=== PATIENT | female | born 1945 | race Caucasian/White ===

== ENCOUNTER 2022-02-16 06:33 | Outpatient (REF) | payer MEDICARE, OTHER, SELFPAY ==
[2022-02-16 11:15] LABS: Hematocrit 41.2 % (37.0-47.0); Hemoglobin 13.7 g/dl (12.0-16.0); Mean Corpuscular HGB Conc 33.3 g/dl (31.0-35.0); Mean Corpuscular Hemoglobin 29.1 pg (27.0-33.0); Mean Corpuscular Volume 87.5 fL (80.0-98.0); Mean Platelet Volume 12.2 fL (9.4-12.3); Platelet Count 185 X10*3/uL (160-400); Red Blood Count 4.71 X10*6/uL (4.20-5.50); Red Cell Distribution Width 13.2 % (11.0-16.0); White Blood Count 6.2 X10*3/uL (4.8-10.8)
[2022-02-16 11:23] LABS: Appearance Urine Turbid; Color Urine Dark Yellow; Glucose Urine UA Negative (Negative); Leukocyte Esterase Urine Small (1+) (Negative); Nitrite Urine Negative (Negative); Urine Blood Negative (Negative); Urine Ketones Negative (Negative); Urine Protein Negative (Neg-Trace)
[2022-02-16 11:24] LABS: Estimated Average Glucose 123 mg/dL; Hemoglobin A1c % 5.9 %
[2022-02-16 11:32] LABS: Alanine Aminotransferase 28 U/L (0-31); Albumin Level 4.2 g/dL (3.5-5.0); Alkaline Phosphatase 77 U/L (39-117); Anion Gap 15 (12-20); Aspartate Amino Transferase 21 U/L (5-31); Bilirubin Total 0.6 mg/dL (0.0-1.0); Blood Urea Nitrogen 17 mg/dL (9-16); Carbon Dioxide 25 mmol/L (22-29); Chloride 104 mmol/L (96-108); Cholesterol 189 mg/dL; Estimated Glomerular Filt Rate > 60; Glucose Fasting 140 mg/dL (60-99); HDL Cholesterol 56 mg/dL; LDL Cholesterol Calculated 115 mg/dl; Potassium 4.5 mmol/L (3.3-5.1); Sodium 139 mmol/L (135-145); Total Protein 6.9 g/dL (6.5-8.0); Triglycerides 92 mg/dL
[2022-02-16 11:44] LABS: Bacteria Urine None Seen (None Seen); Calcium Oxalate Crystals Urine Present; Hyaline Casts Urine 0-2 /LPF (0-2); Squamous Epithelial Cell Urine 0-2 /HPF (0-2); UACC Culture Trigger YES; WBC Urine 0-5 /HPF (0-5)
[2022-02-16 12:09] LABS: TSH reflex Free T4 0.75 uIU/mL (0.32-4.0); Vitamin D 25-OH Total 36.8 ng/mL (>30)
== END 2022-02-16 06:34 | disposition home or self-care (01) ==
LOC: HO.HMGCLDS 06:33
PROVIDERS: PCP Internal Medicine; Visit Provider Internal Medicine
DX: E55.9 Vitamin D deficiency, unspecified (principal); I10 Essential (primary) hypertension; R73.9 Hyperglycemia, unspecified; E03.9 Hypothyroidism, unspecified
CPT/HCPCS: 36415; 80053; 80061; 81001; 82306; 83036; 84443; 85027; 87086

== ENCOUNTER 2022-06-25 10:52 | Outpatient (REF) | payer MEDICARE, OTHER, SELFPAY ==
--- NOTE | ~2022-06-25 | XR_ITS ---
EXAMINATION: XR FOOT, LEFT CLINICAL INFORMATION: Foot pain COMPARISON: None TECHNIQUE: AP, lateral, and oblique views of the left foot. FINDINGS: There is first MTP joint fusion with a solitary screw traversing the joint. Clement mild is deformity first MTP joint is noted. There is mild loss of PIP and DIP joints all digits with likely fusion of PIP joint second digit. No visible fracture, dislocation or subluxation seen. The ankle mortise and subtalar joints are normal. There is a moderate size retrocalcaneal enthesophyte. Soft tissues are normal. XR/XR foot LT min 3V IMPRESSION: 1. Fusion first MTP joint with a solitary screw. There is mild hallux valgus deformity first MTP joint. 2. There is fusion of PIP joint second digit. 3. There is a moderate size retrocalcaneal enthesophyte. 4. Mild degenerative changes PIP and DIP joints. No visible acute fracture or dislocation.
== END 2022-06-25 10:53 | disposition home or self-care (01) ==
LOC: HO.HMGCX 10:52
PROVIDERS: PCP Internal Medicine; Visit Provider Physician Assistant Medical
DX: M79.672 Pain in left foot (principal)
CPT/HCPCS: 73630

== ENCOUNTER 2022-08-25 10:18 | Inpatient (IN) | payer MEDICARE, OTHER, SELFPAY ==
--- NOTE | 2022-08-25 10:20 | ECG_ITS ---
Test Reason : tachycardia Blood Pressure : / mmHG Vent. Rate : 150 BPM Atrial Rate : 000 BPM P-R Int : 000 ms QRS Dur : 080 ms QT Int : 294 ms P-R-T Axes : 000 070 010 degrees QTc Int : 464 ms Atrial fibrillation with rapid ventricular response Abnormal ECG No previous ECGs available Referred By: Generic ED Physician Electronically Signed By:SUHAS KIM
[2022-08-25 10:31] VITALS: BP 140/86; PULSE 168; RESP 17; TEMP 36.8; O2SAT 98; BMI 29.5
[2022-08-25 10:50] LABS: MANUAL DIFF FLAG NO
[2022-08-25] MEDS: dilTIAZem HCL 50 MG/10 ML VIAL 20 MG IVPUSH (10:54)
[2022-08-25] MEDS: Aspirin 81 MG TAB.CHEW 324 MG PO (10:56)
--- NOTE | 2022-08-25 11:04 | ED.ARRPALP ---
HPI - Arrhythmia/Palpitations General Chief Complaint: Arrhythmia/Palpitations Stated Complaint: Tachy sent by Gómez Time Seen by Provider: 08/25/22 10:27 History of Present Illness HPI narrative: Patient is 77 years old presents today with having gone to her primary physician's office. Was noted to have a fast heart rate. An EKG was done. It showed atrial fibrillation heart rate was approximately 140. Patient subsequently was sent down to the emergency department. She has a history of thyroid problems. History of hypertension. She had felt somewhat weak. It did not have any chest pain. No diaphoresis. No leg swelling. No history of alcohol use. Patient is from home. Never had atrial fibrillation in the past. Related Data Home Medications Medication Instructions Recorded Confirmed triamcinolone acetonide 0.1 % 1 appl topical BID-TID 08/16/21 08/25/22 topical cream cholecalciferol (vitamin D3) 50 3,000 mcg PO DAILY 08/25/22 08/25/22 mcg (2,000 unit) capsule Previous Rx's Medication Instructions Recorded amlodipine 5 mg tablet 5 mg PO DAILY #90 tabs 12/06/21 levothyroxine 75 mcg tablet 75 mcg PO DAILY #90 tabs 12/06/21 (Euthyrox) Allergies Allergy/AdvReac Type Severity Reaction Status Date / Time Compazine Allergy Unknown facial Uncoded 08/25/22 10:35 paralysis Review of Systems Review of Systems: No palpitation no chest pain or diaphoresis Patient unsure the time of onset No coughing or congestion or upper respiratory symptoms Yes all other systems are reviewed and are negative PMFSH Past Medical History Attestation statement: The following information was validated with the patient. Medical History HTN (hypertension) Hx of mammogram Hyperglycemia Numerous skin moles Postmenopausal Vitamin D deficiency Surgical History History of bunionectomy Hx of colonoscopy Hx of shoulder surgery Family History Family History Father CAD (coronary artery disease) COPD (chronic obstructive pulmonary disease) Social History Social History Household Members Other:: lives alone, 2 adults Housing: House Alcohol intake: current Alcohol intake frequency: holidays/special occasions only Patient Tobacco Use Status: Never used Tobacco Smoked in Last 30 Days: No e-Cigarette/Vaping Use: Never Used Use of substances other than those prescribed or required for medical reasons: No Advance Directives: No Advance Directives Information Provided: Yes service: No Current occupational status: retired Cognitive needs: No Hearing needs: No Vision needs: No Physical Exam Vital Signs: Vital Signs: Last Vital Signs Temp 98.3 F 08/25/22 10:31 Pulse 168 H 08/25/22 10:31 Resp 17 08/25/22 10:31 BP 140/86 H 08/25/22 10:31 Pulse Ox 98 08/25/22 10:31 O2 Del Method 08/25/22 10:31 BMI result Body Mass Index 29.5 Appearance: Alert. Oriented X3. No acute distress. Eyes: Pupils equal, round and reactive to light. ENT: Pharynx normal. Neck: Normal inspection. Neck supple. No lymph nodes noted. No crepitus CVS: Irregularly irregular tachycardic Respiratory: No respiratory distress. Breath sounds normal. No Wheezing. No rales Abdomen: Soft and nontender. No rigidity. No distention. good BS x4 Skin: Skin warm and dry. Normal skin color. Normal skin turgor. Extremities: No lower extremity edema. Neurovascular intact to all extremities. No Lacerations. No Rash Neuro: Oriented X 3. No motor deficit. No sensory deficit. Moving all extermities. No slurred speech Medications Administered Discontinued Medications Generic Name Dose Route Start Last Admin Trade Name Marah PRN Reason Stop Dose Admin Aspirin 324 mg 08/25/22 10:48 08/25/22 10:56 Aspirin 81 Mg Tab.Chew PO 08/25/22 10:49 324 mg ONCE ONE Administration Diltiazem HCl 20 mg 08/25/22 10:47 08/25/22 10:54 Diltiazem Hcl 50 Mg/10 Ml Vial IVPUSH 08/25/22 10:48 20 mg STAT STA Administration Medical Decision Making Medical Decision Making MDM Narrative: Patient presented today with having atrial fib diagnosis at primary physician office. Heart rate was uncontrolled. Patient is sent down for further evaluation. She denies having any chest pain. No diaphoresis. No history of drinking alcohol. My interpretation of the patient's EKG on arrival showed a heart rate of 150 grossly showed an atrial fibrillation pattern. Patient's QRS QT was normal. There is no acute ST segment elevation noted. Patient has no history of congestive heart failure. Labs were ordered alcohol level ordered TSH ordered. A dose of Cardizem was ordered. Aspirin given. Will monitor patient's heart rate very carefully. Patient placed on the monitor. Noon patient's heart rate is down to approximately 100-120. Patient's electrolytes unremarkable. Old chart was reviewed. A dose of oral Cardizem was given. Patient to be admitted for further evaluation. Aspirin given. Patient's case discussed with the hospitalist team for further monitoring. Differential Diagnosis Differential Diagnoses: The differential diagnosis associated with the presentation includes Atrial fibrillation caused by PR, hyperthyroid, electrolyte abnormality, EtOH Admission/Observation Consideration of admission/observation: Escalation of care including admission/observation considered Consult Healthcare Provider Management of the patient was discussed with: Hospitalist Lab Data MDM Lab Attestation statement: I reviewed the patient's lab results. 08/25/22 10:40 08/25/22 10:40 Labs: Lab Results 08/25/22 08/25/22 08/25/22 Range/Units 10:40 10:40 10:40 WBC 7.0 (4.8-10.8) X10*3/uL RBC 4.73 (4.20-5.50) X10*6/uL Hgb 13.6 (12.0-16.0) g/dl Hct 40.8 (37.0-47.0) % MCV 86.3 (80.0-98.0) fL MCH 28.8 (27.0-33.0) pg MCHC 33.3 (31.0-35.0) g/dl RDW 13.4 (11.0-16.0) % Plt Count 203 (160-400) X10*3/uL MPV 11.7 (9.4-12.3) fL Immature Gran % (Auto) 0.3 (0.0-0.4) % Neut % (Auto) 56.7 (45-73) % Lymph % (Auto) 34.1 (20-40) % Hawkins % (Auto) 7.0 (2-11) % Eos % (Auto) 1.3 (0-4) % Baso % (Auto) 0.6 (0-2) % Lymph # (Auto) 2.4 (1.2-4.9) X10*3/uL Hawkins # (Auto) 0.5 (0.1-1.2) X10*3/uL Eos # (Auto) 0.1 (0.0-0.4) X10*3/uL Baso # (Auto) 0.0 (0.0-0.2) X10*3/uL Abs Immat Gran (auto) 0.02 (0.00-0.03) X10*3/uL Absolute Neuts (auto) 4.0 (2.0-8.3) x10*3/uL Absolute Nucleated RBC 0.000 (0.0-0.012) X10*3/uL Nucleated RBC % (auto) 0.0 (0.0-0.2) /100WBC PT (10.0-13.1) SEC INR (0.9-1.1) Sodium 140 (135-145) mmol/L Potassium 4.2 (3.3-5.1) mmol/L Chloride 106 (96-108) mmol/L Carbon Dioxide 26 (22-29) mmol/L Anion Gap 12 (12-20) BUN 16 (9-16) mg/dL Creatinine 0.79 (0.5-1.4) mg/dL Estim Creat Clear Calc 73.8 Estimated GFR > 60 Random Glucose 129 H (60-115) mg/dL Calcium 8.9 (8.4-10.2) mg/dL Total Bilirubin 1.1 H (0.0-1.0) mg/dL AST 24 (5-31) U/L ALT 22 (0-31) U/L Alkaline Phosphatase 78 (39-117) U/L Troponin I High Sens < 3.5 (<3.5-17.0) ng/L Total Protein 6.9 (6.5-8.0) g/dL Albumin 4.3 (3.5-5.0) g/dL 08/25/22 Range/Units 11:31 WBC (4.8-10.8) X10*3/uL RBC (4.20-5.50) X10*6/uL Hgb (12.0-16.0) g/dl Hct (37.0-47.0) % MCV (80.0-98.0) fL MCH (27.0-33.0) pg MCHC (31.0-35.0) g/dl RDW (11.0-16.0) % Plt Count (160-400) X10*3/uL MPV (9.4-12.3) fL Immature Gran % (Auto) (0.0-0.4) % Neut % (Auto) (45-73) % Lymph % (Auto) (20-40) % Hawkins % (Auto) (2-11) % Eos % (Auto) (0-4) % Baso % (Auto) (0-2) % Lymph # (Auto) (1.2-4.9) X10*3/uL Hawkins # (Auto) (0.1-1.2) X10*3/uL Eos # (Auto) (0.0-0.4) X10*3/uL Baso # (Auto) (0.0-0.2) X10*3/uL Abs Immat Gran (auto) (0.00-0.03) X10*3/uL Absolute Neuts (auto) (2.0-8.3) x10*3/uL Absolute Nucleated RBC (0.0-0.012) X10*3/uL Nucleated RBC % (auto) (0.0-0.2) /100WBC PT 11.5 (10.0-13.1) SEC INR 1.0 (0.9-1.1) Sodium (135-145) mmol/L Potassium (3.3-5.1) mmol/L Chloride (96-108) mmol/L Carbon Dioxide (22-29) mmol/L Anion Gap (12-20) BUN (9-16) mg/dL Creatinine (0.5-1.4) mg/dL Estim Creat Clear Calc Estimated GFR Random Glucose (60-115) mg/dL Calcium (8.4-10.2) mg/dL Total Bilirubin (0.0-1.0) mg/dL AST (5-31) U/L ALT (0-31) U/L Alkaline Phosphatase (39-117) U/L Troponin I High Sens (<3.5-17.0) ng/L Total Protein (6.5-8.0) g/dL Albumin (3.5-5.0) g/dL Independent Interpretation I performed an independent interpretation of an: EKG Interpretation: Atrial fibrillation heart rate is proximally on 150 QRS QT within normal limits there is no acute ST segment elevation noted. Radiology Impression Discussion of test interpretation with radiology: I have reviewed the radiologist's reading. Radiologist Impression: Chest x-ray is grossly negative Independent Historian Clinical information obtained from an independent historian. History obtained from or confirmed by: Friend External Record Review External record reviewed: Outpatient record Chronic Conditions Patient?s care impacted by: Hypertension Critical Care Time Critical Care Time Critical Care Time: Yes Total Critical Care Time: 40 Attestation: I have personally provided 40 minutes of critical care time exclusive of time spent on separately billable procedures. Time includes review of lab data, radiology results, discussion with consultants, and monitoring for potential decompensation. Interventions were performed as documented above Discharge Plan Discharge Clinical Impression: Atrial fibrillation Patient Disposition: Admitted As Inpatient Prescriptions: No Action amlodipine 5 mg tablet 5 mg PO DAILY Qty: 90 3RF levothyroxine [Euthyrox] 75 mcg tablet 75 mcg PO DAILY Qty: 90 3RF triamcinolone acetonide 0.1 % cream 1 appl topical BID-TID cholecalciferol (vitamin D3) 50 mcg (2,000 unit) capsule 3,000 mcg PO DAILY
[2022-08-25 11:06] LABS: Basophils Percent Auto 0.6 % (0-2); Eosinophils Absolute Auto 0.1 X10*3/uL (0.0-0.4); Eosinophils Percent Auto 1.3 % (0-4); Hematocrit 40.8 % (37.0-47.0); Hemoglobin 13.6 g/dl (12.0-16.0); Imm Gran Abs Auto 0.02 X10*3/uL (0.00-0.03); Imm Gran Pct Auto 0.3 % (0.0-0.4); Lymphocytes Absolute Auto 2.4 X10*3/uL (1.2-4.9); Lymphocytes Percent Auto 34.1 % (20-40); Mean Corpuscular HGB Conc 33.3 g/dl (31.0-35.0); Mean Corpuscular Hemoglobin 28.8 pg (27.0-33.0); Mean Corpuscular Volume 86.3 fL (80.0-98.0); Mean Platelet Volume 11.7 fL (9.4-12.3); Monocytes Absolute Auto 0.5 X10*3/uL (0.1-1.2); Neutrophils Percent Auto 56.7 % (45-73); Platelet Count 203 X10*3/uL (160-400); Red Blood Count 4.73 X10*6/uL (4.20-5.50); Red Cell Distribution Width 13.4 % (11.0-16.0)
--- NOTE | 2022-08-25 11:08 | ECG_ITS ---
Test Reason : a fib Blood Pressure : / mmHG Vent. Rate : 107 BPM Atrial Rate : 000 BPM P-R Int : 000 ms QRS Dur : 078 ms QT Int : 298 ms P-R-T Axes : 000 063 037 degrees QTc Int : 397 ms Atrial fibrillation with rapid ventricular response Abnormal ECG When compared with ECG of 25-AUG-2022 10:22, No significant changes seen Referred By: Mimi Steinberg Electronically Signed By:SUHAS KIM
[2022-08-25 11:16] LABS: Alanine Aminotransferase 22 U/L (0-31); Albumin Level 4.3 g/dL (3.5-5.0); Alkaline Phosphatase 78 U/L (39-117); Anion Gap 12 (12-20); Aspartate Amino Transferase 24 U/L (5-31); Bilirubin Total 1.1 mg/dL (0.0-1.0); Blood Urea Nitrogen 16 mg/dL (9-16); Calcium 8.9 mg/dL (8.4-10.2); Carbon Dioxide 26 mmol/L (22-29); Chloride 106 mmol/L (96-108); Creatinine Clr Calc Pharmacy 73.8; Estimated Glomerular Filt Rate > 60; Glucose Random 129 mg/dL (60-115); Potassium 4.2 mmol/L (3.3-5.1); Sodium 140 mmol/L (135-145); Total Protein 6.9 g/dL (6.5-8.0)
[2022-08-25 11:27] LABS: Troponin-I High Sensitivity < 3.5 ng/L (<3.5-17.0)
[2022-08-25 11:38] LABS: Prothrombin Time 11.5 SEC (10.0-13.1)
[2022-08-25 12:34] LABS: Ethanol < 10 mg/dL; Magnesium 1.9 mg/dL (1.6-2.6)
[2022-08-25 12:46] LABS: Thyroid Stimulating Hormone 1.02 uIU/mL (0.32-4.0)
--- NOTE | 2022-08-25 13:01 | PM.IMHP ---
History of Present Illness Date of Service: 08/25/22 Attending physician on admission: Phil Morgan Chief Complaint: New onset AFib Pt is a 77-year-old female with a PMH significant for?HTN and hypothyroidism who presents to the ED in new onset AFib with RVR. Pt was at her normal 6-month checkup when PCP noted her to be tachycardic and likely in AFib. Sent her to the ED for further evaluation. In the ED labs were unremarkable and pt was found to be in AFib with RVR of up to 160s. Given diltiazem 20 mg IV in the ED, but patient's heart rate still in the 140s. Patient started on diltiazem drip. Through all this patient was asymptomatic. Denies chest pain/pressure, palpitations. No lightheadedness or dizziness, fatigue. Denies shortness of breath. No fever, chills, nausea, vomiting, abdominal pain. Denies swelling in her legs. Patient states she has recently been in her normal state of health. Patient also denies ever knowingly being in AFib before. Pt will be admitted to the hospital on telemetry for treatment and further evaluation of new onset AFib with RVR. Review of Systems Review of Systems: Denies chest pain/pressure, palpitations No lightheadedness or dizziness, fatigue Denies shortness of breath No fever, chills, nausea, vomiting, abdominal pain Denies swelling in her legs Yes all other systems are reviewed and are negative [facility] Medical History HTN (hypertension) Hx of mammogram Hyperglycemia Numerous skin moles Postmenopausal Vitamin D deficiency Family History Father CAD (coronary artery disease) COPD (chronic obstructive pulmonary disease) Surgical History History of bunionectomy Hx of colonoscopy Hx of shoulder surgery Social History Household Members Other:: lives alone, 2 adults Housing: House Alcohol intake: current Alcohol intake frequency: holidays/special occasions only Patient Tobacco Use Status: Never used Tobacco Smoked in Last 30 Days: No e-Cigarette/Vaping Use: Never Used Use of substances other than those prescribed or required for medical reasons: No Advance Directives: No Advance Directives Information Provided: Yes Nutrition Risks: No Nutritional Risk service: No Current occupational status: retired Cognitive needs: No Hearing needs: No Vision needs: No Meds Allergies Allergy/AdvReac Type Severity Reaction Status Date / Time Compazine Allergy Unknown facial Uncoded 08/25/22 10:35 paralysis Home Medications Medication Instructions Recorded Confirmed Last Taken Type triamcinolone acetonide 0.1 % 1 appl topical BID-TID 08/16/21 08/25/22 08/25/22 History topical cream cholecalciferol (vitamin D3) 50 3,000 mcg PO DAILY 08/25/22 08/25/22 08/25/22 History mcg (2,000 unit) capsule Physical Exam Vital Signs and Narrative: Vital Signs: Last Vital Signs Temp 98.3 F 08/25/22 10:31 Pulse 168 H 08/25/22 10:31 Resp 17 08/25/22 10:31 BP 140/86 H 08/25/22 10:31 Pulse Ox 98 08/25/22 10:31 O2 Del Method 08/25/22 10:31 BMI result Body Mass Index 29.5 Constitutional: Alert, in no acute distress. Mental Status: Oriented to person, place and time. Eyes: Pupils are equal, round, and reactive to light. Ear, Nose, and Throat: Oropharynx clear, mucous membranes moist. Ears and nose without deformities. Trachea midline. Respiratory: Clear to auscultation bilaterally. No wheezing, rales, or rhonchi. Cardiovascular: Irregularly irregular rhythm, tachycardic. No murmurs, rubs, or gallops. Gastrointestinal: Abdomen soft, non-tender, non-distended. Normal bowel sounds. Neurologic: Cranial nerves II-XII are grossly intact bilaterally. No focal neurological deficits. Moves all extremities spontaneously. Skin: No rashes or lesions noted. Musculoskeletal: No cyanosis or clubbing. Extremities: No edema. Psychiatric: Normal mood and affect. Results Labs 08/25/22 10:40 08/25/22 10:40 Labs: Laboratory Results - last 24 hr 08/25/22 08/25/22 08/25/22 10:40 10:40 10:40 MCV 86.3 MCH 28.8 MCHC 33.3 RDW 13.4 Plt Count 203 MPV 11.7 Immature Gran % (Auto) 0.3 Neut % (Auto) 56.7 Lymph % (Auto) 34.1 [place] % (Auto) 7.0 Eos % (Auto) 1.3 Baso % (Auto) 0.6 Lymph # (Auto) 2.4 [place] # (Auto) 0.5 Eos # (Auto) 0.1 Baso # (Auto) 0.0 Abs Immat Gran (auto) 0.02 Absolute Neuts (auto) 4.0 Absolute Nucleated RBC 0.000 Nucleated RBC % (auto) 0.0 PT INR Anion Gap 12 Estim Creat Clear Calc 73.8 Estimated GFR > 60 Random Glucose 129 H Calcium 8.9 Magnesium 1.9 Total Bilirubin 1.1 H AST 24 ALT 22 Alkaline Phosphatase 78 Troponin I High Sens < 3.5 Total Protein 6.9 Albumin 4.3 TSH 1.02 Ethyl Alcohol < 10 08/25/22 11:31 MCV MCH MCHC RDW Plt Count MPV Immature Gran % (Auto) Neut % (Auto) Lymph % (Auto) [place] % (Auto) Eos % (Auto) Baso % (Auto) Lymph # (Auto) [place] # (Auto) Eos # (Auto) Baso # (Auto) Abs Immat Gran (auto) Absolute Neuts (auto) Absolute Nucleated RBC Nucleated RBC % (auto) PT 11.5 INR 1.0 Anion Gap Estim Creat Clear Calc Estimated GFR Random Glucose Calcium Magnesium Total Bilirubin AST ALT Alkaline Phosphatase Troponin I High Sens Total Protein Albumin TSH Ethyl Alcohol Assessment and Plan (1) Atrial fibrillation with RVR: Status: Acute Plan Pt is a 77-year-old female with a PMH significant for?HTN and hypothyroidism who presents to the ED in new onset AFib with RVR. Pt was at her normal 6-month checkup when PCP noted her to be tachycardic and likely in AFib. Sent her to the ED for further evaluation. Pt will be admitted to the hospital on telemetry for treatment and further evaluation of new onset AFib with RVR. New onset AFib with RVR Patient found to be in AFib today with rate up to 160s Patient asymptomatic Patient given diltiazem 20 mg IV in ED, rate still in 140s Diltiazem drip Start Eliquis 5mg po bid Echocardiogram Cardiology consult HTN Continue amlodipine Hypothyroidism Continue levothyroxine Full Code Attending:?Dr. Morgan DVT Prophylaxis: Jordanachrisbrice Pt will require a hospitalization of at least two nights for treatment of?new-onset AFib with RVR. Time Spent With Patient Time: Total time managing care of this patient today ____ minutes. Quality Stroke Does the patient have a stroke diagnosis?: No VTE Prior VTE?: No VTE Risk Level:: Medical - moderate - high VTE Device Contraindication: Treatment Not Indicated VTE Drug Contraindication: N/A - Med Ordered
[2022-08-25] MEDS: dilTIAZem HCL 125 MG in 0.9 % Sodium Chloride 100 ML 10 MG IVCONT (13:14)
[2022-08-25] MEDS: Apixaban 5 MG TABLET PO ×2 (13:14→19:49)
--- NOTE | 2022-08-25 13:18 | PHA.MEDREC ---
Pharmacy Consult ? Medication Reconciliation Pharmacy has completed the medication reconciliation. Reviewed med rec done by nursing
[2022-08-25 13:19] VITALS: BP 106/67; PULSE 135; RESP 14; O2SAT 98
[2022-08-25 13:51] LABS: IDNOW Serial# 55D5AD1C
[2022-08-25 13:52] LABS: COVID-19 Test Negative (Negative)
[2022-08-25 15:39] VITALS: BP 121/65; PULSE 90; RESP 20; O2SAT 98
[2022-08-25 16:00] VITALS: BP 131/68; PULSE 102; RESP 18; TEMP 36.6; O2SAT 99
[2022-08-25 16:14] VITALS: BMI 30.5
--- NOTE | 2022-08-25 18:35 | PC.NURSE ---
per protocol, pt HR was 70s-80s. Cardizem gtt paused.
[2022-08-25 19:36] VITALS: BP 117/65; PULSE 80; RESP 17; TEMP 36.6; O2SAT 98
[2022-08-25] MEDS: 0.9 % Sodium Chloride Flush 3 ML SYRINGE IVFLUSH (19:50)
[2022-08-25 23:39] VITALS: BP 120/71; PULSE 94; RESP 18; TEMP 37.2; O2SAT 97
[2022-08-26 04:00] VITALS: BP 119/64; PULSE 104; RESP 18; TEMP 36.9; O2SAT 96
[2022-08-26] MEDS: Levothyroxine Sodium 75 MCG TABLET PO (05:39)
--- NOTE | 2022-08-26 07:00 | CA_ITS ---
Transthoracic Echocardiogram Patient (Last, First, Middle): Charla Gregorio B Gender: Female Date of : 1945 Age: 77 Procedure Date: 08/26/2022 Procedure Type: Transthoracic Echocardiogram Location: [facility] [place] Height: 175.26 cm Weight: 90.72 kg BSA: 2.07 m2 Heart Rate: bpm BP: 119 / 64 mmHg Card Player: TONY Referring MD: Agus SCOTT Symptoms: New onset AFib with RVR Study Quality: Fair/Contrast ECG Rhythm: Atrial Fibrillation with rapid rate Conclusions: - The left ventricular systolic function is normal. The visually estimated ejection fraction is between 55-60%. - There is mild calcification of the aortic valve. - There is mild mitral annular calcification. There is mild mitral valve regurgitation. - There is mild tricuspid valve regurgitation. Findings Procedure Information Contrast agent, definity, is being given per protocol without apparent complications. Left Ventricle Normal left ventricular cavity size. The left ventricular systolic function is normal. The visually estimated ejection fraction is between 55-60%. There is no evidence of regional wall motion abnormalities. Diastolic function is indeterminate on the basis of available data. There is mild septal asymmetric hypertrophy. Right Ventricle Normal right ventricular cavity size. There is normal right ventricular systolic function. Atria Both atria are normal in size. Aortic Valve There is mild calcification of the aortic valve. There is no aortic valve stenosis. There is no aortic valve regurgitation. Mitral Valve There is mild mitral annular calcification. There is mild mitral valve regurgitation. There is no mitral valve stenosis. Pulmonic Valve The pulmonic valve is likely normal. Tricuspid Valve Normal tricuspid valve structure. There is mild tricuspid valve regurgitation. There is no evidence of pulmonary hypertension. Great Vessels The asc aorta is normal in size. Venous The inferior vena cava is normal in size and collapses greater than 50% with inspiration. Pericardium/Pleural There is no evidence of pericardial effusion. Prior Study Comparison No prior study available for comparison. Measurements 2D Linear Measurements IVSd: 1.27 0.6-0.9/0.6-1.0 cm LVIDd: 4.15 3.9-5.3/4.2-5.9 cm LVIDd Index: 2.00 2.4-3.2/2.2-3.1 cm/m2 LVIDs: 2.68 2.0-3.6 cm LVPWd: 1.01 0.7-1.1 cm LA Diam: 3.50 2.7-3.8/3.0-4.0 cm LAIDs Index: 1.69 1.5-2.3 cm/m2 LV Mass: 202.15 67-162/88-224 g LV Mass Index: 97.66 43-95/49-115 g/m2 LVOT Diam: 1.90 3.0+(-)1.3 cm 2D Systolic Function EF 4C: 47.90 >55% EF 2C: 45.40 >55% Mitral Valve MV Pk E: 1.39 MV Decel Time: 165.00 E'Lateral: 12.00 E'Medial: 8.16 E/E' Med: 17.00 E/E' Lat: 11.60 PHT: 48.00 MVA PHT: 4.58 Decel Pender: 8.42 Aortic Valve AoV Pk Hayden: 1.15 AoV Mn Hayden: 0.86 AoV VTI: 0.19 AoV Pk Grad: 5.00 Aov Mn Grad: 3.00 PEYMAN Cont.VTI: 2.69 LVOT LVOT Pk Hayden: 1.01 LVOT Mn Hayden: 0.70 LVOT VTI: 0.18 LVOT Pk Grad: 4.00 LVOT Mn Grad: 2.00 LVOT Diam: 1.90 LVOT Area: 2.84 Diastolic Function MV Pk E: 1.39 E'Medial: 8.16 E/E' Med: 17.00 E' Laterial: 12.00 E/E' Lat: 11.60 Right Ventricle TAPSE (mm): 21.70 TVS' Hayden: 13.60 Tricuspid Valve TR Pk Hayden: 2.34 TR Pk Grad: 22.00 RA Press: 3.00 RVSP: 25.00 Great Vessels Aorta Sinus of Valsalva: 3.20 2.0-3.5 cm Ao Asc: 3.00 2.1-3.4 cm Updated in Other Vendor System with Status of Final Roger Guadarrama MD electronically signed on 08/26/2022 2:14:10 PM with status of Final
[2022-08-26 07:52] VITALS: BP 129/81; PULSE 101; RESP 18; TEMP 36.3; O2SAT 98
[2022-08-26] MEDS: amLODIPine Besylate 5 MG TABLET PO (09:20)
[2022-08-26] MEDS: 0.9 % Sodium Chloride Flush 3 ML SYRINGE IVFLUSH ×3 (09:20→21:53)
[2022-08-26] MEDS: Apixaban 5 MG TABLET PO ×2 (09:20→21:52)
--- NOTE | 2022-08-26 09:49 | MHC.CM.PN ---
IMM FEMALE 77 DX AFIB RVR She lives alone in a [facility]. She is independent with ADLs. No AD needed. VAXXED X5 DP home self care family transport.
--- NOTE | 2022-08-26 10:35 | P.CONCA_ITS ---
History of Present Illness History of Present Illness Date of Service: 08/26/22 Chief complaint: New onset Afib with RVR Narrative: This is a cardiology consultation regarding atrial fibrillation. Patient does not have any known cardiac issues. No history of any coronary artery disease or myocardial infarction or cardiomyopathy or in fact any other cardiac issues at all. It seems that she had a regular EKG through her own PCP and that showed atrial fibrillation rapid rate. Then sent to the ER and admitted. She did get Cardizem drip but currently off. She has not had any symptoms like angina or shortness of breath or palpitations or generalized weakness or anything of concern. Otherwise, fairly healthy according to her. Review of Systems Review of Systems: Yes all other systems are reviewed and are negative Constitutional: Constitutional: Reports as per HPI and Reports no additional constitutional complaints Eyes: Eyes: Reports as per HPI and Denies no additional eye complaints ENT: Denies system reviewed and no additional complaints, except as documented and Reports as per HPI Cardiovascular: Cardiovascular: Reports as per HPI, Reports no additional cardiovascular complaints, Denies acrocyanosis, Denies cool extremities, Denies chest pain, Denies leg edema, Denies lightheadedness, Denies palpitations and Denies dyspnea Respiratory: Respiratory: Reports as per HPI, Denies no additional respiratory complaints and Denies dyspnea Gastrointestinal: Gastrointestinal: Reports as per HPI and Denies no additional gastrointestinal complaints Genitourinary: Genitourinary: Reports as per HPI Musculoskeletal: Musculoskeletal: Reports no additional musculoskeletal complaints and Reports as per HPI Integumentary/Breasts: Skin/Breast: Reports system reviewed and no additional complaints, except as docu Neurologic: Reports system reviewed and no additional complaints, except as documented and Reports as per HPI Psychiatric: Psychiatric: Reports no additional psychiatric complaints and Reports as per HPI Endocrine: Endocrine: Reports no additional endocrine complaints, Reports as per HPI and Denies palpitations Hematologic/Lymphatic: Hematologic/Lymphatic: Reports no additional hematologic/lymphatic complaints and Reports as per HPI Allergic/Immunologic: Allergic/Immunologic: Reports no additional allergic/immunologic complaints and Reports as per HPI [facility] Past Medical History Medical History HTN (hypertension) Hx of mammogram Hyperglycemia Numerous skin moles Postmenopausal Vitamin D deficiency Family History Family History Father CAD (coronary artery disease) COPD (chronic obstructive pulmonary disease) Surgical History Surgical History History of bunionectomy Hx of colonoscopy Hx of shoulder surgery Social History Social History Household Members: None Household Members Other:: lives alone, 2 adults Housing: House Do you presently have visiting nurse or other home services: No Alcohol intake: current Alcohol intake frequency: holidays/special occasions only Patient Tobacco Use Status: Never used Tobacco e-Cigarette/Vaping Use: Never Used service: No Current occupational status: retired Cognitive needs: No Hearing needs: No Vision needs: No Meds Allergies Allergy/AdvReac Type Severity Reaction Status Date / Time Compazine Allergy Unknown facial Uncoded 08/25/22 10:35 paralysis Active Medications: Current Medications Acetaminophen (Acetaminophen 325 Mg Tablet) 650 mg PO Q6H PRN PRN Reason: Pain, Mild (Pain Scale 1-3) Apixaban (Apixaban 5 Mg Tablet) 5 mg PO BID [facility] Last Admin: 08/26/22 09:20 Dose: 5 mg Digoxin (Digoxin 0.5 Mg/2 Ml Ampul) 0.25 mg IVPUSH Q6H CINDI Stop: 08/26/22 16:01 Docusate Sodium (Docusate Sodium 100 Mg Capsule) 100 mg PO DAILY PRN PRN Reason: Constipation Diltiazem HCl 125 mg/ Sodium (Chloride) 125 mls @ 0 mls/hr IVCONT .Q0M [facility]; Protocol Last Titration: 08/25/22 18:32 Dose: 0 mg/hr, 0 mls/hr Levothyroxine Sodium (Levothyroxine Sodium 75 Mcg Tablet) 75 mcg PO DAILY@0600 [facility] Last Admin: 08/26/22 05:39 Dose: 75 mcg Metoprolol Tartrate (Metoprolol Tartrate 50 Mg Tablet) 50 mg PO Q6H [facility]; Protocol Ondansetron HCl (Ondansetron Hcl 4 Mg/2 Ml Vial) 4 mg IVPUSH Q8H PRN PRN Reason: Nausea and Vomiting Sodium Chloride (0.9 % Sodium Chloride Flush 3 Ml Syringe) 3 ml IVFLUSH QSHIFT [facility] Last Admin: 08/26/22 09:20 Dose: 3 ml Vitamin D (Cholecalciferol (Vitamin D3) 25 Mcg Tablet) 3,000 mcg PO DAILY CINDI Last Admin: 08/26/22 10:26 Dose: Not Given Home Medications Medication Instructions Recorded Confirmed Last Taken Type triamcinolone acetonide 0.1 % 1 appl topical BID-TID 08/16/21 08/25/22 08/25/22 History topical cream cholecalciferol (vitamin D3) 50 3,000 mcg PO DAILY 08/25/22 08/25/22 08/25/22 History mcg (2,000 unit) capsule Physical Exam Vital Signs: Vital Signs: Last Vital Signs Temp 97.3 F 08/26/22 07:52 Pulse 101 H 08/26/22 07:52 Resp 18 08/26/22 07:52 BP 129/81 08/26/22 07:52 Pulse Ox 98 08/26/22 07:52 O2 Del Method 08/26/22 07:52 BMI result Body Mass Index 30.5 Objective Labs and Meds 08/25/22 10:40 08/25/22 10:40 Lab results: Laboratory Results - last 24 hr 08/25/22 08/25/22 08/25/22 10:40 10:40 10:40 WBC 7.0 RBC 4.73 Hgb 13.6 Hct 40.8 MCV 86.3 MCH 28.8 MCHC 33.3 RDW 13.4 Plt Count 203 MPV 11.7 Immature Gran % (Auto) 0.3 Neut % (Auto) 56.7 Lymph % (Auto) 34.1 [place] % (Auto) 7.0 Eos % (Auto) 1.3 Baso % (Auto) 0.6 Lymph # (Auto) 2.4 [place] # (Auto) 0.5 Eos # (Auto) 0.1 Baso # (Auto) 0.0 Abs Immat Gran (auto) 0.02 Absolute Neuts (auto) 4.0 Absolute Nucleated RBC 0.000 Nucleated RBC % (auto) 0.0 PT INR Sodium 140 Potassium 4.2 Chloride 106 Carbon Dioxide 26 Anion Gap 12 BUN 16 Creatinine 0.79 Estim Creat Clear Calc 73.8 Estimated GFR > 60 Random Glucose 129 H Calcium 8.9 Magnesium 1.9 Total Bilirubin 1.1 H AST 24 ALT 22 Alkaline Phosphatase 78 Troponin I High Sens < 3.5 Total Protein 6.9 Albumin 4.3 TSH 1.02 Ethyl Alcohol < 10 COVID-19 (DERICK) COVID-19 Clin Com 08/25/22 08/25/22 11:31 13:13 WBC RBC Hgb Hct MCV MCH MCHC RDW Plt Count MPV Immature Gran % (Auto) Neut % (Auto) Lymph % (Auto) [place] % (Auto) Eos % (Auto) Baso % (Auto) Lymph # (Auto) [place] # (Auto) Eos # (Auto) Baso # (Auto) Abs Immat Gran (auto) Absolute Neuts (auto) Absolute Nucleated RBC Nucleated RBC % (auto) PT 11.5 INR 1.0 Sodium Potassium Chloride Carbon Dioxide Anion Gap BUN Creatinine Estim Creat Clear Calc Estimated GFR Random Glucose Calcium Magnesium Total Bilirubin AST ALT Alkaline Phosphatase Troponin I High Sens Total Protein Albumin TSH Ethyl Alcohol COVID-19 (DERICK) Negative COVID-19 Clin Com See Note ECG Interpretation: EKG shows atrial fibrillation with rate of 107/Min. Assessment and Plan (1) Atrial fibrillation with RVR: Status: Acute Plan On telemetry, she is in atrial fibrillation rapid rate. Discussed with patient as well as family regarding atrial fibrillation and pathophysiology, treatment options among others. We discussed about rate control as well as rhythm control. With her lifestyle, recommend rather rhythm control. We also discussed about PIPE /cardioversion as opposed to just cardioversion after 4 weeks of anticoagulation. We agreed that today we will try to optimize her medications and see if it can be controlled. If that is the case, then cardioversion in 4 weeks after adequately anticoagulated. If rate cannot be controlled on oral medications, then possibly PIPE/cardioversion tomorrow. Stop diltiazem drip. Start metoprolol 50 mg 4 times a day. Start digoxin loadi ng. Continue Eliquis. Stop amlodipine. Discussed with Dr. Morgan. Time Spent With Patient Time: Total time managing care of this patient today ____ minutes. Procedures Date of Service Date of Service: 08/26/22
[2022-08-26] MEDS: Digoxin 0.5 MG/2 ML AMPUL 0.25 MG IVPUSH ×3 (10:51→21:53)
[2022-08-26] MEDS: Metoprolol Tartrate 50 MG TABLET PO ×3 (10:51→21:52)
[2022-08-26 11:37] VITALS: BP 140/79; PULSE 101; RESP 18; TEMP 36.4; O2SAT 95
--- NOTE | 2022-08-26 13:41 | P.PNIM_ITS ---
Subjective Subjective Date of Service: 08/26/22 Interval History: Intermittent sinus rhythm overnight this a.m. back in AFib Review of Systems Denies chest pain Denies shortness of breath Denies nausea diarrhea Denies fever chills Physical Exam Vital Signs: Vital Signs: Last Vital Signs Temp 97.5 F 08/26/22 11:37 Pulse 101 H 08/26/22 11:37 Resp 18 08/26/22 11:37 BP 140/79 H 08/26/22 11:37 Pulse Ox 95 08/26/22 11:37 O2 Del Method 08/26/22 11:37 BMI result Body Mass Index 30.5 Const: Other: No acute distress Resp: Other: Clear to auscultation bilaterally no rales rhonchi or wheezes Cardio: Other: Irregularly irregular No S4; positive S1-S2; no S3 murmurs rubs or gallops Extrem: Other: No edema bilaterally Objective Data Active Medications Acetaminophen (Acetaminophen 325 Mg Tablet) 650 mg PO Q6H PRN PRN Reason: Pain, Mild (Pain Scale 1-3) Apixaban (Apixaban 5 Mg Tablet) 5 mg PO BID [facility] Last Admin: 08/26/22 09:20 Dose: 5 mg Documented By: LIVAN Digoxin (Digoxin 0.5 Mg/2 Ml Ampul) 0.25 mg IVPUSH Q6H [facility] Stop: 08/26/22 16:01 Last Admin: 08/26/22 10:51 Dose: 0.25 mg Documented By: LIVAN Docusate Sodium (Docusate Sodium 100 Mg Capsule) 100 mg PO DAILY PRN PRN Reason: Constipation Diltiazem HCl 125 mg/ Sodium (Chloride) 125 mls @ 0 mls/hr IVCONT .Q0M [facility]; Protocol Last Titration: 08/25/22 18:32 Dose: 0 mg/hr, 0 mls/hr Documented By: RODRIGUEZ Levothyroxine Sodium (Levothyroxine Sodium 75 Mcg Tablet) 75 mcg PO DAILY@0600 [facility] Last Admin: 08/26/22 05:39 Dose: 75 mcg Documented By: ZOFIA Metoprolol Tartrate (Metoprolol Tartrate 50 Mg Tablet) 50 mg PO Q6H [facility]; Protocol Last Admin: 08/26/22 10:51 Dose: 50 mg Documented By: LIVAN Ondansetron HCl (Ondansetron Hcl 4 Mg/2 Ml Vial) 4 mg IVPUSH Q8H PRN PRN Reason: Nausea and Vomiting Sodium Chloride (0.9 % Sodium Chloride Flush 3 Ml Syringe) 3 ml IVFLUSH QSHIFT [facility] Last Admin: 08/26/22 09:20 Dose: 3 ml Documented By: LIVAN Vitamin D (Cholecalciferol (Vitamin D3) 25 Mcg Tablet) 3,000 mcg PO DAILY [facility] Last Admin: 08/26/22 10:26 Dose: Not Given Documented By: LIVAN Non-Admin Reason: Med Not Available Labs 08/25/22 10:40 08/25/22 10:40 Labs: Laboratory Results - last 24 hr 08/25/22 13:13 COVID-19 ([facility]ICK) Negative COVID-19 Clin Com See Note Assessment and Plan (1) Atrial fibrillation with RVR: Status: Acute (2) HTN (hypertension): Status: Acute (3) Hypothyroidism: Status: Acute Plan Pt is a 77-year-old female with a PMH significant for?HTN and hypothyroidism who presents to the ED in new onset AFib with RVR. Pt was at her normal 6-month checkup when PCP noted her to be tachycardic and likely in AFib. Sent her to the ED for further evaluation. Pt will be admitted to the hospital on telemetry for treatment and further evaluation of new onset AFib with RVR. 1.New onset AFib with RVR -as per Cardiology DC Cardizem drip -digital load; 0.25 mg IV q.6 hours x4 doses -Eliquis 5mg po bid -if no response likely PIPE and cardioversion in a.m. -will keep NPO 2.HTN -DC amlodipine -metoprolol 50 mg q.6 3.Hypothyroidism - levothyroxine Full Code Eliquis Or require ongoing hospitalization for rate control with new onset AFib; may need cardioversion Time Spent With Patient Time: Total time managing care of this patient today ____ minutes. Quality Stroke Does the patient have a stroke diagnosis?: No VTE Prior VTE?: No VTE Risk Level:: Medical - moderate - high VTE Device Contraindication: Treatment Not Indicated VTE Drug Contraindication: N/A - Med Ordered
[2022-08-26 15:02] VITALS: BP 131/88; PULSE 92; RESP 17; TEMP 36.3; O2SAT 94
[2022-08-26 19:40] VITALS: BP 145/70; PULSE 69; RESP 17; TEMP 36.3; O2SAT 98
--- NOTE | 2022-08-26 20:56 | PC.NURSE ---
Assumed care at 16:00; patient alert and oriented, has some questions about plan of care, clarified by reaching out to Dr. Guadarrama, questions pertained to her potential cardioversion tomorrow. She understood the PIPE, but was unsure about the cardioversion. Discussed with MD and plan to give the eliquis tonight, give the other ordered medications and keep NPO after midnight, and customer solutions teammate will come in to explain plan again to patient in AM. Patient in agreement. Patient also appears to have some T-wave elevation in lead II on telemetry that does not seem present in EKGs, patient had milder t-wave elevation earlier in the day. Patient is asymptomatic, denies chest pain or SOB, and Night nurse following up about T-wave elevation.
[2022-08-27] VITALS: BP 136/66; PULSE 69; RESP 18; TEMP 36.6; O2SAT 96
[2022-08-27 04:00] VITALS: BP 130/66; PULSE 85; RESP 20; TEMP 36.6; O2SAT 96
[2022-08-27] MEDS: Levothyroxine Sodium 75 MCG TABLET PO (05:26)
[2022-08-27] MEDS: Metoprolol Tartrate 50 MG TABLET PO (05:26)
[2022-08-27] MEDS: Digoxin 0.5 MG/2 ML AMPUL 0.25 MG IVPUSH (05:27)
[2022-08-27 07:07] VITALS: BP 132/70; PULSE 79; RESP 20; TEMP 35.9; O2SAT 96
--- NOTE | 2022-08-27 08:50 | PM.PNCARD ---
Subjective Subjective Date of Service: 08/27/22 Interval history: Feels fine. No complaints. Review of Systems Review of Systems Yes all other systems are reviewed and are negative Constitutional: Reports as per HPI and Reports no additional constitutional complaints Eyes: Reports as per HPI and Denies no additional eye complaints Denies system reviewed and no additional complaints, except as documented and Reports as per HPI Cardiovascular: Reports as per HPI, Reports no additional cardiovascular complaints, Denies acrocyanosis, Denies cool extremities, Denies chest pain, Denies leg edema, Denies lightheadedness, Denies palpitations and Denies dyspnea Respiratory: Reports as per HPI, Denies no additional respiratory complaints and Denies dyspnea Gastrointestinal: Reports as per HPI and Denies no additional gastrointestinal complaints Genitourinary: Reports as per HPI Musculoskeletal: Reports no additional musculoskeletal complaints and Reports as per HPI Skin/Breast: Reports system reviewed and no additional complaints, except as docu Reports system reviewed and no additional complaints, except as documented and Reports as per HPI Psychiatric: Reports no additional psychiatric complaints and Reports as per HPI Endocrine: Reports no additional endocrine complaints, Reports as per HPI and Denies palpitations Hematologic/Lymphatic: Reports no additional hematologic/lymphatic complaints and Reports as per HPI Allergic/Immunologic: Reports no additional allergic/immunologic complaints and Reports as per HPI Physical Exam Vital Signs: Last Vital Signs Temp 96.6 F L 08/27/22 07:07 Pulse 79 08/27/22 07:07 Resp 20 08/27/22 07:07 BP 132/70 08/27/22 07:07 Pulse Ox 96 08/27/22 07:07 O2 Del Method 08/27/22 07:07 BMI result Body Mass Index 30.5 Const General: comfortable and no acute distress Orientation/consciousness: patient oriented x3 HEENT Other: Unremarkable Head: Yes normal to inspection Neck Neck: Yes normal visual inspection Chest Chest palpation & inspection: normal inspection of the chest Resp Auscultation: clear to auscultation bilaterally Cardio Palpation: normal PMI Heart sounds: S1 normal heart sound present, S2 normal heart sound present, no gallops, no murmurs and no rubs GI Palpation (GI): Soft to palpation Back/Spine/Pelvis Other: unremarkable Skin General skin exam: no rashes or lesions noted Neuro General: patient oriented x3 Extrem General: Yes normal to inspection Psych Mental Status: mental status grossly normal Objective Labs and Meds 08/25/22 10:40 08/25/22 10:40 Progress Note: A&P Assessment and plan (1) Atrial fibrillation with RVR: Status: Acute (2) HTN (hypertension): Status: Acute Plan Atrial fibrillation seems much better control. Rates are in the 80s and 90s even with ambulation. No high rates. Change metoprolol to 100 mg b.i.d.. Continue digoxin. Continue Eliquis. Stop amlodipine. No need for urgent PIPE/cardioversion as she has no symptoms and also has well controlled rate. Explained rationale for care with patient and she agrees. Discharge planning. Will follow-up as an outpatient after 4 weeks of therapeutic anticoagulation, can plan cardioversion. Patient agrees with this plan. Discussed with Dr. Carrillo. Time Spent With Patient Time: Total time managing care of this patient today 45 minutes. Progress Note: Quality Stroke Does the patient have a stroke diagnosis?: No Procedures Date of Service Date of Service: 08/27/22
[2022-08-27] MEDS: Metoprolol Tartrate 100 MG TABLET PO (09:23)
[2022-08-27] MEDS: Digoxin 0.125 MG TABLET PO (09:24)
[2022-08-27] MEDS: Apixaban 5 MG TABLET PO (09:24)
[2022-08-27] MEDS: Cholecalciferol (Vitamin D3) 25 MCG TABLET 75 MCG PO (09:24)
[2022-08-27] MEDS: 0.9 % Sodium Chloride Flush 3 ML SYRINGE IVFLUSH (09:25)
--- NOTE | 2022-08-27 10:56 | PM.DS ---
DS: Providers Provider Date of Service: 08/27/22 Date of admission: 08/25/22 13:08 Date of discharge: 08/27/22 Primary care physician: Allyson Magaña MD Consults: 08/25/22 12:56 Consult to Cardiology Routine Consulting Provider: [facility] Reason for consultation: New onset AFib with RVR DS: Diagnosis Discharge Diagnosis (1) Atrial fibrillation with RVR: Status: Acute (2) HTN (hypertension): Status: Acute DS: Summary Hospital Course Hospital Course: from admission history and physical by hospitalist Agus Shoemaker, 08/25/22: Pt is a 77-year-old female with a PMH significant for?HTN and hypothyroidism who presents to the ED in new onset AFib with RVR. Pt was at her normal 6-month checkup when PCP noted her to be tachycardic and likely in AFib. Sent her to the ED for further evaluation. In the ED labs were unremarkable and pt was found to be in AFib with RVR of up to 160s. Given diltiazem 20 mg IV in the ED, but patient's heart rate still in the 140s.? Patient started on diltiazem drip.? Through all this patient was asymptomatic.? Denies chest pain/pressure, palpitations.? No lightheadedness or dizziness, fatigue.? Denies shortness of breath.? No fever, chills, nausea, vomiting, abdominal pain.? Denies swelling in her legs.? Patient states she has recently been in her normal state of health.? Patient also denies ever knowingly being in AFib before. Pt will be admitted to the hospital on telemetry for treatment and further evaluation of new onset AFib with RVR. She was [facility] [place] [facility] and [place]iology was consulted. She was weaned off of the diltiazem drip. She was started on metoprolol and digoxin, as well as apixaban for anticoagulation. TTE demonstrated no structural heart disease. She was discharged on metoprolol, digoxin, and apixaban and will follow-up with Cardiology, with consideration of cardioversion after 4 weeks of anticoagulation. Amlodipine was discontinued. Time Spent with Patient Time attestation: Total time managing care of this patient today ___35_ minutes. Discharge coordination time: Greater than 30 minutes Quality: Safe Use of Opioids Does Pt have an Active Cancer Diagnosis on the Problem List?: No Quality: Stroke Does the patient have a stroke diagnosis?: No Physical Exam Vital Signs: Vital Signs: Last Vital Signs Temp 96.6 F L 08/27/22 07:07 Pulse 79 08/27/22 07:07 Resp 20 08/27/22 07:07 BP 132/70 08/27/22 07:07 Pulse Ox 96 08/27/22 07:07 O2 Del Method 08/27/22 07:07 BMI result Body Mass Index 30.5 Gen: in no acute distress HEENT: sclera anicteric, moist mucus membranes Neck: supple Lungs: clear to auscultation bilaterally Heart: irregularly irregular, no murmurs Abd: soft, non-tender, non-distended Ext: no edema Skin: warm/well-perfused Neuro: alert and oriented x3, no focal findings Psych: appropriate affect DS: Data Data Completed and Pending Completed studies during hospitalization [Text1]: Laboratory Results WBC 7.0 X10*3/uL (4.8-10.8) 08/25/22 10:40 RBC 4.73 X10*6/uL (4.20-5.50) 08/25/22 10:40 Hgb 13.6 g/dl (12.0-16.0) 08/25/22 10:40 Hct 40.8 % (37.0-47.0) 08/25/22 10:40 MCV 86.3 fL (80.0-98.0) 08/25/22 10:40 MCH 28.8 pg (27.0-33.0) 08/25/22 10:40 MCHC 33.3 g/dl (31.0-35.0) 08/25/22 10:40 RDW 13.4 % (11.0-16.0) 08/25/22 10:40 Plt Count 203 X10*3/uL (160-400) 08/25/22 10:40 MPV 11.7 fL (9.4-12.3) 08/25/22 10:40 Immature Gran % (Auto) 0.3 % (0.0-0.4) 08/25/22 10:40 Neut % (Auto) 56.7 % (45-73) 08/25/22 10:40 Lymph % (Auto) 34.1 % (20-40) 08/25/22 10:40 [place] % (Auto) 7.0 % (2-11) 08/25/22 10:40 Eos % (Auto) 1.3 % (0-4) 08/25/22 10:40 Baso % (Auto) 0.6 % (0-2) 08/25/22 10:40 Lymph # (Auto) 2.4 X10*3/uL (1.2-4.9) 08/25/22 10:40 [place] # (Auto) 0.5 X10*3/uL (0.1-1.2) 08/25/22 10:40 Eos # (Auto) 0.1 X10*3/uL (0.0-0.4) 08/25/22 10:40 Baso # (Auto) 0.0 X10*3/uL (0.0-0.2) 08/25/22 10:40 Abs Immat Gran (auto) 0.02 X10*3/uL (0.00-0.03) 08/25/22 10:40 Absolute Neuts (auto) 4.0 x10*3/uL (2.0-8.3) 08/25/22 10:40 Absolute Nucleated RBC 0.000 X10*3/uL (0.0-0.012) 08/25/22 10:40 Nucleated RBC % (auto) 0.0 /100WBC (0.0-0.2) 08/25/22 10:40 PT 11.5 SEC (10.0-13.1) 08/25/22 11:31 INR 1.0 (0.9-1.1) 08/25/22 11:31 Sodium 140 mmol/L (135-145) 08/25/22 10:40 Potassium 4.2 mmol/L (3.3-5.1) 08/25/22 10:40 Chloride 106 mmol/L (96-108) 08/25/22 10:40 Carbon Dioxide 26 mmol/L (22-29) 08/25/22 10:40 Anion Gap 12 (12-20) 08/25/22 10:40 BUN 16 mg/dL (9-16) 08/25/22 10:40 Creatinine 0.79 mg/dL (0.5-1.4) 08/25/22 10:40 Estim Creat Clear Calc 73.8 08/25/22 10:40 Estimated GFR > 60 08/25/22 10:40 Random Glucose 129 mg/dL (60-115) H 08/25/22 10:40 Calcium 8.9 mg/dL (8.4-10.2) 08/25/22 10:40 Magnesium 1.9 mg/dL (1.6-2.6) 08/25/22 10:40 Total Bilirubin 1.1 mg/dL (0.0-1.0) H 08/25/22 10:40 AST 24 U/L (5-31) 08/25/22 10:40 ALT 22 U/L (0-31) 08/25/22 10:40 Alkaline Phosphatase 78 U/L (39-117) 08/25/22 10:40 Troponin I High Sens < 3.5 ng/L (<3.5-17.0) 08/25/22 10:40 Total Protein 6.9 g/dL (6.5-8.0) 08/25/22 10:40 Albumin 4.3 g/dL (3.5-5.0) 08/25/22 10:40 TSH 1.02 uIU/mL (0.32-4.0) 08/25/22 10:40 Ethyl Alcohol < 10 mg/dL 08/25/22 10:40 COVID-19 (DERICK) Negative (Negative) 08/25/22 13:13 COVID-19 Clin Com See Note 08/25/22 13:13 TTE 08/26/22 - The left ventricular systolic function is normal.? The visually estimated ejection fraction is between 55-60%. ? - There is mild calcification of the aortic valve. ? - There is mild mitral annular calcification.? There is mild ? ? mitral valve regurgitation.? - There is mild tricuspid valve regurgitation. ? Discharge Plan Discharge Anticipated Discharge Date/Time: 08/27/22 10:52 Patient Disposition: Home, Self-Care Discharge Diagnosis: atrial fibrillation Referrals: Allyson Magaña MD [Primary Care Provider] - 1 Week Roger Guadarrama MD [Physician] - 1 Week Discharge Medications: New Eliquis 5 mg Tablet 5 mg PO BID Qty: 60 0RF metoprolol tartrate 100 mg Tablet 100 mg PO BID Qty: 60 0RF Protocol: Hold for SBP/HR < HOLD for SBP < : 90 HOLD for HR < : 60 digoxin 125 mcg (0.125 mg) Tablet 0.125 mg PO DAILY Qty: 30 0RF Continued levothyroxine [Euthyrox] 75 mcg tablet 75 mcg PO DAILY Qty: 90 3RF triamcinolone acetonide 0.1 % cream 1 appl topical BID-TID cholecalciferol (vitamin D3) 50 mcg (2,000 unit) capsule 3,000 unit PO DAILY Discontinued amlodipine 5 mg tablet 5 mg PO DAILY Qty: 90 3RF Discharge Orders: Discharge Order (Routine); Ordered 08/27/22 Ordered By: Jadiel Carrillo Diet: Low salt diet Activity on Discharge: As tolerated Stand Alone Forms: Patient Portal Discharge page Care Plan Goals: control of atrial fibrillation, stroke prevention Health Concerns: atrial fibrillation Plan of Treatment: take digoxin 125 mcg once daily to control heart rate take metoprolol 100 mg twice daily to control heart rate and blood pressure; stop amlodipine take apixaban 5 mg twice daily to prevent strokes [facility] up with [facility] [place] Guad[place]ama] in 2 weeks Please follow up with your primary care doctor within 1 week. Return to the hospital if you experience recurrent or worsening symptoms. Assessment: See Discharge Summary.
--- NOTE | 2022-08-27 11:17 | MHC.CM.PN ---
order for home, self care. CM acknowledge.
== END 2022-08-27 13:30 | disposition home or self-care (01) | DRG 310 ==
LOC: HO.ED 12:10 → HO.EDOVER 13:16 → HO.IMC 14:12
PROVIDERS: Admitting Provider Student in an Organized Health Care Education/Training Program; Emergency Provider Emergency Medicine Emergency Medical Services; PCP Internal Medicine; Visit Provider Family Medicine
DX: I48.91 Unspecified atrial fibrillation (principal); I10 Essential (primary) hypertension; E03.9 Hypothyroidism, unspecified; Z20.822 Contact with and (suspected) exposure to COVID-19; Z88.8 Allergy status to other drugs, medicaments and biological substances; Z79.890 Hormone replacement therapy; Z79.899 Other long term (current) drug therapy
CPT/HCPCS: 36415; 80053; 82077; 83735; 84443; 84484; 85025; 85610; 87635; 93005; 93306; 96374; 99285; J1160; Q9957

== ENCOUNTER → 2022-09-05 11:15 | Outpatient (REF) | payer MEDICARE, OTHER, SELFPAY ==
--- NOTE | 2022-09-05 11:18 | HM_ITS ---
Conclusion: 1. Patient was monitored for total period of 2 days and 23 hours 2. Baseline was atrial fibrillation with average heart of 80 beats per minute with good rate control 3. Rare PVCs noted 4. No significant pauses or bradycardia noted 5. Patient marked 1 event without reported symptoms that correlated with atrial fibrillation MTDD
== END ==
LOC: HO.CARD 11:15
PROVIDERS: PCP Internal Medicine; Visit Provider Internal Medicine
DX: I48.91 Unspecified atrial fibrillation (principal)
CPT/HCPCS: 93242

== ENCOUNTER → 2022-09-26 08:36 | Outpatient (BNVA) | payer MEDICARE, OTHER, SELFPAY | PROVIDERS: PCP Internal Medicine; Referring Provider Internal Medicine; Visit Provider Internal Medicine | DX: I48.19 Other persistent atrial fibrillation (principal) | CPT/HCPCS: 99212 ==

== ENCOUNTER → 2022-11-02 09:00 | Outpatient (REF) | payer MEDICARE, OTHER, SELFPAY | LOC: HO.SL 09:00 | PROVIDERS: PCP Internal Medicine; Visit Provider Internal Medicine | DX: G47.33 Obstructive sleep apnea (adult) (pediatric) (principal) | CPT/HCPCS: 95806 ==

== ENCOUNTER 2022-12-14 13:29 | Outpatient (REF) | payer MEDICARE, OTHER, SELFPAY ==
[2022-12-14 18:17] LABS: Digoxin 0.3 ng/mL (0.8-2.0)
== END 2022-12-14 13:30 | disposition home or self-care (01) ==
LOC: HO.HMGCLDS 13:29
PROVIDERS: PCP Internal Medicine; Visit Provider Internal Medicine
DX: I48.19 Other persistent atrial fibrillation (principal); Z79.899 Other long term (current) drug therapy
CPT/HCPCS: 36415; 80162

== ENCOUNTER 2023-01-19 07:43 | Outpatient (AMB) | payer MEDICARE, OTHER, SELFPAY ==
--- NOTE | 2023-01-19 08:22 | MHC.OFFVIS ---
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 Pt reports that she was diagnosed with Afib recently and had a home sleep study done in October. The home sleep study result was significant for moderate degree of sleep apnea. The AHI was 21/hr and snoring for 4% of the sleep time. Average O2 sat 92%, lowest O2 sat 79% and below 88% for 15 min. Pt reports snoring and mouth breather. She wakes up with dry mouth and throat. Pt usually does not have any difficulty falling asleep or staying sleep. She also states that she did not have excessive daytime sleepiness or fatigue. Pt states that she has difficulty losing wt. [facility] Medical History Atrial fibrillation with RVR HTN (hypertension) Hx of mammogram Hyperglycemia Hypothyroidism Numerous skin moles Postmenopausal Vitamin D deficiency Surgical History History of bunionectomy Hx of colonoscopy Hx of shoulder surgery Family History (Updated 01/19/23 @ 08:27 by Rose Nichols CMA) Father CAD (coronary artery disease) COPD (chronic obstructive pulmonary disease) Mother COPD (chronic obstructive pulmonary disease) Family/Other Liver disease Social History (Updated 01/19/23 @ 08:27 by Rose Nichols CMA) Household Members: None Household Members Other:: lives alone, 2 adults Housing: House Do you presently have visiting nurse or other home services: No Alcohol intake: current Alcohol intake frequency: holidays/special occasions only Patient Tobacco Use Status: Never used Tobacco e-Cigarette/Vaping Use: Never Used service: No Current occupational status: retired Cognitive needs: No Hearing needs: No Vision needs: No Review of Systems Const All systems reviewed & are unremarkable except as noted in HPI and below ENT Reports Normal hearing present Neuro Reports Normal hearing present Physical Exam Vital Signs: Last Vital Signs Pulse 84 01/19/23 08:27 BP 130/86 01/19/23 08:27 Pulse Ox 98 01/19/23 08:27 Oxygen Delivery Method Room Air 01/19/23 08:27 BMI result Body Mass Index 30.4 Const General: cooperative Nutritional Appearance: obese Orientation/consciousness: patient oriented x3 Eyes Pupils: Equal, round and reactive pupils present Neck Neck: Yes full ROM and Yes supple Resp Effort & Inspection: normal respiratory effort and able to speak in complete sentences Neuro General: patient oriented x3, gait normal and moves all extremities Cranial nerves: Yes Equal, round and reactive pupils present, Yes Bilaterally intact EOM present, Yes Normal facial strength present, Yes Midline tongue present, Yes Symmetric palate elevation present, Yes Normal hearing present, Yes Ability to bilaterally rotate head present and Yes Ability to bilaterally elevate shoulders present Cognition (Neuro): normal cognition Gait exam (Neuro): Normal gait present Motor exam (neuro): 5/5 motor strength present throughout, Pronator motor function not present and no tremor noted Psych Appearance: grossly normal Affect: normal affect Attitude: cooperative Assessment & Plan Assessment & Plan (1) HENRIK (obstructive sleep apnea): Comment: Moderate degree of sleep apnea. The AHI was 21/hr and oxygen victor hugo was 79%. Code(s): G47.33 - Obstructive sleep apnea (adult) (pediatric) Plan Advised patient to star APAP [id number]. New prescription sent to [facility] with mask fitting session. Stressed compliance, use CPAP nightly and more than 4 hours. Advised patient to increase physical activity for wt loss. Coding Level of Care Code New Pt Level 3 (89200) Diagnoses HENRIK (obstructive sleep apnea) G47.33
[2023-01-19 08:27] VITALS: BP 130/86; PULSE 84; O2SAT 98; BMI 30.4
== END 2023-01-19 09:03 | disposition home or self-care (01) ==
PROVIDERS: Visit Provider Nurse Practitioner Family
DX: G47.33 Obstructive sleep apnea (adult) (pediatric) (principal)
CPT/HCPCS: 99203

== ENCOUNTER → 2023-01-19 07:43 | Outpatient (BNVA) | payer MEDICARE, OTHER, SELFPAY | PROVIDERS: Visit Provider Nurse Practitioner Family | DX: G47.33 Obstructive sleep apnea (adult) (pediatric) (principal) | CPT/HCPCS: 99202 ==

== ENCOUNTER 2023-02-18 09:04 | Outpatient (REF) | payer MEDICARE, OTHER, SELFPAY ==
[2023-02-18 11:13] LABS: MANUAL DIFF FLAG NO
[2023-02-18 11:18] LABS: Appearance Urine Turbid; Basophils Absolute Auto 0.1 X10*3/uL (0.0-0.2); Color Urine Yellow; Eosinophils Absolute Auto 0.1 X10*3/uL (0.0-0.4); Eosinophils Percent Auto 0.8 % (0-4); Glucose Urine UA Negative (Negative); Hemoglobin 14.5 g/dl (12.0-16.0); Imm Gran Abs Auto 0.01 X10*3/uL (0.00-0.03); Imm Gran Pct Auto 0.2 % (0.0-0.4); Leukocyte Esterase Urine Small (1+) (Negative); Lymphocytes Absolute Auto 2.3 X10*3/uL (1.2-4.9); Lymphocytes Percent Auto 37.4 % (20-40); Mean Corpuscular Hemoglobin 29.1 pg (27.0-33.0); Mean Corpuscular Volume 88.2 fL (80.0-98.0); Mean Platelet Volume 12.1 fL (9.4-12.3); Monocytes Absolute Auto 0.5 X10*3/uL (0.1-1.2); Monocytes Percent Auto 7.8 % (2-11); Neutrophils Absolute Auto 3.3 x10*3/uL (2.0-8.3); Neutrophils Percent Auto 52.8 % (45-73); Nitrite Urine Negative (Negative); Platelet Count 191 X10*3/uL (160-400); Red Blood Count 4.99 X10*6/uL (4.20-5.50); Red Cell Distribution Width 13.5 % (11.0-16.0); UMIC TRIGGER UA YES; Urine Blood Small (1+) (Negative); Urine Ketones Negative (Negative); Urine Protein Negative (Neg-Trace); White Blood Count 6.2 X10*3/uL (4.8-10.8)
[2023-02-18 11:30] LABS: Estimated Average Glucose 146 mg/dL; Hemoglobin A1c % 6.7 % (<6.0)
[2023-02-18 11:36] LABS: Bacteria Urine Trace (None Seen); Hyaline Casts Urine 0-2 /LPF (0-2)
[2023-02-18 11:50] LABS: Alanine Aminotransferase 34 U/L (0-31); Albumin Level 4.1 g/dL (3.5-5.0); Alkaline Phosphatase 62 U/L (39-117); Anion Gap 15 (12-20); Aspartate Amino Transferase 34 U/L (5-31); Bilirubin Total 1.5 mg/dL (0.0-1.0); Blood Urea Nitrogen 16 mg/dL (9-16); Calcium 9.3 mg/dL (8.4-10.2); Carbon Dioxide 23 mmol/L (22-29); Chloride 107 mmol/L (96-108); Cholesterol 171 mg/dL (<200); Estimated Glomerular Filt Rate > 60; Glucose Fasting 144 mg/dL (60-99); HDL Cholesterol 42 mg/dL (>40); LDL Cholesterol Calculated 106 mg/dL (<100); Potassium 4.2 mmol/L (3.3-5.1); Sodium 141 mmol/L (135-145); Triglycerides 119 mg/dL (<150)
[2023-02-18 11:54] LABS: TSH reflex Free T4 0.58 uIU/mL (0.32-4.0)
== END 2023-02-18 09:05 | disposition home or self-care (01) ==
LOC: HO.HMGCLDS 09:04
PROVIDERS: PCP Internal Medicine; Visit Provider Internal Medicine
DX: E55.9 Vitamin D deficiency, unspecified (principal); R73.9 Hyperglycemia, unspecified
CPT/HCPCS: 36415; 80053; 80061; 81001; 82306; 83036; 84443; 85025

== ENCOUNTER 2023-02-21 07:17 | Outpatient (AMB) | payer MEDICARE, OTHER, SELFPAY ==
--- NOTE | 2023-02-21 07:46 | A.OFFPC_ITS ---
Vital Signs 02/21/23 07:48 Height 5 ft 9 in Weight 202 lb BMI 29.8 BP 130/82 Blood Pressure Location Lt brachial Position Sitting Pulse 77 Pulse Source Pulse Oximeter Pulse Oximetry (%) 98 Oxygen Delivery Method Room Air Intake Visit Reasons: Annual HNE Covers Intake Note: Pt is here today for her PE Allergies metformin Adverse Reaction (Intermediate, Verified 02/21/23 08:10) Diarrhea Compazine Allergy (Unknown, Uncoded 02/21/23 07:49) facial paralysis Medication List - Last Reconciled 02/21/23 by Allyson Magaña MD apixaban (Eliquis) 5 mg PO BID 90 days cholecalciferol (vitamin D3) 3,000 units PO DAILY digoxin 0.125 mg PO DAILY 90 days levothyroxine (Euthyrox) 75 mcg PO DAILY metoprolol tartrate 100 mg See Protocol PO BID 90 days nystatin 1 appl topical BID 14 days triamcinolone acetonide 0.1% 1 appl topical BID-TID Tobacco use date assessed: 02/21/23 Fall risk assessment: No Falls in past year Last assessed Fall Risk: 02/21/23 Dental Screening Dental Screen Date: 02/21/23 Did you have a dental visit in the last 12 months?: Yes Did you have a dental problem in the last 6 months where you did not have access to dental care?: No Was dental information given to patient?: Patient has dentist HPI Annual HNE Covers HPI Details Pt presents for PE. PFSH Medical History Atrial fibrillation with RVR HTN (hypertension) Hx of mammogram Hyperglycemia Hypothyroidism Numerous skin moles Postmenopausal Vitamin D deficiency Surgical History History of bunionectomy Hx of colonoscopy Hx of shoulder surgery Family History Father CAD (coronary artery disease) COPD (chronic obstructive pulmonary disease) Mother COPD (chronic obstructive pulmonary disease) Family/Other Liver disease Social History (Updated 01/19/23 @ 08:27 by Rose Nichols CMA) Household Members: None Household Members Other:: lives alone, 2 adults Housing: House Do you presently have visiting nurse or other home services: No Alcohol intake: current Alcohol intake frequency: holidays/special occasions only Patient Tobacco Use Status: Never used Tobacco e-Cigarette/Vaping Use: Never Used service: No Current occupational status: retired Cognitive needs: No Hearing needs: No Vision needs: No Questionnaire Thrive Questionnaire Date Thrive assessed: 08/25/22 SHERI-7 AMB Questionnaire SHERI-7 Date SHERI - 7 assessed: 08/25/22 Source: Developed by Drs. Devang Ji, Peg Wilde, Alen Garcia and colleagues, with an educational mahnaz from [employer]. Review of Systems Const All systems reviewed & are unremarkable except as noted in HPI and below Reports no additional complaints Eyes Reports no additional complaints ENT Reports no additional complaints Card Reports no additional complaints Resp Reports no additional complaints GI Reports no additional complaints Reports no additional complaints Physical exam (Primary Care) Vital Signs: Last Vital Signs Pulse 77 02/21/23 07:48 BP 130/82 02/21/23 07:48 Pulse Ox 98 02/21/23 07:48 Oxygen Delivery Method Room Air 02/21/23 07:48 BMI result Body Mass Index 29.8 Tobacco/Smoking Status: Tobacco use Status Tobacco use date assessed 02/21/23 02/21/23 07:51 Patient Tobacco Use Status Never used Tobacco 02/21/23 07:46 e-Cigarette/Vaping Use Never Used 02/21/23 07:46 Thrive Assessment: Date of Thrive Assessment Date Thrive assessed 08/25/22 02/21/23 07:46 Const General: no acute distress HENMT Head: Yes normal to inspection Ears: hearing grossly normal bilaterally Eyes General: appearance normal, both eyes and all related structures Neck Neck: Yes no lymphadenopathy and Yes supple Resp Effort & Inspection: normal respiratory effort Auscultation: clear to auscultation bilaterally Cardio Rhythm: regular rhythm Heart sounds: S1 normal heart sound present and S2 normal heart sound present GI Inspection: Yes normal to inspection Palpation (GI): Soft to palpation Percussion: Yes normal to percussion Auscultation: normal bowel sounds Assessment and Plan Assessment & Plan (1) HENRIK (obstructive sleep apnea): Comment: Moderate degree of sleep apnea. The AHI was 21/hr and oxygen victor hugo was 79%. Code(s): G47.33 - Obstructive sleep apnea (adult) (pediatric) Plan: Continue CPAP (2) Hypothyroidism: Code(s): E03.9 - Hypothyroidism, unspecified Plan: Continue levothyroxine (3) HTN (hypertension): Code(s): I10 - Essential (primary) hypertension Plan: Continue current medications (4) Atrial fibrillation: Comment: Echo normal ejection fraction, LVH, mild MR 09/08 Code(s): I48.91 - Unspecified atrial fibrillation Plan: Continue current medications and follow-up with Cardiology (5) DM type 2 (diabetes mellitus, type 2): Comment: A1C 6.7, 02/08, patient's is intolerant to metformin. Farxiga 5 mg daily started 03/11 Code(s): E11.9 - Type 2 diabetes mellitus without complications Plan: ADA diet increase exercise weight loss discussed with the patient. Farxiga 5 mg daily started. Follow-up in 3 months with fasting labs before Orders: Orders Comprehensive [place]. Panel Fast 3 Months E11.9 - Type 2 diabetes mellitus without complications, I10 - Essential (primary) hypertension, I48.19 - Other persistent atrial fibrillation Hemoglobin A1c 3 Months E11.9 - Type 2 diabetes mellitus without complications, I10 - Essential (primary) hypertension, I48.19 - Other persistent atrial fibrillation Lipid Panel 3 Months E11.9 - Type 2 diabetes mellitus without complications, I10 - Essential (primary) hypertension, I48.19 - Other persistent atrial fibrillation Medications: New dapagliflozin propanediol (Farxiga) 5 mg PO DAILY 90 tabs 1RF Coding Level of Care Code Est Pt Prev Care >65y(68888) Diagnoses HENRIK (obstructive sleep apnea) G47.33 Hypothyroidism E03.9 HTN (hypertension) I10 Atrial fibrillation I48.91 DM type 2 (diabetes mellitus, type 2) E11.9
[2023-02-21 07:48] VITALS: BP 130/82; PULSE 77; O2SAT 98; BMI 29.8
== END 2023-02-21 08:57 | disposition home or self-care (01) ==
PROVIDERS: Visit Provider Internal Medicine
DX: Z00.00 Encounter for general adult medical examination without abnormal findings (principal); E03.9 Hypothyroidism, unspecified; I10 Essential (primary) hypertension; E11.9 Type 2 diabetes mellitus without complications; I48.91 Unspecified atrial fibrillation; G47.33 Obstructive sleep apnea (adult) (pediatric)
CPT/HCPCS: 99397

== ENCOUNTER → 2023-03-07 08:04 | Outpatient (REF) | payer MEDICARE, OTHER, SELFPAY ==
--- NOTE | 2023-03-07 08:08 | HM_ITS ---
* Total monitoring time 3 days. * Underlying rhythm is atrial fibrillation. Average ventricular rate 73/Min. Range 56 to 102/Min. * No significant pauses or AV blocks. * No patient markers or events in diary. MTDD
== END ==
LOC: HO.CARD 08:04
PROVIDERS: PCP Internal Medicine; Visit Provider Internal Medicine
DX: I48.91 Unspecified atrial fibrillation (principal)
CPT/HCPCS: 93242

== ENCOUNTER → 2023-03-07 08:08 | Outpatient (BNV) | payer MEDICARE, OTHER, SELFPAY | PROVIDERS: PCP Internal Medicine; Visit Provider Internal Medicine | DX: I48.91 Unspecified atrial fibrillation (principal) | CPT/HCPCS: 93244 ==

== ENCOUNTER 2023-03-30 13:27 | Outpatient (AMB) | payer MEDICARE, OTHER, SELFPAY ==
[2023-03-30 13:32] VITALS: BP 122/80; PULSE 74; BMI 29.0
--- NOTE | 2023-03-30 13:32 | MHC.OFFVIS ---
Intake Vital Signs 03/30/23 13:32 Height 5 ft 9 in Weight 196 lb 3.382 oz BMI 29.0 BP 122/80 Blood Pressure Location Lt brachial Position Sitting Pulse 74 Intake Visit Reasons: 6 month follow-up after sleep study and holter Intake Note: 6 month follow-up sleep study and holter feeling good Wash Driller Helper Required: No Allergies metformin Adverse Reaction (Intermediate, Verified 02/21/23 08:10) Diarrhea Compazine Allergy (Unknown, Uncoded 02/21/23 07:49) facial paralysis HPI HPI Comments History of Present Illness Details 77-year-old female presents for a follow-up on sleep study and holter. Sleep study showed HENRIK and she has recently seen Sleep Medicine and has been using her CPAP nightly. She denies any palpitations, bleeding, and high blood pressures. She has been working on losing weight and has lost about 15 lbs through lifestyle changes. 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 PFSH Medical History Atrial fibrillation with RVR Hypothyroidism Numerous skin moles Postmenopausal Hyperglycemia Vitamin D deficiency Hx of mammogram HTN (hypertension) Surgical History Hx of colonoscopy History of bunionectomy Hx of shoulder surgery Family History Father CAD (coronary artery disease) COPD (chronic obstructive pulmonary disease) Mother COPD (chronic obstructive pulmonary disease) Family/Other Liver disease Social History Household Members: None Household Members Other:: lives alone, 2 adults Housing: House Do you presently have visiting nurse or other home services: No Alcohol intake: current Alcohol intake frequency: holidays/special occasions only Patient Tobacco Use Status: Never used Tobacco e-Cigarette/Vaping Use: Never Used service: No Current occupational status: retired Cognitive needs: No Hearing needs: No Vision needs: No Review of Systems Const Denies chills, Denies fatigue, Denies fever(s), Denies frequent falls, Denies weakness, Denies weight gain and Denies weight loss ENT Denies dizziness Card Denies chest pain, Denies leg edema, Denies lightheadedness, Denies palpitations, Denies dyspnea, Denies dyspnea on exertion, Denies orthopnea and Denies other (loss of consciousness) Resp Denies cough, Denies dyspnea and Denies dyspnea on exertion GI Denies hematochezia and Denies change in stool character Musc Denies abnormal gait, Denies muscle weakness, Denies numbness, Denies radiating pain into limb and Denies tingling Neuro Denies abnormal gait, Denies dizziness, Denies frequent falls, Denies numbness, Denies tingling and Denies weakness Endo Denies fatigue and Denies palpitations Physical Exam Vital Signs: Last Vital Signs Pulse 74 03/30/23 13:32 BP 122/80 03/30/23 13:32 BMI result Body Mass Index 29.0 Const General: healthy appearing and no acute distress Orientation/consciousness: patient oriented x3 HEENT Head: Yes normal to inspection Eyes General: appearance normal, both eyes and all related structures Neck Neck: Yes normal visual inspection Chest Chest palpation & inspection: normal inspection of the chest Resp Effort & Inspection: normal respiratory effort Auscultation: clear to auscultation bilaterally Cardio Jugular venous distension: no JVD Palpation: normal PMI Rate: regular rate Rhythm: regular rhythm Heart sounds: S1 normal heart sound present, S2 normal heart sound present, no click, no gallops, no murmurs and no rubs GI Inspection: Yes normal to inspection Palpation (GI): Soft to palpation Skin General skin exam: no rashes or lesions noted Neuro General: patient oriented x3 Extrem General: Yes normal to inspection Psych Appearance: grossly normal Assessment & Plan Assessment & Plan (1) HENRIK (obstructive sleep apnea): Comment: Moderate degree of sleep apnea. The AHI was 21/hr and oxygen victor hugo was 79%. Code(s): G47.33 - Obstructive sleep apnea (adult) (pediatric) (2) Persistent atrial fibrillation: Code(s): I48.19 - Other persistent atrial fibrillation Plan Holer showed rate controlled AFib - continue medications as previously prescribed. Continue with compliance for CPAP and follow for that with Sleep Medicine. She is due for her visit with Dr. Abarca in September. Coding Level of Care Code Est Pt Level 3 (20659) Diagnoses HENRIK (obstructive sleep apnea) G47.33 Persistent atrial fibrillation I48.19
== END 2023-03-30 14:07 | disposition home or self-care (01) ==
PROVIDERS: PCP Internal Medicine; Visit Provider Nurse Practitioner
DX: G47.33 Obstructive sleep apnea (adult) (pediatric) (principal); I48.19 Other persistent atrial fibrillation
CPT/HCPCS: 99213

== ENCOUNTER → 2023-03-30 13:27 | Outpatient (BNVA) | payer MEDICARE, OTHER, SELFPAY | PROVIDERS: PCP Internal Medicine; Visit Provider Nurse Practitioner | DX: I48.19 Other persistent atrial fibrillation (principal); G47.33 Obstructive sleep apnea (adult) (pediatric) | CPT/HCPCS: 99212 ==

== ENCOUNTER 2023-04-21 14:46 | Outpatient (AMB) | payer MEDICARE, OTHER, SELFPAY ==
--- NOTE | 2023-04-21 14:47 | A.OFFVIS_ITS ---
Intake Vital Signs 04/21/23 14:49 Height 5 ft 9 in Weight 195 lb 6 oz BMI 28.8 BP 118/76 Blood Pressure Location Lt brachial Position Sitting Respiration 16 Pulse 92 Pulse Source Pulse Oximeter Pulse Oximetry (%) 97 Oxygen Delivery Method Room Air Intake Visit Reasons: 3m follow up Sleep Apnea/Confirmed Intake Note: Pt is here for a 3 month follow up for sleep apnea. She reports she is using her CPAP every night, however, she feels no different than she did prior to using her machine. SHe states she doesn't get dry mouth anymore which has helped with her cough. Panel Edge Painter Required: No Allergies metformin Adverse Reaction (Intermediate, Verified 04/21/23 14:48) Diarrhea Compazine Allergy (Unknown, Uncoded 04/21/23 14:48) facial paralysis HPI HPI Comments History of Present Illness Details 77 y/o female patient presents for follo w up of HENRIK. The home sleep study result was significant for moderate degree of sleep apnea. The AHI was 21/hr and snoring for 4% of the sleep time. Average O2 sat 92%, lowest O2 sat 79% and below 88% for 15 min. Pt started APAP at [id number]. The initial compliance and therapy response (02/20/23-03/21/23) report reviewed. The usage days 73% and the average usage hours 5 hrs 38 min. The max pressure was 10.2 and AHI was 1.3/hr. Pt reports that she does not have sore and dry throat in the morning. She states that her mask has more moist lately and keep having cold water on her face and it bothers her sleep. Pt was evaluated by her financial reporting analyst and told that her Afib is controlled well. She is on Weight Watcher program and lost about 15 lb since the last visit. [facility] Medical History Atrial fibrillation with RVR Hypothyroidism Numerous skin moles Postmenopausal Hyperglycemia Vitamin D deficiency Hx of mammogram HTN (hypertension) Surgical History Hx of colonoscopy History of bunionectomy Hx of shoulder surgery Family History Father CAD (coronary artery disease) COPD (chronic obstructive pulmonary disease) Mother COPD (chronic obstructive pulmonary disease) Family/Other Liver disease Social History Household Members: None Household Members Other:: lives alone, 2 adults Housing: House Do you presently have visiting nurse or other home services: No Alcohol intake: current Alcohol intake frequency: holidays/special occasions only Patient Tobacco Use Status: Never used Tobacco e-Cigarette/Vaping Use: Never Used service: No Current occupational status: retired Cognitive needs: No Hearing needs: No Vision needs: No Review of Systems Const All systems reviewed & are unremarkable except as noted in HPI and below ENT Reports Normal hearing present Neuro Reports Normal hearing present Physical Exam Vital Signs: Last Vital Signs Pulse 92 04/21/23 14:49 Resp 16 04/21/23 14:49 BP 118/76 04/21/23 14:49 Pulse Ox 97 04/21/23 14:49 Oxygen Delivery Method Room Air 04/21/23 14:49 BMI result Body Mass Index 28.8 Const General: cooperative Orientation/consciousness: patient oriented x3 Eyes Pupils: Equal, round and reactive pupils present Neck Neck: Yes full ROM and Yes supple Resp Effort & Inspection: normal respiratory effort and able to speak in complete sentences Neuro General: patient oriented x3, gait normal and moves all extremities Cranial nerves: Yes Equal, round and reactive pupils present, Yes Bilaterally intact EOM present, Yes Normal facial strength present, Yes Midline tongue present, Yes Symmetric palate elevation present, Yes Normal hearing present, Yes Ability to bilaterally rotate head present and Yes Ability to bilaterally elevate shoulders present Cognition (Neuro): normal cognition Gait exam (Neuro): Normal gait present Motor exam (neuro): 5/5 motor strength present throughout, Pronator motor function not present and no tremor noted Psych Appearance: grossly normal Affect: normal affect Attitude: cooperative Assessment & Plan Assessment & Plan (1) HENRIK (obstructive sleep apnea): Comment: Moderate degree of sleep apnea. The AHI was 21/hr and oxygen victor hugo was 79%. Code(s): G47.33 - Obstructive sleep apnea (adult) (pediatric) Plan Advised patient to continue to use APAP [id number] as patient experiences good clinical effects. [facility] walk in clinic hour information given to patient to adjust CPAP humidifier. Stressed compliance, use CPAP nightly and more than 4 hours. Coding Level of Care Code Est Pt Level 3 (73712) Diagnoses HENRIK (obstructive sleep apnea) G47.33
[2023-04-21 14:49] VITALS: BP 118/76; PULSE 92; RESP 16; O2SAT 97; BMI 28.8
== END 2023-04-21 15:14 | disposition home or self-care (01) ==
PROVIDERS: PCP Internal Medicine; Visit Provider Nurse Practitioner Family
DX: G47.33 Obstructive sleep apnea (adult) (pediatric) (principal)
CPT/HCPCS: 99213

== ENCOUNTER → 2023-04-21 14:46 | Outpatient (BNVA) | payer MEDICARE, OTHER, SELFPAY | PROVIDERS: PCP Internal Medicine; Visit Provider Nurse Practitioner Family | DX: G47.33 Obstructive sleep apnea (adult) (pediatric) (principal) | CPT/HCPCS: 99212 ==

== ENCOUNTER 2023-05-25 07:51 | Outpatient (AMB) | payer MEDICARE, OTHER, SELFPAY ==
[2023-05-25 08:07] VITALS: BP 120/76; PULSE 90; O2SAT 96; BMI 27.9
--- NOTE | 2023-05-25 08:07 | MHC.PC.OV ---
Vital Signs 05/25/23 08:07 Height 5 ft 9 in Weight 189 lb BMI 27.9 BP 120/76 Blood Pressure Location Lt brachial Position Sitting Pulse 90 Pulse Source Pulse Oximeter Pulse Oximetry (%) 96 Oxygen Delivery Method Room Air Intake Visit Reasons: 3 Month follow up Intake Note: Pt is here today for 3 months follow up visit. Allergies metformin Adverse Reaction (Intermediate, Verified 05/25/23 08:10) Diarrhea Compazine Allergy (Unknown, Uncoded 05/25/23 08:10) facial paralysis Medication List - Last Reconciled 05/25/23 by Allyson Magaña MD apixaban (Eliquis) 5 mg PO BID 90 days cholecalciferol (vitamin D3) 3,000 units PO DAILY dapagliflozin propanediol (Farxiga) 5 mg PO DAILY digoxin 0.125 mg PO DAILY 90 days levothyroxine (Euthyrox) 75 mcg PO DAILY metoprolol tartrate 100 mg See Protocol PO BID 90 days nystatin 1 appl topical BID 14 days Saccharomyces boulardii (Daily Probiotic (S. boulardii)) 250 mg PO BID triamcinolone acetonide 0.1% 1 appl topical BID-TID Tobacco use date assessed: 05/25/23 HPI 3 Month follow up HPI Details Pt presents for f/u DM 2, hypothyroid, A FIB, stable on meds. Patient lost 20 lb on weight watchers and has been exercising regularly [facility], [facility] Medical History (Updated 05/25/23 @ 08:50 by Allyson Magaña MD) Atrial fibrillation with RVR Hypothyroidism Numerous skin moles Postmenopausal Vitamin D deficiency Hx of mammogram HTN (hypertension) Surgical History Hx of colonoscopy History of bunionectomy Hx of shoulder surgery Family History Father CAD (coronary artery disease) COPD (chronic obstructive pulmonary disease) Mother COPD (chronic obstructive pulmonary disease) Family/Other Liver disease Social History Household Members: None Household Members Other:: lives alone, 2 adults Housing: House Do you presently have visiting nurse or other home services: No Alcohol intake: current Alcohol intake frequency: holidays/special occasions only Patient Tobacco Use Status: Never used Tobacco e-Cigarette/Vaping Use: Never Used service: No Current occupational status: retired Cognitive needs: No Hearing needs: No Vision needs: No Questionnaire Thrive Questionnaire Date Thrive assessed: 08/25/22 SHERI-7 AMB Questionnaire SHERI-7 Date SHERI - 7 assessed: 08/25/22 Source: Developed by Drs. Devang Ji, Peg Wilde, Alen Garcia and colleagues, with an educational mahnaz from [employer]. Review of Systems Const All systems reviewed & are unremarkable except as noted in HPI and below Reports no additional complaints Eyes Reports no additional complaints ENT Reports no additional complaints Card Reports no additional complaints Resp Reports no additional complaints GI Reports no additional complaints Reports no additional complaints Physical exam (Primary Care) Vital Signs: Last Vital Signs Pulse 90 05/25/23 08:07 BP 120/76 05/25/23 08:07 Pulse Ox 96 05/25/23 08:07 Oxygen Delivery Method Room Air 05/25/23 08:07 BMI result Body Mass Index 27.9 Tobacco/Smoking Status: Tobacco use Status Tobacco use date assessed 05/25/23 05/25/23 08:12 Patient Tobacco Use Status Never used Tobacco 05/25/23 08:12 e-Cigarette/Vaping Use Never Used 05/25/23 08:12 Thrive Assessment: Date of Thrive Assessment Date Thrive assessed 08/25/22 05/25/23 08:12 Const General: no acute distress HENMT Head: Yes normal to inspection Face and sinus: Yes normal facial exam Mouth: Normal oral and palatal mucosa present Throat: Yes posterior oropharynx normal Eyes General: appearance normal, both eyes and all related structures Neck Neck: Yes supple Resp Effort & Inspection: normal respiratory effort Auscultation: clear to auscultation bilaterally Cardio Rhythm: abnormal rhythm irregularly irregular Heart sounds: S1 normal heart sound present and S2 normal heart sound present GI Inspection: Yes normal to inspection Palpation (GI): Soft to palpation Percussion: Yes normal to percussion Assessment and Plan Assessment & Plan (1) DM type 2 (diabetes mellitus, type 2): Comment: A1C 6.7, 02/08, patient's is intolerant to metformin. Farxiga 5 mg daily started 03/11 Code(s): E11.9 - Type 2 diabetes mellitus without complications Plan: A1c will be checked today. Patient will continue for seek a ADA diet regular exercise (2) Persistent atrial fibrillation: Code(s): I48.19 - Other persistent atrial fibrillation Plan: Continue Eliquis digoxin and beta-vlad (3) Hypothyroidism: Code(s): E03.9 - Hypothyroidism, unspecified Plan: Continue levothyroxine Orders: Orders Hemoglobin A1c Today E03.9 - Hypothyroidism, unspecified, E11.9 - Type 2 diabetes mellitus without complications, I48.19 - Other persistent atrial fibrillation Hemoglobin A1c 6 Months E03.9 - Hypothyroidism, unspecified, E11.9 - Type 2 diabetes mellitus without complications, I10 - Essential (primary) hypertension, I48.19 - Other persistent atrial fibrillation Lipid Panel 6 Months E03.9 - Hypothyroidism, unspecified, E11.9 - Type 2 diabetes mellitus without complications, I10 - Essential (primary) hypertension, I48.19 - Other persistent atrial fibrillation Microalbumin, Random (w Creat) 6 Months E03.9 - Hypothyroidism, unspecified, E11.9 - Type 2 diabetes mellitus without complications, I10 - Essential (primary) hypertension, I48.19 - Other persistent atrial fibrillation Comprehensive Met. Panel Today E03.9 - Hypothyroidism, unspecified, E11.9 - Type 2 diabetes mellitus without complications, I48.19 - Other persistent atrial fibrillation TSH reflex Free T4 Today E03.9 - Hypothyroidism, unspecified, E11.9 - Type 2 diabetes mellitus without complications, I48.19 - Other persistent atrial fibrillation Comprehensive [place]. Panel Fast 6 Months E03.9 - Hypothyroidism, unspecified, E11.9 - Type 2 diabetes mellitus without complications, I10 - Essential (primary) hypertension, I48.19 - Other persistent atrial fibrillation Complete Blood Count Auto Diff 6 Months E03.9 - Hypothyroidism, unspecified, E11.9 - Type 2 diabetes mellitus without complications, I10 - Essential (primary) hypertension, I48.19 - Other persistent atrial fibrillation Coding Level of Care Code Est Pt Level 4 (65589) Diagnoses DM type 2 (diabetes mellitus, type 2) E11.9 Persistent atrial fibrillation I48.19 Hypothyroidism E03.9
== END 2023-05-25 08:54 | disposition home or self-care (01) ==
PROVIDERS: PCP Internal Medicine; Visit Provider Internal Medicine
DX: E11.9 Type 2 diabetes mellitus without complications (principal); I48.19 Other persistent atrial fibrillation; E03.9 Hypothyroidism, unspecified
CPT/HCPCS: 99214

== ENCOUNTER 2023-05-25 08:41 | Outpatient (REF) | payer MEDICARE, OTHER, SELFPAY ==
[2023-05-25 11:50] LABS: Estimated Average Glucose 140 mg/dL; Hemoglobin A1c % 6.5 % (<6.0)
[2023-05-25 11:52] LABS: Alanine Aminotransferase 24 U/L (0-31); Albumin Level 4.3 g/dL (3.5-5.0); Alkaline Phosphatase 60 U/L (39-117); Anion Gap 11 (12-20); Aspartate Amino Transferase 24 U/L (5-31); Bilirubin Total 0.9 mg/dL (0.0-1.0); Blood Urea Nitrogen 20 mg/dL (9-16); Calcium 10.1 mg/dL (8.4-10.2); Carbon Dioxide 32 mmol/L (22-29); Chloride 104 mmol/L (96-108); Estimated Glomerular Filt Rate > 60; Glucose Random 143 mg/dL (60-115); Potassium 4.7 mmol/L (3.3-5.1); Sodium 142 mmol/L (135-145); Total Protein 7.7 g/dL (6.5-8.0)
[2023-05-25 12:09] LABS: TSH reflex Free T4 0.66 uIU/mL (0.32-4.0)
== END 2023-05-25 08:42 | disposition home or self-care (01) ==
LOC: HO.HMGCLDS 08:41
PROVIDERS: PCP Internal Medicine; Visit Provider Internal Medicine
DX: E11.9 Type 2 diabetes mellitus without complications (principal); I48.19 Other persistent atrial fibrillation; E03.9 Hypothyroidism, unspecified
CPT/HCPCS: 36415; 80053; 83036; 84443

== ENCOUNTER 2023-07-17 15:26 | Outpatient (REF) | payer MEDICARE, OTHER, SELFPAY | END 2023-07-17 15:27 | disposition home or self-care (01) | LOC: HO.MAMMO 15:26 | PROVIDERS: PCP Internal Medicine; Visit Provider Internal Medicine | DX: Z12.31 Encounter for screening mammogram for malignant neoplasm of breast (principal) | CPT/HCPCS: 77063; 77067 ==

== ENCOUNTER → 2023-07-17 15:30 | Outpatient (BNV) | payer MEDICARE, OTHER, SELFPAY | PROVIDERS: PCP Internal Medicine; Visit Provider Radiology Diagnostic Radiology | DX: Z12.31 Encounter for screening mammogram for malignant neoplasm of breast (principal) | CPT/HCPCS: 77063; 77067 ==

== ENCOUNTER 2023-10-18 12:27 | Outpatient (AMB) | payer MEDICARE, OTHER, SELFPAY ==
[2023-10-18 12:32] VITALS: BP 120/70; PULSE 87; BMI 28.0
--- NOTE | 2023-10-18 12:32 | A.OFFVIS_ITS ---
Vital Signs 10/18/23 12:32 Height 5 ft 9 in Weight 189 lb 9.561 oz BMI 28.0 BP 120/70 Blood Pressure Location Lt brachial Position Sitting Pulse 87 Intake Visit Reasons: September follow up (rs) Intake Note: Follow-up with ekg feeling ok Analysis Manager Required: No Allergies metformin Adverse Reaction (Intermediate, Verified 05/25/23 08:10) Diarrhea Compazine Allergy (Unknown, Uncoded 05/25/23 08:10) facial paralysis Medication List - Last Reconciled 10/18/23 by Roger Guadarrama MD apixaban (Eliquis) 5 mg PO BID 90 days cholecalciferol (vitamin D3) 3,000 units PO DAILY dapagliflozin propanediol (Farxiga) 5 mg PO DAILY digoxin 0.125 mg PO DAILY 90 days levothyroxine (Euthyrox) 75 mcg PO DAILY metoprolol tartrate 100 mg See Protocol PO BID 90 days nystatin 1 appl topical BID 14 days Saccharomyces boulardii (Daily Probiotic (S. boulardii)) 250 mg PO BID triamcinolone acetonide 0.1% 1 appl topical BID-TID HPI Comments Details: Charla returns for follow-up regarding atrial fibrillation. Last year, she was seen in the PCP's office and had an EKG and that showed atrial fibrillation with rapid rate. It seems that was a routine appointment. She has been on metoprolol and digoxin overall doing well. Also on anticoagulation. Since last seen, no cardiac concerns. No cardiac symptoms. [facility] Medical History (Updated 05/25/23 @ 08:50 by Allyson Magaña MD) Atrial fibrillation with RVR Hypothyroidism Numerous skin moles Postmenopausal Vitamin D deficiency Hx of mammogram HTN (hypertension) Surgical History Hx of colonoscopy History of bunionectomy Hx of shoulder surgery Family History Father CAD (coronary artery disease) COPD (chronic obstructive pulmonary disease) Mother COPD (chronic obstructive pulmonary disease) Family/Other Liver disease Social History Household Members: None Household Members Other:: lives alone, 2 adults Housing: House Do you presently have visiting nurse or other home services: No Alcohol intake: current Alcohol intake frequency: holidays/special occasions only Patient Tobacco Use Status: Never used Tobacco e-Cigarette/Vaping Use: Never Used service: No Current occupational status: retired Cognitive needs: No Hearing needs: No Vision needs: No Review of Systems Const Denies chills, Denies fatigue, Denies fever(s), Denies frequent falls, Denies weakness, Denies weight gain and Denies weight loss ENT Denies dizziness Card Denies chest pain, Denies leg edema, Denies lightheadedness, Denies palpitations, Denies dyspnea, Denies dyspnea on exertion, Denies orthopnea and Denies other (loss of consciousness) Resp Denies cough, Denies dyspnea and Denies dyspnea on exertion GI Denies hematochezia and Denies change in stool character Musc Denies abnormal gait, Denies muscle weakness, Denies numbness, Denies radiating pain into limb and Denies tingling Neuro Denies abnormal gait, Denies dizziness, Denies frequent falls, Denies numbness, Denies tingling and Denies weakness Endo Denies fatigue and Denies palpitations Physical Exam Vital Signs: Last Vital Signs Pulse 87 10/18/23 12:32 BP 120/70 10/18/23 12:32 BMI result Body Mass Index 28.0 Const General: comfortable and no acute distress Orientation/consciousness: patient oriented x3 HEENT Other: Unremarkable Head: Yes normal to inspection Neck Neck: Yes normal visual inspection Chest Chest palpation & inspection: normal inspection of the chest Resp Auscultation: clear to auscultation bilaterally Cardio Palpation: normal PMI Heart sounds: S1 normal heart sound present, S2 normal heart sound present, no gallops, no murmurs and no rubs GI Palpation (GI): Soft to palpation Back/Spine/Pelvis Other: unremarkable Skin General skin exam: no rashes or lesions noted Neuro General: patient oriented x3 Extrem General: Yes normal to inspection Psych Mental Status: mental status grossly normal Office Procedures EKG Details: EKG with atrial fibrillation at 87/Min. [id number], Complete Assessment & Plan Assessment & Plan (1) Persistent atrial fibrillation: Code(s): I48.19 - Other persistent atrial fibrillation Category: Medical (2) HENRIK (obstructive sleep apnea): Comment: Moderate degree of sleep apnea. The AHI was 21/hr and oxygen victor hugo was 79%. Code(s): G47.33 - Obstructive sleep apnea (adult) (pediatric) Category: Medical Plan Echocardiogram with LVEF of 55-60%. Mild aortic and mitral valvular calcifications but otherwise unremarkable. In the most recent Holter, underlying rhythm is atrial fibrillation with average rate of 73/Min. Overall, well controlled. Overall, well controlled atrial fibrillation, asymptomatic. She is well controlled on metoprolol and digoxin and no changes with that. Check digoxin levels. Renal function seems okay. Also on Eliquis without any issues. Continue CPAP for obstructive sleep apnea. She has some questions and advised to discuss that with sleep medicine. Follow-up in 1 year. In the interim, if any concerns, she will contact us. Total time spent including review of data, counseling, documentation, coordination of care-31 minutes. Orders: Orders Digoxin Today I48.19 - Other persistent atrial fibrillation Coding Level of Care Code Est Pt Level 4 (53134) Diagnoses Persistent atrial fibrillation I48.19 HENRIK (obstructive sleep apnea) G47.33 CPT Codes EKG - CPT: 20260-[id number], Complete ([id number])
== END 2023-10-18 13:01 | disposition home or self-care (01) ==
PROVIDERS: PCP Internal Medicine; Visit Provider Internal Medicine
DX: I48.19 Other persistent atrial fibrillation (principal); G47.33 Obstructive sleep apnea (adult) (pediatric)
CPT/HCPCS: 93010; 99214

== ENCOUNTER → 2023-10-18 12:27 | Outpatient (BNVA) | payer MEDICARE, OTHER, SELFPAY | PROVIDERS: PCP Internal Medicine; Visit Provider Internal Medicine | DX: I48.19 Other persistent atrial fibrillation (principal); G47.33 Obstructive sleep apnea (adult) (pediatric); Z79.01 Long term (current) use of anticoagulants | CPT/HCPCS: 93005; 99212 ==

== ENCOUNTER 2023-12-27 07:52 | Outpatient (REF) | payer MEDICARE, OTHER, SELFPAY ==
[2023-12-27 10:03] LABS: MANUAL DIFF FLAG NO
[2023-12-27 10:14] LABS: Basophils Absolute Auto 0.1 X10*3/uL (0.0-0.2); Basophils Percent Auto 0.7 % (0-2); Eosinophils Absolute Auto 0.1 X10*3/uL (0.0-0.4); Eosinophils Percent Auto 0.9 % (0-4); Hematocrit 48.7 % (37.0-47.0); Hemoglobin 16.5 g/dl (12.0-16.0); Imm Gran Abs Auto 0.03 X10*3/uL (0.00-0.03); Imm Gran Pct Auto 0.4 % (0.0-0.4); Lymphocytes Absolute Auto 3.1 X10*3/uL (1.2-4.9); Lymphocytes Percent Auto 43.7 % (20-40); Mean Corpuscular HGB Conc 33.9 g/dl (31.0-35.0); Mean Corpuscular Hemoglobin 29.7 pg (27.0-33.0); Mean Corpuscular Volume 87.7 fL (80.0-98.0); Mean Platelet Volume 11.8 fL (9.4-12.3); Monocytes Absolute Auto 0.6 X10*3/uL (0.1-1.2); Neutrophils Absolute Auto 3.3 x10*3/uL (2.0-8.3); Neutrophils Percent Auto 46.3 % (45-73); Platelet Count 195 X10*3/uL (160-400); Red Blood Count 5.55 X10*6/uL (4.20-5.50); Red Cell Distribution Width 13.2 % (11.0-16.0)
[2023-12-27 10:48] LABS: Creatinine Urine 130.98 mg/dL; Microalbum/Creatinine Ratio Ur 16.7 ug/mg cr (<30)
[2023-12-27 10:59] LABS: Alanine Aminotransferase 33 U/L (0-31); Albumin Level 4.2 g/dL (3.5-5.0); Alkaline Phosphatase 54 U/L (39-117); Anion Gap 16 (12-20); Aspartate Amino Transferase 28 U/L (5-31); Bilirubin Total 1.4 mg/dL (0.0-1.0); Blood Urea Nitrogen 18 mg/dL (9-16); Calcium 9.7 mg/dL (8.4-10.2); Carbon Dioxide 25 mmol/L (22-29); Chloride 104 mmol/L (96-108); Cholesterol 207 mg/dL (<200); Estimated Glomerular Filt Rate > 60; Glucose Fasting 152 mg/dL (60-99); HDL Cholesterol 42 mg/dL (>40); LDL Cholesterol Calculated 132 mg/dL (<100); Potassium 4.1 mmol/L (3.3-5.1); Sodium 141 mmol/L (135-145); Total Protein 7.4 g/dL (6.5-8.0); Triglycerides 165 mg/dL (<150)
[2023-12-27 11:21] LABS: Estimated Average Glucose 143 mg/dL; Hemoglobin A1c % 6.6 % (<6.0)
[2023-12-27 16:10] LABS: Digoxin 0.5 ng/mL (0.8-2.0)
== END 2023-12-27 07:53 | disposition home or self-care (01) ==
LOC: HO.HMGCLDS 07:52
PROVIDERS: PCP Internal Medicine; Referring Provider Internal Medicine; Visit Provider Internal Medicine
DX: E11.9 Type 2 diabetes mellitus without complications (principal); I48.19 Other persistent atrial fibrillation; E03.9 Hypothyroidism, unspecified; I10 Essential (primary) hypertension
CPT/HCPCS: 36415; 80053; 80061; 80162; 82043; 82570; 83036; 85025

== ENCOUNTER 2023-12-28 12:26 | Outpatient (AMB) | payer MEDICARE, OTHER, SELFPAY ==
--- NOTE | 2023-12-28 12:40 | A.OFFPC_ITS ---
Vital Signs 12/28/23 12:42 Height 5 ft 9 in Weight 190 lb BMI 28.1 BP 120/70 Blood Pressure Location Rt brachial Position Sitting Pulse 94 Pulse Source Pulse Oximeter Pulse Oximetry (%) 95 Oxygen Delivery Method Room Air Intake Visit Reasons: 6month f/u medication Intake Note: Pt is here today for 6 months follow up visit. Allergies metformin Adverse Reaction (Intermediate, Verified 12/28/23 12:44) Diarrhea Compazine Allergy (Unknown, Uncoded 12/28/23 12:44) facial paralysis Medication List - Last Reconciled 12/28/23 by Allyson Magaña MD apixaban (Eliquis) 5 mg PO BID cholecalciferol (vitamin D3) 3,000 units PO DAILY dapagliflozin propanediol (Farxiga) 5 mg PO DAILY digoxin 0.125 mg PO DAILY 90 days Farxiga (dapagliflozin propanediol) 10 mg PO DAILY NS levothyroxine (Euthyrox) 75 mcg PO DAILY metoprolol tartrate 100 mg PO BID nystatin 1 appl topical BID 14 days Saccharomyces boulardii (Daily Probiotic (S. boulardii)) 250 mg PO BID triamcinolone acetonide 0.1% 1 appl topical BID-TID Tobacco use date assessed: 12/28/23 Fall risk assessment: 1 Fall in past year Last assessed Fall Risk: 12/28/23 Dental Screening Dental Screen Date: 12/28/23 Did you have a dental visit in the last 12 months?: Yes Did you have a dental problem in the last 6 months where you did not have access to dental care?: No Was dental information given to patient?: Patient has dentist HPI 6month f/u medication HPI Details PATIENT PRESENTS FOR THE FOLLOW-UP OF TYPE 2 DIABETES PAROXYSMAL AFIB HYPOTHYROIDISM AND HYPERTENSION STABLE ON CURRENT MEDICATIONS. [facility] Medical History Atrial fibrillation with RVR Hypothyroidism Numerous skin moles Postmenopausal Vitamin D deficiency Hx of mammogram HTN (hypertension) Surgical History Hx of colonoscopy History of bunionectomy Hx of shoulder surgery Family History Father CAD (coronary artery disease) COPD (chronic obstructive pulmonary disease) Mother COPD (chronic obstructive pulmonary disease) Family/Other Liver disease Social History Household Members: None Household Members Other:: lives alone, 2 adults Housing: House Do you presently have visiting nurse or other home services: No Alcohol intake: current Alcohol intake frequency: holidays/special occasions only Patient Tobacco Use Status: Never used Tobacco e-Cigarette/Vaping Use: Never Used service: No Current occupational status: retired Cognitive needs: No Hearing needs: No Vision needs: No Questionnaire PHQ-9 Over the last 2 weeks, how often have you been bothered by any of the following problems? 1. Little interest or pleasure in doing things: not at all 2. Feeling down, depressed, or hopeless: not at all 3. Trouble falling or staying asleep, or sleeping too much: not at all 4. Feeling tired or having little energy: not at all 5. Poor appetite or overeating: not at all 6. Feeling bad about yourself - or that you are a failure or have let yourself or your family down: not at all 7. Trouble concentrating on things, such as reading the newspaper or watching television: not at all 8. Moving or speaking so slowly that other people could have noticed. Or the opposite - being so fidgety or restless that you have been moving around a lot more than usual: not at all 9. Thoughts that you would be better off or of hurting yourself in some way: not at all Total score: 0 Depression Screening Interpretation: Negative Depression Screening Done: Yes Source: Developed by Drs. Devang Ji, Peg Wilde, Alen Garcia and colleagues, with an educational mahnaz from [employer]. Thrive Questionnaire Date Thrive assessed: 12/28/23 I am a: Patient What is your living situation today?: I have a steady place to live Within the past 12 months, did the food you bought not last and you didn't have the money to get more?: Never true Within the past 12 months, did you worry whether your food would run out before you got money to buy more?: Never true Do you have trouble paying for medicines?: No Do you have trouble getting transportation to medical appointments?: No Do you have trouble paying your heating and electricity bill?: No Do you have trouble taking care of your child, family member or friend?: No Do you have trouble with day-to-day activities such as bathing, preparing meals, shopping, managing finances, etc.?: No Are you currently unemployed and looking for a job?: No Are you interested in more education?: No Please select the resources that you would like help with: None THRIVE Score: 0 AUDIT C Alcohol Use Questionnaire (AUDIT-C) 1. How often do you have a drink containing alcohol?: Monthly or less 2. How many drinks containing alcohol do you have on a typical day when you are drinking?: 1 or 2 3. How often do you have six or more drinks on one occasion?: Never Total Score: 1 SHERI-7 AMB Questionnaire SHERI-7 Date SHERI - 7 assessed: 12/28/23 Feeling nervous, anxious, or on edge: 0 = Not at all Not being able to stop or control worryin = Not at all Worrying too much about different things: 0 = Not at all Trouble relaxin = Not at all Being so restless that it is hard to sit still: 0 = Not at all Becoming easily annoyed or irritable: 0 = Not at all Feeling afraid as if something awful might happen: 0 = Not at all Total SHERI-7 score (0-4 normal; 5-9 mild; 10-14 moderate; 15-21 severe): 0 Source: Developed by Drs. Devang Ji, Peg Wilde, Alen Garcia and colleagues, with an educational mahnaz from [employer]. Review of Systems Const All systems reviewed & are unremarkable except as noted in HPI and below Eyes Reports no additional complaints ENT Reports no additional complaints Card Reports no additional complaints Resp Reports no additional complaints GI Reports no additional complaints Physical exam (Primary Care) Vital Signs: Last Vital Signs Pulse 94 12/28/23 12:42 BP 120/70 12/28/23 12:42 Pulse Ox 95 12/28/23 12:42 Oxygen Delivery Method Room Air 12/28/23 12:42 BMI result Body Mass Index 28.1 Tobacco/Smoking Status: Tobacco use Status Tobacco use date assessed 12/28/23 12/28/23 12:48 Patient Tobacco Use Status Never used Tobacco 12/28/23 12:48 e-Cigarette/Vaping Use Never Used 12/28/23 12:40 PHQ-9: PHQ-9 Score PHQ-9: Total score 0 12/28/23 12:48 Depression Screening Interpretation: Negative Thrive Assessment: Date of Thrive Assessment Date Thrive assessed 12/28/23 12/28/23 12:48 Const General: no acute distress HENMT Head: Yes normal to inspection Mouth: Normal oral and palatal mucosa present Throat: Yes posterior oropharynx normal Neck Neck: Yes supple Resp Effort & Inspection: normal respiratory effort Auscultation: clear to auscultation bilaterally Cardio Rhythm: regular rhythm Heart sounds: S1 normal heart sound present and S2 normal heart sound present GI Inspection: Yes normal to inspection Palpation (GI): Soft to palpation Percussion: Yes normal to percussion Assessment and Plan Assessment & Plan (1) DM type 2 (diabetes mellitus, type 2): Comment: A1C 6.7, 02/08, patient's is intolerant to metformin. Farxiga 5 mg daily started 03/11 Code(s): E11.9 - Type 2 diabetes mellitus without complications Plan: A1c is 6.7 increase Farxiga to 10 mg a day ADA diet increase exercise weight loss discussed with the patient she requested referral to staffing director (2) Atrial fibrillation: Comment: Echo normal ejection fraction, LVH, mild MR 09/08 Code(s): I48.91 - Unspecified atrial fibrillation Plan: Continue beta vlad digoxin and Eliquis (3) HTN (hypertension): Code(s): I10 - Essential (primary) hypertension Plan: Continue current medications (4) Hypothyroidism: Code(s): E03.9 - Hypothyroidism, unspecified Plan: Continue levothyroxine (5) Hypercholesteremia: Code(s): E78.00 - Pure hypercholesterolemia, unspecified Plan: Low-cholesterol diet weight loss discussed with the patient, follow-up in 4 months with a fasting labs before Orders: Orders Lipid Panel 4 Months E03.9 - Hypothyroidism, unspecified, E11.9 - Type 2 diabetes mellitus without complications, I10 - Essential (primary) hypertension, I48.91 - Unspecified atrial fibrillation Hemoglobin A1c 4 Months E03.9 - Hypothyroidism, unspecified, E11.9 - Type 2 diabetes mellitus without complications, I10 - Essential (primary) hypertension, I48.91 - Unspecified atrial fibrillation Complete Blood Count Auto Diff 4 Months E03.9 - Hypothyroidism, unspecified, E11.9 - Type 2 diabetes mellitus without complications, I10 - Essential (primary) hypertension, I48.91 - Unspecified atrial fibrillation Comprehensive [place]. Panel Fast 4 Months E03.9 - Hypothyroidism, unspecified, E11.9 - Type 2 diabetes mellitus without complications, I10 - Essential (primary) hypertension, I48.91 - Unspecified atrial fibrillation Microalbumin, Random (w Creat) 4 Months E03.9 - Hypothyroidism, unspecified, E11.9 - Type 2 diabetes mellitus without complications, I10 - Essential (primar y) hypertension, I48.91 - Unspecified atrial fibrillation TSH reflex Free T4 4 Months E03.9 - Hypothyroidism, unspecified, E11.9 - Type 2 diabetes mellitus without complications, I10 - Essential (primary) hypertension, I48.91 - Unspecified atrial fibrillation Referrals Nutrition/Dietitian Referral E11.9 - Type 2 diabetes mellitus without complications, E78.00 - Pure hypercholesterolemia, unspecified Medications: New Farxiga (dapagliflozin propanediol) 10 mg PO DAILY 90 tabs 3RF NS Coding Level of Care Code Est Pt Level 4 (55259) Diagnoses DM type 2 (diabetes mellitus, type 2) E11.9 Atrial fibrillation I48.91 HTN (hypertension) I10 Hypothyroidism E03.9 Hypercholesteremia E78.00
[2023-12-28 12:42] VITALS: BP 120/70; PULSE 94; O2SAT 95; BMI 28.1
== END 2023-12-28 13:38 | disposition home or self-care (01) ==
PROVIDERS: PCP Internal Medicine; Visit Provider Internal Medicine
DX: E11.9 Type 2 diabetes mellitus without complications (principal); I48.91 Unspecified atrial fibrillation; I10 Essential (primary) hypertension; E03.9 Hypothyroidism, unspecified; E78.00 Pure hypercholesterolemia, unspecified
CPT/HCPCS: 99214

== ENCOUNTER 2024-01-11 12:01 | Outpatient (AMB) | payer MEDICARE, OTHER, SELFPAY ==
[2024-01-11 12:03] VITALS: BP 122/74; PULSE 74; TEMP 36.6; O2SAT 97; BMI 28.1
--- NOTE | 2024-01-11 12:03 | MHC.OFFWIV ---
Intake Vital Signs 01/11/24 12:03 Height 5 ft 9 in Weight 190 lb BMI 28.1 BP 122/74 Blood Pressure Location Rt brachial Position Sitting Pulse 74 Pulse Source Pulse Oximeter Temp 97.9 F Temp Source Oral Pulse Oximetry (%) 97 Oxygen Delivery Method Room Air Intake Visit Reasons: Rt Knee pain Intake Note: pt is here for right knee pain Patient Tobacco Use Status: Never used Tobacco Allergies metformin Adverse Reaction (Intermediate, Verified 01/11/24 12:03) Diarrhea Compazine Allergy (Unknown, Uncoded 12/28/23 12:44) facial paralysis Do you need a note to return to daycare/school/sports/work: No HPI Rt Knee pain HPI Details This note is constructed using voice recognition software. While every effort has been made to ensure accuracy, community engagement specialist errors may have been included. The patient is a 78 year old female who presents to the clinic today with right knee pain onset 3 days ago without injury. She notes that she has had arthritis in her left knee several years ago and does believe that this could be something similar. She reports that she woke up with the pain in her right knee, it is in the medial aspect of the knee, without any twisting motion or any other injury or fall. She has never had surgery in the area and no previous injuries. She denies redness, warmth. She took Tylenol and Excedrin to assist with the pain. She notes that she is not supposed to take NSAIDs due to her blood thinners, however reports Tylenol was just not cutting. She also tried ice which seemed to help a little bit. [facility] Medical History Atrial fibrillation with RVR Hypothyroidism Numerous skin moles Postmenopausal Vitamin D deficiency Hx of mammogram HTN (hypertension) Surgical History Hx of colonoscopy History of bunionectomy Hx of shoulder surgery Family History Father CAD (coronary artery disease) COPD (chronic obstructive pulmonary disease) Mother COPD (chronic obstructive pulmonary disease) Family/Other Liver disease Social History Household Members: None Household Members Other:: lives alone, 2 adults Housing: House Do you presently have visiting nurse or other home services: No Alcohol intake: current Alcohol intake frequency: holidays/special occasions only Patient Tobacco Use Status: Never used Tobacco e-Cigarette/Vaping Use: Never Used service: No Current occupational status: retired Cognitive needs: No Hearing needs: No Vision needs: No Review of Systems Const All systems reviewed & are unremarkable except as noted in HPI and below Physical Exam Vital Signs: Last Vital Signs Temp 97.9 F 01/11/24 12:03 Pulse 74 01/11/24 12:03 BP 122/74 01/11/24 12:03 Pulse Ox 97 01/11/24 12:03 Oxygen Delivery Method Room Air 01/11/24 12:03 BMI result Body Mass Index 28.1 Const General: cooperative, healthy appearing, comfortable, no acute distress and alert Orientation/consciousness: patient oriented x3 Limitations: no limitations Skin General skin exam: no rashes or lesions noted, elasticity normal and turgor normal Neuro General: patient oriented x3 Extrem Other: Slight antalgic gait. Tender to palpation on medial joint line. Distal neurovascular exam intact. General: Yes normal to inspection, Yes full ROM, Yes capillary refill normal and Yes normal exam except as noted Right lower extremity: knee Details: normal to inspection, normal ROM, knee ligament exam normal and Jaspal's Test Details: negative medially and laterally; no swelling, no abrasions, no lacerations, no ecchymosis, no crepitus, no deformity and no unusual warmth Psych Appearance: grossly normal Mental Status: mental status grossly normal Speech and movement: Normal speech and movement present Affect: normal affect Assessment & Plan Assessment & Plan (1) Right knee pain: Code(s): M25.561 - Pain in right knee Qualifiers: Chronicity: acute Qualified Code(s): M25.561 - Pain in right knee Plan: Etiology unclear, however likely and arthritis exacerbation. We will try a prednisone burst for anti-inflammatory effects. X-ray ordered to determine if arthritis is part of the equation. Advised follow up with PCP, and consideration of ortho if needed. We will contact patient with results of x-ray when available. Plan See above for full details and plan. Orders: Orders XR knee RT 2V Today M25.561 - Pain in right knee Medications: New prednisone 40 mg (2 x 20 mg) PO DAILY 5 days 10 tabs 0RF Coding Level of Care Code Est Pt Level 4 (40946) Diagnoses Acute pain of right knee M25.561 Chronicity: acute
== END 2024-01-11 13:39 | disposition home or self-care (01) ==
PROVIDERS: PCP Internal Medicine; Visit Provider Registered Nurse
DX: M25.561 Pain in right knee (principal)
CPT/HCPCS: 99214

== ENCOUNTER 2024-01-11 13:02 | Outpatient (REF) | payer MEDICARE, OTHER, SELFPAY ==
--- NOTE | ~2024-01-11 | XR_ITS ---
EXAMINATION: XR KNEE, RIGHT CLINICAL INFORMATION: Right knee pain COMPARISON: None available. TECHNIQUE: Four views of the right knee. FINDINGS: Bones have normal alignment. Small marginal osteophytes are present at patellofemoral and tibiofemoral compartments. The joint spaces are maintained. There appears to be a trace amount of fluid in the suprapatellar compartment of the knee joint. Enthesophytes of the patella and anterior tibial tubercle. No suspicious osseous lesions. 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
== END 2024-01-11 13:03 | disposition home or self-care (01) ==
LOC: HO.HMGCX 13:02
PROVIDERS: PCP Internal Medicine; Visit Provider Registered Nurse
DX: M25.561 Pain in right knee (principal)
CPT/HCPCS: 73564

== ENCOUNTER 2024-01-15 10:23 | Outpatient (AMB) | payer MEDICARE, OTHER, SELFPAY ==
[2024-01-15 10:41] VITALS: BMI 28.5
--- NOTE | 2024-01-15 10:41 | A.OFFVIS_ITS ---
VS Expanded 01/15/24 10:41 01/22/24 12:03 Height 5 ft 9 in 5 ft 9 in Weight 193 lb 1.999 oz 193 lb BMI 28.5 28.5 Intake Visit Reasons: T2DM/LVM Allergies metformin Adverse Reaction (Intermediate, Verified 01/11/24 12:03) Diarrhea Compazine Allergy (Unknown, Uncoded 12/28/23 12:44) facial paralysis Nutrition Presentation Details: Pt presents for MNT for T2DM, pure hypercholesterolemia. Pt was referred by Dr. Magaña, PCP food frequency Fish: 0-1/wk fruits: 0-2/d dairy: 2-3 servings/ vegetables: 2-3 serving/d starches : simple carbs/some complex carbs pastries/cookies: 0-1/d fried foods: 1-2x/mo water: 2-3 x/day BS Monitoring Most Recent Diabetes Results: Microalb/Creat Ratio 16.7 ug/mg cr (<30) 12/27/23 Cholesterol 207 mg/dL (<200) H 12/27/23 HDL Cholesterol 42 mg/dL (>40) 12/27/23 Triglycerides 165 mg/dL (<150) H 12/27/23 Creatinine 0.87 mg/dL (0.5-1.4) 12/27/23 Blood Urea Nitrogen 18 mg/dL (9-16) H 12/27/23 Sodium 141 mmol/L (135-145) 12/27/23 Potassium 4.1 mmol/L (3.3-5.1) 12/27/23 Chloride 104 mmol/L (96-108) 12/27/23 Carbon Dioxide 25 mmol/L (22-29) 12/27/23 Calcium 9.7 mg/dL (8.4-10.2) 12/27/23 AST 28 U/L (5-31) 12/27/23 ALT 33 U/L (0-31) H 12/27/23 Total Protein 7.4 g/dL (6.5-8.0) 12/27/23 Albumin 4.2 g/dL (3.5-5.0) 12/27/23 MJJ-Crqqesj-Vh.Jeor Equation Height: 5 ft 9 in Weight: 193 lb Resting Metabolic Rate: 1435.01 Calculated Activity Level: Sedentary Calories Needed to Maintain Weight: 1722.01 Diagnosis Nutrition problem #1: food nutri know defi As related to (etiology) #1: diagnosis As evidenced by (sign/symptom) #1: knowledge deficit of diet Monitoring/Goals Nutrition problem monitoring: level of knowledge/skill Nutrition goal/outcome: list 3 high fiber foods Learning/Education Readiness to learn: good Stages of change: action Educational materials provided: Yes (Healthy plate method, choosing fiber rich foods, increasing fluids/water) Follow up Follow-up frequency: monthly PFSH Medical History Atrial fibrillation with RVR Hypothyroidism Numerous skin moles Postmenopausal Vitamin D deficiency Hx of mammogram HTN (hypertension) Surgical History Hx of colonoscopy History of bunionectomy Hx of shoulder surgery Family History Father CAD (coronary artery disease) COPD (chronic obstructive pulmonary disease) Mother COPD (chronic obstructive pulmonary disease) Family/Other Liver disease Social History Household Members: None Household Members Other:: lives alone, 2 adults Housing: House Do you presently have visiting nurse or other home services: No Alcohol intake: current Alcohol intake frequency: holidays/special occasions only Patient Tobacco Use Status: Never used Tobacco e-Cigarette/Vaping Use: Never Used service: No Current occupational status: retired Cognitive needs: No Hearing needs: No Vision needs: No Assessment & Plan Assessment & Plan (1) DM type 2 (diabetes mellitus, type 2): Code(s): E11.9 - Type 2 diabetes mellitus without complications Category: Medical Plan: Wt: 88 Kg ( 01/2024 ) Est kcal needs as per MSJ: 1700 (40% carb, 30% protein/fat) Est fluid needs as per 25-30 ml/d: 2600 Est prot per day as per 1 g/kg bw: 88 Recommend fiber intake : 8-10 g per day and gradually increase to 25-28 g per day for women and 35-38 g for men or as tolerated Recommend sodium intake per day : less than 2000 mg Educated patient on: ( R = reviewed V = verbalizes understanding N/R = needs review N/A = not applicable * Food sources of carbohydrate, adequate serving sizes and its role in various health conditions: R V N/R * Differences between complex carbohydrates a simple carbohydrates, role of fiber in diet: R V N/R * Lean protein sources of foods: R V NR * Differences between types of fats and role in diet (mono on saturated fat fatty acids, saturated fatty acids, trans fats): R V N/R * Food sources of sodium in salt and healthy modifications for heart health in kidney health: R V R/V * Vitamins and minerals: R V N/R * Healthy plate method concept: R * Physical activity: Benefits a precaution: R V N/R * Hypoglycemia protocol (rule of 15): R V N/R * Dietary prevention to prevent Hyperglycemia: R Patient Instructions: Follow healthy plate method at dinner 5 times/wk Have a fruit and lean protein as a bedtime snack - see list of options as reference Coding Level of Care Code Nutr Indiv Intake (00642) Diagnoses DM type 2 (diabetes mellitus, type 2) E11.9
[2024-01-23 09:27] VITALS: BMI 28.5
== END 2024-01-15 11:25 | disposition home or self-care (01) ==
PROVIDERS: PCP Internal Medicine; Visit Provider Dietitian, Registered
DX: E11.9 Type 2 diabetes mellitus without complications (principal)

== ENCOUNTER → 2024-01-15 10:23 | Outpatient (BNVA) | payer MEDICARE, OTHER, SELFPAY | PROVIDERS: PCP Internal Medicine; Visit Provider Dietitian, Registered | DX: E11.9 Type 2 diabetes mellitus without complications (principal) | CPT/HCPCS: 97802 ==

== ENCOUNTER 2024-02-12 08:07 | Outpatient (AMB) | payer MEDICARE, OTHER, SELFPAY ==
[2024-02-12 08:12] VITALS: BP 142/88; PULSE 96; O2SAT 98; BMI 28.1
--- NOTE | 2024-02-12 08:12 | MHC.OFFWIV ---
Intake Vital Signs 02/12/24 08:12 Height 5 ft 9 in Weight 190 lb BMI 28.1 BP 142/88 H Blood Pressure Location Rt brachial Position Sitting Pulse 96 Pulse Source Pulse Oximeter Pulse Oximetry (%) 98 Oxygen Delivery Method Room Air Intake Visit Reasons: EP- UTI? Patient Tobacco Use Status: Never used Tobacco Allergies metformin Adverse Reaction (Intermediate, Verified 02/12/24 08:13) Diarrhea Compazine Allergy (Unknown, Uncoded 02/12/24 08:13) facial paralysis HPI EP- UTI? HPI Details This note is constructed using voice recognition software. While every effort has been made to ensure accuracy, road gang supervisor errors may have been included. The patient is a 78 year old female who presents to the clinic today with concerns for yeast infection. She notes 1 week history of itchy vagina with milky discharge that is thick. She has had yeast infections in the past, and this feels similar. She is voiding more, but denies any urgency or burning. She is diabetic and on farxiga, which she is compliant with her medication. [facility] Medical History Atrial fibrillation with RVR Hypothyroidism Numerous skin moles Postmenopausal Vitamin D deficiency Hx of mammogram HTN (hypertension) Surgical History Hx of colonoscopy History of bunionectomy Hx of shoulder surgery Family History Father CAD (coronary artery disease) COPD (chronic obstructive pulmonary disease) Mother COPD (chronic obstructive pulmonary disease) Family/Other Liver disease Social History Household Members: None Household Members Other:: lives alone, 2 adults Housing: House Do you presently have visiting nurse or other home services: No Alcohol intake: current Alcohol intake frequency: holidays/special occasions only Patient Tobacco Use Status: Never used Tobacco e-Cigarette/Vaping Use: Never Used service: No Current occupational status: retired Cognitive needs: No Hearing needs: No Vision needs: No Review of Systems Const All systems reviewed & are unremarkable except as noted in HPI and below Physical Exam Vital Signs: Last Vital Signs Pulse 96 02/12/24 08:12 BP 142/88 H 02/12/24 08:12 Pulse Ox 98 02/12/24 08:12 Oxygen Delivery Method Room Air 02/12/24 08:12 BMI result Body Mass Index 28.1 Const General: cooperative, healthy appearing, comfortable, no acute distress and alert Orientation/consciousness: patient oriented x3 Limitations: no limitations Other: Declined pelvic examination Neuro General: patient oriented x3 Psych Appearance: grossly normal Mental Status: mental status grossly normal Speech and movement: Normal speech and movement present Affect: normal affect Results AMB Urinalysis, Automated UA Leukoctes 0 Cecy/uL Last Edit by Nat Caal CMA on 02/12/24 08:26 UA Nitrite Negative Last Edit by Nat Caal CMA on 02/12/24 08:26 UA Urobilinogen 0.2 mg/dL Last Edit by Nat Caal CMA on 02/12/24 08:26 UA Protein 0 mg/dL Last Edit by Nat Caal CMA on 02/12/24 08:26 UA pH 5.5 Last Edit by Nat Caal CMA on 02/12/24 08:26 UA Blood 25 Rohit/uL Last Edit by Nat Caal CMA on 02/12/24 08:26 UA Specific [place] 1.020 Last Edit by Nat Caal CMA on 02/12/24 08:26 UA Ketone Negative Last Edit by Nat Caal CMA on 02/12/24 08:26 UA Bilirubin 0 mg/dL Last Edit by Nat Caal CMA on 02/12/24 08:26 UA Glucose 1000 mg/dL Last Edit by Nat Caal CMA on 02/12/24 08:26 Assessment & Plan Assessment & Plan (1) Shonna infection: Code(s): B37.9 - Candidiasis, unspecified Plan: Treatment based on symptoms, as patient has declined pelvic exam. Advised in the future, should she develop symptoms, she should trial otc monistat 7 day for treatment. She would like oral treatment today. Advised follow up with pcp with ongoing or worsening symptoms or failure to resolve. In office urine and symptoms inconsistant with UTI. She is spilling glucose, which is appropriate based on her current medication. We discussed small amount of blood in urine, and given that she is scratching the area, this is likely an appropriate finding. Plan See above for full details and plan. Orders: Orders AMB Urinalysis Automated Today Z13.9 - Encounter for screening, unspecified Medications: New fluconazole May repeat in 1 week if symptoms persist 150 mg PO ONCE 2 tabs 0RF Coding Level of Care Code Est Pt Level 3 (73418) Diagnoses Shonna infection B37.9
== END 2024-02-12 08:53 | disposition home or self-care (01) ==
PROVIDERS: PCP Internal Medicine; Visit Provider Registered Nurse
DX: B37.9 Candidiasis, unspecified (principal); Z13.9 Encounter for screening, unspecified
CPT/HCPCS: 81003; 99213

== ENCOUNTER 2024-04-16 14:30 | Outpatient (AMB) | payer MEDICARE, OTHER, SELFPAY ==
[2024-04-16 14:44] VITALS: BMI 28.0
--- NOTE | 2024-04-16 14:44 | A.OFFVIS_ITS ---
VS Expanded 04/16/24 14:44 Height 5 ft 9 in Weight 189 lb 9.561 oz BMI 28.0 Intake Visit Reasons: T2DM/CONFIRMED Allergies metformin Adverse Reaction (Intermediate, Verified 02/12/24 08:13) Diarrhea Compazine Allergy (Unknown, Uncoded 02/12/24 08:13) facial paralysis Nutrition Presentation Details: Pt presents for MNT f/u for T2DM Pt reports doing well, working on keeping physically activity including omega 3 sources of foods twice/wk Working on meal planning, healthy plate method BS Monitoring Most Recent Diabetes Results: Microalb/Creat Ratio 16.7 ug/mg cr (<30) 12/27/23 Cholesterol 207 mg/dL (<200) H 12/27/23 HDL Cholesterol 42 mg/dL (>40) 12/27/23 Triglycerides 165 mg/dL (<150) H 12/27/23 Creatinine 0.87 mg/dL (0.5-1.4) 12/27/23 Blood Urea Nitrogen 18 mg/dL (9-16) H 12/27/23 Sodium 141 mmol/L (135-145) 12/27/23 Potassium 4.1 mmol/L (3.3-5.1) 12/27/23 Chloride 104 mmol/L (96-108) 12/27/23 Carbon Dioxide 25 mmol/L (22-29) 12/27/23 Calcium 9.7 mg/dL (8.4-10.2) 12/27/23 AST 28 U/L (5-31) 12/27/23 ALT 33 U/L (0-31) H 12/27/23 Total Protein 7.4 g/dL (6.5-8.0) 12/27/23 Albumin 4.2 g/dL (3.5-5.0) 12/27/23 PFSH Medical History Atrial fibrillation with RVR Hypothyroidism Numerous skin moles Postmenopausal Vitamin D deficiency Hx of mammogram HTN (hypertension) Surgical History Hx of colonoscopy History of bunionectomy Hx of shoulder surgery Family History Father CAD (coronary artery disease) COPD (chronic obstructive pulmonary disease) Mother COPD (chronic obstructive pulmonary disease) Family/Other Liver disease Social History Household Members: None Household Members Other:: lives alone, 2 adults Housing: House Do you presently have visiting nurse or other home services: No Alcohol intake: current Alcohol intake frequency: holidays/special occasions only Patient Tobacco Use Status: Never used Tobacco e-Cigarette/Vaping Use: Never Used service: No Current occupational status: retired Cognitive needs: No Hearing needs: No Vision needs: No Assessment & Plan Assessment & Plan (1) DM type 2 (diabetes mellitus, type 2): Code(s): E11.9 - Type 2 diabetes mellitus without complications Category: Medical Plan: Wt: 88 Kg ( 01/2024 ),86 04/11 Est kcal needs as per MSJ: 1700 (40% carb, 30% protein/fat) Est fluid needs as per 25-30 ml/d: 2600 Est prot per day as per 1 g/kg bw: 88 Recommend fiber intake : 8-10 g per day and gradually increase to 25-28 g per day for women and 35-38 g for men or as tolerated Recommend sodium intake per day : less than 2000 mg Educated patient on: ( R = reviewed V = verbalizes understanding N/R = needs review N/A = not applicable * Food sources of carbohydrate, adequate serving sizes and its role in various health conditions: R V * Differences between complex carbohydrates a simple carbohydrates, role of fib er in diet: R V * Lean protein sources of foods: R V NR * Differences between types of fats and role in diet (mono on saturated fat fatty acids, saturated fatty acids, trans fats): R V N/R * Food sources of sodium in salt and healthy modifications for heart health in kidney health: R V R/V * Vitamins and minerals: R V N/R * Healthy plate method concept: R * Physical activity: Benefits a precaution: R * Hypoglycemia protocol (rule of 15): R V * Dietary prevention to prevent Hyperglycemia: R Patient Instructions: Have yogurt with nuts as snack at bedtime Coding Level of Care Code Nutr Indiv Subseq (69238) Diagnoses DM type 2 (diabetes mellitus, type 2) E11.9 Time Spent (min) 30
== END 2024-04-16 15:15 | disposition home or self-care (01) ==
LOC: HO.ENCR 14:30
PROVIDERS: PCP Internal Medicine; Visit Provider Dietitian, Registered
DX: E11.9 Type 2 diabetes mellitus without complications (principal)

== ENCOUNTER → 2024-04-16 14:30 | Outpatient (BNVA) | payer MEDICARE, OTHER, SELFPAY | PROVIDERS: PCP Internal Medicine; Visit Provider Dietitian, Registered | DX: E11.9 Type 2 diabetes mellitus without complications (principal); Z71.3 Dietary counseling and surveillance | CPT/HCPCS: 97803 ==

== ENCOUNTER 2024-04-24 11:55 | Outpatient (AMB) | payer MEDICARE, OTHER, SELFPAY ==
[2024-04-24 11:58] VITALS: BP 112/70; PULSE 70; O2SAT 97; BMI 27.8
--- NOTE | 2024-04-24 11:58 | A.OFFPC_ITS ---
Vital Signs 04/24/24 11:58 Height 5 ft 9 in Weight 188 lb BMI 27.8 BP 112/70 Blood Pressure Location Lt brachial Position Sitting Pulse 70 Pulse Source Pulse Oximeter Pulse Oximetry (%) 97 Oxygen Delivery Method Room Air Intake Visit Reasons: Annual HNE Covers Intake Note: Pt is here today for PE. Allergies metformin Adverse Reaction (Intermediate, Verified 04/24/24 12:00) Diarrhea Compazine Allergy (Unknown, Uncoded 04/24/24 12:00) facial paralysis Medication List - Last Reconciled 04/24/24 by Allyson Magaña MD apixaban (Eliquis) 5 mg PO BID cholecalciferol (vitamin D3) 3,000 units PO DAILY digoxin 0.125 mg PO DAILY 90 days Farxiga (dapagliflozin propanediol) 10 mg PO DAILY NS fluconazole 150 mg PO ONCE 2 doses levothyroxine (Euthyrox) 75 mcg PO DAILY metoprolol tartrate 100 mg PO BID nystatin 1 appl topical BID 14 days Saccharomyces boulardii (Daily Probiotic (S. boulardii)) 250 mg PO BID triamcinolone acetonide 0.1% 1 appl topical BID-TID Tobacco use date assessed: 04/24/24 Fall risk assessment: No Falls in past year Last assessed Fall Risk: 04/24/24 Dental Screening Dental Screen Date: 12/28/23 HPI Annual HNE Covers HPI Details Pt presents for PE. PFSH Medical History Atrial fibrillation with RVR Hypothyroidism Numerous skin moles Postmenopausal Vitamin D deficiency Hx of mammogram HTN (hypertension) Surgical History Hx of colonoscopy History of bunionectomy Hx of shoulder surgery Family History Father CAD (coronary artery disease) COPD (chronic obstructive pulmonary disease) Mother COPD (chronic obstructive pulmonary disease) Family/Other Liver disease Social History Household Members: None Household Members Other:: lives alone, 2 adults Housing: House Do you presently have visiting nurse or other home services: No Alcohol intake: current Alcohol intake frequency: holidays/special occasions only Patient Tobacco Use Status: Never used Tobacco e-Cigarette/Vaping Use: Never Used service: No Current occupational status: retired Cognitive needs: No Hearing needs: No Vision needs: No Questionnaire PHQ-9 Over the last 2 weeks, how often have you been bothered by any of the following problems? 1. Little interest or pleasure in doing things: not at all 2. Feeling down, depressed, or hopeless: not at all 3. Trouble falling or staying asleep, or sleeping too much: not at all 4. Feeling tired or having little energy: not at all 5. Poor appetite or overeating: not at all 6. Feeling bad about yourself - or that you are a failure or have let yourself or your family down: not at all 7. Trouble concentrating on things, such as reading the newspaper or watching television: not at all 8. Moving or speaking so slowly that other people could have noticed. Or the opposite - being so fidgety or restless that you have been moving around a lot more than usual: not at all 9. Thoughts that you would be better off or of hurting yourself in some way: not at all Total score: 0 Depression Screening Interpretation: Negative Depression Screening Done: Yes 22210 - PHQ-9 Billing: Yes Source: Developed by Drs. Devang Ji, Peg Wilde, Alen Garcia and colleagues, with an educational mahnaz from [employer]. Thrive Questionnaire Date Thrive assessed: 04/21/24 I am a: Patient What is your living situation today?: I have a steady place to live Within the past 12 months, did the food you bought not last and you didn't have the money to get more?: Never true Within the past 12 months, did you worry whether your food would run out before you got money to buy more?: Never true Do you have trouble paying for medicines?: No Do you have trouble getting transportation to medical appointments?: No Do you have trouble paying your heating and electricity bill?: No Do you have trouble taking care of your child, family member or friend?: No Do you have trouble with day-to-day activities such as bathing, preparing meals, shopping, managing finances, etc.?: No Are you currently unemployed and looking for a job?: No Are you interested in more education?: No Please select the resources that you would like help with: None Currently or been in a relationship where the following occur: No concerns reported THRIVE Score: 0 AUDIT C Alcohol Use Questionnaire (AUDIT-C) 1. How often do you have a drink containing alcohol?: Monthly or less 2. How many drinks containing alcohol do you have on a typical day when you are drinking?: 1 or 2 3. How often do you have six or more drinks on one occasion?: Never Total Score: 1 SHERI-7 AMB Questionnaire SHERI-7 Date SHERI - 7 assessed: 04/24/24 Feeling nervous, anxious, or on edge: 0 = Not at all Not being able to stop or control worryin = Not at all Worrying too much about different things: 0 = Not at all Trouble relaxin = Not at all Being so restless that it is hard to sit still: 0 = Not at all Becoming easily annoyed or irritable: 0 = Not at all Feeling afraid as if something awful might happen: 0 = Not at all Total SHERI-7 score (0-4 normal; 5-9 mild; 10-14 moderate; 15-21 severe): 0 Source: Developed by Drs. Devang Ji, Peg Wilde, Alen Garcia and colleagues, with an educational mahnaz from [employer]. SHERI-7 Assessment Billing SHERI-7 Assessment Tool: SHERI-7 Assessment 34674 Review of Systems Const All systems reviewed & are unremarkable except as noted in HPI and below Eyes Reports no additional complaints ENT Reports no additional complaints Card Reports no additional complaints Resp Reports no additional complaints GI Reports no additional complaints Reports no additional complaints Physical exam (Primary Care) Vital Signs: Last Vital Signs Pulse 70 04/24/24 11:58 BP 112/70 04/24/24 11:58 Pulse Ox 97 04/24/24 11:58 Oxygen Delivery Method Room Air 04/24/24 11:58 BMI result Body Mass Index 27.8 Tobacco/Smoking Status: Tobacco use Status Tobacco use date assessed 04/24/24 04/24/24 12:02 Patient Tobacco Use Status Never used Tobacco 04/24/24 12:02 e-Cigarette/Vaping Use Never Used 04/24/24 11:58 PHQ-9: PHQ-9 Score PHQ-9: Total score 0 04/24/24 12:02 Depression Screening Interpretation: Negative Thrive Assessment: Date of Thrive Assessment Date Thrive assessed 04/21/24 04/24/24 11:58 Currently or been in a relationship where the following occur: No concerns reported Const General: no acute distress HENMT Head: Yes normal to inspection Ears: hearing grossly normal bilaterally General nose exam: Normal external nose present Mouth: Normal oral and palatal mucosa present Throat: Yes posterior oropharynx normal Neck Neck: Yes no lymphadenopathy and Yes supple Resp Effort & Inspection: normal respiratory effort Auscultation: clear to auscultation bilaterally Cardio Rhythm: regular rhythm Heart sounds: S1 normal heart sound present and S2 normal heart sound present GI Inspection: Yes normal to inspection Palpation (GI): Soft to palpation Percussion: Yes normal to percussion Auscultation: normal bowel sounds Coding Level of Care Code Est Pt Prev Care >65y(89969) Diagnoses Atrial fibrillation I48.91 DM type 2 (diabetes mellitus, type 2) E11.9 Hypercholesteremia E78.00 Hypothyroidism E03.9 Annual physical exam Z00.00 Additional Codes SHERI-7 Assessment Billing - SHERI-7 Assessment Tool: SHERI-7 Assessment 43320 ([id number]) PHQ-9 - 48984 - PHQ-9 Billing: Yes ([id number]) Assessment & Plan Assessment & Plan (1) Atrial fibrillation: Comment: Echo normal ejection fraction, LVH, mild MR 09/08 Code(s): I48.91 - Unspecified atrial fibrillation Category: Medical Plan: Rate controlled on metoprolol and digoxin and anticoagulated on Eliquis (2) DM type 2 (diabetes mellitus, type 2): Code(s): E11.9 - Type 2 diabetes mellitus without complications Category: Medical Plan: ADA diet increase physical activity weight loss discussed with the patient continue current medications. Patient will return for fasting blood work follow-up in 6 months (3) Hypercholesteremia: Code(s): E78.00 - Pure hypercholesterolemia, unspecified Category: Medical Plan: Continue low-cholesterol diet check lipid profile (4) Hypothyroidism: Code(s): E03.9 - Hypothyroidism, unspecified Category: Medical Plan: Continue levothyroxine, check TSH (5) Annual physical exam: Code(s): Z00.00 - Encounter for general adult medical examination without abnormal findings Category: Medical Plan: Well-balanced diet regular exercise weight loss discussed with the patient Orders: Orders CA echo transthoracic complete Today I48.19 - Other persistent atrial fibrillation, I48.91 - Unspecified atrial fibrillation Comprehensive [place]. Panel Fast 6 Months E11.9 - Type 2 diabetes mellitus without complications, E78.00 - Pure hypercholesterolemia, unspecified, R73.9 - Hyperglycemia, unspecified Hemoglobin A1c 6 Months E11.9 - Type 2 diabetes mellitus without complications, E78.00 - Pure hypercholesterolemia, unspecified, R73.9 - Hyperglycemia, unspecified Lipid Panel 6 Months E11.9 - Type 2 diabetes mellitus without complications, E78.00 - Pure hypercholesterolemia, unspecified, R73.9 - Hyperglycemia, unspecified Complete Blood Count Auto Diff 6 Months E11.9 - Type 2 diabetes mellitus without complications, E78.00 - Pure hypercholesterolemia, unspecified, R73.9 - Hyperglycemia, unspecified Microalbumin, Random (w Creat) 6 Months E11.9 - Type 2 diabetes mellitus without complications, E78.00 - Pure hypercholesterolemia, unspecified, R73.9 - Hyperglycemia, unspecified
== END 2024-04-24 12:20 | disposition home or self-care (01) ==
LOC: HO.HMCC 11:56
PROVIDERS: PCP Internal Medicine; Visit Provider Internal Medicine
DX: Z00.00 Encounter for general adult medical examination without abnormal findings (principal); I48.91 Unspecified atrial fibrillation; E11.9 Type 2 diabetes mellitus without complications; E78.00 Pure hypercholesterolemia, unspecified; E03.9 Hypothyroidism, unspecified

== ENCOUNTER → 2024-04-24 11:55 | Outpatient (BNVA) | payer MEDICARE, OTHER, SELFPAY | PROVIDERS: PCP Internal Medicine; Visit Provider Internal Medicine | DX: Z00.00 Encounter for general adult medical examination without abnormal findings (principal); I48.91 Unspecified atrial fibrillation; E11.9 Type 2 diabetes mellitus without complications; E78.00 Pure hypercholesterolemia, unspecified; E03.9 Hypothyroidism, unspecified | CPT/HCPCS: 96127; 99397 ==

== ENCOUNTER → 2024-06-04 09:34 | Outpatient (REF) | payer MEDICARE, OTHER, SELFPAY ==
--- NOTE | 2024-06-04 09:36 | CA_ITS ---
Transthoracic Echocardiogram Patient (Last, First, Middle): Charla Gregorio B Gender: Female Date of : 1945 Age: 79 Procedure Date: 06/04/2024 Procedure Type: Transthoracic Echocardiogram Location: OP Height: 175.26 cm Weight: 85.28 kg BSA: 2.01 m2 Heart Rate: bpm BP: 112 / 70 mmHg Structures Engineer: SB Referring MD: Allyson Magaña MD Symptoms: I48.19 - Other persistent atrial fibrillation Study Quality: Adequate w contrast ECG Rhythm: Atrial Fibrillation Conclusions: - The left ventricular systolic function is normal. The calculated ejection fraction is 68% by biplane method. - There is moderate mitral annular calcification. - There is mild calcification of the aortic valve. Findings Procedure Information Contrast agent, definity, is being given per protocol without apparent complications. Left Ventricle Normal left ventricular cavity size. The left ventricular systolic function is normal. The calculated ejection fraction is 68% by biplane method. There is no evidence of regional wall motion abnormalities. Diastolic function is indeterminate on the basis of available data. There is moderate septal asymmetric hypertrophy. Right Ventricle Normal right ventricular cavity size and systolic function. Atria Both atria are normal in size. Aortic Valve There is a normal trileaflet aortic valve. There is mild calcification of the aortic valve. There is no aortic valve stenosis. There is no aortic valve regurgitation. Mitral Valve There is moderate mitral annular calcification. There is no mitral valve regurgitation. There is no mitral valve stenosis. Pulmonic Valve The pulmonic valve is likely normal. Tricuspid Valve There is mild tricuspid valve regurgitation. There is no evidence of pulmonary hypertension. Great Vessels The asc aorta is normal in size. Venous The inferior vena cava is normal in size and collapses greater than 50% with inspiration. Pericardium/Pleural There is no evidence of pericardial effusion. Prior Study Comparison No significant change compared to prior study dated: 08/26/2022. Measurements 2D Linear Measurements IVSd: 1.26 0.6-0.9/0.6-1.0 cm LVIDd: 3.91 3.9-5.3/4.2-5.9 cm LVIDd Index: 1.95 2.4-3.2/2.2-3.1 cm/m2 LVIDs: 2.29 2.0-3.6 cm LVPWd: 0.93 0.7-1.1 cm LA Diam: 4.30 2.7-3.8/3.0-4.0 cm LAIDs Index: 2.14 1.5-2.3 cm/m2 LV Mass: 173.43 67-162/88-224 g LV Mass Index: 86.28 43-95/49-115 g/m2 LVOT Diam: 1.80 3.0+(-)1.3 cm 2D Systolic Function EF 4C: 74.60 >55% EF 2C: 60.20 >55% EF BiP: 68.10 >55% Mitral Valve MV Pk E: 1.01 Aortic Valve AoV Pk Hayedn: 1.01 AoV Pk Grad: 4.00 PEYMAN: 2.00 LVOT LVOT Pk Hayden: 0.80 LVOT Mn Hayden: 0.55 LVOT VTI: 0.15 LVOT Pk Grad: 3.00 LVOT Mn Grad: 1.00 LVOT Diam: 1.80 LVOT Area: 2.54 Diastolic Function MV Pk E: 1.01 Tricuspid Valve TR Pk Hayden: 2.20 TR Pk Grad: 19.00 RA Press: 3.00 RVSP: 22.00 Great Vessels Aorta Sinus of Valsalva: 3.20 2.0-3.5 cm Ao Asc: 3.10 2.1-3.4 cm Pulmonary Valve PV Pk Hayden: 0.77 Peak PV Grad: 2.00 Updated in Other Vendor System with Status of Final Roger Guadarrama MD electronically signed on 06/04/2024 11:41:25 AM with status of Final
--- OUTSIDE RECORDS SUMMARY | 2024-06-04 09:37 | XMS_ITS ---
Author Organization [facility] Address [address] [place] [address] Care Team Providers Care Air Conditioning Supervisor Name Role Phone Allyson Magaña MD Primary Care Provider Chandu Rincon [phone] REASON FOR VISIT cx appt Encounters Encounter Location Date Provider Diagnosis [facility] [address] [place] [address] 02/12/2024 Chandu Chisholm Plan Of Treatment No Information Progress Notes * Charla GREGORIO BDOB:1944 (78 yo F)Acc No.[id number]:02/12/2024 Patient:?Charla Gregorio :1945???Age:78 Y???Sex:Female Address:[address] [place], [address] * true * Date:? Generated for Printi roberto/Bailey/eTransmitting on:?06/04/2024 09:36 AM EST
--- OUTSIDE RECORDS SUMMARY | 2024-06-04 09:37 | XMS_ITS ---
Author Organization [facility] Address [address] [place] [address] Care Team Providers Care Outer Diameter Grinder Name Role Phone Allyson Magaña MD Primary Care Provider UnavailAmerico Hollingsworth Jr Unavailable [phone] ALLERGIES No Known Allergies REASON FOR VISIT Patient presents today for a COLON SCREENING MEDICATIONS Medication SIG (Take, Route, Frequency, Duration) Notes Start Date End Date Status Vitamin D (Ergocalciferol) 50 MCG (1999) 1 capsule Orally Once a day for 30 day(s) Active Levothyroxine Sodium 75 MCG Oral for 90 Active Eliquis 5 MG Oral for 90 Activ e Farxiga 10 MG Oral for 90 Acti ve Probiotic - as directed Orally Active Metoprolol Tartrate 100 MG TAKE 1 TABLET BY MOUTH TWICE DAILY Oral for 90 Active Digoxin 125 MCG TAKE 1 TABLET BY NICOLÁS TH ONCE DAILY Oral for 90 Active SOCIAL HISTORY Tobacco Use: Social History Observation Description Date Details (start date - stop date) Never Smoker NA - NA Sex Assigned At : Social History Observation Description Sex Assigned At Unknown Tobacco Use/Smoking Question Answer Notes Patient is a nonsmoker Alcohol Screen Question Answer Notes Did you have a drink contain ing alcohol in the past year? Yes How often did you have a dri nk containing alcohol in the past year? 2 to 4 times a month (2 points) How many drinks did you have on a typical day when you were drinking in the past year? 1 or 2 drinks (0 point) How often did you have 6 or more drinks on one occasion in the past year? 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 [address] [place] [address] 05/01/2024 Americo David Jr Colon cancer screening Z12.11 ; long-term (current) use of anticoagulants Z79.01 and parts counterman (current) use of oral hypoglycemic drugs Z79.84 ASSESSMENTS Encounter Date Diagnosis Assessment Notes Treatment Notes Treatment Clinical Notes 05/01/2024 Colon cancer screening (ICD-10 - Z12.11) Colonoscopy material was printed 05/01/2024 parts counterman (current) use of anticoagulants (ICD-10 - Z79.01) 05/01/2024 parts counterman (current) use of oral hypoglycemic drugs (ICD-10 - Z79.84) PLAN OF TREATMENT Treatment Notes Assessment Notes Colon cancer screening Colonoscopy mater ial was printed Future Test Test Name Order Date COLONOSCOPY 05/01/2024 Next Appt Details Follow Up: 1 Year, Reason: Provider Name:Americo temple , 07/19/2024 07:30:00 AM, [address] [place] [address] , [place], [place], [id number], Progress Notes * Examination Category Sub-Category Detail Notes General Examination GENERAL APPEARANCE: in no ac dieudonne distress HEAD: normocephalic EYES: sclera non-icteric NECK/THYROID: no lymphadenopathy HEART: S1, S2 normal, no mu rmurs CHEST: normal shape and exp ansion LUNGS: clear to auscultatio n bilaterally ABDOMEN: soft, nontender, non distended, bowel sounds present, no organomegaly SKIN: anicteric EXTREMITIES: no clubbing, cyanosi s, or edema PSYCH: cognitive function i ntact ORAL CAVITY: mucosa moist
--- OUTSIDE RECORDS SUMMARY | 2024-06-04 09:37 | XMS_ITS | Patient Health Record ---
[facility] Address [address] [facility] [address] Care Team Providers Care Medical Records Analyst Name Role Phone Allyson Magaña MD Primary Care Provider Chandu Rincon Unavailable [phone] Allergies Allergen (clinical drug ingredient) Drug/Non Drug Allergy documented on EMR Reaction Allergy Type Onset Date Status Compazine facial paralysis Drug Allergy Active Results Component Value Reference Range Notes HEMOGLOBIN A1C (GLYCOHEMOGLO BIN) Reviewed date:01/03/2024 09:58:24 AM Interpretation: Performing Lab: Notes/Report: HEMOGLOBIN A1C (HH) 6.6 Reason For Referral No Information Medications Medication SIG (Take, Route, Frequency, Duration) Notes Start Date End Date Status metFORMIN HCl 500 MG/5ML 5 ml with a rosalina l Orally Once a day for 30 day(s) Not-Taking amLODIPine Besylate 5 MG 1 tablet Orally Once a day for 30 day(s) Not-Taking Vitamin D 50 MCG (2000 UT) as directed O rally twice a day for 30 days Active Levothyroxine Sodium 75 MCG 1 tablet in the morning on an empty stomach Orally Once a day for 30 day(s) Active Metoprolol Succinate 100 MG 1 capsule Orally twice a day Active eliquis 5 mg as directed orally twice a day Active Digoxin 125 MCG 1 tablet Orally Active Farxiga 10 MG 1 tablet Orally Once a day Active Probiotic Active Social History Tobacco Use: Social History Observation Description Date Details (start date - stop date) Never Smoker NA - NA Tobacco Use/Smoking Question Answer Notes Are you a: nonsmoker Additional Findings: Tobacco Non-User Current no n-smoker Alcohol Screen Question Answer Notes Did you have a drink contain ing alcohol in the past year? Yes How often did you have a dri nk containing alcohol in the past year? Monthly or less (1 point) Points 1 Interpretation Negative Tobacco use other than smoking: Question Answer Notes Are you an other tobacco user? No Problems Problem Type SNOMED Code ICD Code Onset Dates Problem Status W/U Status Risk Notes Problem Localized, primary osteoarthritis of the ankle and/or foot (802113281) Primary osteoarthrit is, right ankle and foot (M19.071) Active confirmed Problem Localized, primary osteoarthritis of the ankle and/or foot (682512299) Primary osteoarthrit is, left ankle and foot (M19.072) Active confirmed Problem Acquired hammer toe of right foot (6946157475778594) Other hammer toe(s) (acquired), right foot (M20.41) Active confirmed Problem Acquired hammer toe of left foot (1808576713050872) Other hammer toe(s) (acquired), left foot (M20.42) Active confirmed Vital Signs Height 5ft 9in in 01/22/2024 Weight 186 lbs 01/22/2024 BMI 27.46 kg/m2 01/22/2024 Encounters Encounter Location Date Provider Diagnosis [facility] [address] [address] 01/03/2024 Chandu Chisholm Primary osteoarthritis, left ankle and 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 ; Primary osteoarthritis, right ankle and foot M19.071 ; Other hammer toe(s) (acquired), left foot M20.42 ; Other hammer toe(s) (acquired), right foot M20.41 ; Pain in left foot M79.672 ; Pain in right foot M79.671 ; Other viral warts B07.8 and Plantar fascial 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 [facility] [address] [address] 01/22/2024 Chandu Phan Primary osteoarthritis, right ankle and foot M19.071 ; Primary osteoarthritis, left ankle and 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 ; Other hammer toe(s) (acquired), left foot M20.42 ; Other hammer toe(s) (acquired), right foot M20.41 ; Pain in left foot M79.672 ; Pain in right foot M79.671 ; Other viral warts B07.8 ; Plantar fascial 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 and Tinea unguium B35.[address] [facility] [address] 01/03/2024 [facility] [address] 02/12/2024 Chandu Chisholm Assessments Encounter Date Diagnosis (ICD Code) Assessment Notes Treatment Notes Treatment Clinical Notes Section Notes 01/03/2024 Primary osteoarthritis, right ankle and foot (ICD-10 - M19.071) 01/03/2024 Primary osteoarthritis, left ankle and foot (ICD-10 - M19.072) 01/22/2024 Primary osteoarthritis, right ankle and foot (ICD-10 - M19.071) 01/22/2024 Primary osteoarthritis, left ankle and foot (ICD-10 - M19.072) 01/22/2024 Other hammer toe(s) (acquired), left foot (ICD-10 - M20.42) 01/03/2024 Other hammer toe(s) (acquired), left foot (ICD-10 - M20.42) 01/03/2024 Other hammer toe(s) (acquired), right foot (ICD-10 - M20.41) 01/22/2024 Other hammer toe(s) (acquired), right foot (ICD-10 - M20.41) 01/22/2024 Pain in left foot (ICD-10 - M79.672) 01/03/2024 Pain in left foot (ICD-10 - M79.672) 01/03/2024 Pain in right foot (ICD-10 - M79.671) 01/22/2024 Pain in right foot (ICD-10 - M79.671) 01/22/2024 Other viral warts (ICD-10 - B07.8) 01/03/2024 Other viral warts (ICD-10 - B07.8) 01/03/2024 Plantar fascial fibromatosis (ICD-10 - M72.2) 01/22/2024 Plantar fascial fibromatosis (ICD-10 - M72.2) 01/22/2024 Tinea unguium (ICD-10 - B35.1) Plan Of Treatment Pending Test Test Name Order Date X ray : Foot, left 3V 09/14/2020 X ray : Foot, left 3V 01/03/2024 X ray : Foot, right 3V 09/14/2020 X ray : Foot, right 3V 01/03/2024 Insurance Providers Payer Name Payer Address Payer Phone Subscriber Number Group Number Insured Name Patient Relationship to Insured Coverage Start Date Coverage End Date Medicare National [employer] [address] [place] [address] [id number] Charla Gregorio Self - patient is the insured [facility] [address] [place] [address] [phone] [id number] Charla Gregorio Self - patient is the insured Medical (General) History Medical History History ICD Code Broken bones High blood pressure Thyroid disorder Eczema Arthritis Back,Hip,and Knee pain A fib Sleep apnea Measles Mumps Chicken pox Bone implants/screws Cpap Surgical History Surgery Date(Month/Year) 1978 & 1982 tonsillectomy 1965 bunionectomy x2 1995 hammer toe 1994 rotator cuff tear repair 2002
--- OUTSIDE RECORDS SUMMARY | 2024-06-04 09:37 | XMS_ITS ---
Author Organization [facility] Address [address] [facility] [place] [address] Care Team Providers Care Bun Machine Operator Name Role Phone Allyson Magaña MD Primary Care Provider Chandu Rincon Unavailable [phone] Allergies Allergen (clinical drug ingredient) Drug/Non Drug Allergy documented on EMR Reaction Allergy Type Onset Date Status Compazine facial paralysis Drug Allergy Active REASON FOR VISIT Wart(s) Medications Medication SIG (Take, Route, Frequency, Duration) Notes Start Date End Date Status metFORMIN HCl 500 MG/5ML 5 ml with a rosalina l Orally Once a day for 30 day(s) Not-Taking amLODIPine Besylate 5 MG 1 tablet Orally Once a day for 30 day(s) Not-Taking Digoxin 125 MCG 1 tablet Orally Active Farxiga 10 MG 1 tablet Orally Once a day Active Probiotic Active Vitamin D 50 MCG (1999 UT) as directed O rally twice a day for 30 days Active Levothyroxine Sodium 75 MCG 1 tablet in the morning on an empty stomach Orally Once a day for 30 day(s) Active Metoprolol Succinate 100 MG 1 capsule Orally twice a day Active eliquis 5 mg as directed orally twice a day Active Social History Tobacco Use: Social History [...] Are you an other tobacco user? No Vital Signs Height 5ft 9in in 01/22/2024 Weight 186 lbs 01/22/2024 BMI 27.46 kg/m2 01/22/2024 Encounters Encounter Location Date Provider Diagnosis [facility] [place] [address] [place] [address] 01/22/2024 Chandu Chisholm Primary osteoarthritis, right ankle and foot M19.071 [...] Treatment Notes Treatment Clinical Notes Section Notes 01/22/2024 Primary osteoarthritis, right ankle and foot (ICD-10 - M19.071) 01/22/2024 Primary osteoarthritis, left ankle and foot (ICD-10 - M19.072) 01/22/2024 Other hammer toe(s) (acquired), left foot (ICD-10 - M20.42) 01/22/2024 Other hammer toe(s) (acquired), right foot (ICD-10 - M20.41) 01/22/2024 Pain in left foot (ICD-10 - M79.672) 01/22/2024 Pain in right foot (ICD-10 - M79.671) 01/22/2024 Other viral warts (ICD-10 - B07.8) 01/22/2024 Plantar fascial fibromatosis (ICD-10 - M72.2) 01/22/2024 Tinea unguium (ICD-10 - B35.1) Plan Of Treatment Next Appt Details Follow Up: 3 Weeks, Reason: Procedure Notes * Category Sub-Category Detail Notes Wart Treatment Procedure Verrucae(s) were debrided to pin-point bleeding margins with sterile surgical blade ([id number]), silver nitrate chemocautery applied, recomm. Wartstick 40 percent Salicylic acid application under occlusion as directed Progress Notes * Charla GREGORIO BDOB:1944 (78 yo F)Acc No.[id number]:01/22/2024 Progress Notes Patient:Charla Rodriguez Provider:?Chandu Chisholm DPM :1945???Age:78 Y???Sex:Female D ate:01/22/2024 Address:[address] [place], [place] [id number] Pcp:Allyson Magaña MD Subjective: * Chief Complaints: * ???Wart(s) * HPI: ???Wart:?Pt States Last PCP Visit:?Date:?12/27/2023 ???Foot Pain:?Nature:?lack of toe purchase left and development of bump bottom right midfoot.?Location?Bottom, Midfoot, Right and damaso toes.?Duration:?several years.?Onset/Cause:?unknown.?Aggrevated:?3 sx's left foot with Dr. Sprague.?Treatments:?change in shoes.?Skin problems:?Nature:?discolored.?Location:?B/L , Forefoot.?Duration:?several years.?Course:?worse.? * ROS:?General/Constitutional:?Nausea?denies.?Vomiting?denies.?Hunger Thirst?denies.?Loss appetite?denies.?Chills?denies.?Fatigue?denies.?Fever?denies.?Night Sweats?denies.?Unexplained weight loss?denies.?Unexplained weight gain?denies.?HEENTM:?Dentures?denies.?Dizziness?denies.?Glasses/contacts?denies.?Retinopathy?de nies.?Blurred/double vision?denies.?TMJ?denies.?Discharge/drainage?denies.?Implants?denies.?Sore throat?denies.?Dental implants?denies.?Hard of hearing ?denies.?Difficulty chewing/swallowing/speaking?denies.?Nose bleeds?denies.?Sore mouth?denies.?Respiratory:?On Oxygen?denies.?Pneumonia/pleurisy?denies.?Bronchitis?denies.?Emphysema?denies.?C oughing?denies.?Cough blood?denies.?Shortness of breath?denies.?Wheezing?denies.?Cardiovascular:?Pacemaker?denies.?MVP?denies.?WPW?denies.?CHF?denies.?Heart attack?denies.?Septal defect?denies.?Rapid beat?denies.?Chest pain ?denies.?Atrial Fib.?denies.?Murmur/Palpitations?denies.?Gastrointestinal:?Hemorrhoids?denies.?Stomach/Abdominal pain?denies.?Dark blood stool?denies.?Irritable bowel ?denies.?Constipation?denies.?Diarrhea?denies.?Hematology:?Swelling?denies.?Clots?denies.?Varicose Veins?denies.?Bruising?denies.?Bleeding problem?denies.?Genitourinary:?Blood urine?denies.?Frequent/Painfu/urination/bladder control?denies.?Kidney stones?denies.?Infection (UTI)?denies.?Nephropathy?denies.?sex trans dis (STD)?denies.?Prostate?denies.?Musculoskeletal:?Hammertoes?denies.?Bunions?denies.?Back Pain?denies.?Muscle Cramps/ Resting?denies.?Muscle cramps / walking?denies.?Generalized aches and pains?denies.?Weakness?denies.?Integ.:?Bishop?denies.?Scars?denies.?Corns/calluses?denies.?Ingrown nails?denies.?Painful nails?denies.?Open Sores?denies.?Rashes?denies.?Neurologic:?Difficulty sleeping?denies.?Brain disorder?denies.?Numbness?denies.?Balance trouble?denies.?Confusion?denies.?Fainting/blackouts?denies.?Tingling?denies.?Tr emors?denies.? * Medical History:? * Surgical History:? 1979 & 1983tonsillectomy 1965bunionectomy x2 1995hammer toe 1995rotator cuff tear repair 2002 * Hospitalization/Major Diagno stic Procedure:?Denies Past Hospitalization * Family History:?Mother: dece ased, poor circulation, varicose veins, COPD, heavy smoker, diagnosed with Family history of arthritis, Unspecified essential hypertension, Other specified conditions influencing health status.?Father: , heart attack, COPD, diagnosed with Unspecified essential hypertension, Unspecified heart disease, Other specified conditions influencing health status.?Siblings: melanoma.?Friend(s): diagnosed with Unspecified essential hypertension.? * Social History:?Tobacco Use:?Tobacco Use/Smoking?Are you a:?nonsmoker ?Additional Findings: Tobacco Non-User?Current non-smoker ?Tobacco use other than smoking?Are you an other tobacco user??No ???Drugs/Alcohol:?Drugs?Have you used drugs other than those for medical reasons in the past 12 months??No ?Alcohol Screen?Did you have a drink containing alcohol in the past year??Yes ?How often did you have a drink containing alcohol in the past year??Monthly or less (1 point) ?Points?1 ?Interpretation?Negative ???Miscellaneous:?Caffeine: yes, 1-2 cups per day. ?Children: yes, 2. ?Marital status: . 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 * Medications:?TakingProbiotic Farxiga 10 MG Tablet 1 tablet Orally Once a dayDigoxin 125 MCG Tablet 1 tablet Orally eliquis 5 mg Tablet as directed orally twice a dayMetoprolol Succinate 100 MG Capsule ER 24 Hour Sprinkle 1 capsule Orally twice a dayLevothyroxine Sodium 75 MCG Tablet 1 tablet in the morning on an empty stomach Orally Once a dayVitamin D 50 MCG (1999) Tablet as directed Orally twice a dayTaking Probiotic Taking Farxiga 10 MG Tablet 1 tablet Orally Once a dayTaking Digoxin 125 MCG Tablet 1 tablet Orally Taking eliquis 5 mg Tablet as directed orally twice a dayTaking Metoprolol Succinate 100 MG Capsule ER 24 Hour Sprinkle 1 capsule Orally twice a dayTaking Levothyroxine Sodium 75 MCG Tablet 1 tablet in the morning on an empty stomach Orally Once a dayTaking Vitamin D 50 MCG (1999) Tablet as directed Orally twice a dayNot-Taking/PRNamLODIPine Besylate 5 MG Tablet 1 tablet Orally Once a daymetFORMIN HCl 500 MG/5ML Solution 5 ml with a meal Orally Once a dayMedication List reviewed and reconciled with the patientNot-Taking/PRN amLODIPine Besylate 5 MG Tablet 1 tablet Orally Once a dayNot-Taking/PRN metFORMIN HCl 500 MG/5ML Solution 5 ml with a meal Orally Once a dayMedication List reviewed and reconciled with the patient * Allergies:?Compazine: facial paralysisyes[Allergies Verified] Objective: * Vitals:?Ht: 5ft 9in, Wt:186, BMI:27.46, Shoe size:10. * Examination: ???General Examination: ?GENERAL APPEARANCE:?pleasant, alert, well nourished, well developed, well hydrated, with good attention to hygene/body habitus, and in no acute distress.?ORIENTED:?person,place, and time.?Neurological: ?SENSORY:?Neurological exam demonstrates, reduced vibration sensation, B/L, at Forefoot.?TINEL'S COMPRESSION:?Negative tarsal tunnel, loree pedis, and medial calcaneal nerves B/L.?BABINSKI REFLEX:?absent.?Neuroma Pain: ?PALPATION:?No interspace pain noted on palpation.?Vascular: ?DP PULSES:?2/4, B/L.?PT PULSES:?2/4, B/L.?CAPILLARY FILL TIME:?3 secs. per digit, B/L.?SKIN TEMPERTURE GRADIENT OF THE LOWER EXTERMITIES:?warm to cool, proximal to distal, B/L.?HAIR GROWTH/TEXTURE/ELASTICITY/TURGOR:?normal, B/L.?PIGMENTATION:?normal, B/L.?EDEMA:?no edema.?TELANGECTASIA:?absent.?VARICOSITIES:?absent.?Dermatologic: ?SKIN FINDINGS:? Skin exam reveals Keratotic lesion(s) located at, Plantar, Midfoot, SUB 5th MTBase, Right , SUB MTH (s), 1, Left , Skin shows sign(s) of fibroma plantar right midfoot is 8mm in diameter with no pop.?VERRUCA:?Reveals a Single , multi-loculated , mosaic-patterned, round, raised, flat-topped, petechial bleeding papule(s), with cauliflower appearance and interruption of skin lines, pain to lateral compression, and size estimated at __4_ mm diameter, plantar Midfoot, RIGHT.?Orthopedic: ?MUSCLE STRENGTH:?5/5 all groups in a symmetrical fashion , B/L.?GAIT ABNORMALITY:?pronated, abducted, B/L.?DIGITAL DEFORMITIES:? rigid ht t2, t6; lack of toe purchase left 1,2,3.?Nails: ?NAILS are:? Elongated, overgrown, dystrophic, lytic, greater than 3mm thick, discolored and friable with crumbly malodorous subungual debris, TA, T5, T1, T4.? 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 Plan: * Treatment: * Procedures:?Wart Treatment:?Procedure?Verrucae(s) were debrided to pin-point bleeding margins with sterile surgical blade ([id number]), silver nitrate chemocautery applied, recomm. Wartstick 40 percent Salicylic acid application under occlusion as directed.? * Procedure Codes:?02129 Wart Destruction, 1-14, Modifiers: XS * Preventive Medicine:? ??Counseling:?Discussion:?-13: Office or other outpatient visit for the evaluation and management of an established patient, which required a medically appropriate history and/or examination and LOW level of DECISION MAKING for: 1 STABLE ACUTE UNCOMPLICATED PROBLEM, 2 OR MORE MINOR PROBLEMS, OR 1 STABLE CHRONIC PROBLEM, THAT POSE(S) A LOW RISK FOR MORBIDITY/MORTALITY. The visit on the day of the encounter encompassed interpreting the data and educating the patient as to the nature of their condition, treatment options available according to their individual PMH, meds, allergies, and overall health/living conditions, as well as any potential risks or complications that may occur from a failure to adhere to, and participate in, the recommended course of therapy. The discussion included a complete verbal, and/or written explanation of the examination results, any x-rays taken, the proposed diagnosis, and outline of the treatment plan. A schedule for future care needs was also explained. The patient verbalized an understanding of the instructions at this time and agreed to be an active participant in their treatment. If the patient should think of any questions or concerns after the visit, I have encouraged the patient to call the office.?Fungal Nail Counseling:?The patient was counseled on the diagnosis, potential etiologies (including, but not limited to, environmental factors, genetic, immune deficiency), and the multiple treatment options for Onychomycosis. We discussed the risks and benefits of each option from performing no treatment, to ultraviolet light shoe treatment, to laser nail treatment, to applying topical antifungals, to taking oral antifungal medication, to surgical removal of the involved nail(s) with or without performing a matricectomy, or any combination thereof. We discussed the advantages and disadvantages of each of possible treatment and importance for adherence to all the recommended therapies for optimum success. This includes the necessity for weekly emery board self nail home debridements, and control the nail and skin environment as much as possible by only using a fresh, dry pair of shoes/socks each day, as well as keeping the skin as dry as possible through the use of sprays/powders if necessary. The patient was instructed to discard the emery board after use to prevent reinfection of the involved nail(s). We discussed the mycological and visual clinical effectiveness of topical vs oral antifungal treatments as well as each ones potential side effects and/or any patient- specific medication interactions. We discussed the reasons behind the important requirement of regular liver function testing with oral antifungal therapy for safety. Patient questions regarding use, dosage, successful outcomes, blood tests, and possible pharmaceutical interactions were reviewed and the patient verbalized that all answers were clearly understood, The Pt prefers topical treatment--vicks qd hs.? * Follow Up:?3 Weeks * Images: * Sign off status: Completed true * Provider:?Chandu Chisholm DPM Date:? 024 Generated for Giulianoi roberto/Bailey/eTransmitting on:?06/04/2024 09:37 AM EST History and Physical Notes * [...] ORIENTED: person,place, and ti me Vascular DP PULSES(B): 2/4, B/L PT PULSES(B): 2/4, B/L CAPILLARY FILL TIME: 3 secs. per digit, B/L TEMPERTURE GRADIENT(C): warm to cool, pr oximal to distal, B/L TROPHIC CONDITION-TEXTURE/ELASTICITY/TURGOR/HAIR GROWTH(B): normal, B/L EDEMA(C): no edema TELANGECTASIA: absent VARICOSITIES: absent PIGMENTATION: normal, B/L Nails NAILS are: Elongated, overg rown, dystrophic, lytic, greater than 3mm thick, discolored and friable with crumbly malodorous subungual debris, TA, T5, T1, T4
--- OUTSIDE RECORDS SUMMARY | 2024-06-04 09:37 | XMS_ITS ---
Author Organization [facility] Address [address] [facility] [place] [address] Care Team Providers Care Warehouse Attendant Name Role Phone Allyson Magaña MD Primary Care Provider Chandu Rincon [phone] REASON FOR VISIT Wart(s) Medications Medication SIG (Take, Route, Frequency, Duration) Notes Start Date End Date Status metFORMIN HCl 500 MG/5ML 5 ml with a rosalina l Orally Once a day for 30 day(s) Not-Taking amLODIPine Besylate 5 MG 1 tablet Orally Once a day for 30 day(s) Not-Taking Vitamin D 50 MCG (1999 UT) as [...] Active Encounters Encounter Location Date Provider Diagnosis [facility] [address] [place] [address] 02/12/2024 Chandu Chisholm Primary osteoarthritis, right ankle and [...] pin-point bleeding margins with sterile surgical blade (20505), silver nitrate chemocautery applied, recomm. Wartstick 40 percent Salicylic acid application under occlusion as directed Progress Notes * Charla GREGORIO BDOB:1944 (79 yo F)Acc No.[id number]:02/12/2024 Progress Notes Patient:?KACEY, Charla Hampton Provider:?Chandu Chisholm DPM :1945???Age:78 Y???Sex:Female D ate:02/12/2024 Address:[address] [place] [address] Jody Santiago [facility] Pcp:Allyson Magaña MD Subjective: * Chief Complaints: * ???1. Wart(s). * HPI: ???Wart:?Pt States Last PCP Visit:?Date:?12/27/2023 [...] disorder?denies.?Numbness?denies.?Balance trouble?denies.?Confusion?denies.?Fainting/blackouts?denies.?Tingling?denies.?Tr emors?denies.? * Medical History:? * Medications:?Taking Probioti c , Taking Farxiga 10 MG Tablet 1 [...] meal Orally Once a day Objective: * Vitals:? * Examination: ???General Examination: ?GENERAL APPEARANCE:?pleasant, alert, well nourished, well developed, well hydrated, with good attention to hygene/body habitus, and in no acute distress.?ORIENTED:?person,place, and time.?Neurological: ?SENSORY:?Neurological exam demonstrates, reduced vibration sensation, B/L, at Forefoot.?TINEL'S COMPRESSION:?Negative tarsal tunnel, loree pedis, and medial calcaneal nerves B/L.?BABINSKI REFLEX:?absent.?Neuroma Pain: ?PALPATION:?No interspace pain noted on palpation.?Vascular: ?DP PULSES(B):?2/4, B/L.?PT PULSES(B):?2/4, B/L.?CAPILLARY FILL TIME:?3 secs. per digit, B/L.?TROPHIC CONDITION-TEXTURE/ELASTICITY/TURGOR/HAIR GROWTH(B):?normal, B/L.?TEMPERTURE GRADIENT(C):?warm to cool, proximal to distal, B/L.?PIGMENTATION:?normal, B/L.?EDEMA(C):?no edema.?TELANGECTASIA:?absent.?VARICOSITIES:?absent.?Dermatologic: ?SKIN FINDINGS:? 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 Plan: * Treatment: * Procedures:?Wart Treatment:?Procedure?Verrucae(s) were debrided to pin-point bleeding margins with sterile surgical blade (32755), silver nitrate chemocautery applied, recomm. Wartstick 40 percent Salicylic acid application under occlusion as directed.? * Procedure Codes:?32363 Wart Destruction, 1-14, Modifiers: XS * Follow Up:?3 Weeks * Images: * The named appointment provid er may or may not be the originator of this progress note, and it is not deemed complete until electronically signed by the appointment provider. Sign off status: Pending * Provider:?Chandu Chisholm DPM Date:? 024 Generated for Smita mejia/Bailey/Mikeitting on:?06/04/2024 09:36 AM EST History and Physical Notes * [...]
--- OUTSIDE RECORDS SUMMARY | 2024-06-04 09:37 | XMS_ITS | Patient Health Record ---
Author Organization [facility] Address [address] [place] [address] Care Team Providers Care Superintendent [employer] Name Role Phone Allyson Magaña MD Primary Care Provider Americo Jimenez Jr Unavailable ALLERGIES No Known Allergies REASON FOR REFERRAL No Information MEDICATIONS Medication SIG (Take, Route, Frequency, Duration) Notes Start Date End Date Status Vitamin D (Ergocalciferol) 50 MCG (1999) 1 capsule Orally Once a day for 30 day(s) Active Levothyroxine Sodium 75 MCG Oral for 90 Active Eliquis 5 MG Oral for 90 Activ e Farxiga 10 MG Oral for 90 Acti ve Metoprolol Tartrate 100 MG TAKE 1 TABLET BY MOUTH TWICE DAILY Oral for 90 Active Digoxin 125 MCG TAKE 1 TABLET BY NICOLÁS TH ONCE DAILY Oral for 90 Active Probiotic - as directed Orally Active IMMUNIZATIONS Vaccine Route Administration Date Status Comme nts Influenza Unknown 04/29/2024 Administered SOCIAL HISTORY Tobacco Use: Social History Observation [...] Problem Colon cancer screening (Z12.11) Active confirmed 723753445 Problem penitentiary (current) use of anticoagulants (Z79.01) Active confirmed 023388230 Problem penitentiary (current) use of oral hypoglycemic drugs (Z79.84) Active confirmed 371252080440187 VITAL SIGNS Temperature 96.9 degrees Fahrenheit 05/01/2024 Blood pressure diastolic 00 mm Hg 05/01/2024 Height 5 ft 8.5 in in 05/01/2024 Blood pressure systolic 000 mm Hg 05/01/2024 Weight 188 lb 2 oz lbs 05/01/2024 BMI 28.19 kg/m2 05/01/2024 Encounters Encounter Location Date Provider Diagnosis [facility] [address] [place] [address] 05/01/2024 Americo David Jr Colon cancer screening Z12.11 ; penitentiary (current) use of anticoagulants Z79.01 and penitentiary (current) use of oral hypoglycemic drugs Z79.84 ASSESSMENTS Encounter Date Diagnosis Assessment Notes Treatment Notes Treatment Clinical Notes 05/01/2024 Colon cancer screening (ICD-10 - Z12.11) Colonoscopy material was printed 05/01/2024 penitentiary (current) use of anticoagulants (ICD-10 - Z79.01) 05/01/2024 penitentiary (current) use of oral hypoglycemic drugs (ICD-10 - Z79.84) PLAN OF TREATMENT Future Test Test Name Order Date COLONOSCOPY 05/01/2024 Next Appt Details Provider Name:Americo temple Jr, 07/19/2024 07:30:00 AM, [address] [facility] , [place], [place], [id number], Insurance Providers Payer Name Payer Address Payer Phone Subscriber Number Group Number Insured Name Patient Relationship to Insured Coverage Start Date Coverage End Date MEDICARE OF [place] [address] [facility] [place] [address] [phone] [id number] YOKO ERAZO Self - patient is the insured [facility] [address] [place] [phone] [id number] YOKO ERAZO Self - patient is the insured MEDICAL (GENERAL) HISTORY Medical History History ICD Code Atrial fibrillation Elevated blood sugar HENRIK/CPAP Vitamin D deficiency Hypertension Colonoscopy 2019, colon polyp, five-year followup Surgical History Surgery Date(Month/Year) Hospitalization History Reason Date(Month/Year) Atrial fibrillation with rapid ventricul ar response 09/07
== END ==
LOC: HO.CARD 09:34
PROVIDERS: PCP Internal Medicine; Visit Provider Internal Medicine
DX: I48.19 Other persistent atrial fibrillation (principal)
CPT/HCPCS: 93306; Q9957

== ENCOUNTER → 2024-06-04 09:36 | Outpatient (BNV) | payer MEDICARE, OTHER, SELFPAY | PROVIDERS: PCP Internal Medicine; Visit Provider Internal Medicine | DX: I34.81 Nonrheumatic mitral (valve) annulus calcification (principal); I35.8 Other nonrheumatic aortic valve disorders; I42.2 Other hypertrophic cardiomyopathy | CPT/HCPCS: 93306 ==

== ENCOUNTER 2024-06-24 14:40 | Outpatient (AMB) | payer MEDICARE, OTHER, SELFPAY ==
--- NOTE | 2024-06-24 14:19 | A.OFFVIS_ITS ---
VS Expanded 06/24/24 14:20 06/24/24 14:46 Height 5 ft 9 in 5 ft 9 in Weight 185 lb 10.067 oz 186 lb BMI 27.4 27.5 Intake Visit Reasons: T2DM/Confirmed Allergies metformin Adverse Reaction (Intermediate, Verified 04/24/24 12:00) Diarrhea Compazine Allergy (Unknown, Uncoded 04/24/24 12:00) facial paralysis Nutrition Presentation Details: Pt presents for MNT f/u for T2DM Pt reports doing well regarding diet management, working on choosing fiber rich foods, choosing lean protein foods, following healthy plate method. No concerns expressed at this time. physical activity: daily life activities BS Monitoring Most Recent Diabetes Results: No Data to Display HHV-Nisqgvs-Aw.Jeor Equation Height: 5 ft 9 in Weight: 186 lb Resting Metabolic Rate: 1398.37 Calculated Activity Level: Mild Activity Calories Needed to Maintain Weight: 1922.76 PFSH Medical History Atrial fibrillation with RVR Hypothyroidism Numerous skin moles Postmenopausal Vitamin D deficiency Hx of mammogram HTN (hypertension) Surgical History Hx of colonoscopy History of bunionectomy Hx of shoulder surgery Family History Father CAD (coronary artery disease) COPD (chronic obstructive pulmonary disease) Mother COPD (chronic obstructive pulmonary disease) Family/Other Liver disease Social History Household Members: None Household Members Other:: lives alone, 2 adults Housing: House Do you presently have visiting nurse or other home services: No Alcohol intake: current Alcohol intake frequency: holidays/special occasions only Patient Tobacco Use Status: Never used Tobacco e-Cigarette/Vaping Use: Never Used service: No Current occupational status: retired Cognitive needs: No Hearing needs: No Vision needs: No Assessment & Plan Assessment & Plan (1) DM type 2 (diabetes mellitus, type 2): Code(s): E11.9 - Type 2 diabetes mellitus without complications Category: Medical Plan: Wt: 88 Kg ( 01/2024 ),86 04/11 , 85.4 kg (07/13) Est kcal needs as per MSJ: 1700 (40% carb, 30% protein/fat) Est fluid needs as per 25-30 ml/d: 2600 Est prot per day as per 1 g/kg bw: 88 Recommend fiber intake : 8-10 g per day and gradually increase to 25-28 g per day for women and 35-38 g for men or as tolerated Recommend sodium intake per day : less than 2000 mg Educated patient on: ( R = reviewed V = verbalizes understanding N/R = needs review N/A = not applicable * Food sources of carbohydrate, adequate serving sizes and its role in various health conditions: R V * Differences between complex carbohydrates a simple carbohydrates, role of fiber in diet: R V * Lean protein sources of foods: R , v * Differences between types of fats and role in diet (mono on saturated fat fatty acids, saturated fatty acids, trans fats): R ,v * Food sources of sodium in salt and healthy modifications for heart health in kidney health: R * Vitamins and minerals: R V N/R * Healthy plate method concept: R ,v * Physical activity: Benefits a precaution: R ,v * Hypoglycemia protocol (rule of 15): R V * Dietary prevention to prevent Hyperglycemia: R ,v Patient Instructions: Continue working on choosing fiber rich foods/prebiotics (lentils, beans, squash as examples) continue keeping physically active as able Coding Level of Care Code Nutr Indiv Subseq (85598) Diagnoses DM type 2 (diabetes mellitus, type 2) E11.9 Time Spent (min) 20
[2024-06-24 14:20] VITALS: BMI 27.4
--- OUTSIDE RECORDS SUMMARY | 2024-06-24 16:53 | XMS_ITS | Patient Health Record ---
Author [facility] Address [address] [facility] [place] [address] Care Team Providers Care Dairy Farm Supervisor Name Role Phone Allyson Magaña MD Primary Care Provider Chandu Rincon Unavailable [phone] Allergies Allergen (clinical drug ingredient) Drug/Non Drug [...] primary osteoarthritis of the ankle and/or foot (294635136) Primary osteoarthrit is, right ankle and foot (M19.071) Active confirmed Problem Localized, primary osteoarthritis of the ankle and/or foot (302168139) Primary osteoarthrit is, left ankle and foot (M19.072) Active confirmed Problem Acquired hammer toe of right foot (9262519186527613) Other hammer toe(s) (acquired), right foot (M20.41) Active confirmed Problem Acquired hammer toe of left foot (2281173944427500) Other hammer toe(s) (acquired), left foot (M20.42) Active confirmed Vital Signs Height 5ft 9in in 01/22/2024 Weight 186 lbs 01/22/2024 BMI 27.46 kg/m2 01/22/2024 Encounters Encounter Location Date Provider Diagnosis [facility] [address] [address] 01/03/2024 Chandu Chisholm Primary osteoarthritis, left ankle and 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 ; Primary osteoarthritis, right ankle and foot M19.071 ; Other hammer toe(s) (acquired), left foot M20.42 ; Other hammer toe(s) (acquired), right foot M20.41 ; Pain in left foot M79.672 ; Pain in right foot M79.671 ; Other viral warts B07.8 and Plantar fascial 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 [facility] [address] [address] 01/22/2024 Chandu Phan Primary osteoarthritis, right ankle and foot M19.071 ; Primary osteoarthritis, left ankle and 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 ; Other hammer toe(s) (acquired), left foot M20.42 ; Other hammer toe(s) (acquired), right foot M20.41 ; Pain in left foot M79.672 ; Pain in right foot M79.671 ; Other viral warts B07.8 ; Plantar fascial 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 and Tinea unguium B35.[address] [facility] [address] 01/03/2024 [facility] [address] 02/12/2024 Chandu Chisholm Assessments Encounter Date Diagnosis [...] Inc [address] [place] [address] [id number] Charla Gregorio Self - patient is the insured [facility] [address] [place] [address] [id number] Charla Gregorio Self - patient is [...]
--- OUTSIDE RECORDS SUMMARY | 2024-06-24 16:53 | XMS_ITS ---
Author Organization [facility] Address [address] [place] [address] Care Team Providers Care Library Director Name Role Phone Allyson Magaña MD Primary Care Provider UnavailAmerico Hollingsworth Jr Unavailable [phone] ALLERGIES No Known Allergies REASON FOR [...] Problem Colon cancer screening (Z12.11) Active confirmed 314499417 Problem rat exterminator (current) use of anticoagulants (Z79.01) Active confirmed 190051862 Problem custodial (current) use of oral hypoglycemic drugs (Z79.84) Active confirmed 112704999038322 VITAL SIGNS BMI 28.19 kg/m2 05/01/2024 Blood pressure systolic 000 mm Hg 05/01/20 24 Blood pressure diastolic 00 mm Hg 024 Height 5 ft 8.5 in in 05/01/2024 Temperature 96.9 degrees Fahrenheit 05/01/20 24 Weight 188 lb 2 oz lbs 05/01/2024 Encounters Encounter Location Date Provider Diagnosis [facility] [address] [place] [address] 05/01/2024 Americo David Jr Colon cancer screening Z12.11 ; rat exterminator (current) use of anticoagulants Z79.01 and rat exterminator (current) use of oral hypoglycemic drugs Z79.84 ASSESSMENTS Encounter Date Diagnosis Assessment Notes Treatment Notes Treatment Clinical Notes 05/01/2024 Colon cancer screening (ICD-10 - Z12.11) Colonoscopy material was printed 05/01/2024 custodial (current) use of anticoagulants (ICD-10 - Z79.01) 05/01/2024 custodial (current) use of oral hypoglycemic drugs (ICD-10 - Z79.84) PLAN OF TREATMENT Treatment Notes Assessment Notes Colon cancer screening Colonoscopy mater ial was printed Future Test Test Name Order Date COLONOSCOPY 05/01/2024 Next Appt Details Follow Up: 1 Year, Reason: Provider Name:Americo temple , 07/19/2024 07:30:00 AM, [address] [place] [address] , [place], [phone], Progress Notes * Examination Category Sub-Category Detail [...]
--- OUTSIDE RECORDS SUMMARY | 2024-06-24 16:53 | XMS_ITS ---
Author Organization [facility] Address [address] [place] [address] Care Team Providers Care Religious Activities Director Name Role Phone Allyson Magaña MD Primary Care Provider Chandu Rincon [phone] REASON FOR VISIT Wart(s) Medications Medication SIG [...] Active Encounters Encounter Location Date Provider Diagnosis [facility] [address] [place] [address] 02/12/2024 Chandu Chisholm Primary osteoarthritis, right ankle [...] pin-point bleeding margins with sterile surgical blade (09596), silver nitrate chemocautery applied, recomm. Wartstick 40 percent Salicylic acid application under occlusion as directed Progress Notes * Charla GREGORIO BDOB:1944 (79 yo F)Acc No.[id number]:02/12/2024 Progress Notes Patient:?KACEY, hCarla Hampton Provider:?Chandu Chisholm DPM :1945???Age:78 Y???Sex:Female D ate:02/12/2024 Address:[address] [place] [address] Jody Santiago [facility] Pcp:Allyson Magaña MD Subjective: * Chief Complaints: [...] ?PALPATION:?No interspace pain noted on palpation.?Vascular: ?DP PULSES (B):?2/4, B/L.?PT PULSES (B):?2/4, B/L.?CAPILLARY FILL TIME:?3 secs. per digit, B/L.?TROPHIC CONDITION-TEXTURE/ELASTICITY/TURGOR/HAIR GROWTH (B):?normal, B/L.?TEMPERTURE GRADIENT (C):?warm to cool, proximal to distal, B/L.?PIGMENTATION:?normal, B/L.?EDEMA (C):?no edema.?TELANGECTASIA:?absent.?VARICOSITIES:?absent.?Dermatologic: ?SKIN FINDINGS:? Skin exam reveals Keratotic [...] pin-point bleeding margins with sterile surgical blade (53225), silver nitrate chemocautery applied, recomm. Wartstick 40 percent Salicylic acid application under occlusion as directed.? * Procedure Codes:?16735 Wart Destruction, 1-14, Modifiers: XS * Follow Up:?3 Weeks * Images: * The named appointment provid er may or may not be the originator of this progress note, and it is not deemed complete until electronically signed by the appointment provider. Sign off status: Pending * Provider:?Chandu Chisholm DPM Date:? 024 Generated for Smita mejia/Bailey/Mikeitting on:?06/24/2024 04:52 PM EST History and Physical Notes * HPI [...]
--- OUTSIDE RECORDS SUMMARY | 2024-06-24 16:53 | XMS_ITS ---
Author Organization [facility] Address [address] [place] [address] Care Team Providers Care Marketing Intelligence Manager Name Role Phone Allyson Magaña MD Primary Care Provider Chandu Rincon [phone] REASON FOR VISIT cx appt Encounters Encounter Location Date Provider Diagnosis [facility] [address] [place] [address] 02/12/2024 Chandu Chisholm Plan Of Treatment No Information Progress Notes * Charla GREGORIO BDOB:1944 (78 yo F)Acc No.[id number]:02/12/2024 Patient:?Charla Gregorio :1945???Age:78 Y???Sex:Female Address:[address] [place], [address] * true * Date:? Generated for Printi roberto/Bailey/eTransmitting on:?06/24/2024 04:52 PM EST
--- OUTSIDE RECORDS SUMMARY | 2024-06-24 16:53 | XMS_ITS | Patient Health Record ---
Author Organization [facility] Address [address] [place] [address] Care Team Providers Care Para Educator Name Role Phone Allyson Magaña MD Primary [...] Problem Colon cancer screening (Z12.11) Active confirmed 595960286 Problem computer terminal operator (current) use of anticoagulants (Z79.01) Active confirmed 020899111 Problem group home (current) use of oral hypoglycemic drugs (Z79.84) Active confirmed 086829775519425 VITAL SIGNS Temperature 96.9 degrees Fahrenheit 05/01/2024 Blood pressure diastolic 00 mm Hg 05/01/2024 Height 5 ft 8.5 in in 05/01/2024 Blood pressure systolic 000 mm Hg 05/01/2024 Weight 188 lb 2 oz lbs 05/01/2024 BMI 28.19 kg/m2 05/01/2024 Encounters Encounter Location Date Provider Diagnosis [facility] [address] [place] [address] 05/01/2024 Americo David Jr Colon cancer screening Z12.11 ; computer terminal operator (current) use of anticoagulants Z79.01 and group home (current) use of oral hypoglycemic drugs Z79.84 ASSESSMENTS Encounter Date Diagnosis Assessment Notes Treatment Notes Treatment Clinical Notes 05/01/2024 Colon cancer screening (ICD-10 - Z12.11) Colonoscopy material was printed 05/01/2024 computer terminal operator (current) use of anticoagulants (ICD-10 - Z79.01) 05/01/2024 computer terminal operator (current) use of oral hypoglycemic drugs (ICD-10 - Z79.84) PLAN OF TREATMENT Future Test Test Name Order Date COLONOSCOPY 05/01/2024 Next Appt Details Provider Name:Americo temple Jr, 07/19/2024 07:30:00 AM, 5 [facility] , [place], [place], [id number], Insurance Providers Payer Name Payer Address Payer Phone Subscriber Number Group Number Insured Name Patient Relationship to Insured Coverage Start Date Coverage End Date MEDICARE OF [place] [address] [place] [address] [id number] YOKO ERAZO Self - patient is the insured [facility] [address] [place] [address] [phone] [id number] YOKO ERAZO Self - patient is the insured MEDICAL (GENERAL) HISTORY Medical History History ICD Code Atrial fibrillation Elevated blood sugar HENRIK/CPAP Vitamin D deficiency Hypertension Colonoscopy 2019, colon polyp, five-year followup Surgical History Surgery Date(Month/Year) Hospitalization History Reason Date(Month/Year) Atrial fibrillation with rapid ventricul ar response 09/07
--- OUTSIDE RECORDS SUMMARY | 2024-06-24 16:53 | XMS_ITS ---
Author Organization [facility] Address [address] [facility] [address] Care Team Providers Care Dietary Services Director Name Role Phone Allyson Magaña MD Primary Care Provider Chandu Rincon Unavailable [phone] Allergies Allergen (clinical drug ingredient) Drug/Non Drug [...] Active Probiotic Active Vitamin D 50 MCG (1999) as directed O rally twice a day [...] 01/22/2024 Encounters Encounter Location Date Provider Diagnosis [facility] [address] [place] [address] 01/22/2024 Chandu Chisholm Primary osteoarthritis, right ankle [...] pin-point bleeding margins with sterile surgical blade (31222), silver nitrate chemocautery applied, recomm. Wartstick 40 percent Salicylic acid application under occlusion as directed Progress Notes * Charla GREGORIO BDOB:1944 (78 yo F)Acc No.[id number]:01/22/2024 Progress Notes Patient:Charla Rodriguez Provider:?Chandu Chisholm DPM :1945???Age:78 Y???Sex:Female D ate:01/22/2024 Address:[address] [place], [place] [id number] Pcp:Allyson Magaña MD Subjective: * Chief Complaints: [...] yes, 2. ?Marital status: . 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 * Medications:?TakingProbiotic Farxiga 10 MG Tablet 1 [...] pin-point bleeding margins with sterile surgical blade (51347), silver nitrate chemocautery applied, recomm. Wartstick 40 percent Salicylic acid application under occlusion as directed.? * Procedure Codes:?79832 Wart Destruction, 1-14, Modifiers: XS * Preventive [...] DPM Date:? 024 Generated for Giulianoi roberto/Bailey/eTransmitting on:?06/24/2024 04:52 PM EST History and Physical [...]
[2024-06-26 10:51] VITALS: BMI 27.5
== END 2024-06-24 15:16 | disposition home or self-care (01) ==
PROVIDERS: PCP Internal Medicine; Visit Provider Dietitian, Registered
DX: E11.9 Type 2 diabetes mellitus without complications (principal)

== ENCOUNTER → 2024-06-24 14:40 | Outpatient (BNVA) | payer MEDICARE, OTHER, SELFPAY | PROVIDERS: PCP Internal Medicine; Visit Provider Dietitian, Registered | DX: E11.9 Type 2 diabetes mellitus without complications (principal) | CPT/HCPCS: 97803 ==

== ENCOUNTER 2024-07-22 15:10 | Outpatient (REF) | payer MEDICARE, OTHER, SELFPAY ==
--- OUTSIDE RECORDS SUMMARY | 2024-07-22 16:40 | XMS_ITS | Encounter Summary ---
Author Organization [facility] Address [address] [facility] [place] [address] Care Team Providers Care Manager Plan Name Role Phone Tamiko Nielsen MD Primary Care Provider Unavail able Allyson Magaña MD Primary Care Provider Ralf moreland Encounter Details Date Type Department Care Team Description 05/23/2018 Business Doc Medical Records [address] [place] [id number] Abstract, Provider Social History Tobacco Use Types Packs/Day Years Used Date Smoking Tobacco: Never Cigarettes Smokeless Tobacco: Never Alcohol Use Standard Drinks/Week Comments Yes 1 (1 standard drink = 0.6 oz pur e alcohol) Ocassional Sex Assigned at Date Recorded Not on file Job Start Date Occupation Industry Not on file Not on file Not on file documented as of this encounter Plan of Treatment Not on file documented as of this encounter Visit Diagnoses Not on filedocumented in this encounter Care Teams Manager Plan Relationship Specialty Start Date End Date Tamiko Nielsen MD PCP - General Internal Medicine 12/28/17 07/14/21 Allyson Magaña MD PCP - General Internal Medicine 07/15/21 documented as of this encounter
--- OUTSIDE RECORDS SUMMARY | 2024-07-22 16:40 | XMS_ITS | Clinical Summary ---
Author Organization [facility] Address [address] [place] [address] Care Team Providers Care Biometrics Instructor Name Role Phone Rebecca Hernandez MD Primary Care Prov ider Allergies Active Allergy Reactions Criticality Noted Date Comments Prochlorperazine 02/05/2018 Medications Medication Sig Dispensed Refills Start Date End Date Status metFORMIN (GLUCOPHAGE) tablet 500 mg Take 500 mg by mouth. 0 12/07/2018 Active metFORMIN (GLUCOPHAGE) tablet 500 mg Take 500 mg by mouth 2 (two) times a day with meals. 1 01/03/2019 Active PNEUMOVAX 23 25 MCG/0.5ML injection ADM 0.5ML IM UTD 0 11/22/2018 Active Vitamin D, Cholecalciferol, 1000 units CAPS Take 2,000 Units by mouth. 0 Active Active Problems Problem Noted Date Diagnosed Date Ganglion cyst PIP joint right ring finger 2018 Degenerative arthritis PIP joint right ring fing er 01/30/2019 Family History Medical History Relation Name Comments Heart disease Father Arthritis Mother COPD Mother Lung disease Mother Relation Name Status Comments Father Mother Social History Tobacco Use Types Packs/Day Years Used Date Smoking Tobacco: Never Smokeless Tobacco: Never Alcohol Use Standard Drinks/Week Comments Yes 1 (1 standard drink = 0.6 oz pur e alcohol) Sex and Gender Information Value Date Recorded Sex Assigned at Not on file Gender Identity Not on file Sexual Orientation Not on file Last Filed Vital Signs Vital Sign Reading Time Taken Comments Blood Pressure - - Pulse - - Temperature - - Respiratory Rate - - Oxygen Saturation - - Inhaled Oxygen Concentration - - Weight 93 kg (205 lb) 01/30/2019 8:55 AM EDT Height 174 cm (5' 8.5 ) 01/30/2019 8:55 AM EDT Body Mass Index 30.72 01/30/2019 8:55 AM EDT Plan of Treatment Health Maintenance Due Date Last Done Comments Hepatitis C Screening 1945 COVID-19 Vaccine (#1) 1945 Depression Screening 1959 BMI Counseling 1965 Preventative Health Evaluation 1965 DTap / Tdap / Td (1 - Tdap) 1966 Fall Risk Assessment 2012 Osteoporosis Screening (DEXA Scan) 2012 Pneumococcal Vaccine (2 of 2 - PCV) 11/23/2019 11/22/2018, 05/30/2012 RSV Adult > 60+ Yrs or (1 - 1-dose 75+ series) 2022 Influenza Vaccine (#1) 2024 Shingrix-Zoster Vaccine Completed 10/06/19 19, 08/06/2018 Hepatitis B Vaccines Aged Out No long er eligible based on patient's age to complete this topic RSV Ped < 20 months Aged Out No longe r eligible based on patient's age to complete this topic Care Teams Biometrics Instructor Relationship Specialty Start Date End Date Rebecca Hernandez MD [address] [facility] [place] [address] PCP - General Internal Medicine 12/13/18
--- OUTSIDE RECORDS SUMMARY | 2024-07-22 16:40 | XMS_ITS | Encounter Summary ---
Author Organization [facility] Address [address] [place] [address] Care Team Providers Care Molded Goods Controls Operator Name Role Phone Tamiko Nielsen MD Primary Care Provider Unavail able Allyson Magaña MD Primary Care Provider Unavaila aniceto Encounter Details Date Type Department Care Team Description 02/02/2018 Marketing Teacher Report Medical Records [address] [place] [address] Raffi Cardenas PA-C Social History Tobacco Use Types Packs/Day Years Used Date Smoking Tobacco: Never Assessed Sex Assigned at Date Recorded Not on file Job Start Date Occupation Industry Not on file Not on file Not on file documented as of this encounter Plan of Treatment Not on file documented as of this encounter Visit Diagnoses Not on filedocumented in this encounter Care Teams Molded Goods Controls Operator Relationship Specialty Start Date End Date Tamiko Nielsen MD PCP - General Internal Medicine 12/28/17 07/14/21 Allyson Magaña MD PCP - General Internal Medicine 07/15/21 documented as of this encounter
--- OUTSIDE RECORDS SUMMARY | 2024-07-22 16:40 | XMS_ITS | Encounter Summary ---
Author Organization [facility] Address [address] [place] [address] Care Team Providers Care Health Care Administrator Name Role Phone Tamiko Nielsen MD Primary Care Provider Unavail able Allyson Magaña MD Primary Care Provider Unavaila aniceto Encounter Details Date Type Department Care Team Description 07/23/2020 Import Clerk Report Medical Records [address] [place] [id number] Eliezer Martinez PA-C Social History Tobacco Use Types Packs/Day [...] on filedocumented in this encounter Care Teams Health Care Administrator Relationship Specialty Start Date End Date Tamiko Nielsen MD PCP - General Internal Medicine 12/28/17 07/14/21 Allyson Magaña MD PCP - General Internal Medicine 07/15/21 documented as of this encounter
--- OUTSIDE RECORDS SUMMARY | 2024-07-22 16:40 | XMS_ITS | Encounter Summary ---
Author Organization [facility] Address [address] [place] [address] Care Team Providers Care Curer Foam Rubber Name Role Phone Tamiko Nielsen MD Primary Care Provider Unavail able Allyson Magaña MD Primary Care Provider Unavaila ble Reason for Visit * Reason Onset Date Comments TEST RESULTS 04/16/2019 Encounter Details Date Type Department Care Team Description 04/16/2019 Telephone Dermatology - [address] [phone] Salima Cartagena PA-C TEST RESULTS Social History Tobacco Use Types Packs/Day Years Used Date Smoking Tobacco: Never Cigarettes Smokeless Tobacco: Never Alcohol Use Standard Drinks/Week Comments Yes 1 (1 standard drink = 0.6 oz pur e alcohol) Ocassional Sex Assigned at Date Recorded Not on file Job Start Date Occupation Industry Not on file Not on file Not on file documented as of this encounter Miscellaneous Notes * Telephone Encounter - Sharron Caldwell M.A. - 04/18/2019 2:50 PM EDT Spoke to patient informed her of bx results, patient was scheduled for FSE and cryo tx. * Telephone Encounter - Salima Cartagena P.A.-C. - 04/17/2019 5:23 PM EDT Please inform patient her bxs show - left upper arm thick precancer. Please schedule her for cryotherapy and FSE -right arm benign clump of protein called keratin, thanks * Telephone Encounter - Rosana Calderon - 04/16/2019 4:43 PM EDT Inform patient: ANY URGENT OR ABNORMAL RESULTS WIILL RESULT IN A CALL BACK TO THE PATIENT ALEJANDRA. Type of test: :Biopsy Date test was performed: April 05, 2019 Where was the test performed: Derm Who ordered this test?: Salima Cartagena Is the doctor here today?: NO Can the message wait until the doctor returns?: YES IF PATIENT'S PCP IS NOT IN INSTRUCT PATIENT THAT THEY WILL RECEIVE A CALL BACK WHEN THE PCP IS IN THE OFFICE NEXT. documented in this encounter Plan of Treatment Not on file documented as of this encounter Visit Diagnoses Not on filedocumented in this encounter Care Teams Curer Foam Rubber Relationship Specialty Start Date End Date Tamiko Nielsen MD PCP - General Internal Medicine 12/28/17 07/14/21 Allyson Magaña MD PCP - General Internal Medicine 07/15/21 documented as of this encounter
--- OUTSIDE RECORDS SUMMARY | 2024-07-22 16:40 | XMS_ITS | Encounter Summary ---
Author Organization [facility] Address [address] [place] [address] Care Team Providers Care B2B Appointment Setter Name Role Phone Tamiko Nielsen MD Primary Care Provider Unavail able Allyson Magaña MD Primary Care Provider Ralf moreland Encounter Details Date Type Department Care Team Description 02/16/2018 Release of Information Medical Records [address] [place] [id number] Abstract, Provider Social History Tobacco Use Types Packs/Day Years Used Date Smoking Tobacco: Passive Smo ke Exposure - Never Smoker Cigarettes Smokeless Tobacco: Never Alcohol Use Standard [...] on filedocumented in this encounter Care Teams B2B Appointment Setter Relationship Specialty Start Date End Date Tamiko Nielsen MD PCP - General Internal Medicine 12/28/17 07/14/21 Allyson Magaña MD PCP - General Internal Medicine 07/15/21 documented as of this encounter
--- OUTSIDE RECORDS SUMMARY | 2024-07-22 16:40 | XMS_ITS | Encounter Summary ---
Author Organization [facility] Address [address] [facility] [place] [address] Care Team Providers Care Loan Collector Name Role Phone Tamiko Nielsen MD Primary Care Provider Unavail able Allyson Magaña MD Primary Care Provider Ralf moreland Encounter Details Date Type Department Care Team Description 04/09/2018 Business Doc Medical Records [address] [place] [id number] Abstract, Provider Social History Tobacco Use Types [...] on filedocumented in this encounter Care Teams Loan Collector Relationship Specialty Start Date End Date Tamiko Nielsen MD PCP - General Internal Medicine 12/28/17 07/14/21 Allyson Magaña MD PCP - General Internal Medicine 07/15/21 documented as of this encounter
--- OUTSIDE RECORDS SUMMARY | 2024-07-22 16:40 | XMS_ITS | Encounter Summary ---
Author Organization [facility] Address [address] [facility] [place] [address] Care Team Providers Care It Operations Specialist Name Role Phone Allyson Magaña MD Primary Care Provider Ralf moreland Encounter Details Date Type Department Care Team Description 07/20/2021 Business Doc Medical Records [address] [place] [address] Abstract, Provider Social History Tobacco Use Types Packs/Day Years Used Date Smoking Tobacco: Never Cigarettes Smokeless Tobacco: Never Alcohol Use Standard Drinks/Week Comments Yes 1 (1 standard drink = 0.6 oz pur e alcohol) Ocassional Sex Assigned at Date Recorded Not on file Job Start Date Occupation Industry Not on file Not on file Not on file COVID-19 Exposure Response Date Recorded In the last month, have you been in contact with someone who was confirmed or suspected to have Coronavirus / COVID-19? No / Unsure 07/15/2021 3:05 PM EST documented as of this encounter Plan of Treatment Not on file documented as of this encounter Visit Diagnoses Not on filedocumented in this encounter Care Teams It Operations Specialist Relationship Specialty Start Date End Date Allyson Magaña MD PCP - General Internal Medicine 07/15/21 documented as of this encounter
--- OUTSIDE RECORDS SUMMARY | 2024-07-22 16:40 | XMS_ITS | Encounter Summary ---
Author Organization [facility] Address [address] [place] [address] Care Team Providers Care Field Crops Harvest Machine Operator Name Role Phone Tamiko Nielsen MD Primary Care Provider Unavail able Allyson Magaña MD Primary Care Provider Unavaila ble Reason for Visit * Reason Onset Date Comments TEST RESULTS 11/28/2019 Encounter Details Date Type Department Care Team Description 11/28/2019 Telephone Medicine/Pediatrics - [address] [phone] Tamiko Nielsen MD TEST RESULTS Social History Tobacco Use Types [...] encounter Miscellaneous Notes * Telephone Encounter - Abhijeet Leon - 11/28/2019 9:27 AM EDT Pt notified. No questions/concerns. Pt is faithful to 2000ui d3 qd, wondering if regimen should change. * Telephone Encounter - Abhijeet Leon - 11/28/2019 9:10 AM EDT Left detailed voice message for patient to call back or f/u prn. *If pt calls back, Labs are stable, Vitamin D level is a little low, consider review with PCP, otherwise no changes.* documented in this encounter Plan of Treatment Not on file documented as of this encounter Visit Diagnoses Not on filedocumented in this encounter Care Teams Field Crops Harvest Machine Operator Relationship Specialty Start Date End Date Tamiko Nielsen MD PCP - General Internal Medicine 12/28/17 07/14/21 Allyson Magaña MD PCP - General Internal Medicine 07/15/21 documented as of this encounter
--- OUTSIDE RECORDS SUMMARY | 2024-07-22 16:40 | XMS_ITS | Encounter Summary ---
Author Organization [facility] Address [address] [place] [address] Care Team Providers Care Night Patrol Inspector Name Role Phone Denzel Nielsen MD Primary Care Provider Unavail able Allyson Magaña MD Primary Care Provider Unavaila ble Reason for Visit * Reason Onset Date Comments LAB WORK 04/20/2021 Encounter Details Date Type Department Care Team Description 04/20/2021 Telephone Adult Medicine [address] [address] Denzel Nielsen MD LAB WORK Social History Tobacco Use Types Packs/Day Years [...] encounter Miscellaneous Notes * Telephone Encounter - Yolanda Catalan - 04/20/2021 1:34 PM EDT Patient calling to request labs be ordered: What lab work is patient requesting? Pt would like the labs from her last appt reordered because she never went to do them. Does patient have an upcoming appointment, if yes when and WITH WHO? yes 04/28/21 Patients PCP is: DENZEL NIELSEN documented in this encounter Plan of Treatment Not on file documented as of this encounter Visit Diagnoses Not on filedocumented in this encounter Care Teams Night Patrol Inspector Relationship Specialty Start Date End Date Denzel Nielsen MD PCP - General Internal Medicine 12/28/17 07/14/21 Allyson Magaña MD PCP - General Internal Medicine 07/15/21 documented as of this encounter
--- OUTSIDE RECORDS SUMMARY | 2024-07-22 16:40 | XMS_ITS | Encounter Summary ---
Author Organization [facility] Address [address] [place] [address] Care Team Providers Care Utility Pipe Layer Name Role Phone Tamiko Nielsen MD Primary Care Provider Unavail able Allyson Magaña MD Primary Care Provider Missya aniceto Encounter Details Date Type Department Care Team Description 08/03/2019 Paste Worker Report Medical Records [address] [place] [address] Phil Morgan Social History Tobacco Use Types Packs/Day Years [...] on filedocumented in this encounter Care Teams Utility Pipe Layer Relationship Specialty Start Date End Date Tamiko Nielsen MD PCP - General Internal Medicine 12/28/17 07/14/21 Allyson Magaña MD PCP - General Internal Medicine 07/15/21 documented as of this encounter
--- OUTSIDE RECORDS SUMMARY | 2024-07-22 16:40 | XMS_ITS | Encounter Summary ---
Author Organization [facility] Address [address] [place] [address] Care Team Providers Care Botanical Technical Officer Name Role Phone Tamiko Nielsen MD Primary Care Provider Unavail Allyson Mcgill MD Primary Care Provider Ralf moreland Encounter Details Date Type Department Care Team Description 05/06/2019 Telephone Adult Medicine [address] [address] Tamiko Nielsen MD Social History Tobacco Use Types Packs/Day Years [...] encounter Miscellaneous Notes * Telephone Encounter - Tamiko Nielsen MD - 05/06/2019 2:44 PM EST Looking for clarification. I recently received communication from [facility] they are following with the patient for history of type 2 diabetes and complaint of blurredvision therefore they did ophthalmology evaluation. Is patient is diabetic or not diabetic ?? We have her on metformin for prediabetes but her ophthalmology note from [facility] states she has diabetes documented in this encounter Plan of Treatment Not on file documented as of this encounter Visit Diagnoses Not on filedocumented in this encounter Care Teams Botanical Technical Officer Relationship Specialty Start Date End Date Tamiko Nielsen MD PCP - General Internal Medicine 7/12/18 1/26/22 Allyson Magaña MD PCP - General Internal Medicine 07/15/21 documented as of this encounter
--- OUTSIDE RECORDS SUMMARY | 2024-07-22 16:41 | XMS_ITS | Encounter Summary ---
Author Organization [facility] Address [address] [place] [address] Care Team Providers Care Community Dietitian Name Role Phone Denzel Nielsen MD Primary Care Provider Unavail able Allyson Magaña MD Primary Care Provider Unavaila ble Reason for Referral * EXTERNAL (Routine) - Authorized/Booked Specialty Diagnoses / Procedures Referred By Rose fulton Referred To Contact ORTHOPEDICS / Orthopedic Procedures REFERRAL TO ORTHOPEDICS (IN NETWORK) Denzel Nielsen MD [address] [place] [address] Russell Villasenor MD [address] [place] [address] Referral ID Status Reason Start Date Expiration Date V isits Requested Visits Authorized SEE NOTE Authorized/B ooked 12/12/2018 03/14/2019 1 1 Encounter Details Date Type Department Care Team Description 12/12/2018 Telephone Adult Medicine [address] [address] Denzel Nielsen MD Social History Tobacco Use Types [...] encounter Miscellaneous Notes * Telephone Encounter - Dulce Cowart PA-C - 12/12/2018 11:50 AM EDT signed * Telephone Encounter - Moody Rosales L.P.N. - 12/12/2018 10:27 AM EDT Please Advise Dr. Nielsen off until Monday12/17/2018. * Telephone Encounter - Brianna Villanueva - 12/12/2018 8:16 AM EDT DENZEL NIELSEN You had placed an order to plastic surgery however patient would need to see a hand surgeon for dx:synovial cyst on right 4th digit. I pended a new ortho order, please review and sign Thank you Brianna Avila Orthopedic Referrals Navigator [facility] [place] [phone] or ext [phone] documented in this encounter Plan of Treatment Not on file documented as of this encounter Visit Diagnoses Not on filedocumented in this encounter Care Teams Community Dietitian Relationship Specialty Start Date End Date Denzel Nielsen MD PCP - General Internal Medicine 12/28/17 07/14/21 Allyson Magaña MD PCP - General Internal Medicine 07/15/21 documented as of this encounter
== END 2024-07-22 15:11 | disposition home or self-care (01) ==
LOC: HO.MAMMO 15:10
PROVIDERS: PCP Internal Medicine; Visit Provider Internal Medicine
DX: Z12.31 Encounter for screening mammogram for malignant neoplasm of breast (principal)
CPT/HCPCS: 77063; 77067

== ENCOUNTER → 2024-07-22 15:30 | Outpatient (BNV) | payer MEDICARE, OTHER, SELFPAY | PROVIDERS: PCP Internal Medicine; Visit Provider Internal Medicine | DX: Z12.31 Encounter for screening mammogram for malignant neoplasm of breast (principal) | CPT/HCPCS: 77063; 77067 ==

== ENCOUNTER 2024-08-01 15:18 | Outpatient (AMB) | payer MEDICARE, OTHER, SELFPAY ==
[2024-08-01 15:20] VITALS: BP 126/78; PULSE 89; O2SAT 95; BMI 27.7
--- NOTE | 2024-08-01 15:20 | A.OFFVIS_ITS ---
Vital Signs 08/01/24 15:20 Height 5 ft 8.5 in Weight 185 lb BMI 27.7 BP 126/78 Blood Pressure Location Lt brachial Position Sitting Pulse 89 Pulse Source Pulse Oximeter Pulse Oximetry (%) 95 Oxygen Delivery Method Room Air Intake Visit Reasons: f/u for Sleep Apnea Utility Gelatin Maker Required: No Accompanied by: Self / Same As Patient Allergies prochlorperazine [From Compazine] Allergy (Intermediate, Verified 08/01/24 15:23) facial paralysis metformin Adverse Reaction (Intermediate, Verified 08/01/24 15:23) Diarrhea Medication List - Last Reconciled 08/01/24 by Remi Lui PA-C apixaban (Eliquis) 5 mg PO BID cholecalciferol (vitamin D3) 3,000 units PO DAILY digoxin 0.125 mg PO DAILY 90 days Farxiga (dapagliflozin propanediol) 10 mg PO DAILY NS levothyroxine (Euthyrox) 75 mcg PO DAILY metoprolol tartrate 100 mg PO BID Saccharomyces boulardii (Daily Probiotic (S. boulardii)) 250 mg PO BID triamcinolone acetonide 0.1% 1 appl topical BID-TID HPI Comments Details: 79 y/o female patient presents for follow up of HENRIK. She was traveling with her CPAP for the holidays, and the CPAP machine was sent back to her daughter's house by the airline to [place], and she just retrieved the machine. Her second issue is the silicone mask sent to her instead of fabric mask which she is accustomed to using, so finally she has started to use her machine now in 2024 as she has found the correct fabric lined mask. The silicone mask was too abrasive on her skin. Since the AFIB event in 08/2022, she is consistent about daily use of her CPAP machine. She says the pressures are okay for her. She denies headaches. She denies RLS. She denies mouth guard use. 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 She was evaluated by her gas distribution supervisor and told that her Afib is controlled well. She washes her mask daily, changes the liners and filters as needed. Her mood, weight and memory are stable. [facility] Medical History Pre-diabetes HENRIK on CPAP Atrial fibrillation with RVR Hypothyroidism Numerous skin moles Postmenopausal Vitamin D deficiency Hx of mammogram HTN (hypertension) Surgical History Hx of section Hx of tonsillectomy Hx of colonoscopy History of bunionectomy Hx of shoulder surgery Family History Father CAD (coronary artery disease) COPD (chronic obstructive pulmonary disease) Mother COPD (chronic obstructive pulmonary disease) Family/Other Liver disease Social History Household Members: None Household Members Other:: lives alone, 2 adults Housing: House Do you presently have visiting nurse or other home services: No Alcohol intake: current Alcohol intake frequency: holidays/special occasions only Patient Tobacco Use Status: Never used Tobacco e-Cigarette/Vaping Use: Never Used service: No Current occupational status: retired Cognitive needs: No Hearing needs: No Vision needs: No Review of Systems Const All systems reviewed & are unremarkable except as noted in HPI and below Physical Exam Vital Signs: Last Vital Signs Pulse 89 08/01/24 15:20 BP 126/78 08/01/24 15:20 Pulse Ox 95 08/01/24 15:20 Oxygen Delivery Method Room Air 08/01/24 15:20 BMI result Body Mass Index 27.7 Const General: cooperative, comfortable and no acute distress Nutritional Appearance: average body habitus Orientation/consciousness: patient oriented x3 HEENT Face and sinus: Yes normal facial exam and Yes face symmetric Throat: Yes other ([place] score of 3) Eyes Pupils: Equal, round and reactive pupils present Neck Neck: Yes full ROM and Yes supple Resp Effort & Inspection: normal respiratory effort and able to speak in complete sentences Neuro General: patient oriented x3 and moves all extremities Cranial nerves: Yes CN's II-XII intact bilaterally, Yes Facial sensation intact/muscles of mastication intact, Yes Equal, round and reactive pupils present, Yes Normal accommodation reflex present, Yes Bilaterally intact EOM present, Yes Nystagmus not present, Yes Normal facial strength present, Yes Midline tongue present, Yes Ability to bilaterally rotate head present and Yes Ability to bilaterally elevate shoulders present Gait exam (Neuro): Normal gait present Motor exam (neuro): 5/5 motor strength present throughout and Normal motor muscle tone present throughout Deep tendon reflexes (DTR's): Right triceps reflex intensity grade: 2+, Left triceps reflex intensity grade: 2+, Rt Biceps (C5, C6): 2+, Left biceps reflex intensity grade: 2+, Right brachioradialis reflex intensity grade: 2+, Left brachioradialis reflex intensity grade: 2+, Right patellar reflex intensity grade: 2+ and Left patellar reflex intensity grade: 2+ Psych Thought process: Normal thought process present Thought content: Normal thought content present Results Reviewed Results Reviewed: CPAP Compliance Report 04/2024 - 07/2024 >4 hours 26 days avg use total 1 hour 46min Pressures are 7.2 to 10.6cmH20 Leaks 0.1- max 11.4 AHI 1.6 Patient was traveling to visit daughter and her machine was sent to [place] by the airlines, now she has finally received her machine. Assessment & Plan Assessment & Plan (1) HENRIK (obstructive sleep apnea): Comment: Moderate degree of sleep apnea. The AHI was 21/hr and oxygen victor hugo was 79%. Code(s): G47.33 - Obstructive sleep apnea (adult) (pediatric) Category: Medical (2) Hyperglycemia: Code(s): R73.9 - Hyperglycemia, unspecified Category: Medical (3) Vitamin D deficiency: Code(s): E55.9 - Vitamin D deficiency, unspecified Category: Medical Plan HENRIK Continue to use CPAP as patient has history of AFIB Emphasized Compliance as patient has Risk Factors A1c is elevated continue to take meds as prescribed. f/u in 3 months will monitor for compliance Patient Instructions: Continue use of CPAP daily as patient has co-morbidities, AFIB. Sleep Hygiene, Sleep in a dark room, no devices in bed, no fluids two hours prior to bed. May read a book in bed. The #1 modifiable RF for Cardiovascular events is good control of BP, Monitor BP. [place] [employer] recommends the DASH Diet and the Mediterranean Diet for reducing the BP. Coding Level of Care Code Est Pt Level 4 (03315) Diagnoses HENRIK (obstructive sleep apnea) G47.33 Hyperglycemia R73.9 Vitamin D deficiency E55.9
--- OUTSIDE RECORDS SUMMARY | 2024-08-01 15:21 | XMS_ITS | Encounter Summary ---
Author Organization [facility] Address [address] [place] [address] Care Team Providers Care Mushroom Press Operator Name Role Phone Allyson Magaña MD Primary Care Provider [phone] Encounter Details Date Type Department Care Team (Late st Contact Info) Description 07/23/2024 Lab Requisition [facility] [address] [facility] [place] [address] Cora Parr III, MD [address] [place] [address] [place] [phone] Disorder of pigmentation, unspecified Social History Tobacco Use Types Packs/Day Years Used Date Smoking Tobacco: Never Smokeless Tobacco: Never Alcohol Use Standard Drinks/Week Comments Yes 1 (1 standard drink = 0.6 oz pur e alcohol) Comments Unknown Sex and Gender Information Value Date Recorded Sex Assigned at Not on file Legal Sex Female 10:03 PM EST Gender Identity Not on file Sexual Orientation Not on file documented as of this encounter Plan of Treatment Not on file documented as of this encounter Procedures Procedure Name Priority Date/Time Associated Diagnosis Comments TISSUE EXAM Routine 07/23/2024 Disorder of pigmentation, unspecified documented in this encounter Results * Tissue Exam (07/23/2024) Final Diagnosis Skin, Left arm-excision: -SQUAMOUS CELL CARCINOMA, WELL DIFFERENTIATED, KERATOACANTHOMA TYPE, REGRESSING -Deep and peripheral margins negative 07/24/2024 11:14 AM EST [facility] Clinical Information Atypical skin lesion left arm Suture short superior long lateral L81.9 07/24/2024 11:[address] [facility] Gross Description A. Arm, Left, excision: Labeled atypical left arm lesion suture short superior long lateral . Received in formalin is a 6.2 x 1.7 cm oriented ewing-white skin ellipse excised to depth of 0.3 cm. There is a short suture on one edge designating superior, and a long suture on one tip designating lateral per the requisition. The epidermis displays a 1.4 x 1.3 x 0.5 cm raised baumann-white keratotic nodule, located 0.2 cm from the superior and inferior margins. The superior margin is inked blue, inferior black, medial epidermis green. The specimen is sectioned cruciate manner. Diamond Expert sections, to include the entirety of the lesion, are submitted in four cassettes as follows: 1, cruciate medial and lateral tips (medial tip inked green), two pieces 2-4, sequential cross-sections to include the entirety of the lesion, two pieces each LINUS 07/24/2024 11:[address] [facility] Disclaimer Unless otherwise specified, all tissue is 10% NB formalin fixed and paraffin embedded. 07/24/2024 11:[address] [facility] Tissue Structure of left upper limb / Unknown 07/23/2024 07/23/2024 3:25 PM EST us Cora Parr III, MD LAB PATHOLOGY ORDERABLES Fi nal Result [facility] [address] [place] [address], documented in this encounter Visit Diagnoses Diagnosis Disorder of pigmentation, unspecified documented in this encounter Care Teams Mushroom Press Operator Relationship Specialty Start Date End Date Allyson Magaña MD PCP - General Internal Medicine 07/15/21 documented as of this encounter
--- OUTSIDE RECORDS SUMMARY | 2024-08-01 15:21 | XMS_ITS ---
Author Organization [facility] Address [address] [facility] [place] [address] Care Team Providers Care Ward Supervisor Name Role Phone Allyson Magaña MD Primary Care Provider Chandu Rincon [phone] REASON FOR VISIT Wart(s) Medications Medication SIG [...] Active Encounters Encounter Location Date Provider Diagnosis [facility] [address] [place] [address] 02/12/2024 Chandu Chisholm Primary osteoarthritis, right ankle [...] pin-point bleeding margins with sterile surgical blade (31135), silver nitrate chemocautery applied, recomm. Wartstick 40 percent Salicylic acid application under occlusion as directed Progress Notes * Charla GREGORIO BDOB:1944 (79 yo F)Acc No.[id number]:02/12/2024 Progress Notes Patient:?KACEY, Charla Hampton Provider:?Chandu Chisholm DPM :1945???Age:78 Y???Sex:Female D ate:02/12/2024 Address:[address] [place] [address] Jody Santiago [facility] Pcp:Allyson Magaña MD Subjective: * Chief Complaints: [...] pin-point bleeding margins with sterile surgical blade (71421), silver nitrate chemocautery applied, recomm. Wartstick 40 percent Salicylic acid application under occlusion as directed.? * Procedure Codes:?78653 Wart Destruction, 1-14, Modifiers: XS * Follow Up:?3 Weeks * Images: * The named appointment provid er may or may not be the originator of this progress note, and it is not deemed complete until electronically signed by the appointment provider. Sign off status: Pending * Provider:?Chandu Chisholm DPM Date:? 024 Generated for Smita mejia/Bailey/Mikeitting on:?08/01/2024 03:21 PM EST History and Physical Notes * [...]
--- OUTSIDE RECORDS SUMMARY | 2024-08-01 15:21 | XMS_ITS | Patient Health Record ---
Author Organization [facility] Address [address] [facility] [address] Care Team Providers Care Director Of Labor And Delivery Name Role Phone Allyson Magaña MD Primary Care Provider Chandu Rincon Unavailable [phone] Allergies Allergen (clinical drug ingredient) Drug/Non Drug [...] primary osteoarthritis of the ankle and/or foot (487847807) Primary osteoarthrit is, right ankle and foot (M19.071) Active confirmed Problem Localized, primary osteoarthritis of the ankle and/or foot (074962386) Primary osteoarthrit is, left ankle and foot (M19.072) Active confirmed Problem Acquired hammer toe of right foot (7171025192483081) Other hammer toe(s) (acquired), right foot (M20.41) Active confirmed Problem Acquired hammer toe of left foot (1105674037417791) Other hammer toe(s) (acquired), left foot (M20.42) Active confirmed Vital Signs Height 5ft 9in in 01/22/2024 Weight 186 lbs 01/22/2024 BMI 27.46 kg/m2 01/22/2024 Encounters Encounter Location Date Provider Diagnosis [facility] [address] [address] 01/03/2024 Chandu Chisholm Primary osteoarthritis, left ankle and 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 ; Primary osteoarthritis, right ankle and foot M19.071 ; Other hammer toe(s) (acquired), left foot M20.42 ; Other hammer toe(s) (acquired), right foot M20.41 ; Pain in left foot M79.672 ; Pain in right foot M79.671 ; Other viral warts B07.8 and Plantar fascial 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 [facility] [address] [address] 01/22/2024 Chandu Phan Primary osteoarthritis, right ankle and foot M19.071 ; Primary osteoarthritis, left ankle and 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 ; Other hammer toe(s) (acquired), left foot M20.42 ; Other hammer toe(s) (acquired), right foot M20.41 ; Pain in left foot M79.672 ; Pain in right foot M79.671 ; Other viral warts B07.8 ; Plantar fascial 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 and Tinea unguium B35.[address] [facility] [address] 01/03/2024 [facility] [address] 02/12/2024 Chandu Chisholm Assessments Encounter Date Diagnosis [...] Inc [address] [place] [address] [id number] Charla Gregorio Self - patient is the insured [facility] [address] [place] [address] [phone] [id number] Charla Gregorio Self - patient is [...]
--- OUTSIDE RECORDS SUMMARY | 2024-08-01 15:21 | XMS_ITS ---
Author Organization [facility] Address [address] [place] [address] Care Team Providers Care Employee Communications Specialist Name Role Phone Allyson Magaña MD Primary Care Provider Chandu Rincon [phone] REASON FOR VISIT cx appt Encounters Encounter Location Date Provider Diagnosis [facility] [address] [place] [address] 02/12/2024 Chandu Chihsolm Plan Of Treatment No Information Progress Notes * Charla GREGORIO BDOB:1944 (78 yo F)Acc No.[id number]:02/12/2024 Patient:?Charla Gregorio :1945???Age:78 Y???Sex:Female Address:[address] [place], [address] * true * Date:? Generated for Printi roberto/Bailey/eTransmitting on:?08/01/2024 03:21 PM EST
--- OUTSIDE RECORDS SUMMARY | 2024-08-01 15:21 | XMS_ITS ---
Author Organization [facility] Address [address] [place] [address] Care Team Providers Care Game Producer Name Role Phone Allyson Magaña MD Primary Care Provider UnavailAmerico Hollingsworth Jr [phone] REASON FOR VISIT eliquis note? Encounters Encounter Location Date Provider Diagnosis [facility] [address] [place] [address] 07/15/2024 Americo David Jr PLAN OF TREATMENT No Information
--- OUTSIDE RECORDS SUMMARY | 2024-08-01 15:21 | XMS_ITS | Clinical Summary ---
Author Organization [facility] Address [address] [place] [address] Care Team Providers Care Teleprinter Name Role Phone Rebecca Hernandez MD Primary [...] age to complete this topic Care Teams Teleprinter Relationship Specialty Start Date End Date Rebecca Hernandez MD [address] [facility] [place] [address] PCP - General Internal Medicine 12/13/18
--- OUTSIDE RECORDS SUMMARY | 2024-08-01 15:21 | XMS_ITS ---
Author Organization [facility] Address [address] [place] [address] Care Team Providers Care Seal Extrusion Operator Name Role Phone Allyson Magaña MD Primary Care Provider UnavailAmerico Hollingsworth Jr Unavailable ALLERGIES No Known Allergies REASON FOR VISIT [...] Problem Colon cancer screening (Z12.11) Active confirmed 038136086 Problem language instructor (current) use of anticoagulants (Z79.01) Active confirmed 352560397 Problem language instructor (current) use of oral hypoglycemic drugs (Z79.84) Active confirmed 885710775012657 VITAL SIGNS BMI 28.19 kg/m2 05/01/2024 Blood pressure systolic 000 mm Hg 05/01/20 24 Blood pressure diastolic 00 mm Hg 024 Height 5 ft 8.5 in in 05/01/2024 Temperature 96.9 degrees Fahrenheit 05/01/20 24 Weight 188 lb 2 oz lbs 05/01/2024 Encounters Encounter Location Date Provider Diagnosis [facility] [address] [place] [address] 05/01/2024 Americo David Jr Colon cancer screening Z12.11 ; [facility] (current) use of anticoagulants Z79.01 and language instructor (current) use of oral hypoglycemic drugs Z79.84 ASSESSMENTS Encounter Date Diagnosis Assessment Notes Treatment Notes Treatment Clinical Notes 05/01/2024 Colon cancer screening (ICD-10 - Z12.11) Colonoscopy material was printed 05/01/2024 language instructor (current) use of anticoagulants (ICD-10 - Z79.01) 05/01/2024 language instructor (current) use of oral hypoglycemic drugs (ICD-10 - Z79.84) PLAN OF TREATMENT Treatment Notes Assessment Notes Colon cancer screening Colonoscopy mater ial was printed Future Test Test Name Order Date COLONOSCOPY 05/01/2024 Next Appt Details Follow Up: 1 Year, Reason: Progress Notes * Examination Category Sub-Category Detail Notes General Examination GENERAL APPEARANCE: in no ac [place] distress HEAD: normocephalic EYES: sclera non-icteric NECK/THYROID: no lymphadenopathy HEART: S1, S2 normal, no mu rmurs CHEST: normal shape and exp ansion LUNGS: clear to auscultatio n bilaterally ABDOMEN: soft, nontender, non distended, bowel sounds present, no organomegaly SKIN: anicteric EXTREMITIES: no clubbing, cyanosi s, or edema PSYCH: cognitive function i ntact ORAL CAVITY: mucosa moist
--- OUTSIDE RECORDS SUMMARY | 2024-08-01 15:22 | XMS_ITS | Patient Health Record ---
Author Organization [facility] Address [address] [place] [address] Care Team Providers Care Datacap Developer Name Role Phone Gómez MAYORGA, Allyson Primary Care Provider Americo Jimenez Jr Unavailable [phone] ALLERGIES No Known Allergies RESULTS Component Value Reference Range Notes Glucose, Whole Blood Reviewed date:07/19/2024 09:24:46 PM Interpretation: Performing Lab:[facility], [address] [place] [address] Notes/Report: Glucose, Whole Blood 161 60-115 mg/dL METER # : [id number] REASON FOR REFERRAL No Information MEDICATIONS Medication SIG (Take, Route, Frequency, Duration) Notes Start Date End Date Status Vitamin D (Ergocalciferol) 50 MCG (1999 UT) 1 capsule Orally Once a day for [...] Problem Colon cancer screening (Z12.11) Active confirmed 788553001 Problem FDC (current) use of anticoagulants (Z79.01) Active confirmed 287340765 Problem emt intermediate (current) use of oral hypoglycemic drugs (Z79.84) Active confirmed 884261795643036 VITAL SIGNS Temperature 96.9 degrees Fahrenheit 05/01/2024 Blood pressure diastolic 00 mm Hg 05/01/2024 Height 5 ft 8.5 in in 05/01/2024 Blood pressure systolic 000 mm Hg 05/01/2024 Weight 188 lb 2 oz lbs 05/01/2024 BMI 28.19 kg/m2 05/01/2024 Encounters Encounter Location Date Provider Diagnosis [facility] [address] [place] [phone] 07/19/2024 Americo David Jr Colon cancer screening Z12.11 and Personal history of colonic polyps Z86.0100 [facility] [place] [address] 05/01/2024 Americo David Jr Colon cancer screening Z12.11 ; emt intermediate (current) use of anticoagulants Z79.01 and FDC (current) use of oral hypoglycemic drugs Z79.84 [facility] [place] [address] 07/15/2024 Americo David Jr ASSESSMENTS Encounter Date Diagnosis Assessment Notes Treatment Notes Treatment Clinical Notes 07/19/2024 Colon cancer screening (ICD-10 - Z12.11) 07/19/2024 Personal history of colonic polyps (ICD-10 - Z86.0100) 05/01/2024 Colon cancer screening (ICD-10 - Z12.11) Colonoscopy material was printed 05/01/2024 emt intermediate (current) use of anticoagulants (ICD-10 - Z79.01) 05/01/2024 emt intermediate (current) use of oral hypoglycemic drugs (ICD-10 - Z79.84) PLAN OF TREATMENT Future Test Test Name Order Date COLONOSCOPY 05/01/2024 Insurance Providers Payer Name Payer Address Payer Phone Subscriber Number Group Number Insured Name Patient Relationship to Insured Coverage Start Date Coverage End Date [employer] [place] [address] [place] [address] [id number] YOKO ERAZO Self - patient is the insured [facility] [address] [place] [phone] [id number] YOKO ERAZO Self - patient is the insured MEDICAL (GENERAL) HISTORY Medical History History ICD Code Atrial fibrillation Elevated blood sugar HENRIK/CPAP Vitamin D deficiency Hypertension Colonoscopy 2019, colon polyp, five-year followup Surgical History Surgery Date(Month/Year) Hospitalization History Reason Date(Month/Year) Atrial fibrillation with rapid ventricul ar response 09/07
--- OUTSIDE RECORDS SUMMARY | 2024-08-01 15:22 | XMS_ITS ---
Author Organization [facility] Address [address] [facility] [place] [address] Care Team Providers Care Title 1 Tutor Name Role Phone Allyson Magaña MD Primary Care Provider Chandu Rincon Unavailable [phone] Allergies Allergen (clinical drug ingredient) Drug/Non Drug [...] 01/22/2024 Encounters Encounter Location Date Provider Diagnosis [facility] [place] [address] [place] [address] 01/22/2024 Chandu Chisholm Primary osteoarthritis, right ankle [...] pin-point bleeding margins with sterile surgical blade (98780), silver nitrate chemocautery applied, recomm. Wartstick 40 percent Salicylic acid application under occlusion as directed Progress Notes * Charla GREGORIO BDOB:1944 (78 yo F)Acc No.[id number]:01/22/2024 Progress Notes Patient:Charla Rodriguez Provider:?Chandu Chisholm DPM :1945???Age:78 Y???Sex:Female D ate:01/22/2024 Address:[address] [place], [place] [address] Pcp:Allyson Magaña MD Subjective: * Chief Complaints: [...] yes, 2. ?Marital status: . 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 * Medications:?TakingProbiotic Farxiga 10 MG Tablet 1 [...] pin-point bleeding margins with sterile surgical blade (86038), silver nitrate chemocautery applied, recomm. Wartstick 40 percent Salicylic acid application under occlusion as directed.? * Procedure Codes:?93090 Wart Destruction, 1-14, Modifiers: XS * Preventive [...] DPM Date:? 024 Generated for Giulianoi roberto/Bailey/eTransmitting on:?08/01/2024 03:22 PM EST History and Physical Notes * [...]
--- OUTSIDE RECORDS SUMMARY | 2024-08-01 15:22 | XMS_ITS | Continuity of Care Document ---
Author Organization [employer] [facility], [facility] [address] Address [address] [place] [address] Care Team Providers Care Auto Radio Mechanic Name Role Phone RADHA LEWIS Primary Care Provider [phone] Assessment No assessment recorded. Plan of Treatment Reminders Order Date Submit Date Provider Last Modified By Organization Details Last Modified Time Details Appointments None record ed. Lab None record ed. Referral None record ed. Procedures None record ed. Surgeries None record ed. Imaging None record ed. Medication Orders None record ed. Patient TargetsNo targets recorded. Patient InstructionsNo instructions recorded. Reason for Referral None Reported. Problems Name Problem SNOMED Code Status Onset Date Resolution Date Notes Provider Name and Address Organization Details Recorded Time No complaints [id number] Active Status : 'I'; Not Available [facility] 4 09:11:46 Pain of joint of knee 1312624697 Active 2021 Status : 'A'; Not Available [facility] 4 11:12:58 Problem Notes None recorded. Procedures Surgical History Date Name Laterality Status Provider Name and Address Organization Details Recorded Time 5 Gel-One Knee Injection completed Denita Zuleta PA-C [address], [place], [address], [facility] 07/12/2024 08:29:29 4 Sports Knee 4&1 completed Andrea Lemon PA-C [address], [place], [address], [place] [facility] 02/07/2024 09:30:16 Imaging Results None recorded. Procedure Notes None recorded. Medical Equipment None Reported. Allergies Allergen ID Allergen Name Allergen Category Reaction Reaction Severity Criticality Documentation Date Start Date Code Code System Note Provider Name and Address Organization Details Recorded Time [id number] Compazine medicatio n Not available Not available Not available 07/12/202405194 6 RxNorm kushal [facility] 11:05:54 Medications Name Sig Start Date Stop Date Status Note LastModified by Organization Details LastModified Time metoprolol tartrate 100 mg tablet TAKE 1 TABLET BY MOUTH TWICE DAILY active Not Available Not Available No t Available fluconazole 150 mg tablet TAKE 1 TABLET BY MOUTH ONCE, MAY REPEAT IN 1 WEEK IF SYMPTOMS PERSIST active Not Available Not Available No t Available prednisone 20 mg tablet TAKE 2 TABLETS BY MOUTH ONCE DAILY FOR 5 DAYS 07/12 completed Not Available Not Available Not Available levothyroxi ne 75 mcg tablet TAKE 1 TABLET BY MOUTH ONCE DAILY active Not Available Not Available No t Available cephalexin 500 mg capsule TAKE 1 CAPSULE BY MOUTH FOUR TIMES DAILY FOR 5 DAYS 07/12 completed Not Available Not Available Not Available pseudoephed rine-guaife nesin ER 80-700 mg tablet,exte nded release 1 TAB EVERY 4-6 HOURS NEEDED FOR PAIN 10/07 completed Statu s: 'Disc ontin ued'; Not Available Not Available Not Available digoxin 125 mcg (0.125 mg) tablet TAKE 1 TABLET BY MOUTH ONCE DAILY active Not Available Not Available No t Available Eliquis 5 mg tablet TAKE 1 TABLET BY MOUTH TWICE DAILY active Not Available Not Available No t Available Farxiga 10 mg tablet TAKE 1 TABLET BY MOUTH ONCE DAILY active Not Available Not Available No t Available Farxiga 5 mg tablet TAKE 1 TABLET BY MOUTH ONCE DAILY 07/12 completed Not Available Not Available Not Available Vitals Date Recorded Body height Body mass index (BMI) Body weight Provider Name and Address Organization Details Last Updated DateTime 07/12/2024 170.18 cm 29.4 kg/m2 35959.37 g kushal cheatham [facility] 07/12/2024 11:05:02 Social History None recorded. Functional Status None recorded. Mental Status None recorded. Family History Nothing Reported. Medical History No medical history recorded. Gynecological HistoryNo gynecological history recorded. Obstetrics History GPAL:G 0 P 0 0 0 0 Past Encounters Encounter ID Performer Location Encounter Start Date Encounter Closed Date Diagnosis/Indication Diagnosis SNOMED-CT Code Diagnosis ICD10 Code Diagnosis Note [id number] CELE[facility] [address] [place] [address] 07/12/2024 10:32:09 07/23/2024 15:48:22 Osteoarthritis of right knee joint [id number] 85906 M17.11 Health Concerns Section Related Observation LastModified by Organization Detai ls LastModified Time None Recorded Concern Status LastModified by Organization Details LastModified Time None Recorded Payers Encounter Date Sequence Insurance Name Policy Number Policy Quezada Covered Member ID Quezada Member ID Guarantor Name 07/12/2024 1 [place]ICARE [place]: [employer] Charla Gregorio [id number] Charla Gellerointe 07/12/2024 2 [facility] - PLAN 1 (MEDICARE SUPPLEMENT) [id number] Charla Gellerointe [id number] Charla Gellerointe Notes Date Note Type Note Provider Name and Address Organization Details Recorded Time 07/12/2024 text/html I am seeing the patient today under the supervision of Dr. Swift who was available but who did not see the patient. HPI: Patient presenting today with known osteoarthritis of the right knee. Not happy with pain level and function of the knees. Is authorized for Gel One injection today. No new injury. Cortisone injections only provide her with temporary relief. She is on an oral anticoagulant and can only take Tylenol for her pain. She has an elastic knee sleeve which she wears for support. Past family, medical, social history and review of systems has been reviewed, updated, and is located in the patient? s chart. Examination: Examination of the right knee reveals no effusion, erythema, or warmth. Injection site benign. Decreased range of motion. Point tender {{medial* lateral}} joint line. Calf is soft and nontender. 5/5 strength knee flexion and extension Impression: Right knee osteoarthritis Plan: Nature of the diagnosis discussed with the patient today. Patient agreed to proceed with an injection. Utilizing sterile technique, the right knee was injected with Gel One. Patient tolerated the procedure well. Postinjection precautions reviewed. Recommended ice and rest for the next 24-48 hours. Follow-up as symptoms dictate. G5 speech recognition pit furnace operator software was used to create portions of this document. An attempt at proofreading has been made to minimize errors. Please call for corrections. Denita Zuleta PA-C [address] [place], [place] [address], [place], [address], [facility] 07/12/2024 12:46:39 OBGyn Episode No OBEpisode recorded.
--- OUTSIDE RECORDS SUMMARY | 2024-08-01 15:22 | XMS_ITS | Clinical Summary ---
Author Organization [facility] Address [address] [place] [address] Phone Care Team Providers Care Workers Compensation Claims Supervisor Name Role Phone Allyson Magaña MD Primary Care Provider [phone] Encounters Date Type Department Care Team Description 07/23/2024 Lab Requisition [facility] - Main Lab [address] [facility] [place] [address] Cora Parr III, MD Disorder of pigmentation, unspecified from Last 3 Months Surgical History Surgery Date Site/Laterality Comments SECTION PROCEDURE: HISTORICAL DELIVERY; COMMENT: x 2 COLONOSCOPY 07/04/2019 PROCEDURE: HISTORICAL COLONOSCOPY; COMMENT: polyps Medical History Medical History Date Comments 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 02/05/2018 DX:DJD (degenerative joint d isease) of thoracic spine Eczema of hand 02/05/2018 DX:Eczema of mckeon d; COMMENT: NE Derm Hyperlipidemia 02/05/2018 DX:Hyperlipidemi a Hypothyroid 02/05/2018 DX:Hypothyroid Vitamin D deficiency 02/05/2018 DX:Vitamin D deficiency Obesity (BMI 30-39.9) 02/14/2018 DX:Obesity (BMI 30-39.9) Prediabetes DX:Prediabetes History of colon polyps DX:Histo ry of colon polyps Family History Medical History Relation Name Comments Hypertension Brother Coronary artery disease Father age 67 Ovarian cancer Mother COPD age 83 Multiple sclerosis Sister Factor V Leiden Breast cancer Neg Hx Relation Name Status Comments Brother Father Mother Sister Social History Tobacco Use Types Packs/Day Years Used Date Smoking Tobacco: Never Smokeless Tobacco: Never Alcohol Use Standard Drinks/Week Comments Yes 1 (1 standard drink = 0.6 oz pur e alcohol) Comments Unknown Sex and Gender Information Value Date Recorded Sex Assigned at Not on file Legal Sex Female 10:03 PM EST Gender Identity Not on file Sexual Orientation Not on file Obstetrics History Plan of Treatment Health Maintenance Due Date Last Done Comments DTaP,Tdap,and Td Vaccines (1 - Tdap) 1952 Pneumococcal Vaccine: 50+ Years (2 of 2 - PCV) 11/23/2019 11/22/2018, 05/30/2012 RSV Immunization Patients 60 + Years Old (1 - 1-dose 75+ series) 2022 Cholesterol Screening (Lipid Panel) 05/28/2022 Colorectal Cancer Screening: Colonoscopy 05/28/2022 Depression Screening 05/28/2022 Falls Risk Assessment 05/28/2022 Hepatitis C Screening 05/28/2022 Medicare Annual Wellness Visit 05/28/2022 Social Influencers of Health Screening 05/28/2022 Hypertension/CHF/CAD Annual BMP Blood Test 06/01/2022 COVID-19 Vaccine (3 - 2023-2 5 season) 2024 09/08/2020, 08/11/2020 Influenza Vaccine (#1) 2024 2, 02/19/2021 Osteoporosis Screening (Bone Density Screening) 05/28/2030 05/28/2020, 04/05/2018 Zoster Vaccines Completed 10/05/2018, 08/06/2018 HIB Vaccines Aged Out No longer eligi ble based on patient's age to complete this topic HPV Vaccines Aged Out No longer eligi ble based on patient's age to complete this topic Hepatitis A Vaccines Aged Out No long er eligible based on patient's age to complete this topic Hepatitis B Vaccines Aged Out No long er eligible based on patient's age to complete this topic IPV Vaccines Aged Out No longer eligi ble based on patient's age to complete this topic MMR Vaccines Aged Out No longer eligi ble based on patient's age to complete this topic Meningococcal ACWY Vaccine Aged Out N o longer eligible based on patient's age to complete this topic Meningococcal B Vacine Aged Out No lo nger eligible based on patient's age to complete this topic RSV Immunization Patients Under 20 months Aged Out No longer eligible b ased on patient's age to complete this topic Varicella Vaccines Aged Out No longer eligible based on patient's age to complete this topic Procedures Procedure Name Priority Date/Time Associated Diagnosis Comments TISSUE EXAM Routine 07/23/2024 Disorder of pigmentation, unspecified DXA BONE DENSITY STUDY 1+ SITS AXIAL SKEL Routine 05/28/2020 10:24 AM EST Encounter for screening for osteoporosis from Last 3 Months or Most Recently Relevant to Health Maintenance Results * Tissue Exam (07/23/2024) Final Diagnosis Skin, Left arm-excision: -SQUAMOUS CELL CARCINOMA, WELL DIFFERENTIATED, KERATOACANTHOMA TYPE, REGRESSING -Deep and peripheral margins negative 07/24/2024 11:14 AM [facility] Clinical Information Atypical skin lesion left arm Suture short superior long lateral L81.9 07/24/2024 11:14 AM [facility] Gross Description A. Arm, Left, [...] green. The specimen is sectioned cruciate manner. Handbell Choir Director sections, to include the entirety of the lesion, are submitted in four cassettes as follows: 1, cruciate medial and lateral tips (medial tip inked green), two pieces 2-4, sequential cross-sections to include the entirety of the lesion, two pieces each LINUS 07/24/2024 11:14 AM [facility] Disclaimer Unless otherwise specified, all tissue is 10% NB formalin fixed and paraffin embedded. 07/24/2024 11:14 AM [facility] Tissue Structure of left upper limb / Unknown 07/23/2024 07/23/2024 3:25 PM EST us Cora Parr III, MD LAB PATHOLOGY ORDERABLES Fi nal Result [place] ([facility] [address] [place] [address], [place] [phone] * DXA BONE DENSITY STUDY 1+ SITS AXIAL SKEL (05/28/2020 10:24 AM EST) Anatomical Region Laterality Modality Bone Densitometr y 03/30/2020 2:18 PM EDT Narrative 05/28/2020 6:44 PM EST BONE DENSITY ? Lumbar Spine T-score is -0.6 ?? (SD relative to 20-29 y/o adult) Z-score is +1.7 ??(SD relative to age matched peers) This is normal by criteria defined by the WHO. Left Hip T-score is -0.7 Z-score is +1.3 This is normal by criteria defined by the WHO. Comparison exam(s): significant decrease in bone density of ??lumbar spine when compared to most recent bone density examination ?? Confidence level is +/-95%. Impression: Based on the World Health Organization criteria, Charla Gregorio should be classified as having normal bone density. [facility] Department of Internal Medicine recommends using National Osteoporosis Foundation (NOF) guidelines in treatment decisions related to osteoporosis. NOF guidelines suggest considering treatment for postmenopausal women and men aged 50 or older presenting with the following: History of hip or vertebral fracture. T-score less than or equal to -2.5 (DXA) at the femoral neck, total hip, or spine, after appropriate evaluation to exclude secondary causes. Low bone mass (T-score between -1.0 and -2.5 at the femoral neck or spine) AND a 10-year probability of a hip fracture greater than or equal to 3% OR a 10-year probability of a major osteoporosis-related fracture greater than or equal to 20% based on the [place]-adapted WHO algorithm Please note that all treatment decisions require clinical judgment and consideration of individual patient factors, including patient preferences, co-morbidities, previous drug use, risk factors not captured in the FRAX model (e.g., frailty, falls, vitamin D deficiency, increased bone turnover, interval significant decline in bone density) and possible under- or over-estimation of fracture risk by FRAX. Procedure Note Tracy Lira MD - 06/07/2022 BONE DENSITY Lumbar Spine T-score is -0.6 (SD relative to 20-29 y/o adult) Z-score is +1.7 (SD relative to age matched peers) This is normal by criteria defined by the WHO. Left Hip T-score is -0.7 Z-score is +1.3 This is normal by criteria defined by the WHO. Comparison exam(s): significant decrease in bone density of lumbar spinewhen compared to most recent bone density examination Confidence level is +/-95%. Impression: Based on the World Health Organization criteria, Charla Gregorio should beclassified as having normal bone density. [facility] Department of Internal Medicine recommendsusing National Osteoporosis Foundation (NOF) guidelines in treatmentdecisions related to osteoporosis. NOF guidelines suggest consideringtreatment for postmenopausal women and men aged 50 or older presentingwith the following: History of hip or vertebral fracture. T-score less than or equal to -2.5 (DXA) at the femoral neck, total hip,or spine, after appropriate evaluation to exclude secondary causes. Low bone mass (T-score between -1.0 and -2.5 at the femoral neck or spine)AND a 10-year probability of a hip fracture greater than or equal to 3% ORa 10-year probability of a major osteoporosis-related fracture greaterthan or equal to 20% based on the [place]-adapted WHO algorithm Please note that all treatment decisions require clinical judgment andconsideration of individual patient factors, including patientpreferences, co-morbidities, previous drug use, risk factors not capturedin the FRAX model (e.g., frailty, falls, vitamin D deficiency, increasedbone turnover, interval significant decline in bone density) and possibleunder- or over-estimation of fracture risk by FRAX. Tamiko Nielsen MD IMG DXA PROCEDURES Final Res ult from Last 3 Months or Most Recently Relevant to Health Maintenance Insurance MEDIC[place] [id number] Care Teams Workers Compensation Claims Supervisor Relationship Specialty Start Date End Date Allyson Magaña MD PCP - General Internal Medicine 07/15/21
--- OUTSIDE RECORDS SUMMARY | 2024-08-01 15:22 | XMS_ITS ---
Author Organization [facility] Address [address] [place] [address] Care Team Providers Care Pilates Coordinator Name Role Phone Allyson Magaña MD Primary Care Provider UnavailAmerico Hollingsworth Jr Unavailable [phone] REASON FOR VISIT screening Encounters Encounter Location Date Provider Diagnosis [facility] [address] [place], [place] [id number] 07/19/2024 Americo David Jr Colon cancer screening Z12.11 and Personal history of colonic polyps Z86.0100 ASSESSMENTS Encounter Date Diagnosis Assessment Notes Treatment Notes Treatment Clinical Notes 07/19/2024 Colon cancer screening (ICD-10 - Z12.11) 07/19/2024 Personal history of colonic polyps (ICD-10 - Z86.0100) PLAN OF TREATMENT No Information
--- OUTSIDE RECORDS SUMMARY | 2024-08-01 15:22 | XMS_ITS | Data Portability ---
Author Organization [place] [facility], [facility] Address [address] [place] [address] Care Team Providers Care Tellers Supervisor Name Role Phone DEBBIE RADHA Primary Care Provider [phone] Assessment No assessment recorded. Plan of Treatment Reminders Order Date Submit Date Provider Last Modified By Organization Details Last Modified Time Details Appointments None record ed. Lab None record ed. Referral None record ed. Procedures None record ed. Surgeries None record ed. Imaging XR, knee, 4 or more view - 2 024 02/07/20 24 [email or web address] [facility], [address] [facility] [address], [place], [address], 12:56:59 Medication Orders None record ed. Patient TargetsNo targets recorded. Patient InstructionsNo instructions recorded. Reason for Referral None Reported. Results Created Date Observation Date Name Description Value Unit Range Abnormal Flag Note LastModifiedBy Organization Detail LastModifiedTime 02/07/20 24 02/07/2024 XR, knee, 4 or more view http:/ [email or web address] ?Encry pted=s hAaTro YD8dLq bEUv6g %2BXZw aYqtaq 0bqfl% 2Fg9IQ a4ajBk vP9nXo QUaueC m3YtLR FvZlgJ JJ8mAn HZtai3 1q8824 AC0Kra 3qGWaT eUC8mr 84%3D INTERFACE [facility] [address], [place], [address], 02/07/2024 08:49:53 02/07/2002/07/2024 XR, knee, 4 or more view http:/ [email or web address] ?Encry pted=s Yaya YD8dLq bEUv6g %2BXZw aYqtaq 0bqfl% 2Fg9IQ a4ajBk vP9nXo QUaueC m3YtLR FvZlgJ JJ8mAn HZtai3 2e6441 AC0Kra 3qGWaT eUC8mr 84%3D INTERFACE [facility] [address], [place], [address], 02/07/2024 08:49:55 Result Notes None recorded. Problems Name Problem SNOMED Code Status Onset Date Resolution Date Notes Provider Name and Address Organization Details Recorded Time No complaints 524138329 Active Status : 'I'; Not Available [facility] 4 09:11:46 Pain of joint of knee 2304337116 Active 2021 Status : 'A'; Not Available [facility] 4 11:12:58 Problem Notes None recorded. Procedures Surgical History Date Name Laterality Status Provider Name and Address Organization Details Recorded Time 5 Gel-One Knee Injection completed Denita Zuleta PA-C [address], [place], [address], [facility] 07/12/2024 08:29:29 4 Sports Knee 4&1 completed Andrea Lemon PA-C [address], [place], [address], [facility] 02/07/2024 09:30:16 Imaging Results Imaging Date Name Status LastModified by Organiz ation Details LastModified Time 02/07/2024 XR, knee, 4 or more view completed INTERFACE [facility] [address], [place], [address], 02/07/2024 08:49:53 02/07/2024 XR, knee, 4 or more view completed INTERFACE [facility] [address], [place], [address], 02/07/2024 08:49:55 Procedure Notes None recorded. Medical Equipment None Reported. Allergies Allergen ID Allergen Name Allergen Category Reaction Reaction Severity Criticality Documentation Date Start Date Code Code System Note Provider Name and Address Organization Details Recorded Time 214306 Compazine medicatio n Not available Not available Not available 07/12/202444697 6 RxNorm [place] [facility] 11:05:54 Medications Name Sig Start Date Stop [...] and Address Organization Details Last Updated DateTime 02/07/2024 170.18 cm 29.4 kg/m2 43079.37 g IVORY HUDDLESTON [place] [facility] 02/07/2024 08:33:47 Date Recorded Body height Body mass index (BMI) Body weight Provider Name and Address Organization Details Last Updated DateTime 07/12/2024 170.18 cm 29.4 kg/m2 22695.37 g kushal cheatham [place] [facility] 07/12/2024 11:05:02 Social History None recorded. Functional Status None recorded. Mental Status None recorded. Family History Nothing Reported. Medical History No medical history recorded. Gynecological HistoryNo gynecological history recorded. Obstetrics History GPAL:G 0 P 0 0 0 0 Past Encounters Encounter ID Performer Location Encounter Start Date Encounter Closed Date Diagnosis/Indication Diagnosis SNOMED-CT Code Diagnosis ICD10 Code Diagnosis Note [id number] Andera Lemon PA-C [facility] [address] [place] [address] 02/07/2024 08:01:25 03/13/2024 13:17:48 Pain of right knee joint 6063891292 57999 M25.561 Patellofem oral syndrome of right knee 3139742313 502572 M22.2X1 [id number] CELESTE Barker [facility] [address] [place] [address] 07/12/2024 10:32:09 07/23/2024 15:48:22 Osteoarthritis of right knee joint 8170192835 50242 M17.11 Health Concerns Section Related Observation LastModified by Organization Detai ls LastModified Time None Recorded Concern Status LastModified by Organization Details LastModified Time None Recorded Advance Directives Directive None Recorded Payers Encounter Date Sequence Insurance Name Policy Number Policy Quezada Covered Member ID Quezada Member ID Guarantor Name 02/07/2024 1 MEDICARE B-[facility]: [facility] [employer] Charla Gregorio [id number] Charla Gregorio 02/07/2024 2 [facility] - PLAN 1 (MEDICARE SUPPLEMENT) [id number] Charla Gregorio [id number] Charla Gregorio 07/12/2024 1 MEDICARE B-[facility]: [facility] [employer] Charla Gregorio [id number] Charla Gregorio 07/12/2024 2 [facility] - PLAN 1 (MEDICARE SUPPLEMENT) [id number] 1 Charla Gregorio [id number] Charla Gregorio Notes Date Note Type Note Provider Name and Address Organization Details Recorded Time 02/07/2024 text/html I am seeing the patient today under the supervision of Dr. Bermudez who was available but who did not see the patient. DX: Right patellofemoral osteoarthritis HPI:78-year-old female here for orthopedic consultation. Patient complaining of anterior right knee pain for the past 3 months. Pain worse with going up and down stairs. Unable to take anti-inflammatories, she is on Eliquis for atrial fibrillation. Tylenol is not effective. No falls or trauma. Past family, medical, social history and review of systems has been reviewed, updated and is located in the patient? s chart. Examination: Right knee- A+O x3 non antalgic gaitNo effusion, warmth, or erythemaROM 0-130 degress+ retropatella crepitanceNo joint line TTPNo collateral ligmant instability with varus or valgus stressCalf soft - TTPCompartments soft - TTPDF/PF intactN/V intact Left knee reveals no soft tissue swelling , erythema or ecchymosis. Range of motion is full. Neurovascular intact. X-rays ordered, obtained and reviewed at [facility] 4 views right knee reveals preserved spacing of the medial and lateral compartments. Merchant view reveals the patellofemoral joint. Lateral view reveals subchondral bone spurs superior and inferior patella. Impression/Plan:Findi ngs on the situation discussed. Treatment options were discussed. Recommended a knee sleeve. The patient is provided with a glucosamine hand out. They will take 1500 mg daily. Tylenol as needed. ice when needed. The patient was provided with a patellofemoral handout and instructed on home exercises. Recommended a corticosteroid injection.. Under aseptic tech- 5cc 0.5 % marcaine 40 mg of kenalog 40 were injected into the inferior lateral portal site right knee. Patient tolerated the procedure well. Post injection percautions discussedThe patient will follow-up in a few weeks if no improvement. Andrea Lemon PA-C [address] [facility] [address], [place], [address], [facility] - [facility] 02/07/2024 09:30:30 07/12/2024 text/html I am seeing the patient [...] next 24-48 hours. Follow-up as symptoms dictate. [facility] speech recognition printer slotter feeder software was used to create portions of this document. An attempt at proofreading has been made to minimize errors. Please call for corrections. Denita Zuleta PA-C [address] [place] [address] [address], [place], [address], [facility] - [facility] 07/12/2024 12:46:39 OBGyn Episode No OBEpisode recorded.
== END 2024-08-01 16:06 | disposition home or self-care (01) ==
LOC: HO.HSMS 15:18
PROVIDERS: PCP Internal Medicine; Visit Provider Physician Assistant Medical
DX: G47.33 Obstructive sleep apnea (adult) (pediatric) (principal); R73.9 Hyperglycemia, unspecified; E55.9 Vitamin D deficiency, unspecified
CPT/HCPCS: 99214

== ENCOUNTER → 2024-08-01 15:18 | Outpatient (BNVA) | payer MEDICARE, OTHER, SELFPAY | PROVIDERS: PCP Internal Medicine; Visit Provider Physician Assistant Medical | DX: G47.33 Obstructive sleep apnea (adult) (pediatric) (principal); R73.9 Hyperglycemia, unspecified; E55.9 Vitamin D deficiency, unspecified | CPT/HCPCS: 99212 ==

== ENCOUNTER 2024-10-17 14:49 | Outpatient (AMB) | payer MEDICARE, OTHER, SELFPAY ==
--- NOTE | 2024-10-17 14:59 | MHC.OFFVIS ---
Vital Signs 10/17/24 15:00 Height 5 ft 8.5 in Weight 190 lb 0.615 oz BMI 28.5 BP 126/64 Blood Pressure Location Lt brachial Position Sitting Pulse 80 Pulse Source Monitor Intake Visit Reasons: 1yr f/up Weight Training Instructor Required: No Accompanied by: Self / Same As Patient Allergies prochlorperazine [From Compazine] Allergy (Intermediate, Verified 08/01/24 15:23) facial paralysis metformin Adverse Reaction (Intermediate, Verified 08/01/24 15:23) Diarrhea Medication List - Last Reconciled 10/17/24 by Roger Guadarrama MD apixaban (Eliquis) 5 mg PO BID cholecalciferol (vitamin D3) 3,000 units PO DAILY digoxin 125 mcg PO DAILY Farxiga (dapagliflozin propanediol) 10 mg PO DAILY NS levothyroxine (Euthyrox) 75 mcg PO DAILY metoprolol tartrate 100 mg PO BID Saccharomyces boulardii (Daily Probiotic (S. boulardii)) 250 mg PO BID triamcinolone acetonide 0.1% 1 appl topical BID-TID HPI Comments Details: Charla returns for follow-up regarding atrial fibrillation. She has been on metoprolol and digoxin overall doing well. Also on anticoagulation. Since last seen, no cardiac concerns. No cardiac symptoms. [facility] Medical History Pre-diabetes HENRIK on CPAP Atrial fibrillation with RVR Hypothyroidism Numerous skin moles Postmenopausal Vitamin D deficiency Hx of mammogram HTN (hypertension) Surgical History Hx of section Hx of tonsillectomy Hx of colonoscopy History of bunionectomy Hx of shoulder surgery Family History Father CAD (coronary artery disease) COPD (chronic obstructive pulmonary disease) Mother COPD (chronic obstructive pulmonary disease) Family/Other Liver disease Social History Household Members: None Household Members Other:: lives alone, 2 adults Housing: House Do you presently have visiting nurse or other home services: No Alcohol intake: current Alcohol intake frequency: holidays/special occasions only Patient Tobacco Use Status: Never used Tobacco e-Cigarette/Vaping Use: Never Used service: No Current occupational status: retired Cognitive needs: No Hearing needs: No Vision needs: No Review of Systems Const Denies chills, Denies fatigue, Denies fever(s), Denies frequent falls, Denies weakness, Denies weight gain and Denies weight loss ENT Denies dizziness Card Denies chest pain, Denies leg edema, Denies lightheadedness, Denies palpitations, Denies dyspnea and Denies dyspnea on exertion Resp Denies cough, Denies dyspnea and Denies dyspnea on exertion GI Denies hematochezia Musc Denies abnormal gait, Denies muscle weakness, Denies numbness, Denies radiating pain into limb and Denies tingling Neuro Denies abnormal gait, Denies dizziness, Denies frequent falls, Denies numbness, Denies tingling and Denies weakness Endo Denies fatigue and Denies palpitations Physical Exam Vital Signs: Last Vital Signs Pulse 80 10/17/24 15:00 BP 126/64 10/17/24 15:00 BMI result Body Mass Index 28.5 Const General: comfortable and no acute distress Orientation/consciousness: patient oriented x3 HEENT Other: Unremarkable Head: Yes normal to inspection Neck Neck: Yes normal visual inspection Chest Chest palpation & inspection: normal inspection of the chest Resp Auscultation: clear to auscultation bilaterally Cardio Palpation: normal PMI Heart sounds: S1 normal heart sound present, S2 normal heart sound present, no gallops, no murmurs and no rubs GI Palpation (GI): Soft to palpation Back/Spine/Pelvis Other: unremarkable Skin General skin exam: no rashes or lesions noted Neuro General: patient oriented x3 Extrem General: Yes normal to inspection Psych Mental Status: mental status grossly normal Office Procedures EKG Details: EKG with atrial fibrillation; rate of 80/Min. 17419-Ljocxsdwkfrquyqts, Complete Assessment & Plan Assessment & Plan (1) Persistent atrial fibrillation: Code(s): I48.19 - Other persistent atrial fibrillation Category: Medical (2) HENRIK (obstructive sleep apnea): Comment: Moderate degree of sleep apnea. The AHI was 21/hr and oxygen victor hugo was 79%. Code(s): G47.33 - Obstructive sleep apnea (adult) (pediatric) Category: Medical (3) Mitral annular calcification: Code(s): I34.81 - Nonrheumatic mitral (valve) annulus calcification Category: Medical (4) Aortic valve calcification: Code(s): I35.9 - Nonrheumatic aortic valve disorder, unspecified Category: Medical Plan In the recent echocardiogram, LVEF 68%. Moderate mitral annular calcification. Mild aortic valve calcification. In the Holter, underlying rhythm is atrial fibrillation with average rate of 73/Min. Overall, well controlled. Overall, well controlled atrial fibrillation. Continue metoprolol/digoxin. Check digoxin levels. We discussed about that today. She also has other labs through her own PCP. Continue Eliquis. Continue CPAP for obstructive sleep apnea. With regard to valvular calcification, no specific implications. We can follow that periodically on echocardiogram. Follow up in one year. Orders: Orders Digoxin Today I48.19 - Other persistent atrial fibrillation Medications: Refilled digoxin 125 mcg PO DAILY 90 tabs 3RF Coding Level of Care Code Est Pt Level 4 (03092) Complex EM visit Add On G2211 Diagnoses Persistent atrial fibrillation I48.19 HENRIK (obstructive sleep apnea) G47.33 Mitral annular calcification I34.81 Aortic valve calcification I35.9 CPT Codes EKG - CPT: 28628-Uavpiupxszmaeycgz, Complete ([id number])
[2024-10-17 15:00] VITALS: BP 126/64; PULSE 80; BMI 28.5
--- OUTSIDE RECORDS SUMMARY | 2024-10-17 16:48 | XMS_ITS | Clinical Summary ---
Author Organization [facility] Address [address] [place] [address] Care Team Providers Care Acrobatic Rigger Name Role Phone Rebecca Hernandez MD Primary [...] age to complete this topic Care Teams Acrobatic Rigger Relationship Specialty Start Date End Date Rebecca Hernandez MD [address] [facility] [place] [address] PCP - General Internal Medicine 12/13/18
--- OUTSIDE RECORDS SUMMARY | 2024-10-17 16:48 | XMS_ITS ---
Author Organization [facility] Address [address] [facility] [place] [address] Care Team Providers Care Core Shaper Name Role Phone Allyson Magaña MD Primary Care Provider Chandu Rincon [phone] REASON FOR VISIT Wart(s) Medications Medication SIG [...] Active Encounters Encounter Location Date Provider Diagnosis [facility] [address] [place] [address] 02/12/2024 Chandu Chisholm Primary osteoarthritis, right ankle [...] pin-point bleeding margins with sterile surgical blade (42571), silver nitrate chemocautery applied, recomm. Wartstick 40 percent Salicylic acid application under occlusion as directed Progress Notes * Charla GREGORIO BDOB:1944 (79 yo F)Acc No.[id number]:02/12/2024 Progress Notes Patient:?KACEY, Charla Hampton Provider:?Chandu Chisholm DPM :1945???Age:78 Y???Sex:Female D ate:02/12/2024 Address:[address] [place] [address] Jody Santiago [id number] Pcp:Allyson Magaña MD Subjective: * Chief Complaints: [...] pin-point bleeding margins with sterile surgical blade (29435), silver nitrate chemocautery applied, recomm. Wartstick 40 percent Salicylic acid application under occlusion as directed.? * Procedure Codes:?67554 Wart Destruction, 1-14, Modifiers: XS * Follow Up:?3 Weeks * Images: * The named appointment provid er may or may not be the originator of this progress note, and it is not deemed complete until electronically signed by the appointment provider. Sign off status: Pending * Provider:?Chandu Chisholm DPM Date:? 024 Generated for Smita mejia/Bailey/Mikeitting on:?10/17/2024 04:48 PM EDT History and Physical Notes * HPI (History [...]
--- OUTSIDE RECORDS SUMMARY | 2024-10-17 16:49 | XMS_ITS ---
Author Organization [facility] Address [address] [facility] [place] [address] Care Team Providers Care Link Trainer Maintenance Man Name Role Phone Allyson Magaña MD Primary Care Provider Chandu Rincon Unavailable [phone] Allergies Allergen (clinical drug ingredient) Drug/Non Drug [...] 01/22/2024 Encounters Encounter Location Date Provider Diagnosis [facility] [address] [place] [address] 01/22/2024 Chandu Chisholm Primary osteoarthritis, right ankle [...] pin-point bleeding margins with sterile surgical blade (09876), silver nitrate chemocautery applied, recomm. Wartstick 40 percent Salicylic acid application under occlusion as directed Progress Notes * Charla GREGORIO BDOB:1944 (78 yo F)Acc No.[id number]:01/22/2024 Progress Notes Patient:Charla Rodriguez Provider:?Chandu Chisholm DPM :1945???Age:78 Y???Sex:Female D ate:01/22/2024 Address:[address] [place], [place] [address] Pcp:Allyson Magaña MD Subjective: * Chief Complaints: [...] yes, 2. ?Marital status: . 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 * Medications:?TakingProbiotic Farxiga 10 MG Tablet 1 [...] pin-point bleeding margins with sterile surgical blade (79445), silver nitrate chemocautery applied, recomm. Wartstick 40 percent Salicylic acid application under occlusion as directed.? * Procedure Codes:?61991 Wart Destruction, 1-14, Modifiers: XS * Preventive [...] Chisholm DPM Date:? 024 Generated for Giulianoi ng/Avelg/eTransmitting on:?10/17/2024 04:49 PM EDT History and Physical Notes * [...]
--- OUTSIDE RECORDS SUMMARY | 2024-10-17 16:49 | XMS_ITS | Clinical Summary ---
Author Organization [facility] Address [address] [place] [address] Phone Care Team Providers Care Building Inspection Engineer Name Role Phone Allyson Magaña MD Primary Care Provider [phone] Encounters Date Type Department Care Team Description 07/23/2024 Lab Requisition [facility] [address] [facility] [place] [address] Cora Parr III, MD Disorder [...] Comments DTaP,Tdap,and Td Vaccines (1 - Tdap) 1966 Pneumococcal Vaccine: 50+ Years (3 of 3 - PCV) 11/23/2019 11/22/2018, 05/30/2012 COVID-19 Vaccine (3 - Modern a risk series) 10/06/2020 09/08/2020, 08/11/2020 RSV Immunization Adult Patients (1 - 1-dose 75+ series) 2022 Cholesterol Screening (Lipid Panel) 05/28/2022 Colorectal Cancer Screening: Colonoscopy 05/28/2022 Depression Screening 05/28/2022 Falls Risk Assessment 05/28/2022 Hepatitis C Screening 05/28/2022 Medicare Annual Wellness Visit 05/28/2022 Social Influencers of Health Screening 05/28/2022 Hypertension/CHF/CAD Annual BMP Blood Test 06/01/2022 Influenza Vaccine (Season Ended) 2025 03/29/2022, 02/19/2021 Osteoporosis Screening (Bone Density Screening) 05/28/2030 [...] age to complete this topic Meningococcal B Vaccine Aged Out No l onger eligible based on patient's age to complete [...] and peripheral margins negative 07/24/2024 11:14 AM [facility] Clinical Information Atypical skin lesion left arm Suture short superior long lateral L81.9 07/24/2024 11:14 AM [facility] Gross Description A. Arm, Left, excision: [...] green. The specimen is sectioned cruciate manner. Corner Cutter sections, to include the entirety of the lesion, are submitted in four cassettes as follows: 1, cruciate medial and lateral tips (medial tip inked green), two pieces 2-4, sequential cross-sections to include the entirety of the lesion, two pieces each LINUS 07/24/2024 11:14 AM [facility] Disclaimer Unless otherwise specified, all tissue is 10% NB formalin fixed and paraffin embedded. 07/24/2024 11:14 AM [facility] Tissue Structure of left upper limb / Unknown 07/23/2024 07/23/2024 3:25 PM EST us Cora Parr III, MD LAB PATHOLOGY ORDERABLES Fi nal Result [facility] [place] [facility] [address] [place] [address], [place] [phone] * DXA BONE DENSITY STUDY 1+ SITS [...] classified as having normal bone density. The [facility] Department of Internal Medicine recommends using National [...] beclassified as having normal bone density. The [facility] Department of Internal Medicine recommendsusing National Osteoporosis [...] or over-estimation of fracture risk by FRAX. us Tamiko Nielsen MD IMG DXA PROCEDURES Final Res ult from Last 3 Months or Most Recently Relevant to Health Maintenance Insurance MEDICARE [facility] Care Teams Building Inspection Engineer Relationship Specialty Start Date End Date Allyson Magaña MD PCP - General Internal Medicine 07/15/21
--- OUTSIDE RECORDS SUMMARY | 2024-10-17 16:49 | XMS_ITS ---
Author Organization [facility] Address [address] [place] [address] Care Team Providers Care Adult Protective Caseworker Name Role Phone Allyson Magaña MD Primary Care Provider Chandu Rincon [phone] REASON FOR VISIT cx appt Encounters Encounter Location Date Provider Diagnosis [facility] [address] [place] [address] 02/12/2024 Chandu Chisholm Plan Of Treatment No Information Progress Notes * Charla GREGORIO BDOB:1944 (78 yo F)Acc No.[id number]:02/12/2024 Patient:?Charla Gregorio :1945???Age:78 Y???Sex:Female Address:[address] [place], [address] * true * Date:? Generated for Printi roberto/Bailey/eTransmitting on:?10/17/2024 04:49 PM EDT
--- OUTSIDE RECORDS SUMMARY | 2024-10-17 16:49 | XMS_ITS | Patient Health Record ---
Author Organization [facility] Address [address] [facility] [place] [address] Care Team Providers Care Used Car Manager Name Role Phone Allyson Magaña MD Primary Care Provider Chandu Rincon Unavailable [phone] Allergies Allergen (clinical drug ingredient) Drug/Non Drug [...] primary osteoarthritis of the ankle and/or foot (124330179) Primary osteoarthrit is, right ankle and foot (M19.071) Active confirmed Problem Localized, primary osteoarthritis of the ankle and/or foot (969467810) Primary osteoarthrit is, left ankle and foot (M19.072) Active confirmed Problem Acquired hammer toe of right foot (0875037035963867) Other hammer toe(s) (acquired), right foot (M20.41) Active confirmed Problem Acquired hammer toe of left foot (8461734334700122) Other hammer toe(s) (acquired), left foot (M20.42) Active confirmed Vital Signs Height 5ft 9in in 01/22/2024 Weight 186 lbs 01/22/2024 BMI 27.46 kg/m2 01/22/2024 Encounters Encounter Location Date Provider Diagnosis [facility] [address] [address] 01/03/2024 Chandu Chisholm Primary osteoarthritis, left ankle and 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 ; Primary osteoarthritis, right ankle and foot M19.071 ; Other hammer toe(s) (acquired), left foot M20.42 ; Other hammer toe(s) (acquired), right foot M20.41 ; Pain in left foot M79.672 ; Pain in right foot M79.671 ; Other viral warts B07.8 and Plantar fascial 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 [facility] [address] [address] 01/22/2024 Chandu Phan Primary osteoarthritis, right ankle and foot M19.071 ; Primary osteoarthritis, left ankle and 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 ; Other hammer toe(s) (acquired), left foot M20.42 ; Other hammer toe(s) (acquired), right foot M20.41 ; Pain in left foot M79.672 ; Pain in right foot M79.671 ; Other viral warts B07.8 ; Plantar fascial 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 and Tinea unguium B35.[address] [facility] [address] 01/03/2024 [facility] [address] 02/12/2024 Chandu Chisholm Assessments Encounter Date Diagnosis [...] Inc [address] [place] [address] [id number] Charla Gregorio Self - patient is the insured [facility] [address] [place] [address] [id number] Charla Gregorio Self - patient is [...]
--- OUTSIDE RECORDS SUMMARY | 2024-10-17 16:49 | XMS_ITS | Data Portability ---
Author Organization [facility], [facility] Address [address] [place] [address] Care Team Providers Care Roll Edge Machine Operator Name Role Phone CHIOMA LEWISANNA Primary Care Provider Assessment No assessment recorded. Plan of Treatment Reminders Order Date Submit Date Provider Last Modified By Organization Details Last Modified Time Details Appointments INJECTION ONLY 15 2024 12:15P M Denita Zuleta PA-C Not available Not available Not available Lab None recorded. Referral None recorded. Procedures None recorded. Surgeries None recorded. Imaging XR, knee, 4 or more view - 2 2023 024 [email or web address] [facility], [address], [facility] [address], [place], [address], 02/07/2024 12:56:59 Medication Orders None recorded. Patient TargetsNo targets recorded. Patient InstructionsNo instructions recorded. Reason for Referral None Reported. Results Created Date Observation Date Name Description Value Unit Range Abnormal Flag Note LastModifiedBy Organization Detail LastModifiedTime 02/07/20 24 02/07/2024 XR, knee, 4 or more view http:/ [email or web address] ?Encry pted=s hAaTro YD8dLq bEUv6g %2BXZw aYqtaq 0bqfl% 2Fg9IQ a4ajBk vP9nXo QUaueC m3YtLR FvZlgJ JJ8mAn HZtai3 2j4169 AC0Kra 3qGWaT eUC8mr 84%3D INTERFACE [facility] [address], [place], [address], 02/07/2024 08:49:53 02/07/2002/07/2024 XR, knee, 4 or more view http:/ [email or web address] ?Encry pted=s Yaya YD8dLq bEUv6g %2BXZw aYqtaq 0bqfl% 2Fg9IQ a4ajBk vP9nXo QUaueC m3YtLR FvZlgJ JJ8mAn HZtai3 3b0765 AC0Kra 3qGWaT eUC8mr 84%3D INTERFACE [facility] [address], [place], [address], 02/07/2024 08:49:55 Result Notes None recorded. Problems Name Problem SNOMED Code Status Onset Date Resolution Date Notes Provider Name and Address Organization Details Recorded Time No complaints 703455328 Active Status : 'I'; Not Available [facility] 4 09:11:46 Pain of joint of knee 0541014983 Active 2021 Status : 'A'; Not Available [facility] 4 11:12:58 Problem Notes None recorded. Procedures Surgical History Date Name Laterality Status Provider Name and Address Organization Details Recorded Time 5 Gel-One Knee Injection completed Denita Zuleta PA-C [address], [place], [address], [facility] 07/12/2024 08:29:29 4 Sports Knee 4&1 completed Andrea Lemon PA-C [address], [place], [address], [place] [facility] 02/07/2024 09:30:16 Imaging Results Imaging Date Name Status LastModified by Organiz ation Details LastModified Time 02/07/2024 XR, knee, 4 or more view completed INTERFACE [facility] [address], [place], [address], 02/07/2024 08:49:53 02/07/2024 XR, knee, 4 or more view completed INTERFACE [facility] [address], [place], [address], 02/07/2024 08:49:55 Procedure Notes None recorded. Medical Equipment None Reported. Allergies Allergen ID Allergen Name Allergen Category Reaction Reaction Severity Criticality Documentation Date Start Date Code Code System Note Provider Name and Address Organization Details Recorded Time 532567 Compazine medicatio n Not available Not available Not available 07/12/2024 6 RxNorm [place] [facility] 11:05:54 Medications Name Sig Start Date [...] Updated DateTime 02/07/2024 170.18 cm 29.4 kg/m2 37005.37 g IVORY [place] - [facility] 02/07/2024 08:33:47 Date Recorded Body height Body mass index (BMI) Body weight Provider Name and Address Organization Details Last Updated DateTime 07/12/2024 170.18 cm 29.4 kg/m2 42128.37 g kushal jerrybar [place] - [facility] 07/12/2024 11:05:02 Social History None recorded. Functional Status None recorded. Mental Status None recorded. Family History Nothing Reported. Medical History No medical history recorded. Gynecological HistoryNo gynecological history recorded. Obstetrics History GPAL:G 0 P 0 0 0 0 Past Encounters Encounter ID Performer Location Encounter Start Date Encounter Closed Date Diagnosis/Indication Diagnosis SNOMED-CT Code Diagnosis ICD10 Code Diagnosis Note [id number] Andrea Lemon PA-C [facility] [address] [place] [address] 02/07/2024 08:01:25 03/13/2024 13:17:48 Pain of right knee joint 2660137083 15092 M25.561 Patellofem oral syndrome of right knee 3220844424 604961 M22.2X1 [id number] Denita Zuleta PA-C [facility] - [facility] [address] [place] [address] 07/12/2024 10:32:09 07/23/2024 15:48:22 Osteoarthritis of right knee joint 1199531536 84223 M17.11 Health Concerns Section Related Observation LastModified by Organization Detai ls LastModified Time None Recorded Concern Status LastModified by Organization Details LastModified Time None Recorded Advance Directives Directive None Recorded Payers Encounter Date Sequence Insurance Name Policy Number Policy Quezada Covered Member ID Quezada Member ID Guarantor Name 02/07/2024 1 MEDICARE B-[place]: [employer] Charladeana Easleye [id number] Charladeana Easleye 02/07/2024 2 [facility] - PL[facility] 1 (MEDICARE SUPPLEMENT) [id number] 1 Charla Gellerointe [id number] Charla Easleye 07/12/2024 1 MEDICARE B-[place]: [employer] Charla Easleye [id number] Charla Gellerointe 07/12/2024 2 [facility] - PLAN 1 (MEDICARE SUPPLEMENT) [id number] 1 Charla Gellerointe [id number] Charla Gregorio Notes Date Note Type Note [...] intact. X-rays ordered, obtained and reviewed at [facility] 4 views right knee reveals preserved spacing [...] if no improvement. Andrea Lemon PA-C [address] [facility] [address], [place], [address], [facility] - [facility] 02/07/2024 09:30:30 07/12/2024 text/html [...] next 24-48 hours. Follow-up as symptoms dictate. [facility] speech recognition software designer software was used to create portions of this document. An attempt at proofreading has been made to minimize errors. Please call for corrections. Denita Zuleta PA-C [address] [place], [place] [address] [address], [place], [address], [facility] - [facility] 07/12/2024 12:46:39 OBGyn Episode No OBEpisode recorded.
--- OUTSIDE RECORDS SUMMARY | 2024-10-17 16:49 | XMS_ITS | Encounter Summary ---
Author Organization [facility] Address [address] [place] [address] Care Team Providers Care 411 Directory Assistance Operator Name Role Phone Allyson Magaña MD Primary Care Provider [phone] Encounter Details Date Type Department Care Team (Late st Contact Info) Description 07/23/2024 Lab Requisition [facility] - Main Lab [address] [facility] [place] [address] Cora Parr III, MD [address] [place] [address] [place] [phone] Disorder of pigmentation, unspecified Social History Tobacco [...] peripheral margins negative 07/24/2024 11:14 AM EST [facility] LAB Clinical Information Atypical skin lesion left arm Suture short superior long lateral L81.9 07/24/2024 11:14 AM [facility] Gross Description A. Arm, [...] green. The specimen is sectioned cruciate manner. Writing Tutor sections, to include the entirety of the lesion, are submitted in four cassettes as follows: 1, cruciate medial and lateral tips (medial tip inked green), two pieces 2-4, sequential cross-sections to include the entirety of the lesion, two pieces each LINUS 07/24/2024 11:14 AM [facility] Disclaimer Unless otherwise specified, all tissue is 10% NB formalin fixed and paraffin embedded. 07/24/2024 11:14 AM [facility] Tissue Structure of left upper limb / Unknown 07/23/2024 07/23/2024 3:25 PM EST us Cora Parr III, MD LAB PATHOLOGY ORDERABLES Fi nal Result [facility] [address] [place] [address], documented in this encounter Visit Diagnoses Diagnosis Disorder of pigmentation, unspecified documented in this encounter Care Teams 411 Directory Assistance Operator Relationship Specialty Start Date End Date Allyson Magaña MD PCP - General Internal Medicine 07/15/21 documented as of this encounter
== END 2024-10-17 15:17 | disposition home or self-care (01) ==
LOC: HO.HCS 14:50
PROVIDERS: PCP Internal Medicine; Visit Provider Internal Medicine
DX: I48.19 Other persistent atrial fibrillation (principal); G47.33 Obstructive sleep apnea (adult) (pediatric); I34.81 Nonrheumatic mitral (valve) annulus calcification; I35.9 Nonrheumatic aortic valve disorder, unspecified
CPT/HCPCS: 93010; 99214; G2211

== ENCOUNTER → 2024-10-17 14:49 | Outpatient (BNVA) | payer MEDICARE, OTHER, SELFPAY | PROVIDERS: PCP Internal Medicine; Visit Provider Internal Medicine | DX: I48.19 Other persistent atrial fibrillation (principal); I34.81 Nonrheumatic mitral (valve) annulus calcification; I35.9 Nonrheumatic aortic valve disorder, unspecified; G47.33 Obstructive sleep apnea (adult) (pediatric) | CPT/HCPCS: 93005; 99212 ==

== ENCOUNTER 2024-10-22 08:04 | Outpatient (REF) | payer MEDICARE, OTHER, SELFPAY ==
--- OUTSIDE RECORDS SUMMARY | 2024-10-22 08:07 | XMS_ITS | Encounter Summary ---
Author Organization [facility] Address [address] [place] [address] Care Team Providers Care Intelligence Group Supervisor Name Role Phone Allyson Magaña MD Primary Care Provider [phone] Encounter Details Date Type Department Care Team (Late st Contact Info) Description 07/23/2024 Lab Requisition [facility] - Main Lab [address] [facility] [place] [address] Cora Parr III, MD [address] [place] [address] [place] [phone] Disorder of pigmentation, unspecified Social History Tobacco [...] peripheral margins negative 07/24/2024 11:14 AM EST [facility] ([facility] HOSP[facility] LAB Clinical Information Atypical skin lesion left arm Suture short superior long lateral L81.9 07/24/2024 11:14 AM [facility] Gross Description A. Arm, [...] green. The specimen is sectioned cruciate manner. X Ray Nurse sections, to include the entirety of the lesion, are submitted in four cassettes as follows: 1, cruciate medial and lateral tips (medial tip inked green), two pieces 2-4, sequential cross-sections to include the entirety of the lesion, two pieces each LINUS 07/24/2024 11:14 AM [facility] Disclaimer Unless otherwise specified, all tissue is 10% NB formalin fixed and paraffin embedded. 07/24/2024 11:14 AM [facility] Tissue Structure of left upper limb / Unknown 07/23/2024 07/23/2024 3:25 PM EST us Cora Parr III, MD LAB PATHOLOGY ORDERABLES Fi nal Result [facility] [address] [place] [address], documented in this encounter Visit Diagnoses Diagnosis Disorder of pigmentation, unspecified documented in this encounter Care Teams Intelligence Group Supervisor Relationship Specialty Start Date End Date Allyson Magaña MD PCP - General Internal Medicine 07/15/21 documented as of this encounter
--- OUTSIDE RECORDS SUMMARY | 2024-10-22 08:07 | XMS_ITS | Patient Health Record ---
Author Organization [facility] Address [address] [facility] [place] [address] Care Team Providers Care Food Beverage Server Name Role Phone Allyson Magaña MD Primary Care Provider Chandu Rincon Unavailable [phone] Allergies Allergen (clinical drug ingredient) Drug/Non Drug [...] primary osteoarthritis of the ankle and/or foot (954184713) Primary osteoarthrit is, right ankle and foot (M19.071) Active confirmed Problem Localized, primary osteoarthritis of the ankle and/or foot (958736187) Primary osteoarthrit is, left ankle and foot (M19.072) Active confirmed Problem Acquired hammer toe of right foot (6778904445824899) Other hammer toe(s) (acquired), right foot (M20.41) Active confirmed Problem Acquired hammer toe of left foot (9430735865686837) Other hammer toe(s) (acquired), left foot (M20.42) Active confirmed Vital Signs Height 5ft 9in in 01/22/2024 Weight 186 lbs 01/22/2024 BMI 27.46 kg/m2 01/22/2024 Encounters Encounter Location Date Provider Diagnosis [facility] [address] [address] 01/03/2024 Chandu Chisholm Primary osteoarthritis, left ankle and 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 ; Primary osteoarthritis, right ankle and foot M19.071 ; Other hammer toe(s) (acquired), left foot M20.42 ; Other hammer toe(s) (acquired), right foot M20.41 ; Pain in left foot M79.672 ; Pain in right foot M79.671 ; Other viral warts B07.8 and Plantar fascial 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 [facility] [address] [address] 01/22/2024 Chandu Phan Primary osteoarthritis, right ankle and foot M19.071 ; Primary osteoarthritis, left ankle and 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 ; Other hammer toe(s) (acquired), left foot M20.42 ; Other hammer toe(s) (acquired), right foot M20.41 ; Pain in left foot M79.672 ; Pain in right foot M79.671 ; Other viral warts B07.8 ; Plantar fascial 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 and Tinea unguium B35.[address] [facility] [address] 01/03/2024 [facility] [address] 02/12/2024 Chandu Chisholm Assessments Encounter Date Diagnosis [...] Inc [address] [place] [address] [id number] Charla Gregorio Self - patient is the insured [facility] [address] [place] [address] [phone] [id number] Charla Gregorio Self - patient is [...]
--- OUTSIDE RECORDS SUMMARY | 2024-10-22 08:07 | XMS_ITS ---
Author Organization [facility] Address [address] [place] [address] Care Team Providers Care Associate Professor Of Forestry Name Role Phone Allyson Magaña MD Primary Care Provider Americo Jimenez Jr REASON FOR VISIT eliquis note? Encounters Encounter Location Date Provider Diagnosis [facility] [address] [place] [address] 07/15/2024 Americo David Jr Plan Of Treatment No Information Progress Notes * YOKO ERAZO BDOB:1944 (79 yo F)Acc No.[id number]:07/15/2024 Patient:?YOKO ERAZO :1945???Age:79 Y???Sex:Female Address: [place] [address] * true * Date:? Generated for Printi ng/Bailey/eTransmitting on:?10/22/2024 08:07 AM EDT
--- OUTSIDE RECORDS SUMMARY | 2024-10-22 08:07 | XMS_ITS ---
Author Organization [facility] Address [address] [place] [address] Care Team Providers Care Dyeing Machine Back Tender Name Role Phone Allyson Magaña MD Primary Care Provider UnavailAmerico Hollingsworth Jr Unavailable Allergies No Known Allergies REASON FOR VISIT Patient presents today for a COLON SCREENING Medications Medication SIG (Take, Route, Frequency, Duration) [...] TH ONCE DAILY Oral for 90 Active Social History Tobacco Use: Social History Observation Description Date Details (start date - stop date) Never Smoker NA - NA Tobacco Use/Smoking Question Answer Notes Patient is [...] Never (0 point) Points 2 Interpretation Negative Problems Problem Type SNOMED Code ICD Code Onset Dates Problem Status W/U Status Risk Notes Problem 149705160 Colon cancer screening (Z12.11) Active confirmed Problem 596497167 custodial (current) use of anticoagulants (Z79.01) Active confirmed Problem 338096780649877 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) Active confirmed Vital Signs Temperature 96.9 degrees Fahrenheit 05/01/20 24 Blood pressure systolic 000 mm Hg 05/01/20 24 Blood pressure diastolic 00 mm Hg 024 Height 5 ft 8.5 in in 05/01/2024 Weight 188 lb 2 oz lbs 05/01/2024 BMI 28.19 kg/m2 05/01/2024 Encounters Encounter Location Date Provider Diagnosis [facility] [address] [place] [address] 05/01/2024 Americo David Jr Colon cancer screening Z12.11 ; power electronics engineer (current) use of anticoagulants Z79.01 and power electronics engineer (current) use of oral hypoglycemic drugs Z79.84 Assessments Encounter Date Diagnosis (ICD Code) Assessment Notes Treatment Notes Treatment Clinical Notes Section Notes 05/01/2024 Colon cancer screening (ICD-10 - Z12.11) Colonoscopy material was printed We discussed colonoscopy today. We discussed risks and benefits of the procedure today. She understands these and agrees to proceed. This will be scheduled at her convenience. She is advised to stop Eliquis and Farxiga 3 days before the procedure 05/01/2024 power electronics engineer (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 We discussed risks and benefits of the procedure today. She understands these and agrees to proceed. This will be scheduled at her convenience. She is advised to stop Eliquis and Farxiga 3 days before the procedure 05/01/2024 power electronics engineer (current) use of oral hypoglycemic drugs (ICD-10 - Z79.84) We discussed colonoscopy today. We discussed risks and benefits of the procedure today. She understands these and agrees to proceed. This will be scheduled at her convenience. She is advised to stop Eliquis and Farxiga 3 days before the procedure Plan Of Treatment Treatment Notes Assessment Notes Colon cancer screening Colonoscopy mater ial was printed Future Test Test Name Order Date COLONOSCOPY 05/01/2024 Next Appt Details Follow Up: 1 Year, Reason: Progress Notes * CHARLA ERAZO BDOB:1944 (78 yo F)Acc No.[id number]:05/01/2024 Progress Notes Patient:?CHARLA ERAZO Provider:?Americo David MD :1945???Age:78 Y???Sex:Female D ate:05/01/2024 Address:[address] [place] [address] [address] [id number] Pcp:Allyson Magaña MD Subjective: * Chief Complaints: * ???1. Patient presents today for a COLON SCREENING. * HPI: ???New symptom(s):? Charla is a pleasant 78-year-old woman seen today for her preoperative colonoscopy visit. Her last colonoscopy in 2019 showed a small polyp and five- year followup was recommended. This was done elsewhere and records will be reviewed. She has no complaints of rectal bleeding or change in her bowel habits. Weight and appetite have been stable. * ROS:?General/Constitutional:?Change in appetite?denies.?Fatigue?denies.?ENT:?Patient denies?difficulty swallowing.?Respiratory:?Patient denies?shortness of breath.?Cardiovascular:?Patient denies?chest pain.?Gastrointestinal:?Comments?See HPI for details.?Genitourinary:?Difficulty urinating?denies.?Incontinence?denies.?Musculoskeletal:?Patient denies?muscle aches.?Skin:?Patient denies?pruritis.?Neurologic:?Patient denies?low back pain.?Psychiatric:?Patient denies?mental or physical abuse.? * Medical History:?Atrial fibr illation, Elevated blood sugar, HENRIK/CPAP, Vitamin D deficiency, Hypertension, Colonoscopy 2019, colon polyp, five-year followup. * Hospitalization/Major Diagno stic Procedure:?Atrial fibrillation with rapid ventricular response 09/07. * Family History:?Father: dece ased, diagnosed with Heart disease.?Mother: , diagnosed with Heart disease.? No family history of colon cancer or liver cancer. * Social History:?Tobacco Use:?Tobacco Use/Smoking?Patient is a?nonsmoker.?Drugs/Alcohol:?Alcohol Screen?Did you have a drink containing alcohol in the past year??Yes,?How often did you have a drink containing alcohol in the past year??2 to 4 times a month (2 points),?How many drinks did you have on a typical day when you were drinking in the past year??1 or 2 drinks (0 point),?How often did you have 6 or more drinks on one occasion in the past year??Never (0 point),?Points?2,?Interpretation?Negative.?Miscellaneous:?Marital status: . 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 * Medications:?Taking Probioti c - Tablet Chewable as directed Orally , Taking Vitamin D (Ergocalciferol) 50 MCG (2000 UT) Capsule 1 capsule Orally Once a day, Taking Levothyroxine Sodium 75 MCG Tablet Oral , Taking Eliquis 5 MG Tablet Oral , Taking Metoprolol Tartrate 100 MG Tablet TAKE 1 TABLET BY MOUTH TWICE DAILY Oral , Taking Digoxin 125 MCG Tablet TAKE 1 TABLET BY MOUTH ONCE DAILY Oral , Taking Farxiga 10 MG Tablet Oral , Medication List reviewed and reconciled with the patient * Allergies:?N.K.D.A. Objective: * Vitals:?Wt: 188 lb 2 oz, Ht: 5 ft 8.5 in, BMI:28.19 Index, BP: 000/00 mm Hg, Temp: 96.9. * Examination: ???General Examination: ?GENERAL APPEARANCE:?in no acute distress.?HEAD:?normocephalic.?EYES:?sclera non-icteric.?ORAL CAVITY:?mucosa moist.?NECK/THYROID:?no lymphadenopathy.?SKIN:?anicteric.?HEART:?S1, S2 normal, no murmurs.?LUNGS:?clear to auscultation bilaterally.?CHEST:?normal shape and expansion.?ABDOMEN:?soft, nontender, nondistended, bowel sounds present, no organomegaly .?EXTREMITIES:?no clubbing, cyanosis, or edema.?PSYCH:?cognitive function intact.? Assessment: * Assessment: 1.?power electronics engineer (current) use o f anticoagulants - Z79.01 (Primary)?2.?Colon cancer screening - Z12.11?3.?custodial (current) use of oral hypoglycemic drugs - Z79.84? We discussed colonoscopy towes james. We discussed risks and benefits of the procedure today. She understands these and agrees to proceed. This will be scheduled at her convenience. She is advised to stop Eliquis and Farxiga 3 days before the procedure. Plan: * Treatment: Notes: Colonoscopy material was printed?? * Procedure Codes:?G9903 Pt sc rn tbco id as non user, G9744 PATIENT NOT ELIG D/T ACTIVE DX HTN * Preventive Medicine:? ??Counseling:?Care goal follow-up plan:?Above Normal BMI Follow-up?Giving encouragement to exercise,?BMI management provided?Yes.? ??Urinary Incontinence:?Urinary Incontinence?Assessment:?Absent,?Plan of care documented:?No, reason not specified.? ??Screenings:?Fall Risk Screening?Fall Risk Assessment:?No falls in the past year,?Screening:?No falls in the past year,?Assessment:?Not performed, no reason specified,?Plan of Care:?Not documented, no reason specified.? * Follow Up:?1 Year * * Sign off status: Completed true * Provider:?Americo David MD Date:?07/01/2023 Generated for Smita mejia/Bailey/Constanza on:?10/22/2024 08:07 AM EDT History and Physical Notes * HPI (History of Present Illness) Category Sub-Category Detail Notes Category Not es New symptom(s) Charla is a p leasant 78-year-old woman seen today for her preoperative colonoscopy visit. Her last colonoscopy in 2019 showed a small polyp and five-year followup was recommended. This was done elsewhere and records will be reviewed. She has no complaints of rectal bleeding or change in her bowel habits. Weight and appetite have been stable. Examination Category Sub-Category Detail Notes Category Not es General Examination GENERAL APPEARANCE: in no acute di stress HEAD: normocephalic EYES: sclera non-icteric NECK/THYROID: no lymphadenopathy HEART: S1, S2 normal, no mu rmurs CHEST: normal shape and exp ansion LUNGS: clear to auscultatio n bilaterally ABDOMEN: soft, nontender, non distended, bowel sounds present, no organomegaly SKIN: anicteric EXTREMITIES: no clubbing, cyanosi s, or edema PSYCH: cognitive function i ntact ORAL CAVITY: mucosa moist
--- OUTSIDE RECORDS SUMMARY | 2024-10-22 08:07 | XMS_ITS ---
Author Organization [facility] Address [address] [place] [address] Care Team Providers Care Gasket Former Name Role Phone Allyson Magaña MD Primary Care Provider Chandu Rincon [phone] REASON FOR VISIT cx appt Encounters Encounter Location Date Provider Diagnosis [facility] [address] [place] [address] 02/12/2024 Chandu Chisholm Plan Of Treatment No Information Progress Notes * Charla GREGORIO BDOB:1944 (78 yo F)Acc No.[id number]:02/12/2024 Patient:?Charla Gregorio :1945???Age:78 Y???Sex:Female Address:[address] [place], [address] * true * Date:? Generated for Printi ng/Fafacundog/eTransmitting on:?10/22/2024 08:07 AM EDT
--- OUTSIDE RECORDS SUMMARY | 2024-10-22 08:07 | XMS_ITS | Clinical Summary ---
Author Organization [facility] Address [address] [place] [address] Care Team Providers Care Strip Picker Name Role Phone Rebecca Hernandez MD Primary [...] age to complete this topic Care Teams Strip Picker Relationship Specialty Start Date End Date Rebecca Hernandez MD [address] [facility] [place] [address] PCP - General Internal Medicine 12/13/18
--- OUTSIDE RECORDS SUMMARY | 2024-10-22 08:07 | XMS_ITS ---
Author Organization [facility] Address [address] [facility] [place] [address] Care Team Providers Care Android Ios Developer Name Role Phone Allyson Magaña MD Primary Care Provider Chandu Rincon [phone] REASON FOR VISIT Wart(s) Medications Medication SIG [...] Active Encounters Encounter Location Date Provider Diagnosis [facility] [address] [place] [address] 02/12/2024 Chandu Chisholm Primary osteoarthritis, right ankle [...] pin-point bleeding margins with sterile surgical blade (19304), silver nitrate chemocautery applied, recomm. Wartstick 40 percent Salicylic acid application under occlusion as directed Progress Notes * Charla GREGORIO BDOB:1944 (79 yo F)Acc No.[id number]:02/12/2024 Progress Notes Patient:?KACEY, Charla [facility] Provider:?Chandu Chisholm DPM :1945???Age:78 Y???Sex:Female D ate:02/12/2024 Address:[address] [place] [address] Jody Santiago [facility] Pcp:Allyson Magaña MD Subjective: * Chief Complaints: [...] pin-point bleeding margins with sterile surgical blade (31446), silver nitrate chemocautery applied, recomm. Wartstick 40 percent Salicylic acid application under occlusion as directed.? * Procedure Codes:?92433 Wart Destruction, 1-14, Modifiers: XS * Follow Up:?3 Weeks * Images: * The named appointment provid er may or may not be the originator of this progress note, and it is not deemed complete until electronically signed by the appointment provider. Sign off status: Pending * Provider:?Chandu Chisholm DPM Date:? 024 Generated for Smita mejia/Bailey/Mikeitting on:?10/22/2024 08:07 AM EDT History and Physical [...]
--- OUTSIDE RECORDS SUMMARY | 2024-10-22 08:08 | XMS_ITS | Patient Health Record ---
Author Organization [facility] Address [address] [place] [address] Care Team Providers Care Snuff Blender Name Role Phone Gómez MAYORGA, Allyson Primary Care Provider Americo Jimenez Jr Unavailable [phone] Allergies No Known Allergies Results Component Value Reference Range Notes Glucose, Whole Blood Reviewed date:07/19/2024 09:24:46 PM Interpretation: Performing Lab:[facility], [address] [place] [phone] Notes/Report: Glucose, Whole Blood 161 60-115 mg/dL METER # : [id number] Reason For Referral No Information Medications Medication [...] Active Probiotic - as directed Orally Active Immunizations Vaccine Route Administration Date Status Comme nts Influenza Unknown 04/29/2024 Administered Social History Tobacco Use: Social History Observation [...] Problem Status W/U Status Risk Notes Problem 358411097 Colon cancer screening (Z12.11) Active confirmed Problem 820466036 [facility] (current) use of anticoagulants (Z79.01) Active confirmed Problem 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.84) Active confirmed Vital Signs Temperature 96.9 degrees Fahrenheit 05/01/2024 Blood pressure diastolic 00 mm Hg 05/01/2024 Height 5 ft 8.5 in in 05/01/2024 Blood pressure systolic 000 mm Hg 05/01/2024 Weight 188 lb 2 oz lbs 05/01/2024 BMI 28.19 kg/m2 05/01/2024 Encounters Encounter Location Date Provider Diagnosis [facility] [address] [place] [phone] 07/19/2024 Americo David Jr Colon cancer screening Z12.11 and Personal history of colonic polyps Z86.[address] [place] [address] 05/01/2024 Americo David Jr Colon cancer screening Z12.11 ; [facility] (current) use of anticoagulants Z79.01 and 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 We discussed risks and benefits of the procedure today. She understands these and agrees to proceed. This will be scheduled at her convenience. She is advised to stop Eliquis and Farxiga 3 days before the procedure 05/01/2024 [facility] (current) use of oral hypoglycemic drugs (ICD-10 - Z79.84) We discussed colonoscopy today. We discussed risks and benefits of the procedure today. She understands these and agrees to proceed. This will be scheduled at her convenience. She is advised to stop Eliquis and Farxiga 3 days before the procedure Plan Of Treatment Future Test Test Name Order Date COLONOSCOPY 05/01/2024 Insurance Providers Payer Name Payer Address Payer Phone Subscriber Number Group Number Insured Name Patient Relationship to Insured Coverage Start Date Coverage End Date MEDICARE OF [place] [address] [place] [id number] YOKO ERAZO Self - patient is the insured [facility] [address] [place] [address] [phone] [id number] YOKO ERAZO Self - patient is the insured Medical (General) History Medical History History ICD Code Atrial fibrillation Elevated blood sugar HENRIK/CPAP Vitamin D deficiency Hypertension Colonoscopy 2019, colon polyp, five-year followup Surgical History Surgery Date(Month/Year) Hospitalization History Reason Date(Month/Year) Atrial fibrillation with rapid ventricul ar response 09/07
--- OUTSIDE RECORDS SUMMARY | 2024-10-22 08:08 | XMS_ITS | Clinical Summary ---
Author Organization [facility] Address [address] [place] [address] Phone Care Team Providers Care Seafood Process Worker Name Role Phone Allyson Magaña MD Primary Care Provider [phone] Surgical History Surgery Date Site/Laterality Comments SECTION [...] Procedure Name Priority Date/Time Associated Diagnosis Comments DXA BONE DENSITY STUDY 1+ SITS AXIAL SKEL Routine 05/28/2020 10:24 AM EST Encounter for screening for osteoporosis from Last 3 Months or Most Recently Relevant to Health Maintenance Results * DXA BONE DENSITY STUDY 1+ SITS [...] classified as having normal bone density. [facility] Department of Internal Medicine recommends using [...] beclassified as having normal bone density. [facility] Department of Internal Medicine recommendsusing National [...] fracture risk by FRAX. Tamiko Nielsen MD IM DXA PROCEDURES Final Res ult from Last 3 Months or Most Recently Relevant to Health Maintenance [place] [id number] MEDICARE [facility] [place] [phone] Care Teams Seafood Process Worker Relationship Specialty Start Date End Date Allyson Magaña MD PCP - General Internal Medicine 07/15/21
--- OUTSIDE RECORDS SUMMARY | 2024-10-22 08:09 | XMS_ITS | Data Portability ---
Author Organization [facility], [facility] Address [address] [place] [address] Care Team Providers Care Battery Repairer Name Role Phone CHIOMA LEWISANNA Primary Care [...] more view - 2 2023 024 [email or web address] [employer] [facility], [address], [facility] [address], [place], [address], 02/07/2024 12:56:59 Medication Orders None recorded. Patient [...] a4ajBk vP9nXo QUaueC m3YtLR FvZlgJ JJ8mAn HZtai3 9x3892 AC0Kra 3qGWaT eUC8mr 84%3D INTERFACE [facility] [address], [place], [address], 02/07/2024 08:49:53 02/07/2002/07/2024 XR, knee, 4 or more view http:/ [email or web address]:[email or web address] ?Encry pted=s Yaya YD8dLq bEUv6g %2BXZw aYqtaq 0bqfl% 2Fg9IQ a4ajBk vP9nXo QUaueC m3YtLR FvZlgJ JJ8mAn HZtai3 6l6125 AC0Kra 3qGWaT eUC8mr 84%3D INTERFACE [facility] [address], [place], [address], 02/07/2024 08:49:55 Result Notes None recorded. Problems Name Problem SNOMED Code Status Onset Date Resolution Date Notes Provider Name and Address Organization Details Recorded Time No complaints 245685741 Active Status : 'I'; Not Available [facility] 4 09:11:46 Pain of joint of knee 1545593656 Active 2021 Status : 'A'; Not Available [facility] 4 11:12:58 Problem Notes None recorded. Procedures Surgical History Date Name Laterality Status Provider Name and Address Organization Details Recorded Time 5 Gel-One Knee Injection completed Denita Zuleta PA-C [address], [place], [address], [facility] 07/12/2024 08:29:29 4 Sports Knee 4&1 completed Andrea Lemon PA-C [address], [place], [address], [facility] 02/07/2024 09:30:16 Imaging Results Imaging Date Name Status LastModified by Organiz ation Details LastModified Time 02/07/2024 XR, knee, 4 or more view completed [facility] [address], [place], [address], 02/07/2024 08:49:53 02/07/2024 XR, knee, 4 or more view completed [facility] [address], [place], [address], 02/07/2024 08:49:55 Procedure Notes None recorded. Medical Equipment None Reported. Allergies Allergen ID Allergen Name Allergen Category Reaction Reaction Severity Criticality Documentation Date Start Date Code Code System Note Provider Name and Address Organization Details Recorded Time 603638 Compazine medicatio n Not available Not available Not available 07/12/2024 6 RxNorm [place] [facility] 11:05:54 Medications Name Sig Start Date [...] Updated DateTime 02/07/2024 170.18 cm 29.4 kg/m2 03840.37 g IVORY H[place] [facility] 02/07/2024 08:33:47 Date Recorded Body height Body mass index (BMI) Body weight Provider Name and Address Organization Details Last Updated DateTime 07/12/2024 170.18 cm 29.4 kg/m2 59133.37 g kushal jerrybar [place] [facility] 07/12/2024 11:05:02 Social History None recorded. Functional Status None recorded. Mental Status None recorded. Family History Nothing Reported. Medical History No medical history recorded. Gynecological HistoryNo gynecological history recorded. Obstetrics History GPAL:G 0 P 0 0 0 0 Past Encounters Encounter ID Performer Location Encounter Start Date Encounter Closed Date Diagnosis/Indication Diagnosis SNOMED-CT Code Diagnosis ICD10 Code Diagnosis Note [id number] Andrea Lemon PA-C [facility] [address] [place] [address] 02/07/2024 08:01:25 03/13/2024 13:17:48 Pain of right knee joint 1245948179 25271 M25.561 [facility]ell[facility] oral syndrome of right knee 8861256146 792902 M22.2X1 [id number] Denita Zuleta PA-C [facility] - [facility] [address] [place] [address] 07/12/2024 10:32:09 07/23/2024 15:48:22 Osteoarthritis of right knee joint 2657968068 48932 M17.11 Health Concerns Section Related Observation LastModified by Organization Detai ls LastModified Time None Recorded Concern Status LastModified by Organization Details LastModified Time None Recorded Advance Directives Directive None Recorded Payers Encounter Date Sequence Insurance Name Policy Number Policy Quezada Covered Member ID Quezada Member ID Guarantor Name 02/07/2024 1 [place] [employer] Charladeana Easleye [id number] Charladeana Easleye 02/07/2024 2 [facility] - PLAN 1 (MEDICARE SUPPLEMENT) [id number] Charla Gellerointe [id number] Charla Easleye 07/12/2024 1 [place] [employer]ATIONAL [employer]MENT [employer] Charla Easleye [id number] Charla Gellerointe 07/12/2024 2 [facility] - PLAN 1 (MEDICARE SUPPLEMENT) [id number] 1 Charla Gellerointe [id number] Charla Gregorio Notes Date Note Type Note [...] intact. X-rays ordered, obtained and reviewed at [facility] 4 views right knee reveals [...] if no improvement. Andrea Lemon PA-C [address] [facility] [address], [place], [address], [facility] 02/07/2024 09:30:30 07/12/2024 text/html [...] next 24-48 hours. Follow-up as symptoms dictate. [facility] speech recognition ad operations associate software was used to create portions of this document. An attempt at proofreading has been made to minimize errors. Please call for corrections. Denita Zuleta PA-C [address] [place], [place] [address]vickiCount includes the [facility] [address], [place], [address], [facility] - [facility] 07/12/2024 12:46:39 OBGyn Episode No OBEpisode recorded.
--- OUTSIDE RECORDS SUMMARY | 2024-10-22 08:09 | XMS_ITS ---
Author Organization [facility] Address [address] [place] [address] Care Team Providers Care Medical Billing Representative Name Role Phone Allyson Magaña MD Primary Care Provider UnavailAmerico Hollingsworth Jr [phone] REASON FOR VISIT screening Encounters Encounter Location Date Provider Diagnosis [facility] [address] [place] [phone] 07/19/2024 Americo David Jr Colon cancer screening Z12.11 and Personal history of colonic polyps Z86.0100 Assessments Encounter Date Diagnosis (ICD Code) Assessment Notes Treatment Notes Treatment Clinical Notes Section Notes 07/19/2024 Colon cancer screening (ICD-10 - Z12.11) 07/19/2024 Personal history of colonic polyps (ICD-10 - Z86.0100) Plan Of Treatment No Information Progress Notes * YOKO ERAZO BDOB:1944 (79 yo F)Acc No.[id number]:07/19/2024 COLON WITH MAC Patient:?YOKO ERAZO Provider:?Americo David MD :1945???Age:79 Y???Sex:Female D ate:07/19/2024 Address:[address] [place] [address] [address] [facility] Pcp:Allyson Magaña MD Subjective: * Chief Complaints: * ???1. Screening. * Medical History:? Objective: * Vitals:? Assessment: * Assessment: 1.?Colon cancer screening - Z12.11 (Primary)???2.?Personal history of colonic polyps - Z86.0100??? Plan: * Treatment: * Procedure Codes:?47221 DIAGN OSTIC COLONOSCOPY, 0529F INTRVL 3+YRS PTS CLNSCP DOCD, 0528F RCMND FLW-UP 10 YRS DOCD * * The named appointment provid er may or may not be the originator of this progress note, and it is not deemed complete until electronically signed by the appointment provider. Sign off status: Pending * Provider:?Americo David MD Date:?0 07/19/2024 Generated for Smita mejia/Bailey/Mikeitting on:?10/22/2024 08:08 AM EDT
--- OUTSIDE RECORDS SUMMARY | 2024-10-22 08:09 | XMS_ITS ---
Author Organization [facility] Address [address] [facility] [address] Care Team Providers Care General Hardware Salesperson Name Role Phone Allyson Magaña MD Primary Care Provider Chandu Rincon Unavailable [phone] Allergies Allergen (clinical drug ingredient) Drug/Non Drug [...] 01/22/2024 Encounters Encounter Location Date Provider Diagnosis [facility] [address] [place] [address] 01/22/2024 Chandu Chisholm Primary osteoarthritis, right ankle [...] pin-point bleeding margins with sterile surgical blade (75073), silver nitrate chemocautery applied, recomm. Wartstick 40 percent Salicylic acid application under occlusion as directed Progress Notes * Charla GREGORIO BDOB:1944 (78 yo F)Acc No.[id number]:01/22/2024 Progress Notes Patient:Charla Rodriguez Provider:?Chandu Chisholm DPM :1945???Age:78 Y???Sex:Female D ate:01/22/2024 Address:[address] [place], [place] [address] Pcp:Allyson Magaña MD Subjective: * Chief Complaints: [...] yes, 2. ?Marital status: . 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 * Medications:?TakingProbiotic Farxiga 10 MG Tablet 1 [...] pin-point bleeding margins with sterile surgical blade (02921), silver nitrate chemocautery applied, recomm. Wartstick 40 percent Salicylic acid application under occlusion as directed.? * Procedure Codes:?06004 Wart Destruction, 1-14, Modifiers: XS * Preventive [...] DPM Date:? 024 Generated for Giulianoi ng/Avelg/eTransmitting on:?10/22/2024 08:08 AM EDT History and Physical Notes * [...]
[2024-10-22 10:31] LABS: MANUAL DIFF FLAG NO
[2024-10-22 10:41] LABS: Basophils Absolute Auto 0.1 X10*3/uL (0.0-0.2); Eosinophils Absolute Auto 0.1 X10*3/uL (0.0-0.4); Eosinophils Percent Auto 1.8 % (0-4); Hematocrit 46.2 % (37.0-47.0); Hemoglobin 15.5 g/dl (12.0-16.0); Imm Gran Abs Auto 0.01 X10*3/uL (0.00-0.03); Imm Gran Pct Auto 0.2 % (0.0-0.4); Lymphocytes Absolute Auto 2.8 X10*3/uL (1.2-4.9); Lymphocytes Percent Auto 44.6 % (20-40); Mean Corpuscular HGB Conc 33.5 g/dl (31.0-35.0); Mean Corpuscular Hemoglobin 29.6 pg (27.0-33.0); Mean Corpuscular Volume 88.3 fL (80.0-98.0); Monocytes Absolute Auto 0.5 X10*3/uL (0.1-1.2); Monocytes Percent Auto 7.7 % (2-11); Neutrophils Absolute Auto 2.8 x10*3/uL (2.0-8.3); Neutrophils Percent Auto 44.7 % (45-73); Platelet Count 198 X10*3/uL (160-400); Red Blood Count 5.23 X10*6/uL (4.20-5.50); Red Cell Distribution Width 13.3 % (11.0-16.0); White Blood Count 6.2 X10*3/uL (4.8-10.8)
[2024-10-22 10:49] LABS: Microalbumin Urine < 5.0 mg/L
[2024-10-22 10:54] LABS: Estimated Average Glucose 151 mg/dL; Hemoglobin A1C 205.2307 umol/L; Hemoglobin A1c % 6.9 % (<6.0); Total Hemoglobin (HGBA1C) 3976.4455 umol/L
[2024-10-22 11:24] LABS: Digoxin 0.5 ng/mL (0.8-2.0)
[2024-10-22 11:26] LABS: Alanine Aminotransferase 42 U/L (0-31); Albumin Level 4.2 g/dL (3.5-5.0); Alkaline Phosphatase 61 U/L (39-117); Anion Gap 15 (12-20); Aspartate Amino Transferase 48 U/L (5-31); Bilirubin Total 1.2 mg/dL (0.0-1.0); Blood Urea Nitrogen 16 mg/dL (9-16); Calcium 9.4 mg/dL (8.4-10.2); Carbon Dioxide 27 mmol/L (22-29); Chloride 102 mmol/L (96-108); Cholesterol 195 mg/dL (<200); Estimated Glomerular Filt Rate > 60; Glucose Fasting 140 mg/dL (60-99); Potassium 4.5 mmol/L (3.3-5.1); Sodium 139 mmol/L (135-145); Total Protein 7.3 g/dL (6.5-8.0); Triglycerides 177 mg/dL (<150)
[2024-10-22 12:04] LABS: HDL Cholesterol 39 mg/dL (>40); LDL Cholesterol Calculated 121 mg/dL (<100)
== END 2024-10-22 08:05 | disposition home or self-care (01) ==
LOC: HO.HMGCLDS 08:04
PROVIDERS: PCP Internal Medicine; Referring Provider Internal Medicine; Visit Provider Internal Medicine
DX: E78.00 Pure hypercholesterolemia, unspecified (principal); E11.9 Type 2 diabetes mellitus without complications; I48.19 Other persistent atrial fibrillation
CPT/HCPCS: 36415; 80053; 80061; 80162; 82043; 82570; 83036; 85025

== ENCOUNTER 2024-10-23 08:46 | Outpatient (AMB) | payer MEDICARE, OTHER, SELFPAY ==
[2024-10-23 08:55] VITALS: BP 122/70; PULSE 90; RESP 18; TEMP 36.6; O2SAT 96; BMI 28.2
--- NOTE | 2024-10-23 08:55 | MHC.PC.OV ---
Vital Signs 10/23/24 08:55 Height 5 ft 8.5 in Weight 188 lb BMI 28.2 BP 122/70 Blood Pressure Location Lt brachial Position Sitting Respiration 18 Pulse 90 Pulse Source Pulse Oximeter Temp 97.9 F Temp Source Oral Pulse Oximetry (%) 96 Oxygen Delivery Method Room Air Intake Visit Reasons: 6 months Intake Note: Pt is here today for 6 months follow up visit. Allergies prochlorperazine [From Compazine] Allergy (Intermediate, Verified 10/23/24 08:56) facial paralysis metformin Adverse Reaction (Intermediate, Verified 10/23/24 08:56) Diarrhea Medication List - Last Reconciled 10/23/24 by Allyson Magaña MD apixaban (Eliquis) 5 mg PO BID cholecalciferol (vitamin D3) 3,000 units PO DAILY digoxin 125 mcg PO DAILY Farxiga (dapagliflozin propanediol) 10 mg PO DAILY NS levothyroxine (Euthyrox) 75 mcg PO DAILY metformin ER 750 mg PO DAILY metoprolol tartrate 100 mg PO BID Saccharomyces boulardii (Daily Probiotic (S. boulardii)) 250 mg PO BID triamcinolone acetonide 0.1% 1 appl topical BID-TID Tobacco use date assessed: 10/23/24 Fall risk assessment: No Falls in past year Last assessed Fall Risk: 10/23/24 Dental Screening Dental Screen Date: 10/23/24 Did you have a dental visit in the last 12 months?: Yes Did you have a dental problem in the last 6 months where you did not have access to dental care?: No Was dental information given to patient?: Patient has dentist HPI 6 months HPI Details patient presents for the follow-up type 2 diabetes hypertension chronic AFib hypothyroidism. PFS Medical History Pre-diabetes HENRIK on CPAP Atrial fibrillation with RVR Hypothyroidism Numerous skin moles Postmenopausal Vitamin D deficiency Hx of mammogram HTN (hypertension) Surgical History Hx of section Hx of tonsillectomy Hx of colonoscopy History of bunionectomy Hx of shoulder surgery Family History Father CAD (coronary artery disease) COPD (chronic obstructive pulmonary disease) Mother COPD (chronic obstructive pulmonary disease) Family/Other Liver disease Social History Household Members: None Household Members Other:: lives alone, 2 adults Housing: House Do you presently have visiting nurse or other home services: No Alcohol intake: current Alcohol intake frequency: holidays/special occasions only Patient Tobacco Use Status: Never used Tobacco e-Cigarette/Vaping Use: Never Used service: No Current occupational status: retired Cognitive needs: No Hearing needs: No Vision needs: No Questionnaire PHQ-9 Over the last 2 weeks, how often have you been bothered by any of the following problems? 1. Little interest or pleasure in doing things: not at all 2. Feeling down, depressed, or hopeless: not at all 3. Trouble falling or staying asleep, or sleeping too much: not at all 4. Feeling tired or having little energy: not at all 5. Poor appetite or overeating: not at all 6. Feeling bad about yourself - or that you are a failure or have let yourself or your family down: not at all 7. Trouble concentrating on things, such as reading the newspaper or watching television: not at all 8. Moving or speaking so slowly that other people could have noticed. Or the opposite - being so fidgety or restless that you have been moving around a lot more than usual: not at all 9. Thoughts that you would be better off or of hurting yourself in some way: not at all Total score: 0 Depression Screening Interpretation: Negative Depression Screening Done: Yes 64314 - PHQ-9 Billing: Yes Source: Developed by Drs. Devang Ji, Peg Wilde, Alen Garcia and colleagues, with an educational mahnaz from [employer]. Thrive Questionnaire Date Thrive assessed: 10/23/24 I am a: Patient What is your living situation today?: I have a steady place to live Within the past 12 months, did the food you bought not last and you didn't have the money to get more?: Never true Within the past 12 months, did you worry whether your food would run out before you got money to buy more?: Never true Do you have trouble paying for medicines?: No Do you have trouble getting transportation to medical appointments?: No Do you have trouble paying your heating and electricity bill?: No Do you have trouble taking care of your child, family member or friend?: No Do you have trouble with day-to-day activities such as bathing, preparing meals, shopping, managing finances, etc.?: No Are you currently unemployed and looking for a job?: No Are you interested in more education?: No Please select the resources that you would like help with: None Currently or been in a relationship where the following occur: No concerns reported THRIVE Score: 0 AUDIT C Alcohol Use Questionnaire (AUDIT-C) 1. How often do you have a drink containing alcohol?: Monthly or less 2. How many drinks containing alcohol do you have on a typical day when you are drinking?: 1 or 2 3. How often do you have six or more drinks on one occasion?: Never Total Score: 1 SHERI-7 AMB Questionnaire SHERI-7 Date SHERI - 7 assessed: 10/23/24 Feeling nervous, anxious, or on edge: 0 = Not at all Not being able to stop or control worryin = Not at all Worrying too much about different things: 0 = Not at all Trouble relaxin = Not at all Being so restless that it is hard to sit still: 0 = Not at all Becoming easily annoyed or irritable: 0 = Not at all Feeling afraid as if something awful might happen: 0 = Not at all Total SHERI-7 score (0-4 normal; 5-9 mild; 10-14 moderate; 15-21 severe): 0 Source: Developed by Drs. Devang Ji, Peg Wilde, Alen Garcia and colleagues, with an educational mahnaz from [employer]. SHERI-7 Assessment Billing SHERI-7 Assessment Tool: SHERI-7 Assessment 81045 Review of Systems Const All systems reviewed & are unremarkable except as noted in HPI and below Eyes Reports no additional complaints ENT Reports no additional complaints Card Reports no additional complaints Resp Reports no additional complaints GI Reports no additional complaints Reports no additional complaints Physical exam (Primary Care) Vital Signs: Last Vital Signs Temp 97.9 F 10/23/24 08:55 Pulse 90 10/23/24 08:55 Resp 18 10/23/24 08:55 BP 122/70 10/23/24 08:55 Pulse Ox 96 10/23/24 08:55 Oxygen Delivery Method Room Air 10/23/24 08:55 BMI result Body Mass Index 28.2 Tobacco/Smoking Status: Tobacco use Status Tobacco use date assessed 10/23/24 10/23/24 08:56 Patient Tobacco Use Status Never used Tobacco 10/23/24 09:15 e-Cigarette/Vaping Use Never Used 10/23/24 08:55 PHQ-9: PHQ-9 Score PHQ-9: Total score 0 10/23/24 13:18 Depression Screening Interpretation: Negative Thrive Assessment: Date of Thrive Assessment Date Thrive assessed 10/23/24 10/23/24 08:56 Currently or been in a relationship where the following occur: No concerns reported Const General: no acute distress HENMT Head: Yes normal to inspection Eyes General: appearance normal, both eyes and all related structures Neck Neck: Yes no lymphadenopathy and Yes supple Resp Effort & Inspection: normal respiratory effort Auscultation: clear to auscultation bilaterally Cardio Rhythm: regular rhythm Heart sounds: S1 normal heart sound present and S2 normal heart sound present GI Inspection: Yes normal to inspection Palpation (GI): Soft to palpation Percussion: Yes normal to percussion Auscultation: normal bowel sounds Immunizations pneumoc 20-dexter conj-dip cr(PF) 0.5 mL IM syringe Performing Provider: Allyson Magaña MD Performing Location: [facility] Administered by: GLENDY Smyth on 10/23/24 10:28 Dose Route Admin Location Dispensed Lot Number Expiration Date [facility] [employer] Scheduler 0.5 mL IM Left Deltoid 0.5 mL [id number] 09/16/25 0572-7998-25 [employer] Control VIS Given Date VIS Provided VIS Publication Date 10/23/24 Single Vaccine 21 Eligibility Eligibility Date Funding Source Not [facility] Eligible 10/23/24 Private Coding Level of Care Code Est Pt Level 4 (72546) Diagnoses Persistent atrial fibrillation I48.19 Hypothyroidism E03.9 DM type 2 (diabetes mellitus, type 2) E11.9 Additional Codes SHERI-7 Assessment Billing - SHERI-7 Assessment Tool: SHERI-7 Assessment 94152 ([id number]) PHQ-9 - 66264 - PHQ-9 Billing: Yes ([id number]) Assessment & Plan Assessment & Plan (1) Persistent atrial fibrillation: Comment: established with [facility], rate controlled on metoprolol Code(s): I48.19 - Other persistent atrial fibrillation Category: Medical Plan: Rate controlled on metoprolol and anticoagulated on Eliquis (2) Hypothyroidism: Code(s): E03.9 - Hypothyroidism, unspecified Category: Medical Plan: continue levothyroxine (3) DM type 2 (diabetes mellitus, type 2): Code(s): E11.9 - Type 2 diabetes mellitus without complications Category: Medical Plan: A1c is 6.9, ADA diet increase exercise weight loss discussed with the patient at metformin ER 750 mg and continue Farxiga. Follow-up in 3 months Orders: Orders Comprehensive [place]. Panel Fast 3 Months E03.9 - Hypothyroidism, unspecified, E11.9 - Type 2 diabetes mellitus without complications, I48.19 - Other persistent atrial fibrillation Hemoglobin A1c 3 Months E03.9 - Hypothyroidism, unspecified, E11.9 - Type 2 diabetes mellitus without complications, I48.19 - Other persistent atrial fibrillation Lipid Panel 3 Months E03.9 - Hypothyroidism, unspecified, E11.9 - Type 2 diabetes mellitus without complications, I48.19 - Other persistent atrial fibrillation TSH reflex Free T4 3 Months E03.9 - Hypothyroidism, unspecified, E11.9 - Type 2 diabetes mellitus without complications, I48.19 - Other persistent atrial fibrillation Pneumococcal 20 Immunization Today Z23 - Encounter for immunization Medications: New metformin ER 750 mg PO DAILY 90 tabs 1RF
--- OUTSIDE RECORDS SUMMARY | 2024-10-23 09:10 | XMS_ITS | Encounter Summary ---
Author Organization [facility] [employer] [facility] Address [address] [facility] [place] [address] Care Team Providers Care Communication Equipment Repairer Name Role Phone Allyson Magaña MD Primary Care Provider Ralf moreland Encounter Details Date Type Department Care Team Description 07/20/2021 Business Doc Medical Records [address] [place] [address] Abstract, Provider Social History Tobacco Use Types [...] on filedocumented in this encounter Care Teams Communication Equipment Repairer Relationship Specialty Start Date End Date Allyson Magaña MD PCP - General Internal Medicine 07/15/21 documented as of this encounter
--- OUTSIDE RECORDS SUMMARY | 2024-10-23 09:10 | XMS_ITS | Clinical Summary ---
Author Organization [facility] Address [address] [place] [address] Care Team Providers Care Planner Intern Name Role Phone Rebecca Hernandez MD Primary [...] age to complete this topic Care Teams Planner Intern Relationship Specialty Start Date End Date Rebecca Hernandez MD [address] [facility] [place] [id number] PCP - General Internal Medicine 12/13/18
--- OUTSIDE RECORDS SUMMARY | 2024-10-23 09:10 | XMS_ITS | Clinical Summary ---
Author Organization [facility] Address [address] [facility] [place] [address] Care Team Providers Care Real Estate Paralegal Name Role Phone Allyson Magaña MD Primary Care Provider Unavaila ble Allergies Active Allergy Reactions Severity Noted Date Comments Prochlorperazine 02/05/2018 Medications Medication Sig Dispensed Refills Start Date End Date Status Probiotic Product (Probiotic Daily) Cap Take by mouth. 0 Active triamcinolone (KENALOG) 0.1 % cream Apply topically daily as needed for eczema. 15 g 3 02/17/2021 Active VITAMIN D OR Take 4,000 Units by mouth. 0 Active levothyroxine (SYNTHROID, LEVOTHROID) 75 MCG tablet Take 1 tablet by mouth daily. 90 tablet 1 05/04/2021 Active amlodipine (NORVASC) 5 MG tablet Take 1 tablet by mouth daily. 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 02/05/2018 Vitamin D deficiency 02/05/2018 Hypothyroid 02/05/2018 Hyperlipidemia 02/05/2018 Eczema of hand 02/05/2018 Overview: KRISTIE Derm Resolved Problems Problem Noted Date Resolved Date Prediabetes 08/09/2018 11/28/2019 Obesity (BMI 30-39.9) 02/14/2018 05/04/2021 Coronary artery disease 02/05/2018 02/15/20 Overview: LCD stent 08/07/08 Impaired fasting glucose 02/05/2018 018 Overview: 10/2014 = 122 and 132, A1C 5.8 Immunizations Name Administration Dates Next Due COVID-19 (Moderna) PT Reported 09/08/2020,2020 Influenza Flu (PT Reported) 02/19/2021, 0,03/27/2018 Pneumoccoccal(Adult) Polysaccharide PPSV23 11/22,05/30/2012 Shingrix (Patient reported) 10/05/2018 Shingrix (Recombinant zoster vaccine) 08/06/2018 Family History Medical History Relation Name Comments Hypertension Brother CAD Father age 67 CA Ovarian Mother COPD age 8 3 Multiple Sclerosis Sister Factor V Leiden CA Breast Negative Hx Relation Name Status Comments Brother Father [...] file Not on file Not on file Last Filed Vital Signs Vital Sign Reading Time Taken Comments Blood Pressure 132/70 05/04/2021 8:36 AM EST Pulse 69 05/04/2021 8:36 AM EST Temperature 36.6 ??C (97.8 ??F) 05/04/2021 8:36 AM ES T Respiratory Rate 16 05/04/2021 8:36 AM EST Oxygen Saturation 16% 05/04/2021 8:36 AM EST Inhaled Oxygen Concentration - - Weight 89 kg (196 lb 3.2 oz) 05/04/2021 8:36 AM EST Height 175.3 cm (5' 9 ) 05/04/2021 8:36 AM EST Body Mass Index 28.97 05/04/2021 8:36 AM EST Plan of Treatment Health Maintenance Due Date Last Done Comments DEPRESSION SCREEN 05/04/2022 05/04/2021 (Co mpleted), 03/26/2020 (Completed), 03/12/2019, Additional history exists FALL RISK ASSESSMENT 05/04/2022 05/04/2021, 03/26/2020 (Completed), 03/12/2019, Additional history exists BONE DENSITY SCREENING 05/28/2022 0, 04/05/2018, 04/05/2018, Additional history exists MAMMOGRAM 07/15/2022 07/15/2021, 07/2019 (External Completion), 04/17/2020, Additional history exists Covid-19 Vaccine ( season) 2024 09/08/2020, 08/11/2020 BMI CHECK/ADVISE 06/19/2024 05/04/2021, , 11/23/2020, Additional history exists COLON CANCER SCREENING 07/04/2024 (Completed), 07/04/2019, 10/18/2007 (External Completion) CHOLESTEROL SCREENING 11/26/2024 11/27/2019 , 05/12/2018, 11/08/2014 (External Completion) INFLUENZA (Season Ended) 2025 021, 03/26/2020 (External Completion of Vaccination per patient), 03/12/2020, Additional history exists DTAP/TDAP/TD (3 - Td or Tdap) 11/11/2027 11/10/2017, 10/17/2017 (External Completion) HEPATITIS C SCREENING Addressed 02/14/2018 (External Completion) Overridden with the intention of not completing the topic SHINGLES VACCINE Completed 10/05/2018, 08/06/2018 PNEUMOCOCCAL VACCINE Addressed 11/22/2018, 02/17/2018 (External Completion), 05/09/2017, Additional history exists Overridden with the intention of not completing the topic Care Teams Real Estate Paralegal Relationship Specialty Start Date End Date Allyson Magaña MD PCP - General Internal Medicine 07/15/21
--- OUTSIDE RECORDS SUMMARY | 2024-10-23 09:10 | XMS_ITS | Encounter Summary ---
[facility] Organization [facility] Address [address] [place] [address] Care Team Providers Care Dock Loader Name Role Phone Tamiko Nielsen MD Primary Care Provider Unavail able Allyson Magaña MD Primary Care Provider Unavaila aniceto Encounter Details Date Type Department Care Team Description 05/14/2018 Orders Only Adult Medicine [address] [address] Tamiko Nielsen MD Impaired fasting glucose (Primary Dx) Social History Tobacco Use Types Packs/Day Years Used Date Smoking Tobacco: Never Cigarettes Smokeless Tobacco: Never Alcohol Use Standard Drinks/Week Comments Yes 1 (1 standard drink = 0.6 oz pur e alcohol) Ocassional Sex Assigned at Date Recorded Not on file Job Start Date Occupation Industry Not on file Not on file Not on file documented as of this encounter Plan of Treatment Scheduled Orders Name Type Priority Associated Diagnoses Orde r Schedule HEMOGLOBIN A1C Lab Routine Impaired fasting glucose Expected: 05/14/2018, Expires: 05/14/2019 documented as of this encounter Visit Diagnoses Diagnosis Impaired fasting glucose- Primary documented in this encounter Care Teams Dock Loader Relationship Specialty Start Date End Date Tamiko Nielsen MD PCP - General Internal Medicine 12/28/17 07/14/21 Allyson Magaña MD PCP - General Internal Medicine 07/15/21 documented as of this encounter
--- OUTSIDE RECORDS SUMMARY | 2024-10-23 09:10 | XMS_ITS | Encounter Summary ---
Author Organization [facility] Address [address] [place] [address] Care Team Providers Care Agricultural Services Director Name Role Phone Tamiko Nielsen MD Primary Care Provider Unavail able Allyson Magaña MD Primary Care Provider Unavaila ble Reason for Visit * Reason Onset Date Comments REFERRAL 06/20/2018 Encounter Details Date Type Department Care Team Description 06/20/2018 Telephone Gastroenterology - [address] [address] Varun Champion MD REFERRAL Social History Tobacco Use Types Packs/Day Years [...] encounter Miscellaneous Notes * Telephone Encounter - Sherley Jayson - 06/20/2018 1:44 PM EST 1st attempt to schedule appointment, LM to schedule a screening colon with any MD. documented in this encounter Plan of Treatment Not on file documented as of this encounter Visit Diagnoses Not on filedocumented in this encounter Care Teams Agricultural Services Director Relationship Specialty Start Date End Date Tamiko Nielsen MD PCP - General Internal Medicine 12/28/17 07/14/21 Allyson Magaña MD PCP - General Internal Medicine 07/15/21 documented as of this encounter
--- OUTSIDE RECORDS SUMMARY | 2024-10-23 09:10 | XMS_ITS ---
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 of 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 hypoglycemic drugs (Z79.84) Active confirmed Vital Signs Temperature 96.9 degrees Fahrenheit 05/01/20 24 Blood pressure systolic 000 mm Hg 05/01/20 24 Blood pressure diastolic 00 mm Hg 024 Height 5 ft 8.5 in in 05/01/2024 Weight 188 lb 2 oz lbs 05/01/2024 BMI 28.19 kg/m2 05/01/2024 Encounters Encounter Location Date Provider Diagnosis [facility] [address] [place] [address] 05/01/2024 Americo David Jr Colon cancer screening Z12.11 ; news production assistant (current) use of anticoagulants Z79.01 and news production assistant (current) use of oral hypoglycemic drugs Z79.84 [...] Farxiga 3 days before the procedure 05/01/2024 news production assistant (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 We discussed risks and benefits of the procedure today. She understands these and agrees to proceed. This will be scheduled at her convenience. She is advised to stop Eliquis and Farxiga 3 days before the procedure 05/01/2024 news production assistant (current) use of oral hypoglycemic drugs (ICD-10 [...] * CHARLA ERAZO BDOB:1944 (78 yo F)Acc No.[id number]:05/01/2024 Progress Notes Patient:?CHARLA ERAZO Provider:?Americo David MD :1945???Age:78 Y???Sex:Female D ate:05/01/2024 Address:[address] [place] [address] [place] [facility] Pcp:Allyson Magaña MD Subjective: * Chief Complaints: [...] or edema.?PSYCH:?cognitive function intact.? Assessment: * Assessment: 1.?news production assistant (current) use o f anticoagulants - Z79.01 (Primary)?2.?Colon cancer screening - Z12.11?3.?senior care (current) use of oral hypoglycemic drugs - [...] David MD Date:?07/01/2023 Generated for Smita mejia/Bailey/Constanza on:?10/23/2024 09:10 AM EDT History and Physical Notes * [...]
--- OUTSIDE RECORDS SUMMARY | 2024-10-23 09:10 | XMS_ITS | Clinical Summary ---
Author Organization [facility] Address [address] [place] [address] Phone Care Team Providers Care Operations Tech Name Role Phone Allyson Magaña MD Primary Care Provider [phone] Surgical History Surgery Date Site/Laterality Comments SECTION [...] classified as having normal bone density. [facility] Department of Internal Medicine recommends using National [...] beclassified as having normal bone density. [facility] Department of Internal Medicine recommendsusing National Osteoporosis [...] to Health [place] [phone] MEDIC[place] [facility] [place] [address] Care Teams Operations Tech Relationship Specialty Start Date End Date Allyson Magaña MD PCP - General Internal Medicine 07/15/21
--- OUTSIDE RECORDS SUMMARY | 2024-10-23 09:10 | XMS_ITS | Encounter Summary ---
Author Organization [facility] Address [address] [place] [address] Care Team Providers Care Lpn Cma Name Role Phone Tamiko Nielsen MD Primary Care Provider Unavail able Allyson Magaña MD Primary Care Provider Ralf moreland Encounter Details Date Type Department Care Team Description 04/09/2018 Business Doc Medical Records [address] [place] [id number] Abstract, Provider Social History Tobacco Use Types [...] on filedocumented in this encounter Care Teams Lpn Cma Relationship Specialty Start Date End Date Tamiko Nielsen MD PCP - General Internal Medicine 12/28/17 07/14/21 Allyson Magaña MD PCP - General Internal Medicine 07/15/21 documented as of this encounter
--- OUTSIDE RECORDS SUMMARY | 2024-10-23 09:10 | XMS_ITS | Encounter Summary ---
Author Organization [facility] Address [address] [place] [address] Care Team Providers Care Extraction Supervisor Name Role Phone Tamiko Nielsen MD Primary Care Provider Unavail able Allyson Magaña MD Primary Care Provider Unavaila ble Encounter Details Date Type Department Care Team Description 07/10/2019 Orders Only Medical Records [address] [place] [id number] Lavonne Tom MD Social History Tobacco Use Types Packs/Day [...] Procedure Name Priority Date/Time Associated Diagnosis Comments OUTSIDE PATHOLOGY Routine 07/04/2019 documented in this encounter Results * OUTSIDE PATHOLOGY (07/04/2019) Lavonne Tom MD OUTSIDE LAB documented in this encounter Visit Diagnoses Not on filedocumented in this encounter Care Teams Extraction Supervisor Relationship Specialty Start Date End Date Tamiko Nielsen MD PCP - General Internal Medicine 12/28/17 07/14/21 Allyson Magaña MD PCP - General Internal Medicine 07/15/21 documented as of this encounter
--- OUTSIDE RECORDS SUMMARY | 2024-10-23 09:10 | XMS_ITS | Patient Health Record ---
Author Organization [facility] Address [address] [facility] [place] [address] Care Team Providers Care Pulmonary Specialist Name Role Phone Allyson Magaña MD Primary Care Provider Chandu Rincon Unavailable [phone] Allergies Allergen (clinical drug ingredient) Drug/Non Drug [...] primary osteoarthritis of the ankle and/or foot (495103638) Primary osteoarthrit is, right ankle and foot (M19.071) Active confirmed Problem Localized, primary osteoarthritis of the ankle and/or foot (681740687) Primary osteoarthrit is, left ankle and foot (M19.072) Active confirmed Problem Acquired hammer toe of right foot (3866877604319146) Other hammer toe(s) (acquired), right foot (M20.41) Active confirmed Problem Acquired hammer toe of left foot (9113111832525438) Other hammer toe(s) (acquired), left foot (M20.42) Active confirmed Vital Signs Height 5ft 9in in 01/22/2024 Weight 186 lbs 01/22/2024 BMI 27.46 kg/m2 01/22/2024 Encounters Encounter Location Date Provider Diagnosis [facility] [address] [address] 01/03/2024 Chandu Chisholm Primary osteoarthritis, left ankle and 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 ; Primary osteoarthritis, right ankle and foot M19.071 ; Other hammer toe(s) (acquired), left foot M20.42 ; Other hammer toe(s) (acquired), right foot M20.41 ; Pain in left foot M79.672 ; Pain in right foot M79.671 ; Other viral warts B07.8 and Plantar fascial 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 [facility] [address] [address] 01/22/2024 Chandu Phan Primary osteoarthritis, right ankle and foot M19.071 ; Primary osteoarthritis, left ankle and 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 ; Other hammer toe(s) (acquired), left foot M20.42 ; Other hammer toe(s) (acquired), right foot M20.41 ; Pain in left foot M79.672 ; Pain in right foot M79.671 ; Other viral warts B07.8 ; Plantar fascial 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 and Tinea unguium B35.[address] [facility] [address] 01/03/2024 [facility] [address] 02/12/2024 Chandu Chisholm Assessments Encounter Date Diagnosis [...] Inc [address] [place] [address] [id number] Charla Gregorio Self - patient is the insured [facility] [address] [place] [address] [id number] Charla Gregorio Self - patient is [...]
--- OUTSIDE RECORDS SUMMARY | 2024-10-23 09:11 | XMS_ITS | Encounter Summary ---
Author Organization [facility] Address [address] [place] [address] Care Team Providers Care Boiler Shop Supervisor Name Role Phone Tamiko Nielsen MD Primary Care Provider Unavail able Allyson Magaña MD Primary Care Provider Unavaila ble Reason for Visit * Reason Onset Date Comments TEST RESULTS 11/28/2019 Encounter Details Date Type Department Care Team Description 11/28/2019 Telephone Medicine/Pediatrics - [address] [address] Tamiko Nielsen MD TEST RESULTS Social History [...] on filedocumented in this encounter Care Teams Boiler Shop Supervisor Relationship Specialty Start Date End Date Tamiko Nielsen MD PCP - General Internal Medicine 12/28/17 07/14/21 Allyson Magaña MD PCP - General Internal Medicine 07/15/21 documented as of this encounter
--- OUTSIDE RECORDS SUMMARY | 2024-10-23 09:11 | XMS_ITS ---
Author Organization [facility] Address [address] [place] [address] Care Team Providers Care Clinical Research Manager Name Role Phone Allyson Magaña MD Primary Care Provider Chandu Rincon [phone] REASON FOR VISIT Wart(s) Medications Medication SIG [...] Active Encounters Encounter Location Date Provider Diagnosis [facility] [address] [place] [address] 02/12/2024 Chandu Chisholm Primary osteoarthritis, right ankle [...] pin-point bleeding margins with sterile surgical blade (81177), silver nitrate chemocautery applied, recomm. Wartstick 40 percent Salicylic acid application under occlusion as directed Progress Notes * Charla GREGORIO BDOB:1944 (79 yo F)Acc No.[id number]:02/12/2024 Progress Notes Patient:?KACEY, Charla Hampton Provider:?Chandu Chisholm DPM :1945???Age:78 Y???Sex:Female D ate:02/12/2024 Address:[address] [place] [address] J[address] [facility] Pcp:Allyson Magaña MD Subjective: * Chief Complaints: [...] pin-point bleeding margins with sterile surgical blade (72004), silver nitrate chemocautery applied, recomm. Wartstick 40 percent Salicylic acid application under occlusion as directed.? * Procedure Codes:?87302 Wart Destruction, 1-14, Modifiers: XS * Follow Up:?3 Weeks * Images: * The named appointment provid er may or may not be the originator of this progress note, and it is not deemed complete until electronically signed by the appointment provider. Sign off status: Pending * Provider:?Chandu Chisholm DPM Date:? 024 Generated for Smita mejia/Bailey/Mikeitting on:?10/23/2024 09:10 AM EDT History and Physical [...]
--- OUTSIDE RECORDS SUMMARY | 2024-10-23 09:11 | XMS_ITS ---
Author Organization [facility] Address [address] [place] [address] Care Team Providers Care Tire Recapper Name Role Phone Allyson Magaña MD Primary Care Provider UnavailAmerico Hollingsworth Jr [phone] REASON FOR VISIT screening Encounters Encounter Location Date Provider Diagnosis [facility] [address] [place], [place] [id number] 07/19/2024 Americo David Jr Colon cancer screening Z12.11 and Personal history of colonic polyps Z86.0100 Assessments Encounter Date Diagnosis (ICD Code) Assessment Notes Treatment Notes Treatment Clinical Notes Section Notes 07/19/2024 Colon cancer screening (ICD-10 - Z12.11) 07/19/2024 Personal history of colonic polyps (ICD-10 - Z86.0100) Plan Of Treatment No Information Progress Notes * YOKO ERAZO BDOB:1944 (79 yo F)Acc No.[id number]:07/19/2024 COLON WITH MAC Patient:?YOKO ERAZO Provider:?Americo David MD :1945???Age:79 Y???Sex:Female D ate:07/19/2024 Address:[address] [place] [address] [address] [facility] Pcp:Allyson Magaña MD Subjective: * Chief Complaints: * ???1. Screening. * Medical History:? Objective: * Vitals:? Assessment: * Assessment: 1.?Colon cancer screening - Z12.11 (Primary)???2.?Personal history of colonic polyps - Z86.0100??? Plan: * Treatment: * Procedure Codes:?07728 DIAGN OSTIC COLONOSCOPY, 0529F INTRVL 3+YRS PTS CLNSCP DOCD, 0528F RCMND FLW-UP 10 YRS DOCD * * The named appointment provid er may or may not be the originator of this progress note, and it is not deemed complete until electronically signed by the appointment provider. Sign off status: Pending * Provider:?Americo David MD Date:?0 07/19/2024 Generated for Smita mejia/Bailey/Mikeitting on:?10/23/2024 09:11 AM EDT
--- OUTSIDE RECORDS SUMMARY | 2024-10-23 09:11 | XMS_ITS | Encounter Summary ---
Author Organization [facility] Address [address] [place] [address] Care Team Providers Care Tax Accountant Name Role Phone Denzel Nielsen MD Primary Care Provider Unavail able Allyson Magaña MD Primary Care Provider Unavaila ble Reason for Visit * Reason Onset Date Comments LAB WORK 04/20/2021 Encounter Details Date Type Department Care Team Description 04/20/2021 Telephone Adult Medicine [address] [address] Denzel Nielsen MD LAB WORK Social History [...] on filedocumented in this encounter Care Teams Tax Accountant Relationship Specialty Start Date End Date Denzel Nielsen MD PCP - General Internal Medicine 12/28/17 07/14/21 Allyson Magaña MD PCP - General Internal Medicine 07/15/21 documented as of this encounter
--- OUTSIDE RECORDS SUMMARY | 2024-10-23 09:11 | XMS_ITS | Encounter Summary ---
Author Organization [facility] Address [address] [place] [address] Care Team Providers Care Airplane Pilot Commercial Name Role Phone Allyson Magaña MD Primary Care Provider [phone] Encounter Details Date Type Department Care Team (Late st Contact Info) Description 07/23/2024 Lab Requisition [facility] - Main Lab [address] [facility] [email or web address] [address] Cora Parr III, MD [address] [place] [address] [place] [address] Disorder of pigmentation, unspecified Social History Tobacco [...] peripheral margins negative 07/24/2024 11:14 AM EST [facility] Clinical Information Atypical skin lesion left arm Suture short superior long lateral L81.9 07/24/2024 11:14 AM [facility] Gross Description A. Arm, Left, [...] green. The specimen is sectioned cruciate manner. Pin Drafter Operator sections, to include the entirety of the lesion, are submitted in four cassettes as follows: 1, cruciate medial and lateral tips (medial tip inked green), two pieces 2-4, sequential cross-sections to include the entirety of the lesion, two pieces each LINUS 07/24/2024 11:14 AM [facility] Disclaimer Unless otherwise specified, all tissue is 10% NB formalin fixed and paraffin embedded. 07/24/2024 11:14 AM [facility] Tissue Structure of left upper limb / Unknown 07/23/2024 07/23/2024 3:25 PM EST us Cora Parr III, MD LAB PATHOLOGY ORDERABLES Fi nal Result [facility] [address] [place] [address], documented in this encounter Visit Diagnoses Diagnosis Disorder of pigmentation, unspecified documented in this encounter Care Teams Airplane Pilot Commercial Relationship Specialty Start Date End Date Allyson Magaña MD PCP - General Internal Medicine 07/15/21 documented as of this encounter
--- OUTSIDE RECORDS SUMMARY | 2024-10-23 09:11 | XMS_ITS | Encounter Summary ---
Author Organization [facility] Address [address] [place] [address] Care Team Providers Care Fare Enforcement Officer Name Role Phone Tamiko Nielsen MD Primary Care Provider Unavail able Allyson Magaña MD Primary Care Provider Unavaila ble Reason for Visit * Reason Onset Date Comments TEST RESULTS 04/16/2019 Encounter Details Date Type Department Care Team Description 04/16/2019 Telephone Dermatology - [address] [address] Salima Cartagnea PA-C TEST RESULTS Social History Tobacco Use [...] on filedocumented in this encounter Care Teams Fare Enforcement Officer Relationship Specialty Start Date End Date Tamiko Nielsen MD PCP - General Internal Medicine 12/28/17 07/14/21 Allyson Magaña MD PCP - General Internal Medicine 07/15/21 documented as of this encounter
--- OUTSIDE RECORDS SUMMARY | 2024-10-23 09:11 | XMS_ITS | Patient Health Record ---
Author Organization [facility] Address [address] [place] [address] Care Team Providers Care Atomic Welder Name Role Phone Gómez MAYORGA, Allyson Primary Care Provider Americo Jimenez Jr Unavailable Allergies No Known Allergies Results Component Value Reference Range Notes Glucose, Whole Blood Reviewed date:07/19/2024 09:24:46 PM Interpretation: Performing Lab:[facility], [address] [place] [address] Notes/Report: Glucose, Whole Blood 161 60-115 mg/dL METER # : [id number] Reason For Referral No Information Medications Medication [...] Problem Status W/U Status Risk Notes Problem 448314145 Colon cancer screening (Z12.11) Active confirmed Problem 569068863 penitentiary (current) use of anticoagulants (Z79.01) Active confirmed Problem 877501583878028 regional intermodal truck driver (current) use of oral hypoglycemic drugs (Z79.84) Active confirmed Vital Signs Temperature 96.9 degrees Fahrenheit 05/01/2024 Blood pressure diastolic 00 mm Hg 05/01/2024 Height 5 ft 8.5 in in 05/01/2024 Blood pressure systolic 000 mm Hg 05/01/2024 Weight 188 lb 2 oz lbs 05/01/2024 BMI 28.19 kg/m2 05/01/2024 Encounters Encounter Location Date Provider Diagnosis [facility] [place] [address] [place] [phone] 07/19/2024 Americo David Jr Colon cancer screening Z12.11 and Personal history of colonic polyps Z86.[address] [place] [address] 05/01/2024 Americo David Jr Colon cancer screening Z12.11 ; penitentiary (current) use of anticoagulants Z79.01 and regional intermodal truck driver (current) use of oral hypoglycemic drugs Z79.[address] [place] [address] 07/15/2024 Americo David Jr Assessments Encounter Date [...] Farxiga 3 days before the procedure 05/01/2024 penitentiary (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 We discussed risks and benefits of the procedure today. She understands these and agrees to proceed. This will be scheduled at her convenience. She is advised to stop Eliquis and Farxiga 3 days before the procedure 05/01/2024 penitentiary (current) use of oral hypoglycemic [...] OF [place] [address] [place] [address] [id number] YOKO ERAZO Self - patient is the insured [facility] [address] [place] [address] [id number] YOKO ERAZO Self - patient is the insured Medical (General) History Medical History History ICD Code Atrial fibrillation Elevated blood sugar HENRIK/CPAP Vitamin D deficiency Hypertension Colonoscopy 2019, colon polyp, five-year followup Surgical History Surgery Date(Month/Year) Hospitalization History Reason Date(Month/Year) Atrial fibrillation with rapid ventricul ar response 09/07
--- OUTSIDE RECORDS SUMMARY | 2024-10-23 09:11 | XMS_ITS | Data Portability ---
Author Organization [facility] Address [address] [place] [address] Care Team Providers Care Sleeve Baster Name Role Phone CHIOMA LEWISANNA Primary Care Provider [phone] Assessment No assessment recorded. Plan of Treatment Reminders Order Date Submit Date Provider Last Modified By Organization Details Last Modified Time Details Appointments INJECTION ONLY 15 2024 12:15P M Denita Zuleta PA-C Not available Not available Not available Lab None recorded. Referral None recorded. Procedures None recorded. Surgeries None recorded. Imaging XR, knee, 4 or more view - 2 2023 024 [email or web address] [facility], [address], [facility] [address], [place], [address], 02/07/2024 12:56:59 Medication Orders None recorded. Patient [...] a4ajBk vP9nXo QUaueC m3YtLR FvZlgJ JJ8mAn HZtai3 1u2496 AC0Kra 3qGWaT eUC8mr 84%3D INTERFACE [facility] [address], [place], [address], 02/07/2024 08:49:53 02/07/2002/07/2024 XR, knee, 4 or more view http:/ [email or web address] 0:7083 ?Encry pted=s Yaya YD8dLq bEUv6g %2BXZw aYqtaq 0bqfl% 2Fg9IQ a4ajBk vP9nXo QUaueC m3YtLR FvZlgJ JJ8mAn HZtai3 3l4579 AC0Kra 3qGWaT eUC8mr 84%3D INTERFACE [facility] [address], [place], [address], 02/07/2024 08:49:55 Result Notes None recorded. Problems Name Problem SNOMED Code Status Onset Date Resolution Date Notes Provider Name and Address Organization Details Recorded Time No complaints 613361340 Active Status : 'I'; Not Available [facility] 4 09:11:46 Pain of joint of knee 0020620931 Active 2021 Status : 'A'; Not Available [facility] 4 11:12:58 Problem Notes None recorded. Procedures Surgical History Date Name Laterality Status Provider Name and Address Organization Details Recorded Time 5 Gel-One Knee Injection completed Denita Zuleta PA-C [address], [place], [address], [facility] 07/12/2024 08:29:29 4 Sports Knee 4&1 completed Andrea Lemon PA-C [address], [place], [address], [facility] 02/07/2024 09:30:16 Imaging Results Imaging Date Name Status LastModified by Organiz ation Details LastModified Time 02/07/2024 XR, knee, 4 or more view completed INTERFACE [facility] [address], [place], [address], 02/07/2024 08:49:53 02/07/2024 XR, knee, 4 or more view completed INTERFACE [facility] [address], [place], [address], 02/07/2024 08:49:55 Procedure Notes None recorded. Medical Equipment None Reported. Allergies Allergen ID Allergen Name Allergen Category Reaction Reaction Severity Criticality Documentation Date Start Date Code Code System Note Provider Name and Address Organization Details Recorded Time 908435 Compazine medicatio n Not available Not available Not available 07/12/2024 6 RxNorm [place] chaparrita [facility] 11:05:54 Medications Name Sig Start Date [...] Updated DateTime 02/07/2024 170.18 cm 29.4 kg/m2 27782.37 g IVORY [place] - [facility] 02/07/2024 08:33:47 Date Recorded Body height Body mass index (BMI) Body weight Provider Name and Address Organization Details Last Updated DateTime 07/12/2024 170.18 cm 29.4 kg/m2 33472.37 g kushla jerrybar [place] - [facility] 07/12/2024 11:05:02 Social History None recorded. Functional Status None recorded. Mental Status None recorded. Family History Nothing Reported. Medical History No medical history recorded. Gynecological HistoryNo gynecological history recorded. Obstetrics History GPAL:G 0 P 0 0 0 0 Past Encounters Encounter ID Performer Location Encounter Start Date Encounter Closed Date Diagnosis/Indication Diagnosis SNOMED-CT Code Diagnosis ICD10 Code Diagnosis Note [id number] Andrea Lemon PA-C [facility] [address] [place] [address] 02/07/2024 08:01:25 03/13/2024 13:17:48 Pain of right knee joint 8856668908 91384 M25.561 Pat[facility] oral syndrome of right knee 0946438192 184602 M22.2X1 [id number] Denita Zuleta PA-C [facility] [address] [place] [place] [address] 07/12/2024 10:32:09 07/23/2024 15:48:22 Osteoarthritis of right knee joint 0859171655 34369 M17.11 Health Concerns Section Related Observation LastModified by Organization Detai ls LastModified Time None Recorded Concern Status LastModified by Organization Details LastModified Time None Recorded Advance Directives Directive None Recorded Payers Encounter Date Sequence Insurance Name Policy Number Policy Quezada Covered Member ID Quezada Member ID Guarantor Name 02/07/2024 1 [place] [employer] Charladeana Easleye [id number] Charladeana Easleye 02/07/2024 2 [facility] - PLAN 1 (MEDICARE SUPPLEMENT) [id number] Charla Gellerointe [id number] Charla Easleye 07/12/2024 1 [place] NATIONAL [employer]OVERNMENT [employer] Charla Easleye [id number] Charla Gellerointe 07/12/2024 2 [facility] - PLAN 1 (MEDICARE SUPPLEMENT) [id number] 1 Charla Gellerointe [id number] Charla Gregorio Notes Date Note Type Note [...] intact. X-rays ordered, obtained and reviewed at [facility] 4 views right knee reveals preserved spacing [...] if no improvement. Andrea Lemon PA-C [address] [facility] [address], [place], [address], [facility] - [facility] 02/07/2024 09:30:30 07/12/2024 text/html [...] next 24-48 hours. Follow-up as symptoms dictate. [facility] speech recognition hand iii cutter software was used to create portions of this document. An attempt at proofreading has been made to minimize errors. Please call for corrections. Denita Zuleta PA-C [address] [place], [place] [address] [address], [place], [address], [facility] - [facility] 07/12/2024 12:46:39 OBGyn Episode No OBEpisode recorded.
--- OUTSIDE RECORDS SUMMARY | 2024-10-23 09:11 | XMS_ITS | Encounter Summary ---
Author Organization [facility] Address [address] [place] [address] Care Team Providers Care Superintendent Pressure Name Role Phone Tamiko Nielsen MD Primary Care Provider Unavail able Allyson Magaña MD Primary Care Provider Unavaila aniceto Encounter Details Date Type Department Care Team Description 11/28/2019 Telephone Adult [address] [address] Tamiko Nielsen MD Social History Tobacco Use [...] on filedocumented in this encounter Care Teams Superintendent Pressure Relationship Specialty Start Date End Date Tamiko Nielsen MD PCP - General Internal Medicine 12/28/17 07/14/21 Allyson Magaña MD PCP - General Internal Medicine 07/15/21 documented as of this encounter
--- OUTSIDE RECORDS SUMMARY | 2024-10-23 09:12 | XMS_ITS ---
Author Organization [facility] Address [address] [facility] [place] [address] Care Team Providers Care Security Administrator Name Role Phone Allyson Magaña MD Primary Care Provider Chandu Rincon Unavailable [phone] Allergies Allergen (clinical drug ingredient) Drug/Non Drug [...] 01/22/2024 Encounters Encounter Location Date Provider Diagnosis [facility] [place] [address] [place] [address] 01/22/2024 Chandu Chisholm Primary osteoarthritis, right ankle [...] pin-point bleeding margins with sterile surgical blade (73460), silver nitrate chemocautery applied, recomm. Wartstick 40 percent Salicylic acid application under occlusion as directed Progress Notes * Charla GREGORIO BDOB:1944 (78 yo F)Acc No.[id number]:01/22/2024 Progress Notes Patient:Charla Rodriguez Provider:?Chandu Chisholm DPM :1945???Age:78 Y???Sex:Female D ate:01/22/2024 Address:[address] [place], [place] [address] Pcp:Allyson Magaña MD Subjective: * Chief Complaints: [...] yes, 2. ?Marital status: . 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 * Medications:?TakingProbiotic Farxiga 10 MG Tablet 1 [...] pin-point bleeding margins with sterile surgical blade (91989), silver nitrate chemocautery applied, recomm. Wartstick 40 percent Salicylic acid application under occlusion as directed.? * Procedure Codes:?28459 Wart Destruction, 1-14, Modifiers: XS * Preventive [...] DPM Date:? 024 Generated for Giulianoi ng/Avelg/eTransmitting on:?10/23/2024 09:12 AM EDT History and Physical Notes * [...]
--- OUTSIDE RECORDS SUMMARY | 2024-10-23 09:12 | XMS_ITS | Encounter Summary ---
Author Organization [facility] Address [address] [place] [address] Care Team Providers Care Video Game Animator Name Role Phone Tamiko Nielsen MD Primary Care Provider Unavail able Allyson Magaña MD Primary Care Provider Ralf moreland Encounter Details Date Type Department Care Team Description 04/15/2019 Business Doc Medical Records [address] [place] [address] Abstract, Provider Social History Tobacco Use Types [...] on filedocumented in this encounter Care Teams Video Game Animator Relationship Specialty Start Date End Date Tamiko Nielsen MD PCP - General Internal Medicine 12/28/17 07/14/21 Allyson Magaña MD PCP - General Internal Medicine 07/15/21 documented as of this encounter
--- OUTSIDE RECORDS SUMMARY | 2024-10-23 09:12 | XMS_ITS ---
Author Organization [facility] Address [address] [place] [address] Care Team Providers Care [employer] Flatbed Truck Driver Name Role Phone Allyson Magaña MD Primary Care Provider Americo Jimenez Jr REASON FOR VISIT eliquis note? Encounters Encounter Location Date Provider Diagnosis [facility] [address] [place] [address] 07/15/2024 Americo David Jr Plan Of Treatment No Information Progress Notes * YOKO ERAZO BDOB:1944 (79 yo F)Acc No.[id number]:07/15/2024 Patient:?YOKO ERAZO :1945???Age:79 Y???Sex:Female Address: [place] [address] * true * Date:? Generated for Printi ng/Bailey/eTransmitting on:?10/23/2024 09:11 AM EDT
--- OUTSIDE RECORDS SUMMARY | 2024-10-23 09:12 | XMS_ITS ---
Author Organization [facility] Address [address] [place] [address] Care Team Providers Care Caul Fat Puller Name Role Phone Allyson Magaña MD Primary Care Provider Chandu Rincon [phone] REASON FOR VISIT cx appt Encounters Encounter Location Date Provider Diagnosis [facility] [address] [place] [address] 02/12/2024 Chandu Chisholm Plan Of Treatment No Information Progress Notes * Charla GREGORIO BDOB:1944 (78 yo F)Acc No.[id number]:02/12/2024 Patient:?Charla Gregorio :1945???Age:78 Y???Sex:Female Address:[address] [place], [address] * true * Date:? Generated for Printi ng/Bailey/eTransmitting on:?10/23/2024 09:11 AM EDT
== END 2024-10-23 10:20 | disposition home or self-care (01) ==
LOC: HO.HMCC 08:47
PROVIDERS: PCP Internal Medicine; Visit Provider Internal Medicine
DX: I48.19 Other persistent atrial fibrillation (principal); E03.9 Hypothyroidism, unspecified; E11.9 Type 2 diabetes mellitus without complications; Z23 Encounter for immunization

== ENCOUNTER → 2024-10-23 08:46 | Outpatient (BNVA) | payer MEDICARE, OTHER, SELFPAY | PROVIDERS: PCP Internal Medicine; Visit Provider Internal Medicine | DX: Z23 Encounter for immunization (principal); I48.19 Other persistent atrial fibrillation; E03.9 Hypothyroidism, unspecified; E11.9 Type 2 diabetes mellitus without complications | CPT/HCPCS: 90471; 90677; 96127; 99212 ==

== ENCOUNTER 2025-04-29 08:09 | Outpatient (REF) | payer MEDICARE, OTHER, SELFPAY ==
--- OUTSIDE RECORDS SUMMARY | 2024-02-12 03:00 | XMS_ITS ---
Author Organization [facility] Address [address] [place] [address] Care Team Providers Care Real Estate Underwriter Name Role Phone Allyson Magaña MD Primary Care Provider Unavaila Chandu Guillory Unavailable [phone] REASON FOR VISIT Wart(s) Medications Medication SIG [...] Active Encounters Encounter Location Date Provider Diagnosis [facility] [address] [place] [address] 02/12/2024 Chandu Salazar Primary osteoarthritis, right ankle [...] pin-point bleeding margins with sterile surgical blade ([id number]), silver nitrate chemocautery applied, recomm. Wartstick 40 percent Salicylic acid application under occlusion as directed Progress Notes * Charla GREGORIO BDOB:1944 (79 yo F)Acc No.[id number]:02/12/2024 Progress Notes Patient: Charla CALLEJAS Memo Provider: Jude Chisholm DPM :1945 A ge:78 Y S ex:Female Date:02/12/2024 Address:[address] [place] [address] [id number] Pcp:Allyson Magaña MD Subjective: * Chief Complaints: [...] enies. C ardiovascular: Pacemaker d enies. M CLOTH DRIER d enies. W PW d enies. C [...] pin-point bleeding margins with sterile surgical blade (52776), silver nitrate chemocautery applied, recomm. Wartstick 40 [...] 02/12/2024 Generated for Smita mejia/Bailey/Mikeitting on: 1 06/29/2024 08:12 AM EST History and Physical Notes * [...] REFLEX: absent TINEL'S COMPRESSION: Negative tarsal radha georgette, loree pedis, and medial calcaneal nerves B/L [...]
--- OUTSIDE RECORDS SUMMARY | 2024-07-19 02:30 | XMS_ITS ---
Author Organization [facility] Address [address] [place] [address] Care Team Providers Care Pyrotechnics Press Tender Name Role Phone Allyson Magaña MD Primary Care Provider UnavailAmerico Hollingsworth Jr REASON FOR VISIT screening Encounters Encounter Location Date Provider Diagnosis [facility] [address] [place], [place] [phone] 07/19/2024 Americo David Jr Colon cancer screening Z12.11 and Personal history of colonic polyps Z86.0100 Assessments Encounter Date Diagnosis (ICD Code) Assessment Notes Treatment Notes Treatment Clinical Notes Section Notes 07/19/2024 Colon cancer screening (ICD-10 - Z12.11) 07/19/2024 Personal history of colonic polyps (ICD-10 - Z86.0100) Plan Of Treatment No Information Progress Notes * YOKO ERAZO BDOB:1944 (79 yo F)Acc No.[id number]:07/19/2024 COLON WITH MAC Patient: YOKO CALLEJAS Provider: Memo David MD :1945 A ge:79 Y S ex:Female Date:07/19/2024 Address:[address] [place] [address] [facility] Pcp:Allyson Magaña MD Subjective: * Chief Complaints: * 1 . Screening. * Medical History: Objective: * Vitals: Assessment: * Assessment: 1. C olon cancer screening - Z12.11 (Primary) 2 . P ersonal history of colonic polyps - Z86.0100 Plan: * Treatment: * Procedure Codes: 4 5378 DIAGNOSTIC COLONOSCOPY, 0529F INTRVL 3+YRS PTS CLNSCP DOCD, 0528F RCMND FLW-UP 10 YRS DOCD * * The named appointment provid er may or may not be the originator of this progress note, and it is not deemed complete until electronically signed by the appointment provider. Sign off status: Pending * Provider: Memo David MD Date: 0 07/19/2024 Generated for Smita mejia/Bailey/Mikeitting on: 06/29/2024 08:12 AM EST
--- OUTSIDE RECORDS SUMMARY | 2025-04-29 08:13 | XMS_ITS | Encounter Summary ---
Author Organization [facility] Address [address] [place] [address] Care Team Providers Care Family And Consumer Sciences Teacher Name Role Phone Allyson Magaña MD Primary Care Provider [phone] Encounter Details Date Type Department Care Team (Late st Contact Info) Description 07/23/2024 Lab Requisition [facility] Lab [address] [address] Cora Parr III, MD [address] [place] [address] [place] [id number] Disorder of pigmentation, unspecified Social History Tobacco [...] peripheral margins negative 07/24/2024 11:14 AM EST [facility] HOSPITAL LAB Clinical Information Atypical skin lesion left arm Suture short superior long lateral L81.9 07/24/2024 11:14 AM [facility] Gross Description A. Arm, [...] green. The specimen is sectioned cruciate manner. Legal Services Manager sections, to include the entirety of the lesion, are submitted in four cassettes as follows: 1, cruciate medial and lateral tips (medial tip inked green), two pieces 2-4, sequential cross-sections to include the entirety of the lesion, two pieces each LINUS 07/24/2024 11:14 AM [facility] LAB Disclaimer Unless otherwise specified, all tissue is 10% NB formalin fixed and paraffin embedded. 07/24/2024 11:14 AM [facility] Tissue Structure of left upper limb / Unknown 07/23/2024 07/23/2024 3:25 PM EST us Cora Parr III, MD LAB PATHOLOGY ORDERABLES Fi nal Result [facility] [address] [place] [address], documented in this encounter Visit Diagnoses Diagnosis Disorder of pigmentation, unspecified documented in this encounter Care Teams Family And Consumer Sciences Teacher Relationship Specialty Start Date End Date Allyson Magaña MD PCP - General Internal Medicine 07/15/21 documented as of this encounter
--- OUTSIDE RECORDS SUMMARY | 2025-04-29 08:13 | XMS_ITS | Patient Health Record ---
Author Organization [facility] Address [address] [facility] [place] [address] Care Team Providers Care Mat Sewer Name Role Phone Allyson Magaña MD Primary Care Provider UnavailChandu Keenan Unavailable [phone] Allergies Allergen (clinical drug ingredient) Drug/Non Drug Allergy documented on EMR Reaction Allergy Type Onset Date Status Compazine facial paralysis Drug Allergy Active Reason For Referral No Information Medications Medication SIG (Take, Route, Frequency, Duration) Notes Start Date End Date Status metFORMIN HCl 500 MG/5ML 5 ml with a rosalina l Orally Once a day; Duration: 30 day(s) Not-Taking amLODIPine Besylate 5 MG 1 tablet Orally Once a day; Duration: 30 day(s) Not-Taking Vitamin D 50 MCG (1999 UT) as directed O rally twice a day; [...] primary osteoarthritis of the ankle and/or foot (660221862) Primary osteoarthrit is, right ankle and foot (M19.071) Active confirmed Problem Localized, primary osteoarthritis of the ankle and/or foot (629902826) Primary osteoarthrit is, left ankle and foot (M19.072) Active confirmed Problem Acquired hammer toe of right foot (5000775344601199) Other hammer toe(s) (acquired), right foot (M20.41) Active confirmed Problem Acquired hammer toe of left foot (2686692102934882) Other hammer toe(s) (acquired), left foot (M20.42) Active confirmed Plan Of Treatment Pending Test Test Name [...] [employer] [address] [place] [address] [id number] Charla Gregorio Self - patient is the insured [facility] [address] [place] [address] [id number] Charla Gregorio Self - patient is the insured Medical (General) History Medical History History ICD Code Broken bones High blood pressure Thyroid disorder Eczema Arthritis Back,Hip,and Knee pain A fib Sleep apnea Measles Mumps Chicken pox Bone implants/screws Cpap Surgical History Surgery Date(Month/Year) 1978 & 1982 tonsillectomy 1965 bunionectomy x2 1994 hammer toe 1994 rotator cuff tear repair 2002
--- OUTSIDE RECORDS SUMMARY | 2025-04-29 08:13 | XMS_ITS | Clinical Summary ---
Author Organization [facility] Address [address] [place] [address] Phone Care Team Providers Care Greaser Helper Name Role Phone Allyson Magaña MD Primary Care Provider [phone] Surgical History Surgery Date Site/Laterality Comments SECTION [...] Health Maintenance Due Date Last Done Comments Colorectal Cancer Screening: Colonoscopy 1945 DTaP,Tdap,and Td Vaccines (1 - Tdap) 1966 Pneumococcal Vaccine: 50+ Years (2 of 2 - PCV) 11/23/2019 11/22/2018, 05/30/2012 RSV Immunization Adult Patients (1 - 1-dose 75+ series) 2022 Cholesterol Screening (Lipid Panel) 05/28/2022 Falls Risk Assessment 05/28/2022 Hepatitis C Screening 05/28/2022 Medicare Annual Wellness Visit 05/28/2022 Social Influencers of Health Screening 05/28/2022 Hypertension/CHF/CAD Annual BMP Blood Test 06/01/2022 Depression Screening 06/19/2024 COVID-19 Vaccine (3 - 2024-2 6 season) 2025 09/08/2020, 08/11/2020 Influenza Vaccine (#1) 2025 2, 02/19/2021 Osteoporosis Screening (Bone Density Screening) [...] Narrative 05/28/2020 6:44 PM EST BONE DENSITY Lumbar Spine T-score is -0.6 (SD relative to 20-29 y/o adult) Z-score is +1.7 (SD relative to age matched peers) This is normal by criteria defined by the WHO. Left Hip T-score is -0.7 Z-score is +1.3 This is normal by criteria defined by the WHO. Comparison exam(s): significant decrease in bone density of lumbar spine when compared to most recent bone density examination Confidence level is +/-95%. Impression: Based on the World Health Organization criteria, Charla Gregorio should be classified as having normal bone density. The [facility] Department of Internal Medicine recommends using [...] as having normal bone density. The [facility] Department of Internal Medicine recommendsusing National [...] fracture risk by FRAX. Tamiko Nielsen MD [facility] [place] DXA PROCEDURES Final Res ult from Last 3 Months or Most Recently Relevant to Health Maintenance Insurance MEDICARE [facility] Care Teams Greaser Helper Relationship Specialty Start Date End Date Allyson Magaña MD PCP - General Internal Medicine 07/15/21
--- OUTSIDE RECORDS SUMMARY | 2025-04-29 08:13 | XMS_ITS | Data Portability ---
Author Organization [place] [facility] Address [address] [place] [address] Care Team Providers Care Foreign Language Instructor Name Role Phone DEBBIERADHA Primary Care Provider [phone] Assessment No assessment recorded. Plan of Treatment Reminders Order Date Submit Date Provider Last Modified By Organization Details Last Modified Time Details Appointments None record ed. Lab None record ed. Referral None record ed. Procedures None record ed. Surgeries None record ed. Imaging XR, knee, 4 or more view - 2 024 02/07/20 24 [email or web address] [facility], [address], [address], [place], [address], 12:56:59 Medication Orders None record ed. Patient [...] a4ajBk vP9nXo QUaueC m3YtLR FvZlgJ JJ8mAn HZtai3 4k7141 AC0Kra 3qGWaT eUC8mr 84%3D INTERFACE [facility] [address], [place], [address], 02/07/2024 08:49:53 02/07/20 24 02/07/2024 XR, knee, 4 or more view http:/ [email or web address] ?Encry pted=s hACarolyno YD8dLq bEUv6g %2BXZw aYqtaq 0bqfl% 2Fg9IQ a4ajBk vP9nXo QUaueC m3YtLR FvZlgJ JJ8mAn HZtai3 1o3826 AC0Kra 3qGWaT eUC8mr 84%3D INTERFACE [facility] [address] [facility] [address], [place], [address], 02/07/2024 08:49:55 Result Notes Documentation Provider Name and Address Organization Details Recorded Time Xr, Knee, 4 Or More View : [email or web address]? Encrypted=pkJeJcwKO4pMxrW Uv6g%6KIUwyLsxrb3zmxp%2Fg 2KMs4aqPobP0gAoRNssoOq1Sn PPOkBndEIA7jQhXEgsm34y020 0XH2Yai0tWUkWdPA3ki43%3D Not Available [facility] 02/07/2024 08:4 9:54 Xr, Knee, 4 Or More View : [email or web address]? Encrypted=ztQeXvnAV7kNveP Uv6g%3TSNxcPeunc0gqrg%2Fg 3YLz5gmOsxZ7bCgSGyfwIp9Ba FKVjItyUHM4vOkLYeof44u668 0LZ8Tks5nUKgVkXA7bz84%3D Not Available [facility] 02/07/2024 08:4 9:56 Problems Name Problem SNOMED Code Status Onset Date Resolution Date Notes Provider Name and Address Organization Details Recorded Time No complaints 608777018 Active Status : 'I'; Not Available [facility] 4 09:11:46 Pain of joint of knee 4270659878 Active 2021 Status : 'A'; Not Available [facility] 4 11:12:58 Osteoarthr itis of right knee joint 0931939339219 00 Active 2024 Denita Zuleta PA-C [address], [place], [address] , [facility] 12:50:17 Problem Notes None recorded. Procedures Surgical History Date Name Laterality Status Provider Name and Address Organization Details Recorded Time 5 Gel-One Knee Injection completed Denita Zuleta PA-C [address], [place], [address], [facility] 01/14/2025 12:50:18 5 Gel-One Knee Injection completed Denita Zuleta PA-C [address], [place], [address], [facility] 07/12/2024 08:29:29 4 Sports Knee 4&1 completed Andrea Lemon PA-C [address], [place], [address], [facility] 02/07/2024 09:30:16 Imaging Results None recorded. Procedure Notes None recorded. Medical Equipment None Reported. Allergies Allergen ID Allergen Name Allergen Category Reaction Reaction Severity Criticality Documentation Date Start Date Code Code System Note Provider Name and Address Organization Details Recorded Time 913680 Compazine medicatio n Not available Not available Not available 07/12/202499060 6 [facility] 11:05:54 Medications Name Sig Start Date Stop Date Status Note LastModified by Organization Details LastModified Time methocarbam ol 500 mg tablet TAKE 1 TABLET BY MOUTH ONCE DAILY FOR 10 DAYS 01/14 completed Not Available Not Available Not Available metoprolol tartrate 100 mg tablet TAKE 1 [...] Not Available Not Available No t Available metformin ER 750 mg tablet,exte nded release 24 hr TAKE 1 TABLET BY MOUTH ONCE DAILY [...] Updated DateTime 07/12/2024 170.18 cm 29.4 kg/m2 61580.37 g kushal cheatham [facility] 07/12/2024 11:05:02 Date Recorded Body height Body mass index (BMI) Body weight Provider Name and Address Organization Details Last Updated DateTime 01/14/2025 170.18 cm 29.4 kg/m2 72856.37 g Naveen Terrell [facility] 01/14/2025 12:17:41 Date Recorded Body height Body mass index (BMI) Body weight Provider Name and Address Organization Details Last Updated DateTime 02/07/2024 170.18 cm 29.4 kg/m2 87882.37 g IVORY HUDDLESTON [facility] 02/07/2024 08:33:47 Social History None recorded. Functional Status None recorded. Mental Status None recorded. Family History Nothing Reported. Medical History No medical history recorded. Gynecological HistoryNo gynecological history recorded. Obstetrics History GPAL:G 0 P 0 0 0 0 Past Encounters Encounter ID Performer Location Encounter Start Date Encounter Closed Date Diagnosis/Indication Diagnosis SNOMED-CT Code Diagnosis ICD10 Code Diagnosis IMO Codes Diagnosis Note [id number] CELE[facility] Valente [address] [place] [address] 02/07/2024 08:01:25 03/13/2024 13:17:48 Pain of right knee joint 3333713393 87644 M25.561 Patellofem oral syndrome of right knee 2649381986 796824 M22.2X1 [id number] Denita Zuleta PA-C [facility] [address] [place] [address] 07/12/2024 10:32:09 07/23/2024 15:48:22 Osteoarthritis of right knee joint 4752053740 52250 M17.11 6214815 [id number] CELESTE [facility] [address] [place] [address] 01/14/2025 11:55:47 01/20/2025 11:02:57 Osteoarthritis of right knee joint 3777371156 07737 M17.11 4135213 Health Concerns Section Related Observation LastModified by Organization Detai ls LastModified Time None Recorded Concern Status LastModified by Organization Details LastModified Time None Recorded Advance Directives Directive None Recorded Payers Insurance Date Sequence Insurance Name Policy Number Policy Quezada Covered Member ID Quezada Member ID Guarantor Name 01/11/2025 [employer] - SPECIALITY CLAIMS (MEDICARE DME REGION A) Charla Gregorio [id number] Charla Gregorio 01/14/2025 1 [place]ARE B-[place]: [facility] Charla Gregorio [id number] Charla Gregorio 01/20/2025 2 [employer] [facility] - PLAN 1 (MEDICARE SUPPLEMENT) [id number] Charla Gregorio [id number] Charla Gregorio Notes Date Note Type Note [...] reviewed, updated and is located in the patient s chart. Examination: Right knee- A+O x3 non antalgic gaitNo effusion, warmth, or erythemaROM 0-130 degress+ retropatella crepitanceNo joint line TTPNo collateral ligmant instability with varus or valgus stressCalf soft - TTPCompartments soft - TTPDF/PF intactN/V intact Left knee reveals no soft tissue swelling , erythema or ecchymosis. Range of motion is full. Neurovascular intact. X-rays ordered, obtained and reviewed at [facility] 4 views right knee reveals preserved [...] if no improvement. Andrea Lemon PA-C [address] [facility] [address], [place], [address], [facility] 02/07/2024 09:30:30 07/12/2024 text/html [...] reviewed, updated, and is located in the patient s chart. Examination: Examination of the right knee reveals no effusion, erythema, or warmth. Injection site benign. Decreased range of motion. Point tender medial joint line. Calf is soft and nontender. [...] next 24-48 hours. Follow-up as symptoms dictate. i4.ms speech recognition straight tooth gear generator operator software was used to create portions of this document. An attempt at proofreading has been made to minimize errors. Please call for corrections. Denita Zuleta PA-C [address] [place] [address], [address], [facility] 07/12/2024 12:46:39 01/14/2025 text/html I am seeing the patient today under the supervision of Dr. Taveras who was available but who did not see the patient. HPI: Patient presenting today with known osteoarthritis of the right knee. Not happy with pain level and function of the knees. Is authorized for Gel One injection today. No new injury. Cortisone injections only provide her with temporary relief. She has an elastic knee sleeve which she wears for support. Past family, medical, social history and review of systems has been reviewed, updated, and is located in the patient s chart. Examination: Examination of the right knee reveals no effusion, erythema, or warmth. Injection site benign. Decreased range of motion. Point tender medial joint line. Calf is soft and nontender. [...] next 24-48 hours. Follow-up as symptoms dictate. i4.ms speech recognition straight tooth gear generator operator software was used to create portions of this document. An attempt at proofreading has been made to minimize errors. Please call for corrections. Denita Zuleta PA-C [address], [place], [address], [facility] 01/14/2025 12:50:58 OBGyn Episode No OBEpisode recorded.
--- OUTSIDE RECORDS SUMMARY | 2025-04-29 08:13 | XMS_ITS | Patient Health Record ---
Author Organization [facility] Address [address] [place] [address] Care Team Providers Care Product Distribution Specialist Name Role Phone Allyson Magaña MD Primary Care Provider Americo Jimenez Jr Unavailable Allergies No Known Allergies Results Component Value Reference Range Notes Glucose, Whole Blood Reviewed date:07/19/2024 09:24:46 PM Interpretation: Performing Lab:[facility], [address] [place] [address] Notes/Report: Glucose, Whole Blood 161 60-115 mg/dL METER # : [id number] Reason For Referral No Information Medications Medication SIG (Take, Route, Frequency, Duration) Notes Start Date End Date Status Vitamin D (Ergocalciferol) 50 MCG (1999 UT) 1 capsule Orally Once a day; Duration: 30 day(s) Active Levothyroxine Sodium 75 MCG Oral; Duration: 90 Active Eliquis 5 MG Oral; Duration: 90 Active Farxiga 10 MG Oral; Duration: 90 Active Metoprolol Tartrate 100 MG TAKE 1 TABLET BY MOUTH TWICE DAILY Oral; Duration: 90 Active Digoxin 125 MCG TAKE 1 TABLET BY NICOLÁS TH ONCE DAILY Oral; Duration: 90 Active Probiotic - as directed Orally [...] Problem Status W/U Status Risk Notes Problem Colon cancer screening (545103638) Colon cancer screening (Z12.11) Active confirmed Problem Long-term current use of anticoagulant (996511902) 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 (Z79.01) Active confirmed Problem Long-term current use of drug therapy (784385884) [facility] (current) use of oral hypoglycemic drugs (Z79.84) Active confirmed Vital Signs Temperature 96.9 degrees Fahrenheit 05/01/2024 Blood pressure diastolic 00 mm Hg 05/01/2024 Height 5 ft 8.5 in in 05/01/2024 Blood pressure systolic 000 mm Hg 05/01/2024 Weight 188 lb 2 oz lbs 05/01/2024 BMI 28.19 kg/m2 05/01/2024 Encounters Encounter Location Date Provider Diagnosis [facility] Outpatient [address] [place] [id number] 07/19/2024 Americo David Jr Colon cancer screening Z12.11 and Personal history of colonic polyps Z86.[address] [address] 05/01/2024 Americo David Jr Colon cancer screening Z12.11 ; 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 We discussed risks and benefits of the procedure today. She understands these and agrees to proceed. This will be scheduled at her convenience. She is advised to stop Eliquis and Farxiga 3 days before the procedure 05/01/2024 terminal superintendent (current) use of oral hypoglycemic drugs (ICD-10 [...] Date MEDICARE OF [place] [address] [facility] [address] [id number] YOKO ERAZO Self - patient is the insured [facility] [address] [place] [address] [id number] YOKO ERAZO Self - patient is the insured Medical (General) History Medical History History ICD Code Atrial fibrillation Elevated blood sugar HENRIK/CPAP Vitamin D deficiency Hypertension Colonoscopy 2019, colon polyp, five-year followup Surgical History Surgery Date(Month/Year) Hospitalization History Reason Date(Month/Year) Atrial fibrillation with rapid ventricul ar response 09/07
[2025-04-29 11:01] LABS: Alanine Aminotransferase 45 U/L (0-31); Albumin Level 4.4 g/dL (3.5-5.0); Alkaline Phosphatase 57 U/L (39-117); Anion Gap 13 (12-20); Aspartate Amino Transferase 49 U/L (5-31); Blood Urea Nitrogen 16 mg/dL (9-16); Calcium 9.7 mg/dL (8.4-10.2); Carbon Dioxide 28 mmol/L (22-29); Chloride 101 mmol/L (96-108); Cholesterol 188 mg/dL (<200); Estimated Glomerular Filt Rate > 60; HDL Cholesterol 44 mg/dL (>40); Potassium 4.3 mmol/L (3.3-5.1); Sodium 138 mmol/L (135-145); Total Protein 7.3 g/dL (6.5-8.0); Triglycerides 181 mg/dL (<150)
== END 2025-04-29 08:10 | disposition home or self-care (01) ==
LOC: HO.HMGCLDS 08:09
PROVIDERS: PCP Internal Medicine; Visit Provider Internal Medicine
DX: I48.19 Other persistent atrial fibrillation (principal); E11.9 Type 2 diabetes mellitus without complications; E03.9 Hypothyroidism, unspecified
CPT/HCPCS: 36415; 80053; 80061; 83036; 84443

== ENCOUNTER 2025-05-01 08:21 | Outpatient (AMB) | payer MEDICARE, OTHER, SELFPAY ==
--- OUTSIDE RECORDS SUMMARY | 2024-02-12 03:00 | XMS_ITS ---
Author Organization [facility] Address [address] [place] [address] Care Team Providers Care Other Sales Support Worker Name Role Phone Allyson Magaña MD Primary Care Provider Unavaila Chandu Guillory Unavailable [phone] REASON FOR VISIT Wart(s) Medications Medication SIG (Take, Route, Frequency, Duration) Notes Start Date End Date Status metFORMIN HCl 500 MG/5ML 5 ml with a rosalina l Orally Once a day; Duration: 30 day(s) Not-Taking amLODIPine Besylate 5 MG 1 tablet Orally Once a day; Duration: 30 day(s) Not-Taking Vitamin D 50 MCG (1999) as directed O rally twice a day; Duration: 30 days Active Levothyroxine Sodium 75 MCG 1 tablet in the morning on an empty stomach Orally Once a day; Duration: 30 day(s) Active Metoprolol Succinate 100 MG 1 capsule Orally twice a day Active eliquis 5 mg as directed orally twice a day Active Digoxin 125 MCG 1 tablet Orally Active Farxiga 10 MG 1 tablet Orally Once a day Active Probiotic Active Encounters Encounter Location Date Provider Diagnosis [facility] [address] [place] [address] 02/12/2024 Chandu Salazar Primary osteoarthritis, right ankle and foot M19.071 ; Primary osteoarthritis, left ankle and 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 ; Other hammer toe(s) (acquired), left foot M20.42 ; Other hammer toe(s) (acquired), right foot M20.41 ; Pain in left foot M79.672 ; Pain in right foot M79.671 ; Other viral warts B07.8 ; Plantar fascial 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 and Tinea unguium B35.1 Assessments Encounter Date Diagnosis (ICD Code) Assessment Notes Treatment Notes Treatment Clinical Notes Section Notes 02/12/2024 Primary osteoarthritis, right ankle and foot (ICD-10 - M19.071) 02/12/2024 Primary osteoarthritis, left ankle and foot (ICD-10 - M19.072) 02/12/2024 Other hammer toe(s) (acquired), left foot (ICD-10 - M20.42) 02/12/2024 Other hammer toe(s) (acquired), right foot (ICD-10 - M20.41) 02/12/2024 Pain in left foot (ICD-10 - M79.672) 02/12/2024 Pain in right foot (ICD-10 - M79.671) 02/12/2024 Other viral warts (ICD-10 - B07.8) 02/12/2024 Plantar fascial fibromatosis (ICD-10 - M72.2) 02/12/2024 Tinea unguium (ICD-10 - B35.1) Plan Of Treatment Next Appt Details Follow Up: 3 Weeks, Reason: Procedure Notes * Category Sub-Category Detail Notes Wart Treatment Procedure Verrucae(s) were debrided to pin-point bleeding margins with sterile surgical blade (28880), silver nitrate chemocautery applied, recomm. Wartstick 40 percent Salicylic acid application under occlusion as directed Progress Notes * Charla GREGORIO BDOB:1944 (79 yo F)Acc No.[id number]:02/12/2024 Progress Notes Patient: Charla CALLEJAS Memo Provider: Jude Chisholm DPM :1945 A ge:78 Y S ex:Female Date:02/12/2024 Address:[address] [place] [address] [id number] Pcp:Allyson Magaña MD Subjective: * Chief Complaints: * 1 . Wart(s). * HPI: W art: Pt States Last PCP Visit: D ate: 0 12/27/2023 F oot Pain: Nature: l ack of toe purchase left and development of bump bottom right midfoot. Location B ottom, Midfoot, Right and damaso toes. Duration: s everal years. Onset/Cause: u nknown. Aggrevated: 3 sx's left foot with Dr. Sprague. Treatments: c hange in shoes. S kin problems: Nature: d iscolored. Location: B /L , Forefoot. Duration: s everal years. Course: jude crowder. * ROS: G eneral/Constitutional: Nausea d enies. V omiting d enies. H migdalia Thirst d enies. L oss appetite d enies. C hills d enies. F atigue d enies.?Fever d enies. N ight Sweats d enies. U nexplained weight loss d enies. U nexplained weight gain d enies. H EENTM: Dentures d enies. D izziness d enies. G lasses/contacts d enies. R etinopathy d enies. B lurred/double vision d enies. T MJ?denies. D ischarge/drainage d enies. I mplants d enies. S ore throat d enies. D ental implants d enies. H bill of hearing d enies. D ifficulty chewing/swallowing/speaking d enies. N ose bleeds d enies. S ore mouth d enies. ? R espiratory: On Oxygen d enies. P neumonia/pleurisy d enies.?Bronchitis d enies. E mphysema d enies. C oughing d enies. C ough blood?denies. S hortness of breath d enies. W heezing d enies. C ardiovascular: Pacemaker d enies. M DIRECTOR OF HEALTH EDUCATION d enies. W PW d enies. C HF d enies. H eart attack d enies. S eptal defect d enies. R apid beat d enies. C hest pain d enies. A trial Fib. d enies. M urmur/Palpitations d enies. G astrointestinal: Hemorrhoids d enies. S tomach/Abdominal pain d enies. D ark blood stool d enies. I rritable bowel d enies. C onstipation d enies. D iarrhea d enies. H ematology: Swelling d enies. C lots d enies. V aricose Veins d enies. B ruising d enies. B leeding problem d enies. G enitourinary: Blood urine d enies. F requent/Painfu/urination/bladder control d enies. K idney stones d enies. I nfection (UTI) d enies. N ephropathy d enies. s ex trans dis (STD) d enies. P rostate d enies. M usculoskeletal: Hammertoes d enies. B unions d enies. B ack Pain d enies. M uscle Cramps/ Resting d enies. M uscle cramps / walking d enies.?Generalized aches and pains d enies. W eakness d enies. I nteg.: Bishop d enies. S cars d enies. C orns/calluses?denies. I ngrown nails d enies. P ainful nails d enies. O pen Sores d enies. R ashes d enies. N eurologic: Difficulty sleeping d enies. B rain disorder d enies. N umbness d enies. B alance trouble d enies. C onfusion d enies. F ainting/blackouts d enies. T ingling d enies. T remors d enies. * Medical History: * Medications: T toddg Probiotic , Taking Farxiga 10 MG Tablet 1 tablet Orally Once a day , Taking Digoxin 125 MCG Tablet 1 tablet Orally , Taking eliquis 5 mg Tablet as directed orally twice a day , Taking Metoprolol Succinate 100 MG Capsule ER 24 Hour Sprinkle 1 capsule Orally twice a day , Taking Levothyroxine Sodium 75 MCG Tablet 1 tablet in the morning on an empty stomach Orally Once a day , Taking Vitamin D 50 MCG (2000 UT) Tablet as directed Orally twice a day , Not-Taking/PRN amLODIPine Besylate 5 MG Tablet 1 tablet Orally Once a day , Not-Taking/PRN metFORMIN HCl 500 MG/5ML Solution 5 ml with a meal Orally Once a day Objective: * Vitals: * Examination: G eneral Examination: GENERAL APPEARANCE: p leasant, alert, well nourished, well developed, well hydrated, with good attention to hygene/body habitus, and in no acute distress. ORIENTED: p erson,place, and time. N eurological: SENSORY: N eurological exam demonstrates, reduced vibration sensation, B/L, at Forefoot. TINEL'S COMPRESSION: N egative tarsal tunnel, loree pedis, and medial calcaneal nerves B/L. BABINSKI REFLEX: a bsent. N euroma Pain: PALPATION: N o interspace pain noted on palpation. ? V ascular: DP PULSES (B): 2 /4, B/L. PT PULSES (B): 2 /4, B/L. CAPILLARY FILL TIME: 3 secs. per digit, B/L. TROPHIC CONDITION-TEXTURE/ELASTICITY/TURGOR/HAIR GROWTH (B):?normal, B/L. TEMPERTURE GRADIENT (C): w arm to cool, proximal to distal, B/L. PIGMENTATION: n ormal, B/L. EDEMA (C): n o edema. TELANGECTASIA: a bsent. VARICOSITIES: a bsent. D ermatologic: SKIN FINDINGS: Skin exam reveals Keratotic lesion(s) located at, Plantar, Midfoot, SUB 5th MTBase, Right , SUB MTH (s), 1, Left , Skin shows sign(s) of fibroma plantar right midfoot is 8mm in diameter with no pop. VERRUCA: R eveals a Single , multi-loculated , mosaic-patterned, round, raised, flat- topped, petechial bleeding papule(s), with cauliflower appearance and interruption of skin lines, pain to lateral compression, and size estimated at __4_ mm diameter, plantar Midfoot, RIGHT. O rthopedic: MUSCLE STRENGTH: 5 /5 all groups in a symmetrical fashion , B/L. GAIT ABNORMALITY: p ronated, abducted, B/L. DIGITAL DEFORMITIES: rigid ht t2, t6; lack of toe purchase left 1,2,3. N ails: NAILS are: Elongated, overgrown, dystrophic, lytic, greater than 3mm thick, discolored and friable with crumbly malodorous subungual debris, TA, T5, T1, T4.? Assessment: * Assessment: 1. P rimary osteoarthritis, right ankle and foot - M19.071 2 . P rimary osteoarthritis, left ankle and foot - M19.072 (Primary) 3 . O ther hammer toe(s) (acquired), left foot - M20.42 4 . O ther hammer toe(s) (acquired), right foot - M20.41 5 . P ain in left foot - M79.672 6 . P ain in right foot - M79.671 7 . O ther viral warts - B07.8 8 . P lantar fascial fibromatosis - M72.2 9 . T inea unguium - B35.1 Plan: * Treatment: * Procedures: W art Treatment: Procedure V errucae(s) were debrided to pin-point bleeding margins with sterile surgical blade (64915), silver nitrate chemocautery applied, recomm. Wartstick 40 percent Salicylic acid application under occlusion as directed. * Procedure Codes: 1 7110 Wart Destruction, 1-14, Modifiers: XS * Follow Up: 3 Weeks * Images: * The named appointment provid er may or may not be the originator of this progress note, and it is not deemed complete until electronically signed by the appointment provider. Sign off status: Pending * Provider: Jude Chisholm DPM Date: 0 02/12/2024 Generated for Smita mejia/Bailey/Mikeitting on: 1 07/01/2024 08:39 AM EST History and Physical Notes * HPI (History of Present Illness) Category Sub-Category Detail Notes Category Not es Wart Pt States Last PCP Visit: Date:: 12/27/2023 Skin problems Nature: discolored Location: B/L , Forefoot Duration: several years Course: worse Foot Pain Aggrevated: 3 sx's left foot with Dr. Giacomo cintron Onset/Cause: unknown Duration: several years Nature: lack of toe purchase left and development of bump bottom right midfoot Treatments: change in shoes Location Bottom, Midfoot, Rig ht and damaso toes Examination Category Sub-Category Detail Notes Category Not es Neuroma Pain PALPATION: No interspace pain noted on palpation Neurological SENSORY: Neurological exa m demonstrates, reduced vibration sensation, B/L, at Forefoot BABINSKI REFLEX: absent TINEL'S COMPRESSION: Negative tarsal radha gerogette, loree pedis, and medial calcaneal nerves B/L Dermatologic SKIN FINDINGS: Skin exam reveal s Keratotic lesion(s) located at, Plantar, Midfoot, SUB 5th MTBase, Right , SUB MTH (s), 1, Left , Skin shows sign(s) of fibroma plantar right midfoot is 8mm in diameter with no pop VERRUCA: Reveals a Single , m ulti-loculated , mosaic-patterned, round, raised, flat-topped, petechial bleeding papule(s), with cauliflower appearance and interruption of skin lines, pain to lateral compression, and size estimated at __4_ mm diameter, plantar Midfoot, RIGHT Orthopedic GAIT ABNORMALITY: pronated, abducted, B/L DIGITAL DEFORMITIES: rigid ht t2, t6; la ck of toe purchase left 1,2,3 MUSCLE STRENGTH: 5/5 all groups in a symmetrical fashion , B/L General Examination GENERAL APPEARANCE: pleasant , alert, well nourished, well developed, well hydrated, with good attention to hygene/body habitus, and in no acute distress ORIENTED: person,place, and ti me Vascular DP PULSES (B): 2/4, B/L PT PULSES (B): 2/4, B/L CAPILLARY FILL TIME: 3 secs. per digit, B/L TEMPERTURE GRADIENT (C): warm to cool, p roximal to distal, B/L TROPHIC CONDITION-TEXTURE/ELASTICITY/TURGOR/HAIR GROWTH (B): normal, B/L EDEMA (C): no edema TELANGECTASIA: absent VARICOSITIES: absent PIGMENTATION: normal, B/L Nails NAILS are: Elongated, overg rown, dystrophic, lytic, greater than 3mm thick, discolored and friable with crumbly malodorous subungual debris, TA, T5, T1, T4
--- OUTSIDE RECORDS SUMMARY | 2024-07-19 02:30 | XMS_ITS ---
Author Organization [facility] Address [address] [place] [phone] Care Team Providers Care Manager Talent Name Role Phone Allyson Magaña MD Primary Care Provider UnavailAmerico Hollingsworth Jr [phone] REASON FOR VISIT screening Encounters Encounter Location Date Provider Diagnosis [facility] [place] [facility] [address] [place], [place] [id number] 07/19/2024 Americo David Jr Colon cancer screening Z12.11 and Personal history of colonic polyps Z86.0100 Assessments Encounter Date Diagnosis (ICD Code) Assessment Notes Treatment Notes Treatment Clinical Notes Section Notes 07/19/2024 Colon cancer screening (ICD-10 - Z12.11) 07/19/2024 Personal history of colonic polyps (ICD-10 - Z86.0100) Plan Of Treatment No Information Progress Notes * YOKO ERAZO BDOB:1944 (79 yo F)Acc No.[id number]:07/19/2024 COLON WITH MAC Patient: YOKO CALLEJAS Provider: Memo David MD :1945 A ge:79 Y S ex:Female Date:07/19/2024 Address:[address] [place] [address] [id number] Pcp:Allyson Magaña MD Subjective: * Chief Complaints: [...] 0 07/19/2024 Generated for Smita mejia/Bailey/Mikeitting on: 07/01/2024 08:40 AM EST
[2025-05-01 08:25] VITALS: BP 110/74; PULSE 95; RESP 16; TEMP 36.6; O2SAT 97; BMI 27.1
--- NOTE | 2025-05-01 08:25 | MHC.PC.OV ---
Vital Signs 05/01/25 08:25 Height 5 ft 8.5 in Weight 181 lb BMI 27.1 BP 110/74 Blood Pressure Location Lt brachial Position Sitting Respiration 16 Pulse 95 Pulse Source Pulse Oximeter Temp 97.8 F Temp Source Oral Pulse Oximetry (%) 97 Oxygen Delivery Method Room Air Intake Visit Reasons: Annual/OK for annual Intake Note: Pt is here today for PE. Allergies prochlorperazine (From Compazine) Allergy (Intermediate, Verified 05/01/25 08:25) facial paralysis metformin Adverse Reaction (Intermediate, Verified 05/01/25 08:25) Diarrhea Medication List - Last Reconciled 05/01/25 by Allyson Magaña MD apixaban (Eliquis) 5 mg PO BID cephalexin 500 mg PO QID cholecalciferol (vitamin D3) 3,000 units PO DAILY digoxin 125 mcg PO DAILY Farxiga (dapagliflozin propanediol) 10 mg PO DAILY NS levothyroxine (Euthyrox) 75 mcg PO DAILY metformin ER 750 mg PO DAILY metoprolol tartrate 100 mg PO BID Saccharomyces boulardii (Daily Probiotic (S. boulardii)) 250 mg PO BID triamcinolone acetonide 0.1% 1 appl topical BID-TID Tobacco use date assessed: 05/01/25 Fall risk assessment: No Falls in past year Last assessed Fall Risk: 05/01/25 Dental Screening Dental Screen Date: 10/23/24 HPI Annual/OK for annual HPI Details Pt presents for PE. [facility] Medical History (Updated 05/01/25 @ 16:02 by Allyson Magaña MD) HENRIK (obstructive sleep apnea) Atrial fibrillation DM type 2 (diabetes mellitus, type 2) HENRIK on CPAP Hypothyroidism Numerous skin moles Postmenopausal Vitamin D deficiency Hx of mammogram Surgical History Hx of section Hx of tonsillectomy Hx of colonoscopy History of bunionectomy Hx of shoulder surgery Family History Father CAD (coronary artery disease) COPD (chronic obstructive pulmonary disease) Mother COPD (chronic obstructive pulmonary disease) Family/Other Liver disease Social History Household Members: None Household Members Other:: lives alone, 2 adults Housing: House Do you presently have visiting nurse or other home services: No Alcohol intake: current Alcohol intake frequency: holidays/special occasions only Patient Tobacco Use Status: Never used Tobacco e-Cigarette/Vaping Use: Never Used service: No Current occupational status: retired Cognitive needs: No Hearing needs: No Vision needs: No Questionnaire PHQ-9 Over the last 2 weeks, how often have you been bothered by any of the following problems? 1. Little interest or pleasure in doing things: not at all 2. Feeling down, depressed, or hopeless: not at all 3. Trouble falling or staying asleep, or sleeping too much: not at all 4. Feeling tired or having little energy: not at all 5. Poor appetite or overeating: not at all 6. Feeling bad about yourself - or that you are a failure or have let yourself or your family down: not at all 7. Trouble concentrating on things, such as reading the newspaper or watching television: not at all 8. Moving or speaking so slowly that other people could have noticed. Or the opposite - being so fidgety or restless that you have been moving around a lot more than usual: not at all 9. Thoughts that you would be better off or of hurting yourself in some way: not at all Total score: 0 Depression Screening Interpretation: Negative Depression Screening Done: Yes Source: Developed by Drs. Devang Ji, Peg Wilde, Alen Garcia and colleagues, with an educational mahnaz from [employer]. Thrive Questionnaire Date Thrive assessed: 10/16/24 I am a: Patient What is your living situation today?: I have a steady place to live Within the past 12 months, did the food you bought not last and you didn't have the money to get more?: Never true Within the past 12 months, did you worry whether your food would run out before you got money to buy more?: Never true Do you have trouble paying for medicines?: No Do you have trouble getting transportation to medical appointments?: No Do you have trouble paying your heating and electricity bill?: No Do you have trouble taking care of your child, family member or friend?: No Do you have trouble with day-to-day activities such as bathing, preparing meals, shopping, managing finances, etc.?: No Are you currently unemployed and looking for a job?: No Are you interested in more education?: No Please select the resources that you would like help with: None Currently or been in a relationship where the following occur: No concerns reported THRIVE Score: 0 SHERI-7 AMB Questionnaire SHERI-7 Date SHERI - 7 assessed: 10/23/24 Feeling nervous, anxious, or on edge: 0 = Not at all Not being able to stop or control worryin = Not at all Worrying too much about different things: 0 = Not at all Trouble relaxin = Not at all Being so restless that it is hard to sit still: 0 = Not at all Becoming easily annoyed or irritable: 0 = Not at all Feeling afraid as if something awful might happen: 0 = Not at all Total SHERI-7 score (0-4 normal; 5-9 mild; 10-14 moderate; 15-21 severe): 0 Source: Developed by Drs. Devang Ji, Peg Wilde, Alen Garcia and colleagues, with an educational mahnaz from [employer]. Review of Systems Const All systems reviewed & are unremarkable except as noted in HPI and below Eyes Reports no additional complaints ENT Reports no additional complaints Card Reports no additional complaints Resp Reports no additional complaints GI Reports no additional complaints Reports no additional complaints Physical exam (Primary Care) Vital Signs: Last Vital Signs Temp 97.8 F 05/01/25 08:25 Pulse 95 05/01/25 08:25 Resp 16 05/01/25 08:25 BP 110/74 05/01/25 08:25 Pulse Ox 97 05/01/25 08:25 Oxygen Delivery Method Room Air 05/01/25 08:25 BMI result Body Mass Index 27.1 Tobacco/Smoking Status: Tobacco use Status Tobacco use date assessed 05/01/25 05/01/25 08:32 Patient Tobacco Use Status Never used Tobacco 05/01/25 08:32 e-Cigarette/Vaping Use Never Used 05/01/25 08:32 PHQ-9: PHQ-9 Score PHQ-9: Total score 0 05/01/25 09:06 Depression Screening Interpretation: Negative Thrive Assessment: Date of Thrive Assessment Date Thrive assessed 10/16/24 05/01/25 08:32 Currently or been in a relationship where the following occur: No concerns reported Const General: no acute distress HENMT Head: Yes normal to inspection General nose exam: Normal external nose present Face and sinus: Yes normal facial exam Mouth: Normal oral and palatal mucosa present Throat: Yes posterior oropharynx normal Eyes General: appearance normal, both eyes and all related structures Neck Neck: Yes no lymphadenopathy and Yes supple Resp Effort & Inspection: normal respiratory effort Auscultation: clear to auscultation bilaterally Cardio Rhythm: regular rhythm Heart sounds: S1 normal heart sound present and S2 normal heart sound present GI Inspection: Yes normal to inspection Palpation (GI): Soft to palpation Auscultation: normal bowel sounds Extrem General: Yes no clubbing, cyanosis or edema Coding Level of Care Code Est Pt Prev Care >65y(44469) Diagnoses Hypothyroidism E03.9 Atrial fibrillation I48.91 DM type 2 (diabetes mellitus, type 2) E11.9 Assessment & Plan Assessment & Plan (1) Hypothyroidism: Code(s): E03.9 - Hypothyroidism, unspecified Category: Medical Plan: Continue levothyroxine (2) Atrial fibrillation: Comment: Echo normal ejection fraction, LVH, mild MR 09/08, rate controlled on metoprolol Code(s): I48.91 - Unspecified atrial fibrillation Category: Medical Plan: Anticoagulated on Eliquis and rhythm controlled on digoxin and metoprolol (3) DM type 2 (diabetes mellitus, type 2): Code(s): E11.9 - Type 2 diabetes mellitus without complications Category: Medical Plan: A1c is 6.6, continue ADA diet increase exercise weight loss discussed with the patient continue metformin and Farxiga, follow-up in 6 months with a fasting labs before Orders: Orders Comprehensive [place]. Panel Fast 6 Months E03.9 - Hypothyroidism, unspecified, E11.9 - Type 2 diabetes mellitus without complications, I10 - Essential (primary) hypertension, I48.91 - Unspecified atrial fibrillation, R73.9 - Hyperglycemia, unspecified Hemoglobin A1c 6 Months E03.9 - Hypothyroidism, unspecified, E11.9 - Type 2 diabetes mellitus without complications, I10 - Essential (primary) hypertension, I48.91 - Unspecified atrial fibrillation, R73.9 - Hyperglycemia, unspecified Lipid Panel 6 Months E03.9 - Hypothyroidism, unspecified, E11.9 - Type 2 diabetes mellitus without complications, I10 - Essential (primary) hypertension, I48.91 - Unspecified atrial fibrillation, R73.9 - Hyperglycemia, unspecified Microalbumin, Random (w Creat) 6 Months E03.9 - Hypothyroidism, unspecified, E11.9 - Type 2 diabetes mellitus without complications, I10 - Essential (primary) hypertension, I48.91 - Unspecified atrial fibrillation, R73.9 - Hyperglycemia, unspecified Complete Blood Count Auto Diff 6 Months E03.9 - Hypothyroidism, unspecified, E11.9 - Type 2 diabetes mellitus without complications, I10 - Essential (primary) hypertension, I48.91 - Unspecified atrial fibrillation, R73.9 - Hyperglycemia, unspecified TSH reflex Free T4 6 Months E03.9 - Hypothyroidism, unspecified, E11.9 - Type 2 diabetes mellitus without complications, I10 - Essential (primary) hypertension, I48.91 - Unspecified atrial fibrillation, R73.9 - Hyperglycemia, unspecified Medications: Refilled levothyroxine (Euthyrox) 75 mcg PO DAILY 90 tabs 3RF
--- OUTSIDE RECORDS SUMMARY | 2025-05-01 08:39 | XMS_ITS | Encounter Summary ---
Author Organization [facility] Address [address] [place] [address] Care Team Providers Care Inspector And Mender Name Role Phone Allyson Magaña MD Primary Care Provider [phone] Encounter Details Date Type Department Care Team (Late st Contact Info) Description 07/23/2024 Lab Requisition [facility] - Main Lab [address] [facility] [place] [address] Cora Parr III, MD [address] [place] [address] [place] [phone] Disorder of pigmentation, unspecified Social History Tobacco [...] peripheral margins negative 07/24/2024 11:14 AM EST [facility] HOSPITAL LAB Clinical Information Atypical skin lesion left arm Suture short superior long lateral L81.9 07/24/2024 11:14 AM [facility] Gross Description A. Arm, Left, [...] green. The specimen is sectioned cruciate manner. Cigar Making Machine Supervisor sections, to include the entirety of the lesion, are submitted in four cassettes as follows: 1, cruciate medial and lateral tips (medial tip inked green), two pieces 2-4, sequential cross-sections to include the entirety of the lesion, two pieces each LINUS 07/24/2024 11:14 AM [facility] Disclaimer Unless otherwise specified, all tissue is 10% NB formalin fixed and paraffin embedded. 07/24/2024 11:14 AM [facility] Tissue Structure of left upper limb / Unknown 07/23/2024 07/23/2024 3:25 PM EST us Cora Parr III, MD LAB PATHOLOGY ORDERABLES Fi nal Result [facility] [address] [place] [address], documented in this encounter Visit Diagnoses Diagnosis Disorder of pigmentation, unspecified documented in this encounter Care Teams Inspector And Mender Relationship Specialty Start Date End Date Allyson Magaña MD PCP - General Internal Medicine 07/15/21 documented as of this encounter
--- OUTSIDE RECORDS SUMMARY | 2025-05-01 08:39 | XMS_ITS | Clinical Summary ---
Author Organization [facility] Address [address] [place] [address] Care Team Providers Care Timber Grader Name Role Phone Rebecca Hernandez MD Primary [...] 1-dose 75+ series) 2022 Influenza Vaccine (#1) 2025 Shingrix-Zoster Vaccine Completed 10/06/19 19, 08/06/2018 Hepatitis B Vaccines Aged Out No long er eligible based on patient's age to complete this topic RSV Ped < 20 months Aged Out No longe r eligible based on patient's age to complete this topic Care Teams Timber Grader Relationship Specialty Start Date End Date Rebecca Hernandez MD [address] [facility] [place] [address] PCP - General Internal Medicine 12/13/18
--- OUTSIDE RECORDS SUMMARY | 2025-05-01 08:39 | XMS_ITS | Patient Health Record ---
Author Organization [facility] Address [address] [facility] [place] [address] Care Team Providers Care Men'S Designer Name Role Phone Allyson Magaña MD Primary Care Provider UnavailChandu Keenan Unavailable [phone] Allergies Allergen (clinical drug ingredient) Drug/Non Drug [...] primary osteoarthritis of the ankle and/or foot (850443591) Primary osteoarthrit is, right ankle and foot (M19.071) Active confirmed Problem Localized, primary osteoarthritis of the ankle and/or foot (813228836) Primary osteoarthrit is, left ankle and foot (M19.072) Active confirmed Problem Acquired hammer toe of right foot (9902170839016690) Other hammer toe(s) (acquired), right foot (M20.41) Active confirmed Problem Acquired hammer toe of left foot (8654457243421846) Other hammer toe(s) (acquired), left foot (M20.42) [...] [employer] [address] [place] [address] [id number] Charla Gregorio Self - patient is the insured [facility] [address] [place] [id number] Charla Gregorio Self - patient is [...]
--- OUTSIDE RECORDS SUMMARY | 2025-05-01 08:40 | XMS_ITS | Patient Health Record ---
Author Organization [facility] Address [address] [place] [address] Care Team Providers Care Manufacturing Engineering Technologist Name Role Phone Allyson Magaña MD Primary Care Provider Americo Jimenez Jr Unavailable Allergies No Known Allergies Results Component Value Reference Range Notes Glucose, Whole Blood Reviewed date:07/19/2024 09:24:46 PM Interpretation: Performing Lab:[facility], [address] [place] [phone] Notes/Report: Glucose, Whole Blood 161 60-115 mg/dL METER # : [id number] Reason For Referral No Information Medications Medication [...] Status Risk Notes Problem Colon cancer screening (847092993) Colon cancer screening (Z12.11) Active confirmed Problem Long-term current use of anticoagulant (678948303) access manager (current) use of anticoagulants (Z79.01) Active confirmed Problem Long-term current use of drug therapy (962748926) half-way (current) use of oral hypoglycemic drugs (Z79.84) Active confirmed Vital Signs Temperature 96.9 degrees Fahrenheit 05/01/2024 Blood pressure diastolic 00 mm Hg 05/01/2024 Height 5 ft 8.5 in in 05/01/2024 Blood pressure systolic 000 mm Hg 05/01/2024 Weight 188 lb 2 oz lbs 05/01/2024 BMI 28.19 kg/m2 05/01/2024 Encounters Encounter Location Date Provider Diagnosis [facility] [address] [place] [phone] 07/19/2024 Americo David Jr Colon cancer screening Z12.11 and Personal history of colonic polyps Z86.[address] [address] 05/01/2024 Americo David Jr Colon cancer screening Z12.11 ; access manager (current) use of anticoagulants Z79.01 and half-way (current) use of oral hypoglycemic drugs Z79.[address] [address] 07/15/2024 Americo David Jr Assessments Encounter Date [...] Farxiga 3 days before the procedure 05/01/2024 access manager (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 We discussed risks and benefits of the procedure today. She understands these and agrees to proceed. This will be scheduled at her convenience. She is advised to stop Eliquis and Farxiga 3 days before the procedure 05/01/2024 access manager (current) use of oral hypoglycemic drugs (ICD-10 [...] Date MEDICARE OF [place] [address] [place] [address] [id number] YOKO ERAZO Self - patient is the insured [facility] [address] [place] [phone] [id number] YOKO ERAZO Self - patient is the insured Medical (General) History Medical History History ICD Code Atrial fibrillation Elevated blood sugar HENRIK/CPAP Vitamin D deficiency Hypertension Colonoscopy 2019, colon polyp, five-year followup Surgical History Surgery Date(Month/Year) Hospitalization History Reason Date(Month/Year) Atrial fibrillation with rapid ventricul ar response 09/07
--- OUTSIDE RECORDS SUMMARY | 2025-05-01 08:40 | XMS_ITS | Data Portability ---
Author Organization [place] [facility], [facility] Address [address] [place] [address] Care Team Providers Care Double Reamer Operator Name Role Phone DEBBIERADHA Primary Care Provider Assessment No assessment recorded. Plan of Treatment Reminders Order Date Submit Date Provider Last Modified By Organization Details Last Modified Time Details Appointments None record ed. Lab None record ed. Referral None record ed. Procedures None record ed. Surgeries None record ed. Imaging XR, knee, 4 or more view - 2 024 02/07/20 [email or web address] [facility], [address] [facility] [address], [address], [place], [address], 12:56:59 Medication Orders None record ed. Patient [...] a4ajBk vP9nXo QUaueC m3YtLR FvZlgJ JJ8mAn HZtai3 3z4125 AC0Kra 3qGWaT eUC8mr 84%3D INTERFACE [facility] [address], [place], [address], 02/07/2024 08:49:53 02/07/20 24 02/07/2024 XR, knee, 4 or more view http:/ [email or web address] ?Encry pted=s hACarolyno YD8dLq bEUv6g %2BXZw aYqtaq 0bqfl% 2Fg9IQ a4ajBk vP9nXo QUaueC m3YtLR FvZlgJ JJ8mAn HZtai3 6z4569 AC0Kra 3qGWaT eUC8mr 84%3D INTERFACE [facility] Office [address] [facility] [address], [place], [address], 02/07/2024 08:49:55 Result Notes Documentation Provider Name and Address Organization Details Recorded Time Xr, Knee, 4 Or More View : [email or web address]? Encrypted=rvRrChoKI1nBmfL Uv6g%4UDIenLsrmt4iyvu%2Fg 7EZo9zmVucX5xYiSHepfAz8Qp NQOiCpyQWQ8vQhOSizd92x326 8ZR9Mth0zEMpWrEX0sx00%3D Not Available [facility] 02/07/2024 08:4 9:54 Xr, Knee, 4 Or More View : [email or web address]? Encrypted=rgIeKwcKM8sWlsM Uv6g%9KSUrzKrvoe9nfah%2Fg 8RLm8heMvlS7hKgQBwdgWi6Qw OEIkRzuAXP9vZlYVqgo81h695 6MP5Xug4pVUuXeYN7xq30%3D Not Available [facility] 02/07/2024 08:4 9:56 Problems Name Problem SNOMED Code Status Onset Date Resolution Date Notes Provider Name and Address Organization Details Recorded Time No complaints 057073791 Active Status : 'I'; Not Available [facility] 4 09:11:46 Pain of joint of knee 3566603056 Active 2021 Status : 'A'; Not Available [facility] 4 11:12:58 Osteoarthr itis of right knee joint 0306757464030 00 Active 2024 Denita Zuleta PA-C [address], [place], [address] , [facility] 12:50:17 Problem Notes None recorded. Procedures Surgical History Date Name Laterality Status Provider Name and Address Organization Details Recorded Time 5 Gel-One Knee Injection completed Denita Zuleta PA-C [address], [place], [address], [facility] 01/14/2025 12:50:18 5 Gel-One Knee Injection completed Denita Zuleta PA-C [address], [place], [address], [facility] 07/12/2024 08:29:29 4 Sports Knee 4&1 completed Andrea Lemon PA-C [address], [place], [address], [facility] 02/07/2024 09:30:16 Imaging Results None recorded. Procedure Notes None recorded. Medical Equipment None Reported. Allergies Allergen ID Allergen Name Allergen Category Reaction Reaction Severity Criticality Documentation Date Start Date Code Code System Note Provider Name and Address Organization Details Recorded Time 339753 Compazine medicatio n Not available Not available Not available 07/12/202435373 6 RxNorm [facility] 11:05:54 Medications Name Sig Start Date [...] Updated DateTime 07/12/2024 170.18 cm 29.4 kg/m2 54347.37 g kushal cheatham [facility] 07/12/2024 11:05:02 Date Recorded Body height Body mass index (BMI) Body weight Provider Name and Address Organization Details Last Updated DateTime 01/14/2025 170.18 cm 29.4 kg/m2 38761.37 g Naveen Terrell [facility] 01/14/2025 12:17:41 Date Recorded Body height Body mass index (BMI) Body weight Provider Name and Address Organization Details Last Updated DateTime 02/07/2024 170.18 cm 29.4 kg/m2 63771.37 g IVORY HUDDLESTON [facility] 02/07/2024 08:33:47 Social History None recorded. Functional Status None recorded. Mental Status None recorded. Family History Nothing Reported. Medical History No medical history recorded. Gynecological HistoryNo gynecological history recorded. Obstetrics History GPAL:G 0 P 0 0 0 0 Past Encounters Encounter ID Performer Location Encounter Start Date Encounter Closed Date Diagnosis/Indication Diagnosis SNOMED-CT Code Diagnosis ICD10 Code Diagnosis IMO Codes Diagnosis Note [id number] CELESTE Valente [address] [place] [address] 02/07/2024 08:01:25 03/13/2024 13:17:48 Pain of right knee joint 7594076426 01366 M25.561 Patellof[facility] oral syndrome of right knee 1459438237 118314 M22.2X1 [id number] Denita Zuleta PA-C [facility] [address] [place] [address] 07/12/2024 10:32:09 07/23/2024 15:48:22 Osteoarthritis of right knee joint 6010866329 45765 M17.11 5873216 [id number] [facility] [address] [place] [address] 01/14/2025 11:55:47 01/20/2025 11:02:57 Osteoarthritis of right knee joint 6476190613 48142 M17.11 [id number] Health Concerns Section Related Observation LastModified by Organization Detai ls LastModified Time None Recorded Concern Status LastModified by Organization Details LastModified Time None Recorded Advance Directives Directive None Recorded Payers Insurance Date Sequence Insurance Name Policy Number Policy Quezada Covered Member ID Quezada Member ID Guarantor Name 01/11/2025 [employer] - SPECIALITY CLAIMS (MEDICARE DME REGION A) Charla Gregorio [id number] Charla Gregorio 01/14/2025 1 MEDICARE B-[place] [facility] Charla Gregorio [id number] Charla Gregorio 01/20/2025 2 [employer] - PLAN 1 (MEDICARE SUPPLEMENT) [id number] Charla Gregorio [id number] Charla Gregorio Notes Date Note Type Note [...] intact. X-rays ordered, obtained and reviewed at [facility] 4 views right knee reveals preserved [...] if no improvement. Andrea Lemon PA-C [address] [facility] [address], [place], [address], [facility] 02/07/2024 09:30:30 07/12/2024 text/html [...] next 24-48 hours. Follow-up as symptoms dictate. [employer] speech recognition senior counsel software was used to create portions of this document. An attempt at proofreading has been made to minimize errors. Please call for corrections. Denita Zuleta PA-C [address] [place] [address], [address], [facility] 07/12/2024 12:46:39 01/14/2025 text/html I am seeing [...] next 24-48 hours. Follow-up as symptoms dictate. [employer] speech recognition senior counsel software was used to create portions of this document. An attempt at proofreading has been made to minimize errors. Please call for corrections. Denita Zuleta PA-C [address], [place], [address], [facility] 01/14/2025 12:50:58 OBGyn Episode No OBEpisode recorded.
--- OUTSIDE RECORDS SUMMARY | 2025-05-01 08:40 | XMS_ITS | Clinical Summary ---
Author Organization [facility] Address [address] [place] [address] Phone Care Team Providers Care Parking Lot Attendant Name Role Phone Allyson Magaña MD Primary Care Provider [phone] Surgical History Surgery Date Site/Laterality Comments SECTION [...] classified as having normal bone density. The [facility] Department of Internal Medicine recommends [...] beclassified as having normal bone density. The [facility] Department of Internal Medicine recommendsusing [...] fracture risk by FRAX. Tamiko Nielsen MD [facility] DXA PROCEDURES Final Res ult from Last 3 Months or Most Recently Relevant to Health Maintenance Insurance MEDICARE [facility] Care Teams Parking Lot Attendant Relationship Specialty Start Date End Date Allyson Magaña MD PCP - General Internal Medicine 07/15/21
== END 2025-05-01 09:16 | disposition home or self-care (01) ==
LOC: HO.HMCC 08:22
PROVIDERS: PCP Internal Medicine; Visit Provider Internal Medicine
DX: Z00.00 Encounter for general adult medical examination without abnormal findings (principal); I48.91 Unspecified atrial fibrillation; E11.9 Type 2 diabetes mellitus without complications; E03.9 Hypothyroidism, unspecified

== ENCOUNTER → 2025-05-01 08:21 | Outpatient (BNVA) | payer MEDICARE, OTHER, SELFPAY | PROVIDERS: PCP Internal Medicine; Visit Provider Internal Medicine | DX: E11.9 Type 2 diabetes mellitus without complications (principal); E03.9 Hypothyroidism, unspecified; I48.91 Unspecified atrial fibrillation | CPT/HCPCS: 96127; 99397 ==

== ENCOUNTER 2025-05-27 08:10 | Outpatient (AMB) | payer MEDICARE, OTHER, SELFPAY ==
--- OUTSIDE RECORDS SUMMARY | 2024-02-12 03:00 | XMS_ITS ---
Author Organization [facility] Address [address] [place] [address] Care Team Providers Care Room Service Clerk Name Role Phone Allyson Magaña MD Primary Care Provider Unavaila Chandu Guillory Unavailable [phone] REASON FOR VISIT Wart(s) Medications Medication SIG [...] Active Encounters Encounter Location Date Provider Diagnosis [facility] [address] [place] [address] 02/12/2024 Chandu Salazar Primary osteoarthritis, right ankle [...] pin-point bleeding margins with sterile surgical blade ([id number]), silver nitrate chemocautery applied, recomm. Wartstick 40 percent Salicylic acid application under occlusion as directed Progress Notes * Charla GREGORIO BDOB:1944 (80 yo F)Acc No.[id number]:02/12/2024 Progress Notes Patient: Charla CALLEJAS Memo Provider: Jude Chisholm DPM :1945 A ge:78 Y S ex:Female Date:02/12/2024 Address:[address] [place] [address] [id number] Pcp:Allyson Magaña MD Subjective: * Chief Complaints: [...] enies. C ardiovascular: Pacemaker d enies. M MEDICAL EDUCATION SPECIALIST d enies. W PW d enies. C [...] pin-point bleeding margins with sterile surgical blade ([id number]), silver nitrate chemocautery applied, recomm. Wartstick 40 [...] 02/12/2024 Generated for Smita mejia/Bailey/Mikeitting on: 1 07/28/2024 08:31 AM EST History and Physical Notes * [...]
--- OUTSIDE RECORDS SUMMARY | 2024-07-19 02:30 | XMS_ITS ---
Author Organization [facility] Address [address] [place] [phone] Care Team Providers Care Hosiery Repairer Name Role Phone Allyson Magaña MD Primary Care Provider UnavailAmerico Hollingsworth Jr Unavailable REASON FOR VISIT screening Encounters Encounter Location Date Provider Diagnosis [facility] [address] [place], [place] [id number] 07/19/2024 Americo David Jr Colon cancer screening Z12.11 and Personal history of colonic polyps Z86.0100 Assessments Encounter Date Diagnosis (ICD Code) Assessment Notes Treatment Notes Treatment Clinical Notes Section Notes 07/19/2024 Colon cancer screening (ICD-10 - Z12.11) 07/19/2024 Personal history of colonic polyps (ICD-10 - Z86.0100) Plan Of Treatment No Information Progress Notes * YOKO ERAZO BDOB:1944 (80 yo F)Acc No.[id number]:07/19/2024 COLON WITH MAC Patient: YOKO CALLEJAS Provider: Memo David MD :1945 A ge:79 Y S ex:Female Date:07/19/2024 Address:[address] [place] [address] [id number] Pcp:Allyson Magaña MD Subjective: * Chief Complaints: * S creening Assessment: * Assessment: 1. C olon cancer screening - Z12.11 (Primary) 2 . P ersonal history of colonic polyps - Z86.0100 Plan: * Procedure Codes: 4 5378 DIAGNOSTIC [id number] INTRVL 3+YRS PTS CLNSCP [id number] RCMND FLW-UP 10 YRS DOCD Billing Information: * Procedure Codes: 30125 DIAGNOSTIC COLONOSCOPY. 0529F INTRVL 3+YRS PTS CLNSCP DOCD. 0528F RCMND FLW-UP 10 YRS DOCD. * The named appointment provid er may or may not be the originator of this progress note, and it is not deemed complete until electronically signed by the appointment provider. Sign off status: Pending * Provider: Memo David MD Date: 0 07/19/2024 Generated for Smita mejia/Bailey/Mikeitting on: 07/28/2024 08:32 AM EST
[2025-05-27 08:31] VITALS: BP 118/76; PULSE 77; O2SAT 95; BMI 26.5
--- NOTE | 2025-05-27 08:31 | MHC.OFFWIV ---
Intake Vital Signs 05/27/25 08:31 Height 5 ft 8.5 in Weight 177 lb BMI 26.5 BP 118/76 Blood Pressure Location Rt brachial Position Sitting Pulse 77 Pulse Source Pulse Oximeter Pulse Oximetry (%) 95 Oxygen Delivery Method Room Air Intake Visit Reasons: EP RT eye redness/swelling Intake Note: Patient presents c/o right eye swelling/pain/redness since yesterday. Patient Tobacco Use Status: Never used Tobacco Allergies prochlorperazine (From Compazine) Allergy (Intermediate, Verified 05/27/25 08:34) facial paralysis HPI HPI Comments History of Present Illness Details History of Present Illness - The patient is a 80 year old female presenting with an itchy, swollen, and red right upper eyelid. - She first noticed herself rubbing her eye yesterday, which was followed by itchiness and swelling. - The swelling and redness are more pronounced today than last night. - Associated symptoms include a sensation of dry eyes. - She states the eye is not painful but the eyelid is. - She denies any drainage, or changes in vision. - She attempted a warm compress last night without any improvement. - The patient is concerned about possible conjunctivitis as she has upcoming travel plans. - She has a past history of a stye that required lancing approximately 40 years ago, which she was told was related to mascara use. - Her granddaughter has a recent history of recurrent styes. -TNT LINE SUPERVISOR student Haydee Wilson conducted HPI [facility] Medical History (Updated 05/01/25 @ 16:02 by Allyson Magaña MD) HENRIK (obstructive sleep apnea) Atrial fibrillation DM type 2 (diabetes mellitus, type 2) HENRIK on CPAP Hypothyroidism Numerous skin moles Postmenopausal Vitamin D deficiency Hx of mammogram Surgical History Hx of section Hx of tonsillectomy Hx of colonoscopy History of bunionectomy Hx of shoulder surgery Family History Father CAD (coronary artery disease) COPD (chronic obstructive pulmonary disease) Mother COPD (chronic obstructive pulmonary disease) Family/Other Liver disease Social History Household Members: None Household Members Other:: lives alone, 2 adults Housing: House Do you presently have visiting nurse or other home services: No Alcohol intake: current Alcohol intake frequency: holidays/special occasions only Patient Tobacco Use Status: Never used Tobacco e-Cigarette/Vaping Use: Never Used service: No Current occupational status: retired Cognitive needs: No Hearing needs: No Vision needs: No Review of Systems Narrative Review of Systems - Eyes: Reports eye itchiness, swelling, and redness. - Denies ocular pain, drainage, or visual changes. - Reports a sensation of dry eyes. All systems reviewed and are unremarkable except as noted in HPI Const All systems reviewed & are unremarkable except as noted in HPI and below Physical Exam Exam Exam: Physical Exam General: Cooperative, healthy appearing, comfortable, no acute distress and well developed Orientation: Patient oriented x3 Limitations: No limitations Head: Normal to inspection Ears: Hearing grossly normal bilaterally Nose: Normal External nose present Face and sinus: Normal facial exam Eyes: Appearance normal, both eyes and all related structures; noted 0.25cm area of swelling and erythema on the right upper inner eyelid, no drainage, no injection Neck: Normal visual inspection and Yes full ROM Respiratory: Normal respiratory effort and able to speak in complete sentences. Skin: No rashes or lesions noted Neuro: Patient oriented x3 Extremities: Normal to inspection Vital Signs: Last Vital Signs Pulse 77 05/27/25 08:31 BP 118/76 05/27/25 08:31 Pulse Ox 95 05/27/25 08:31 Oxygen Delivery Method Room Air 05/27/25 08:31 BMI result Body Mass Index 26.5 Assessment & Plan Assessment & Plan (1) Hordeolum externum of right upper eyelid: Code(s): H00.011 - Hordeolum externum right upper eyelid Plan Patient was informed and verbally consented to the use of an ambient scribe for clinic note documentation during this visit. Hordeolum Of Right Upper Eyelid - The patient's symptoms are consistent with a hordeolum, which is a clogged gland. - Recommended frequent application of warm compresses, almost hourly if possible, to help dissolve the blockage. - An antibiotic ointment will be prescribed and sent to [facility] pharmacy for the patient to have on hand, especially for her upcoming travel. - Advised to continue with warm compresses for one to two days and to start the antibiotic ointment if the condition worsens or does not improve. - Provided instructions on how to apply the ointment by placing a small ribbon on the inner waterline of the lower eyelid and blinking to distribute it to the upper lid. - Bdyr-emo-jdzrdjg sty drops are not recommended as their efficacy is not supported by evidence-based medicine. Medications: New erythromycin Apply to left eye 4 times a day while awake 0.5 inches ophthalmic (eye) QID 3.5 grams 0RF Coding Level of Care Code Est Pt Level 3 (35945) Diagnoses Hordeolum externum of right upper eyelid H00.011
--- OUTSIDE RECORDS SUMMARY | 2025-05-27 08:31 | XMS_ITS | Clinical Summary ---
Author Organization [address] [facility] Prior to 11/16/24 Address [address] [place] [address] Care Team Providers Care Astronomy Department Chair Name Role Phone Rebecca Hernandez MD Primary [...] age to complete this topic Care Teams Astronomy Department Chair Relationship Specialty Start Date End Date Rebecca Hernandez MD [address] [facility] [place] [id number] PCP - General Internal Medicine 12/13/18
--- OUTSIDE RECORDS SUMMARY | 2025-05-27 08:31 | XMS_ITS | Encounter Summary ---
Author Organization [facility] Address [address] [place] [address] Care Team Providers Care Stripping Cutter And Winder Name Role Phone Allyson Magaña MD Primary Care Provider [phone] Encounter Details Date Type Department Care Team (Late st Contact Info) Description 07/23/2024 Lab Requisition [facility] - Main Lab [address] [facility] [place] [address] Cora Parr III, MD [address] [place] [address] [place] [phone] Disorder of pigmentation, unspecified Social History Tobacco [...] peripheral margins negative 07/24/2024 11:14 AM EST [facility] at 1114 EST Clinical Information Atypical skin lesion left arm Suture short superior long lateral L81.9 07/24/2024 11:14 AM [facility] Gross Description A. Arm, [...] green. The specimen is sectioned cruciate manner. Pasteurizer Helper sections, to include the entirety of the lesion, are submitted in four cassettes as follows: 1, cruciate medial and lateral tips (medial tip inked green), two pieces 2-4, sequential cross-sections to include the entirety of the lesion, two pieces each LINUS 07/24/2024 11:14 AM [facility] Disclaimer Unless otherwise specified, all tissue is 10% NB formalin fixed and paraffin embedded. 07/24/2024 11:14 AM [facility] Tissue Structure of left upper limb / Unknown 07/23/2024 07/23/2024 3:25 PM EST us Cora Parr III, MD LAB PATHOLOGY ORDERABLES Fi nal Result [facility] [address] [place] [address], documented in this encounter Visit Diagnoses Diagnosis Disorder of pigmentation, unspecified documented in this encounter Care Teams Stripping Cutter And Winder Relationship Specialty Start Date End Date Allyson Magaña MD PCP - General Internal Medicine 07/15/21 documented as of this encounter
--- OUTSIDE RECORDS SUMMARY | 2025-05-27 08:31 | XMS_ITS | Patient Health Record ---
Author [facility] Address [address] [place] [address] Care Team Providers Care Farm Agent Name Role Phone Allyson Magaña MD Primary Care Provider UnavailChandu Keenan Unavailable [phone] Allergies Allergen (clinical drug ingredient) Drug/Non Drug [...] primary osteoarthritis of the ankle and/or foot (167933869) Primary osteoarthrit is, right ankle and foot (M19.071) Active confirmed Problem Localized, primary osteoarthritis of the ankle and/or foot (304387017) Primary osteoarthrit is, left ankle and foot (M19.072) Active confirmed Problem Acquired hammer toe of right foot (2714646719987563) Other hammer toe(s) (acquired), right foot (M20.41) Active confirmed Problem Acquired hammer toe of left foot (6804166957287515) Other hammer toe(s) (acquired), left foot (M20.42) [...] [employer] [address] [place] [address] [id number] Charla Gregorio Self - patient is the insured [facility] [address] [place] [address] [phone] [id number] Charla Gregorio Self - patient is [...]
--- OUTSIDE RECORDS SUMMARY | 2025-05-27 08:32 | XMS_ITS | Clinical Summary ---
Author Organization [facility] Address [address] [place] [address] Phone Care Team Providers Care Cull Grader Name Role Phone Allyson Magaña MD Primary Care Provider [phone] Surgical History Surgery Date Site/Laterality Comments SECTION [...] on file Sexual Orientation Not on file Plan of Treatment Health Maintenance Due Date [...] on the World Health Organization criteria, Charla Gregoroi should be classified as having normal bone density. The [facility] Department of Internal Medicine recommends using [...] beclassified as having normal bone density. The [facility] Department of Internal Medicine recommendsusing National [...] fracture risk by FRAX. Tamiko Nielsen MD [facility] DXA PROCEDURES Final Res ult from Last 3 Months or Most Recently Relevant to Health Maintenance Insurance MEDICARE [facility] Care Teams Cull Grader Relationship Specialty Start Date End Date Allyson Magaña MD PCP - General Internal Medicine 07/15/21
--- OUTSIDE RECORDS SUMMARY | 2025-05-27 08:32 | XMS_ITS ---
Author Name [facility] Organization Unknown Care Team Organization Name Specialty Phone Email Start Date End Da te [facility] Termed, PROVIDER Primary Care 04/26/202201/17
--- OUTSIDE RECORDS SUMMARY | 2025-05-27 08:32 | XMS_ITS | Patient Health Record ---
Author Organization [facility] Address [address] [place] [address] Care Team Providers Care Manager Medical Writing Name Role Phone Gómez MAYORGA, Allyson Primary Care Provider Americo Jimenez Jr Unavailable Allergies No Known Allergies Results Component Value Reference Range Flag Notes Glucose, Whole Blood Reviewed date:07/19/2024 09:24:46 PM Interpretation: Performing Lab:[facility], [address] [place] [phone] Notes/Report: Glucose, Whole Blood 161 60-115 mg/dL H NM TER #: [id number] Reason For Referral No Information Medications Medication SIG (Take, Route, Frequency, Duration) Notes Start Date End Date Status Vitamin D (Ergocalciferol) 50 MCG (1999) Capsule 1 capsule Orally Once a day; Duration: 30 day(s) Active Levothyroxine Sodium 75 MCG Tablet Oral; Duration: 90 Active Eliquis 5 MG Tablet Oral; Duration: 90 Active Farxiga 10 MG Tablet Oral; Duration: 90 Active Metoprolol Tartrate 100 MG Tablet TAKE 1 TABLET BY MOUTH TWICE DAILY Oral; Duration: 90 Active Digoxin 125 MCG Tablet TAKE 1 TABLET BY MOUTH ONCE DAILY Oral; Duration: 90 Active Probiotic - Tablet Chewable as directed Orally Active Immunizations Vaccine Route Administration Date Status Comme nts Influenza Unknown 04/29/2024 Administered Social History Tobacco Use: Social History Observation Description Date Details (start date - stop date) Never Smoker NA - NA Social History Drugs/Alcohol: Social Info Question Answer Notes Alcohol Screen Did you have a drink containing alcohol in the past year? Yes How often did you have a drink containing alcohol in the past year? 2 to 4 times a month (2 points) How many drinks did you have on a typical day when you were drinking in the past year? 1 or 2 drinks (0 point) How often did you have 6 or more drinks on one occasion in the past year? 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) Active confirmed Problem Long-term current use of drug therapy (305804329) skilled nursing (current) use of oral hypoglycemic drugs (Z79.84) Active confirmed Encounters Encounter Location Date Provider Diagnosis [facility] [address] [place] [phone] 07/19/2024 Americo David Jr Colon cancer screening Z12.11 and Personal history of colonic polyps Z86.0100 [facility] [address] [place] [address] 07/15/2024 Americo David Jr Assessments Encounter Date Diagnosis (ICD Code) Assessment Notes Treatment Notes Treatment Clinical Notes Section Notes 07/19/2024 Colon cancer screening (ICD-10 - Z12.11) 07/19/2024 Personal history of colonic polyps (ICD-10 - Z86.0100) Plan Of Treatment Future Test Test Name Order Date COLONOSCOPY 05/01/2024 Insurance Providers Payer Name Payer Address Payer Phone Subscriber Number Group Number Insured Name Patient Relationship to Insured Coverage Start Date Coverage End Date MEDICARE OF [place] [address] [id number] [facility] [place] [address] [id number] Castillo Self - patient is the insured [facility] [address] [place] [address] [phone] [id number] YOKO ERAZO Self - patient is the insured Medical (General) History Medical History History ICD Code Atrial fibrillation Elevated blood sugar HENRIK/CPAP Vitamin D deficiency Hypertension Colonoscopy 2019, colon polyp, five-year followup Surgical History Surgery Date(Month/Year) Hospitalization History Reason Date(Month/Year) Atrial fibrillation with rapid ventricul ar response 09/07
== END 2025-05-27 08:56 | disposition home or self-care (01) ==
PROVIDERS: PCP Internal Medicine; Visit Provider Physician Assistant
DX: H00.011 Hordeolum externum right upper eyelid (principal)

== ENCOUNTER → 2025-05-27 08:10 | Outpatient (BNVA) | payer MEDICARE, OTHER, SELFPAY | PROVIDERS: PCP Internal Medicine; Visit Provider Physician Assistant | DX: H00.011 Hordeolum externum right upper eyelid (principal) | CPT/HCPCS: 99212 ==